=== PATIENT | female | born 1980 | race Caucasian/White ===

== ENCOUNTER 2017-02-02 20:58 | Inpatient (IN) | payer OTHER ==
[~2017-02-02] VITALS: Ht 154.9 cm; Wt 79.5 kg
[~2017-02-02 20:58] MED LIST: ADVIN25/60 INH; ALBU1AER9 INH; CALC-51 PO; CITA40TA4 PO; FERR325T5 PO; MULT-506 PO; OMEP20TA PO
--- NOTE | 2017-02-02 22:03 | EMERGENCY ROOM VISIT NOTE ---
History Report prepared by Amparo: Ingrid Esipnal Under the Supervision of: Lee Ann AntoineO. First contact with patient: 21:49 Chief Complaint: MENTAL HEALTH EVALUATION Stated Complaint: MENTAL HEALTH History of Present Illness The patient is a 36 year old female who presents to the Emergency Room for a mental health evaluation after feeling increasing stress today. The patient states that she has been feeling more stressed out recently and it has been building for a long time. She reports that she has a history of mental health issues and is on medications but note that she missed her medication doses. She notes that she has had multiple episodes of vomiting with the extreme stressed and this has happened before. The patient states that her extreme stress has made her feel more depressed. Her family notes that she has been on the same medication for years and has not seen a psychiatrist to update it. The patient denies any suicidal or homicidal ideation, hallucinations, diarrhea, hematemesis , fever, chills, unusual foods, and changes in medication. She notes that she feels tired but she cannot sleep and this is normal when she is depressed. The patient states that she is on her period and has a history of needing blood transfusion. Source of History: patient Onset: today Position: other (mental health) Quality: other (increased stress) Timing: constant Associated Symptoms: + vomiting, No fevers, No chills, No diarrhea Note: Pt notes worsening depression. The patient denies any suicidal or homicidal ideation, hallucinations, hematemesis, unusual foods, and changes in medication. Review of Systems See HPI for pertinent positives & negatives. A total of 10 systems reviewed and were otherwise negative. Past Medical & Surgical Medical Problems: (1) Anemia (2) Asthma (3) Bipolar 1 disorder (4) Endometriosis (5) GERD (gastroesophageal reflux disease) (6) h/o suicidal ideations (7) HTN (hypertension) (8) Marijuana use (9) Psychosis NOS (10) Tobacco abuse (11) UTI (urinary tract infection) Surgical Problems: (1) Hx of tubal ligation Family History Diabetes mellitus MOTHER FH: heart disease MOTHER ( at age 51 ) Hypertension FATHER MOTHER Social History Smoking Status: Current Every Day Smoker Alcohol Use: none Drug Use: none Marital Status: in relationship Housing Status: lives with family Current/Historical Medications Scheduled Citalopram (Citalopram Hydrobromide), 40 TAB PO DAILY Ferrous Sulfate (Kp Ferrous Sulfate), 1 TAB PO BID Fluticasone Prop/Salmeterol (Advair Diskus 250/50 60 Dose), 1 PUFF INH BID Multivitamin (Multivitamin), 1 TAB PO DAILY Omeprazole (Omeprazole), 20 MG PO DAILY Allergies Coded Allergies: Penicillins (Unverified Allergy, Unknown, RASH, 02/02/17) Physical Exam Vital Signs Date Time Temp Pulse Resp B/P (MAP) Pulse Ox O2 Delivery O2 Flow Rate FiO2 02/03/17 04:43 70 18 156/86 98 Room Air 02/03/17 03:29 79 18 145/85 98 Room Air 02/03/17 01:48 73 18 151/106 96 Room Air 02/02/17 21:14 36.8 85 20 187/126 96 Physical Exam GENERAL: alert, well appearing, well nourished, no distress, non-toxic EYE EXAM: normal conjunctiva, PERRL and EOM's grossly intact OROPHARYNX: no exudate, no erythema, lips, buccal mucosa, and tongue normal and mucous membranes are moist NECK: supple, no nuchal rigidity, no adenopathy, non-tender LUNGS: Clear to auscultation. Normal chest wall mechanics HEART: no murmurs, S1 normal and S2 normal ABDOMEN: abdomen soft, non-tender, normo-active bowel sounds, no masses, no rebound or guarding. BACK: Back is symmetrical on inspection and there is no deformity, no midline tenderness, no CVA tenderness. SKIN: no rashes and no bruising UPPER EXTREMITIES: upper extremities are grossly normal. LOWER EXTREMITIES: No pitting edema. NEURO EXAM: Normal sensorium, cranial nerves II-XII grossly intact, normal speech, no gross weakness of arms, no gross weakness of legs. PSYCH: Flat affect, slow to respond but oriented, denies SI, HI, paranoia, hallucinations. Medical Decision & Procedures Laboratory Results 02/02/17 23:06 Red Blood Count 4.75, Mean Corpuscular Volume 89.9, Mean Corpuscular Hemoglobin 31.4, Mean Corpuscular Hemoglobin Concent 34.9, Mean Platelet Volume 11.7, Neutrophils (%) (Auto) 77.7, Lymphocytes (%) (Auto) 14.1, Monocytes (%) (Auto) 7.2, Eosinophils (%) (Auto) 0.7, Basophils (%) (Auto) 0.2, Neutrophils # (Auto) 8.08, Lymphocytes # (Auto) 1.46, Monocytes # (Auto) 0.75, Eosinophils # (Auto) 0.07, Basophils # (Auto) 0.02 02/02/17 23:06 Test 02/02/17 21:35 02/02/17 23:06 Urine Color ORANGE Urine Appearance CLOUDY (CLEAR) Urine pH 7.0 (4.5-7.5) Urine Specific [place] 1.010 (1.000-1.030) Urine Protein 1+ (NEG) Urine Glucose (UA) NEG (NEG) Urine Ketones 2+ (NEG) Urine Occult Blood 3+ (NEG) Urine Nitrite NEG (NEG) Urine Bilirubin NEG (NEG) Urine Urobilinogen NEG (NEG) Urine Leukocyte Esterase LARGE (NEG) Urine WBC (Auto) >30 /hpf (0-5) Urine RBC (Auto) >30 /hpf (0-4) Urine Hyaline Casts (Auto) 1-5 /lpf (0-5) Urine Epithelial Cells (Auto) 20-30 /lpf (0-5) Urine Bacteria (Auto) 1+ (NEG) Urine Opiates Screen NEG (NEG) Urine Methadone, Qualitative NEG (NEG) Urine Barbiturates NEG (NEG) Urine Phencyclidine (PCP) Level NEG (NEG) Ur Amphetamine/Methamphetamine NEG (NEG) MDMA (Ecstasy) Screen NEG (NEG) Urine Benzodiazepines Screen NEG (NEG) Urine Cocaine Metabolite NEG (NEG) Urine Marijuana (THC) POS (NEG) White Blood Count 10.39 K/uL (4.8-10.8) Red Blood Count 4.75 M/uL (4.2-5.4) Hemoglobin 14.9 g/dL (12.0-16.0) Hematocrit 42.7 % (37-47) Mean Corpuscular Volume 89.9 fL (80-100) Mean Corpuscular Hemoglobin 31.4 pg (25-34) Mean Corpuscular Hemoglobin Concent 34.9 g/dl (32-36) Platelet Count 220 K/uL (130-400) Mean Platelet Volume 11.7 fL (7.4-10.4) Neutrophils (%) (Auto) 77.7 % Lymphocytes (%) (Auto) 14.1 % Monocytes (%) (Auto) 7.2 % Eosinophils (%) (Auto) 0.7 % Basophils (%) (Auto) 0.2 % Neutrophils # (Auto) 8.08 K/uL (1.4-6.5) Lymphocytes # (Auto) 1.46 K/uL (1.2-3.4) Monocytes # (Auto) 0.75 K/uL (0.11-0.59) Eosinophils # (Auto) 0.07 K/uL (0-0.5) Basophils # (Auto) 0.02 K/uL (0-0.2) RDW Standard Deviation 44.9 fL (36.4-46.3) RDW Coefficient of Variation 13.6 % (11.5-14.5) Immature Granulocyte % (Auto) 0.1 % Immature Granulocyte # (Auto) 0.01 K/uL (0.00-0.02) Anion Gap 11.0 mmol/L (3-11) Est Creatinine Clear Calc Drug Dose 126.1 ml/min Estimated GFR () 135.7 Estimated GFR (Non- 117.1 BUN/Creatinine Ratio 7.8 (10-20) Calcium Level 9.5 mg/dl (8.5-10.1) Magnesium Level 2.1 mg/dl (1.8-2.4) Total Bilirubin 0.5 mg/dl (0.2-1) Direct Bilirubin 0.1 mg/dl (0-0.2) Aspartate Amino Transf (AST/SGOT) 15 U/L (15-37) Alanine Aminotransferase (ALT/SGPT) 24 U/L (12-78) Alkaline Phosphatase 78 U/L (45-117) Total Protein 7.5 gm/dl (6.4-8.2) Albumin 3.9 gm/dl (3.4-5.0) Thyroid Stimulating Hormone (TSH) 0.472 uIu/ml (0.300-4.500) Human Chorionic Gonadotropin, Qual NEG (NEG) Ethyl Alcohol mg/dL < 3.0 mg/dl (0-3) Laboratory results per my review. Medications Administered Medications (Trade) Dose Ordered Sig/Alvarado Route Start Time Stop Time Status Last Admin Dose Admin Cephalexin Monohydrate (Keflex Cap) 500 mg NOW ONCE PO 02/02/17 23:30 02/02/17 23:31 DC 02/02/17 23:38 500 MG Phenazopyridine HCl (Pyridium Tab) 200 mg NOW STAT PO 02/03/17 01:21 02/03/17 01:22 DC 02/03/17 01:30 200 MG Ondansetron HCl (Zofran Odt) 4 mg ONE ONCE PO 02/03/17 02:45 02/03/17 02:46 DC 02/03/17 02:45 4 MG Potassium Chloride (Klor-Con M10) 40 meq NOW STAT PO 02/03/17 02:33 02/03/17 02:34 DC 02/03/17 02:46 40 MEQ Haloperidol (Haldol Tab) 5 mg NOW STAT PO 02/03/17 02:34 02/03/17 02:37 DC 02/03/17 02:45 5 MG Lorazepam (Ativan Tab) 0.5 mg NOW STAT PO 02/03/17 02:34 02/03/17 02:37 DC 02/03/17 02:45 0.5 MG ECG Indication: vomiting Rate (beats per minute): 67 Rhythm: normal sinus Findings: T-wave inversion (V2) Change: baseline artifact noted ED Course 9: The patient was evaluated in room A5. A complete history and physical exam was performed. 2330: Keflex Cap 500mg PO. 0028: Pt seen by crisis briefcase sewer, discussed with family, similar presentations previously and hx of prior suicide attempt. Hx of schizophrenia/bipolar. Pt recently took herself off of her meds. 0121: Pyridium Tab 200mg PO. 0202: The patient is going to be seen at [address] [place] [address] for further evaluation and management. 0214: Upon reevaluation, the patient is doing well. I discussed the findings and the treatment plan with the patient. She expresses agreement and understanding. She will be evaluated for further management. 0237: Pt seen by . Voluntary signed. Medical Decision Differential diagnosis: Etiologies such as mood disorder, infection, hypoglycemia, electrolyte abnormalities, cardiac sources, intracerebral event, toxicologic, neurologic, as well as others were entertained. Abnormal UA possibly due to menses and suboptimal specimen however sent for culture and pt started on antibiotics as a precaution. Pt given oral potassium replacement, and given medication to help with her anxiety and lack of sleep. Pt otherwise medically clear. Medication Reconcilliation Current Medication List: was personally reviewed by me Blood Pressure Screening Patient's blood pressure: Elevated blood pressure Blood pressure disposition: Elevated BP felt to be situational Impression Primary Impression: Depression Additional Impressions: Schizophrenia Hypokalemia UTI (urinary tract infection) Scribe Attestation The scribe's documentation has been prepared under my direction and personally reviewed by me in its entirety. I confirm that the note above accurately reflects all work, treatment, procedures, and medical decision making performed by me. Departure Information Referrals Eliceo Almodovar M.D. (PCP) Patient Instructions My [facility] Problem Qualifiers Primary Impression: Depression Depression Type: unspecified Qualified Codes: F32.9 - Major depressive disorder, single episode, unspecified Additional Impressions: Schizophrenia Schizophrenia type: unspecified Qualified Codes: F20.9 - Schizophrenia, unspecified UTI (urinary tract infection) Urinary tract infection type: acute cystitis Hematuria presence: with hematuria Qualified Codes: N30.01 - Acute cystitis with hematuria
[2017-02-02 22:44] LABS: BENZODIAZEPINE, URINE NEG (NEG); COCAINE,URINE NEG (NEG); PHENCYCLIDINE, URINE NEG (NEG)
[2017-02-02 22:49] LABS: URINE APPEARANCE CLOUDY (CLEAR); URINE BILIRUBIN NEG (NEG); URINE COLOR ORANGE; URINE EPITHELIAL CELL AUTO 20-30 /lpf (0-5); URINE NITRITE NEG (NEG); UROBILINOGEN NEG (NEG); ZZUR CULT IF INDIC CLEAN CATCH YES
[2017-02-02 22:51] LABS: MANUAL MICROSCOPIC REQUIRED? NO; REVIEW REQ? NO
[2017-02-02 23:18] LABS: BASO % 0.2 %; BASO ABS # 0.02 K/uL (0-0.2); COMPLETE YES; EOS % 0.7 %; HEMATOCRIT 42.7 % (37-47); IG% 0.1 %; LYMPH % 14.1 %; LYMPH ABS # 1.46 K/uL (1.2-3.4); MEAN CELL VOLUME 89.9 fL (80-100); MEAN CORPUSCULAR HEMOGLOBIN 31.4 pg (25-34); MEAN CORPUSCULAR HGB CONC 34.9 g/dl (32-36); MEAN PLATELET VOLUME 11.7 fL (7.4-10.4); MONO % 7.2 %; NEUT % 77.7 %; PLATELET COUNT 220 K/uL (130-400); RED BLOOD COUNT 4.75 M/uL (4.2-5.4); WHITE BLOOD COUNT 10.39 K/uL (4.8-10.8)
[2017-02-02] MEDS ORDERED: CEPHALEXIN MONOHYDRATE 250 MG CAP PO ONE (23:30)
[2017-02-02 23:39] LABS: BUN/CREATININE RATIO 7.8 (10-20); CALCIUM 9.5 mg/dl (8.5-10.1); CREATININE 0.59 mg/dl (0.60-1.20); MAGNESIUM 2.1 mg/dl (1.8-2.4); POTASSIUM 2.8 mmol/L (3.5-5.1)
[2017-02-02] MEDS ORDERED: FERR1TAB13 PO (23:42)
[2017-02-02 23:50] LABS: THYROID STIMULATING HORMONE 0.472 uIu/ml (0.300-4.500)
[2017-02-03 00:10] LABS: PREG INTERNAL NEGATIVE QC NEG CLEAR BACKGROUND; PREG INTERNAL POSITIVE QC POS CONTROL LINE
[2017-02-03] MEDS ORDERED: PHENAZOPYRIDINE HCL 200 MG TAB PO STA (01:21)
[2017-02-03] MEDS ORDERED: POTASSIUM CHLORIDE 10 MEQ TABCR PO STA (02:33)
[2017-02-03] MEDS ORDERED: HALOPERIDOL 5 MG TAB PO STA (02:34)
[2017-02-03] MEDS ORDERED: LORAZEPAM 0.5 MG TAB PO STA (02:34)
[2017-02-03] MEDS ORDERED: ONDANSETRON 4MG OD TAB PO ONE (02:45)
[2017-02-03 04:43] VITALS: O2SAT 98
[2017-02-03] MEDS ORDERED: NURSING VERBAL MED ORDER ONE ×2 (05:00)
[2017-02-03 05:44] VITALS: BP 156/86; PULSE 70; TEMP 36.8; Ht 154.9 cm; Wt 79.5 kg
[2017-02-03] MEDS ORDERED: MAGNESIUM HYDROXIDE SUSP 30 ML UDC PO PRN (05:45)
[2017-02-03] MEDS ORDERED: BISMUTH SUBSALICYLATE PER ML OMNICELL CHARGE PO PRN (05:45)
[2017-02-03] MEDS ORDERED: ACETAMINOPHEN 325 MG TAB PO PRN (05:45)
[2017-02-03] MEDS ORDERED: SODIUM CHLORIDE 0.65% NA SOLN 45 ML (OCEAN) PRN (05:45)
[2017-02-03] MEDS ORDERED: hydrOXYzine HCL 25 MG TAB PO PRN ×2 (05:45)
[2017-02-03 07:04] VITALS: BP 156/86; PULSE 70; TEMP 36.8
--- NOTE | 2017-02-03 08:38 | Psychiatric History & Physical ---
History Date of Service Feb 03, 2017. Identifying Data Lilli Cintron is a 36-year-old female with a self-reported history of schizoaffective disorder who currently lives in [place] with her significant other and two teenage children. Lilli Cintron was admitted on a 201 voluntary commitment. Patient is admitted from home. The patient was brought to the ED by the family. Information provided by the patient is considered to be partially reliable. Chief Complaint "I have my period and I don't have any pads". History of Present Illness Lilli presented to the Emergency Room for a mental health evaluation as she has been increasingly stressed to the point that she has vomited multiple times. She endorsed depression, has been on the same medication for years and has not seen a psychiatrist to adjust it. She was seen with her significant other, who said he left the home about 2 weeks ago because Lilli was "acting the same way she did right before her last admission to the mental health floors. Intense rage one minute, then depressed the next." The patient was a limited historian, was slow to answer, and seemed confused. She reported she hadn't slept for an undetermined amount of days, and hasn't been able to eat. She did not know what her MH diagnosis is, "I can't think". She said she used to have a psychiatrist but has not been able to start again with one because of insurance issues. She denied drug use, but her drug screen was positive for marijuana. She has two children, ages 14 & 15, who live with her. Her significant other said her children told him the patient has been "talking out of her head and not making sense." Initially, she was resistant to the idea of admission, but after talking to the child welfare caseworker, was willing. She is prescribed citalopram currently. She received Haldol and Ativan in the ER as she was delayed, thought blocked, and paranoid. Per notes, she allowed her Medicare to lapse so lost insurance, and has not been compliant with her medication. Today, she says she came to the ER because she was "depressed, constantly thinking, couldn't sleep." She cannot say how this has been going on, "no idea. " She has had mental health issues since she was 4 years old, and says she has been diagnosed with "bipolar schizophrenic." She has seen outpatient mental health clinicians in the past, but cannot recall how long ago. Her PCP currently prescribes her meds, including citalopram. She is not sure if it helps. She describes disorganized thoughts, "just a bunch of stuff that doesn't make no sense." She admits to paranoia, "like I'm scared and thinking people's out to get me and hurt me," but denies a plan or intent to harm herself. Paranoia with fears that she is in danger, "everything, panicking about the epperson and stuff, thinking there's stuff in there." Denies that there were specific people out to get her. Denies AVH and ideas of reference. Admits to thought blocking and feeling confused. She says she has not been doing ADLs or taking care of herself, "I'm doing everything backwards," can't explain further. Not sure when she last bathed, and was not eating, 'I didn't feel hungry." She is not sure if she lost weight, "it says it on the calendar, but I don't know." She has not been making food for herself or her kids, and says they have been making food for her. She says she has been driving to her job at [employer], but is not sure when she last went to work. She thinks she has had euphoric mood in the past "when I was with my family," but cannot give further information. She denies anxiety currently. Past Psychiatric History Current OP Treatment: no current treatment (PCP prescribes medications) Prior OP Treatment: psychiatrist (can't recall whom or when) Prior Psych Hospitalizations: other (Patient denies any past admissions, but her significant other states she has been admitted to [facility] and [facility] in the past. One admission 201 and one 302.) Access to a Gun: No Suicide Attempts: Yes (OD of "pills," unable to clarify when the OD was other than saying it was "years ago. That's when the 302 happened". ) Past Medication Trials Seroquel and Depakote - made her "like a zombie" Past Medical/Surgical History History of Concussion/Seizure: No (1) Anemia (2) GERD (gastroesophageal reflux disease) (3) Tobacco abuse (4) HTN (hypertension) (5) Marijuana use (6) Asthma (7) Endometriosis PCP is Dr. Almodovar , menstruating currently. S/P tubal ligation. Allergies Allergies: Coded Allergies: Penicillins (Unverified Allergy, Unknown, RASH, 02/02/17) Home Medications Scheduled Citalopram (Citalopram Hydrobromide), 40 TAB PO DAILY Ferrous Sulfate (Kp Ferrous Sulfate), 1 TAB PO BID Fluticasone Prop/Salmeterol (Advair Diskus 250/50 60 Dose), 1 PUFF INH BID Multivitamin (Multivitamin), 1 TAB PO DAILY Omeprazole (Omeprazole), 20 MG PO DAILY Family History Diabetes mellitus MOTHER FH: heart disease MOTHER ( at age 51 ) Hypertension FATHER MOTHER Alcohol Use Alcohol Use In Past 12 Months: Yes ("Occassional") AUDIT Total Score: 0 Smoking Use Smoking Status: Never Smoker (but has nicotine abuse listed as chronic medical problem) Personal History Lives in: [place] Childhood: Grew up in [place], raised by both parents until 4 years old, then moved with mom and 2 sisters to another town "[facility] [address]," and dad left and got a new girlfriend. Was then raised by mother predominantly. Mom , not sure when. Is close with sister Jovana, who lives in [place]. Other sister lives in [place]. Also has a half sister She in [place]. No contact with dad, "he was a bad person." Education: graduated from high school ("I was in special classes for everything.") Work History: [employer], cannot say for how long (couple weeks?). Denies that she ever worker before, "thought I couldn't deal with it." Relationship History: ("for a while," cannot recall how long) Children: 2, ages 13 (Rodrigo Arechiga, male), and 15 (Michael Aicha Arechiga, female) Spiritual Affiliation: "I believe in God." Legal History: none Psychological Trauma History: Denies Hx Traumatic Event Additional Comments: States left at some point, "to get away from me," can't recall when. Has been living with kids alone for undetermined amount of time. Says her kids have not been going to school "for a while" and have been staying home with her "to help me, because they know I have a problem." She is not sure who is caring for her kids now. She says her sister is supportive and lives in [place]. Review of Systems 10 systems reviewed, all negative except diarrhea and vomiting yesterday, and those stated above. Examination Physical Examination A physical exam was performed in the ER prior to admission to the unit by Dr. Lilia Davenport. I accept that physical as correct/medical clearance for the inpatient physical exam. Vital Signs Vital Signs Past 12 Hours Date Time Temp Pulse Resp B/P (MAP) Pulse Ox O2 Delivery O2 Flow Rate FiO2 02/03/17 07:04 36.8 70 18 156/86 02/03/17 05:44 36.8 70 18 156/86 02/03/17 04:43 70 18 156/86 98 Room Air 02/03/17 03:29 79 18 145/85 98 Room Air 02/03/17 01:48 73 18 151/106 96 Room Air 02/02/17 21:14 36.8 85 20 187/126 96 Laboratory Results Last 24 Hours Test 02/02/17 21:35 02/02/17 23:06 02/03/17 05:12 Urine Color ORANGE Urine Appearance CLOUDY Urine pH 7.0 Urine Specific [place] 1.010 Urine Protein 1+ Urine Glucose (UA) NEG Urine Ketones 2+ Urine Occult Blood 3+ Urine Nitrite NEG Urine Bilirubin NEG Urine Urobilinogen NEG Urine Leukocyte Esterase LARGE Urine WBC (Auto) >30 /hpf Urine RBC (Auto) >30 /hpf Urine Hyaline Casts (Auto) 1-5 /lpf Urine Epithelial Cells (Auto) 20-30 /lpf Urine Bacteria (Auto) 1+ Urine Opiates Screen NEG Urine Methadone, Qualitative NEG Urine Barbiturates NEG Urine Phencyclidine (PCP) Level NEG Ur Amphetamine/Methamphetamine NEG MDMA (Ecstasy) Screen NEG Urine Benzodiazepines Screen NEG Urine Cocaine Metabolite NEG Urine Marijuana (THC) POS White Blood Count 10.39 K/uL Red Blood Count 4.75 M/uL Hemoglobin 14.9 g/dL Hematocrit 42.7 % Mean Corpuscular Volume 89.9 fL Mean Corpuscular Hemoglobin 31.4 pg Mean Corpuscular Hemoglobin Concent 34.9 g/dl Platelet Count 220 K/uL Mean Platelet Volume 11.7 fL Neutrophils (%) (Auto) 77.7 % Lymphocytes (%) (Auto) 14.1 % Monocytes (%) (Auto) 7.2 % Eosinophils (%) (Auto) 0.7 % Basophils (%) (Auto) 0.2 % Neutrophils # (Auto) 8.08 K/uL Lymphocytes # (Auto) 1.46 K/uL Monocytes # (Auto) 0.75 K/uL Eosinophils # (Auto) 0.07 K/uL Basophils # (Auto) 0.02 K/uL RDW Standard Deviation 44.9 fL RDW Coefficient of Variation 13.6 % Immature Granulocyte % (Auto) 0.1 % Immature Granulocyte # (Auto) 0.01 K/uL Sodium Level 137 mmol/L Potassium Level 2.8 mmol/L 3.0 mmol/L Chloride Level 103 mmol/L Carbon Dioxide Level 24 mmol/L Anion Gap 11.0 mmol/L Blood Urea Nitrogen 5 mg/dl Creatinine 0.59 mg/dl Est Creatinine Clear Calc Drug Dose 126.1 ml/min Estimated GFR () 135.7 Estimated GFR (Non- 117.1 BUN/Creatinine Ratio 7.8 Random Glucose 91 mg/dl Calcium Level 9.5 mg/dl Magnesium Level 2.1 mg/dl Total Bilirubin 0.5 mg/dl Direct Bilirubin 0.1 mg/dl Aspartate Amino Transf (AST/SGOT) 15 U/L Alanine Aminotransferase (ALT/SGPT) 24 U/L Alkaline Phosphatase 78 U/L Total Protein 7.5 gm/dl Albumin 3.9 gm/dl Thyroid Stimulating Hormone (TSH) 0.472 uIu/ml Human Chorionic Gonadotropin, Qual NEG Ethyl Alcohol mg/dL < 3.0 mg/dl Chemistry Specimen Hemolysis Mental Examination During interview pt is: alert and oriented (to year, date, day, month, hospital (but not specific name). Not to town, county, or state.) Appearance: appropriately dressed, appropriately groomed Eye contact is: fair Motor behavior is: steady gait & station, no abnormal motor movements Speech: normal in rate, rhythm & volume (delayed at times) Affect: mood congruent, depressed, other (confused) Mood is: depressed Thought process: concrete, other (gives vague answers, at times answers with unrelated information) Thought content: reality based without delusions Suicidal thought are: present, Plan: denied, Intent: denied Homicidal thoughts are: denied Hallucinations: denies auditory (but appears to be responding to internal stimuli at times), denies visual Cognition: language grossly intact, other (memory and attention) Intelligence estimated to be: below average Insight: impaired Judgement: impaired Impression / Recommendations Impression 36-year-old white female with a self-reported history of schizophrenia and bipolar disorder who presents with psychosis, including paranoia, thought blocking, and severe thought disorganization. She has not been able to function or care for herself, and indicates that her left her alone with HER-2 minor children because of how mentally unstable she was. She has not been eating, performing ADLs, going to work, or caring for her children due to her psychosis. She is a very poor historian due to her psychotic thought process, but indicates that she does not have any mental health providers and is only prescribed citalopram from her PCP. She requires inpatient treatment due to the severity of her psychotic illness and the need for appropriate medication, as well as intervention regarding the situation at home, including a mandated CYS report, family meeting with her , and referral for appropriate outpatient mental healthcare. Inpatient treatment as the least restrictive option at this time. Inventory Assets Strengths: Supportive family, has housing Risk Factors Assessment : Yes /single/: No Higher / Fall in social status: No Access to guns: No Health problems: Yes Mental Health Diagnoses: Yes Substance use disorders: Yes Previous attempt: Yes Previous psychiatric stay: Yes Hopelessness: No Smoker: No Protective Factors Assessment Taoism beliefs: Yes : Yes Responsible for young children: Yes Employed: Yes Stable relationships: No Supportive family: Yes (sister) Good rapport with provider: No Recommendations (1) Psychosis NOS Attempt to get records and collateral to clarify diagnosis. Very disorganized, and poor historian. Differential diagnosis includes substance induced psychosis , schizoaffective disorder, psychotic depression, schizophrenia. Continue citalopram 40mg daily and monitor mood. Start risperidone 0.5mg bid and 0.5mg q 4 hrs prn psychosis, and get fasting labs tomorrow for baseline on an atypical antipsychotic. Reviewed need for an antipsychotic and side effects. Will need psychiatric aftercare. Family meeting with . Advised patient a mandated CYS report will be made due to her report that left her with 2 minor children while she was psychiatrically unstable and they have not been going to school. (2) Marijuana use Educate about the risks of cannabis use, including worsening mood and psychosis , and recommendations for abstinence. She indicates she knows she should not smoke pot, but has continued to do so for unclear reasons. Continue to educate and work on plan for abstinence as psychosis improves. (3) HTN (hypertension) Not on antihypertensives at home, will monitor BP here. (4) Asthma Continue home meds. (5) UTI (urinary tract infection) UA shows 2+ ketones, 3+ blood, large leukocyte esterase, greater than 30 white cells and red cells, and 1+ bacteria. This may be a contaminated sample, has 20 -30 epithelial cells, but we will follow up on the urine culture. The patient denies urinary urgency, frequency, and dysuria. CPT Code Initial Hospital Care: [id number]
[2017-02-03] MEDS ORDERED: RISPERIDONE 0.5 MG TAB PO PRN (10:45)
[2017-02-03] MEDS ORDERED: RISPERIDONE ODT 0.5MG PO ONE (10:45)
[2017-02-03] MEDS: RISPERIDONE ODT 0.5MG PO SCH (21:17)
[2017-02-04 06:50] VITALS: BP_SYST 130; BP_SYST 137; BP_DIAS 85; BP_DIAS 88; PULSE 88; PULSE 90; TEMP 36.7
[2017-02-04] MEDS: RISPERIDONE ODT 0.5MG PO SCH (09:01)
[2017-02-04 09:04] LABS: CHOLESTEROL/HDL RATIO 2.8
[2017-02-04] MEDS: CITALOPRAM 40 MG TAB PO SCH (10:09)
--- NOTE | 2017-02-04 12:02 | Psychiatric Progress Notes ---
Progress Note Date of Service Feb 04, 2017. Interval History Lilli Cintron is a 36-year-old female with a self-reported history of schizoaffective disorder who currently lives in [place] with her significant other and two teenage children. Lilli Cintron was admitted on a 201 voluntary commitment. Patient is admitted from home. The patient was brought to the ED by the family. Information provided by the patient is considered to be partially reliable. Chief Complaint "Not good, I'm confused". Subjective Patient was seen & assessed interval progress reviewed with Nursing. Staff report the patient's significant other, Ed, was contacted and clarified that although they have been together for many years, they are not . He also stated that the patient has been more aggressive and "raging" lately, has been paranoid, thinking that people are after her, and that this has caused problems in their relationship. He said she has not seen a psychiatrist in over 8 years , but previously saw someone in [place]. The patient is attending groups, but is confused, often answering with unrelated information. She has been paranoid, thinking that staff is laughing at her, and lacks insight. Today, the patient is tearful, stating she is confused and worried that "my family won't take me back home." She can't explain this further, and says when she talked to her significant other he told her he'd bring some things from her house. She says she thinks she should "just go home with him today when he comes, take care of what I need to take care of, housework and stuff, I have a job I need to get to, I don't like missing work." She says she came here to "get my meds changed, and it doesn't seem like anyone's changing it." Reviewed her treatment plan and the med changes made. She says she did not sleep at all, but staff recorded 8 hours of sleep and she appeared to sleep well. She gives conflicting reporting about her appetite, "I'm not hungry," "I am hungry, I'm eating." She reports frequent tearfulness, ongoing paranoia, and confusion. She admits to having "rages" which she describes as "yell and scream and holler," admits to throwing and breaking things, but denies aggression towards others. She became increasingly agitated as the interview progressed, saying she wants therapy in [place], and feels she is being "ignored, when I ask you guys a question, when I ask for guidance, you's ignore me." She says she is angry and "has mixed emotions." She repeatedly asks if I am telling her the truth when answering her questions about medications. She asks multiple times what medications she is on, does not seem to remember that she was just given this information. She was encouraged to write these things down in her patient handbook, but states she has difficulty with reading and writing. We reviewed her treatment plan and goals to work on prior to discharge, including getting her on medication for mood stabilization and her thinking, family meeting with her significant other, and arranging aftercare. Sleep Information Total Hours of Sleep: 8.00 Meal Information Percent of Breakfast Consumed: 100 Percent of Lunch Consumed: 100 Percent of Dinner Consumed: 75 Mental Status Exam During interview pt is: alert and oriented Appearance: appropriately dressed, appropriately groomed Eye contact is: poor Motor behavior is: steady gait & station, no abnormal motor movements Speech: normal in rate, rhythm & volume Affect: mood congruent, depressed, tearful, labile, irritable, anxious, other ( confused) Mood is: other ("all over the place.") Thought process: concrete, other (gives vague answers, at times answers with unrelated information) Thought content: reality based without delusions Suicidal thought are: denied Homicidal thoughts are: denied Hallucinations: denies auditory (but appears to be responding to internal stimuli at times), denies visual Cognition: language grossly intact, other (memory and attention impaired by psychosis) Intelligence estimated to be: below average Insight: impaired Judgement: impaired Medication Trials (1) Past Psychiatric Medications Seroquel and Depakote - made her like a zombie Unsure if she has had other med trials Last Edited By: Terese Banegas on Feb 04, 2017 12:01 Impression 36-year-old white female with a self-reported history of schizophrenia and bipolar disorder who presents with psychosis, including paranoia, thought blocking, and severe thought disorganization. She has not been able to function or care for herself, and indicates that her significant other left her a couple of weeks ago because of her instability, so she has been home alone with her 2 minor children. She has not been eating, performing ADLs, going to work, or caring for her children due to her psychosis. She is a very poor historian due to her psychotic thought process, but indicates that she does not have any mental health providers and is only prescribed citalopram from her PCP. She requires inpatient treatment due to the severity of her psychotic illness and the need for appropriate medication, as well as intervention regarding the situation at home, including a mandated CYS report, family meeting with her , and referral for appropriate outpatient mental healthcare. Inpatient treatment as the least restrictive option at this time. Plan (1) Psychosis NOS Attempt to get records and collateral to clarify diagnosis. Very disorganized, and poor historian. Differential diagnosis includes substance induced psychosis , schizoaffective disorder, psychotic depression, schizophrenia. Continue citalopram 40mg daily and monitor mood. Start risperidone 0.5mg bid and 0.5mg q 4 hrs prn psychosis, and get fasting labs tomorrow for baseline on an atypical antipsychotic. Reviewed need for an antipsychotic and side effects. Will need psychiatric aftercare. Family meeting with . Advised patient a mandated CYS report will be made due to her report that left her with 2 minor children while she was psychiatrically unstable and they have not been going to school. 02/04 - fasting lipid profile within normal limits, and fasting glucose elevated at 110. Increase risperidone to 1 mg twice a day. Patient does demonstrate mood lability with significant irritability and tearfulness, but is sleeping well. Consider decreasing citalopram dose if she appears more manic. When she is less psychotic, we should attempt to get more information about past mood stabilizer trials. She is refusing to retrial Depakote. - She is not yet stable enough for a family meeting with her significant other. - She is committable if she requests to leave, as she has severely unstable mood and psychosis, is not available to provide for her own basic needs, and had not been caring for herself at home to the point that she had hypokalemia. (2) Marijuana use Educate about the risks of cannabis use, including worsening mood and psychosis , and recommendations for abstinence. She indicates she knows she should not smoke pot, but has continued to do so for unclear reasons. Continue to educate and work on plan for abstinence as psychosis improves. (3) HTN (hypertension) Not on antihypertensives at home, will monitor BP here. 02/04 - blood pressure and pulse normal this morning, continue to monitor. (4) Asthma Continue home meds. (5) UTI (urinary tract infection) UA shows 2+ ketones, 3+ blood, large leukocyte esterase, greater than 30 white cells and red cells, and 1+ bacteria. This may be a contaminated sample, has 20 -30 epithelial cells, but we will follow up on the urine culture. The patient denies urinary urgency, frequency, and dysuria. 02/04 - preliminary culture results are positive for Streptococcus species, awaiting final culture and sensitivity. She may need antibiotic treatment. (6) Hypokalemia 02/04/17 - On initial presentation in the emergency room 02/02/2017, potassium was 2.8, and on recheck 02/03/2017 and was 3.0. She is eating well here, and I have ordered a basic metabolic panel for tomorrow. Discharge / Aftercare Planning Primary Care Physician: Name: Dr Almodovar Therapist: Name: "I use to have one in [place]" Electromechanical Inspector: Name: Blanca Visit Code E&M Code: 46506 Inventory Assets Strengths: Supportive family, has housing Risk Factors Assessment : Yes /single/: No Higher / Fall in social status: No Health problems: Yes Mental Health Diagnoses: Yes Substance use disorders: Yes Previous attempt: Yes Previous psychiatric stay: Yes Hopelessness: No Smoker: No Protective Factors Assessment Presybeterian beliefs: Yes : Yes Responsible for young children: Yes Employed: Yes Stable relationships: No Supportive family: Yes (sister) Good rapport with provider: No Data Vital Signs Last 24 Hrs: Date Time Temp Pulse Resp B/P (MAP) Pulse Ox O2 Delivery O2 Flow Rate FiO2 02/04/17 06:50 36.7 90 16 137/88 88 130/85 Meds Administered Last 24 Hrs: Meds Administered (Past 24Hrs) Medications (Trade) Dose Ordered Sig/Alvarado Route Start Time Stop Time Status Last Admin Dose Admin Cephalexin Monohydrate (Keflex Cap) 500 mg NOW ONCE PO 02/02/17 23:30 02/02/17 23:31 DC 02/02/17 23:38 500 MG Phenazopyridine HCl (Pyridium Tab) 200 mg NOW STAT PO 02/03/17 01:21 02/03/17 01:22 DC 02/03/17 01:30 200 MG Ondansetron HCl (Zofran Odt) 4 mg ONE ONCE PO 02/03/17 02:45 02/03/17 02:46 DC 02/03/17 02:45 4 MG Potassium Chloride (Klor-Con M10) 40 meq NOW STAT PO 02/03/17 02:33 02/03/17 02:34 DC 02/03/17 02:46 40 MEQ Haloperidol (Haldol Tab) 5 mg NOW STAT PO 02/03/17 02:34 02/03/17 02:37 DC 02/03/17 02:45 5 MG Lorazepam (Ativan Tab) 0.5 mg NOW STAT PO 02/03/17 02:34 02/03/17 02:37 DC 02/03/17 02:45 0.5 MG Risperidone (Risperdal M Tab) 0.5 mg BID PO 02/03/17 22:00 03/05/17 21:59 02/04/17 09:01 0.5 MG Risperidone (Risperdal M Tab) 0.5 mg NOW ONCE PO 02/03/17 10:45 02/03/17 10:46 DC 02/03/17 12:03 0.5 MG Citalopram Hydrobromide (celeXA TAB) 40 mg QAM PO 02/04/17 10:00 03/06/17 09:59 02/04/17 10:09 40 MG Lab Results Last 24 Hrs: Last 24 Hours Test 02/04/17 08:18 Fasting Glucose 110 mg/dl Triglycerides Level 72 mg/dl Cholesterol Level 123 mg/dl HDL Cholesterol 44 mg/dl LDL Cholesterol, Calculated 65 mg/dl VLDL Cholesterol, Calculated 14 mg/dl Cholesterol/HDL Ratio 2.8
[2017-02-04] MEDS ORDERED: RISPERIDONE 1 MG TAB PO PRN (12:15)
[2017-02-04] MEDS ORDERED: NURSING VERBAL MED ORDER ONE (16:15)
[2017-02-04] MEDS ORDERED: NITROFURANTOIN MONOHYDRATE 100 MG CAP PO ONE (17:30)
[2017-02-04] MEDS: NITROFURANTOIN MONOHYDRATE 100 MG CAP PO SCH (21:45)
[2017-02-04] MEDS: RISPERIDONE 1 MG TAB PO SCH (21:45)
[2017-02-05 07:06] VITALS: BP_SYST 132; BP_SYST 139; BP_DIAS 80; BP_DIAS 84; PULSE 108; PULSE 96; TEMP 37.1
[2017-02-05 07:44] LABS: CALCIUM 9.4 mg/dl (8.5-10.1); CREATININE 0.69 mg/dl (0.60-1.20); POTASSIUM 3.9 mmol/L (3.5-5.1)
[2017-02-05] MEDS: CITALOPRAM 40 MG TAB PO SCH (10:34)
[2017-02-05] MEDS: RISPERIDONE 1 MG TAB PO SCH (10:34)
[2017-02-05] MEDS: NITROFURANTOIN MONOHYDRATE 100 MG CAP PO SCH ×2 (10:34→21:37)
--- NOTE | 2017-02-05 12:20 | Psychiatric Progress Notes ---
Progress Note Date of Service Feb 05, 2017. Interval History Lilli Cintron is a 36-year-old female with a self-reported history of schizoaffective disorder who currently lives in [place] with her significant other and two teenage children. Lilli Cintron was admitted on a 201 voluntary commitment. Patient is admitted from home. The patient was brought to the ED by the family. Information provided by the patient is considered to be partially reliable. Chief Complaint "I think people are out to get me.". Subjective Patient was seen & assessed interval progress reviewed with Treatment Team. The patient says that she got her period today and is feeling very tired, which is not usual for her. Says she normally takes daily iron pills daily for this. She admits to ongoing paranoia, saying that she feels people here are out to get her and is paranoid about the food. She was able to ask me if that is true and we processed. She denies that she is having any aud/vis hallucinations. Her thoughts are very concrete, ie I asked her if she was sleeping ok and she said, "No, I'm here talking to you.", but when rephrased says that she slept well last night. She denies other side effects to meds other than fatigue. Review of Systems Constitutional: + fatigue ENT: No hearing loss, No unusual epistaxis, No nasal symptoms, No sore throat, No tinnitus, No dental problems, No trouble swallowing, No problem reported Respiratory: No cough, No sputum, No wheezing, No shortness of breath, No dyspnea on exertion, No dyspnea at rest, No hemoptysis, No problem reported Cardiovascular: No chest pain, No orthopnea, No PND, No edema, No claudication , No palpitations, No problem reported Abdomen: No pain, No nausea, No vomiting, No diarrhea, No constipation, No GI bleeding, No problem reported Musculoskeletal: No joint pain, No muscle pain, No swelling, No calf pain, No problem reported Neurologic: No memory loss, No paralysis, No weakness, No numbness/tingling, No vertigo, No balance problems, No problem reported Psychiatric: + problem reported (paranoid) Integumentary: No rash, No itch, No new/changing skin lesions, No color change , No bleeding, No problem reported Sleep Information Total Hours of Sleep: 6.75 Meal Information Percent of Breakfast Consumed: 0 Percent of Lunch Consumed: 90 Percent of Dinner Consumed: 100 Mental Status Exam During interview pt is: alert and oriented, cooperative Appearance: appropriately dressed, appropriately groomed Eye contact is: fair Motor behavior is: steady gait & station, no abnormal motor movements Speech: normal in rate, rhythm & volume Affect: mood congruent, depressed, anxious Mood is: depressed, other (paranoid) Thought process: concrete Thought content: paranoid, delusions Suicidal thought are: denied Homicidal thoughts are: denied Hallucinations: denies auditory, denies visual Cognition: language grossly intact, other (memory and attention impaired by psychosis) Intelligence estimated to be: below average Insight: impaired Judgement: impaired Medication Trials (1) Past Psychiatric Medications Seroquel and Depakote - made her like a zombie Unsure if she has had other med trials Last Edited By: Terese Banegas on Feb 04, 2017 12:01 Impression The patient just got her period and may contribute to worsening symptoms. Is clearly paranoid, feeling people here are out to get her and that the food has been tampered with. Will increase Risperdal to 1 mg. AM and 2 mg. HS and order her iron supplementation. Plan (1) Psychosis NOS Attempt to get records and collateral to clarify diagnosis. Very disorganized, and poor historian. Differential diagnosis includes substance induced psychosis , schizoaffective disorder, psychotic depression, schizophrenia. Continue citalopram 40mg daily and monitor mood. Start risperidone 0.5mg bid and 0.5mg q 4 hrs prn psychosis, and get fasting labs tomorrow for baseline on an atypical antipsychotic. Reviewed need for an antipsychotic and side effects. Will need psychiatric aftercare. Family meeting with . Advised patient a mandated CYS report will be made due to her report that left her with 2 minor children while she was psychiatrically unstable and they have not been going to school. 02/04 - fasting lipid profile within normal limits, and fasting glucose elevated at 110. Increase risperidone to 1 mg twice a day. Patient does demonstrate mood lability with significant irritability and tearfulness, but is sleeping well. Consider decreasing citalopram dose if she appears more manic. When she is less psychotic, we should attempt to get more information about past mood stabilizer trials. She is refusing to retrial Depakote. - She is not yet stable enough for a family meeting with her significant other. - She is committable if she requests to leave, as she has severely unstable mood and psychosis, is not available to provide for her own basic needs, and had not been caring for herself at home to the point that she had hypokalemia. 02/05 - Increase risperdal to 1 mg. AM and 2 mg. HS for paranoia and delusions (2) Marijuana use Educate about the risks of cannabis use, including worsening mood and psychosis , and recommendations for abstinence. She indicates she knows she should not smoke pot, but has continued to do so for unclear reasons. Continue to educate and work on plan for abstinence as psychosis improves. (3) HTN (hypertension) Not on antihypertensives at home, will monitor BP here. 02/04 - blood pressure and pulse normal this morning, continue to monitor. (4) Asthma Continue home meds. (5) UTI (urinary tract infection) UA shows 2+ ketones, 3+ blood, large leukocyte esterase, greater than 30 white cells and red cells, and 1+ bacteria. This may be a contaminated sample, has 20 -30 epithelial cells, but we will follow up on the urine culture. The patient denies urinary urgency, frequency, and dysuria. 02/04 - preliminary culture results are positive for Streptococcus species, awaiting final culture and sensitivity. She may need antibiotic treatment. (6) Hypokalemia 02/04/17 - On initial presentation in the emergency room 02/02/2017, potassium was 2.8, and on recheck 02/03/2017 and was 3.0. She is eating well here, and I have ordered a basic metabolic panel for tomorrow. Discharge / Aftercare Planning Primary Care Physician: Name: Dr Almodovar Therapist: Name: "I use to have one in [place]" Naval Aircrewman: Name: Blanca Visit Code E&M Code: 98222 Inventory Assets Strengths: Supportive family, has housing Risk Factors Assessment : Yes /single/: No Higher / Fall in social status: No Health problems: Yes Mental Health Diagnoses: Yes Substance use disorders: Yes Previous attempt: Yes Previous psychiatric stay: Yes Hopelessness: No Smoker: No Protective Factors Assessment Jehovah'S Witness beliefs: Yes : Yes Responsible for young children: Yes Employed: Yes Stable relationships: No Supportive family: Yes (sister) Good rapport with provider: No Data Vital Signs Last 24 Hrs: Date Time Temp Pulse Resp B/P (MAP) Pulse Ox O2 Delivery O2 Flow Rate FiO2 02/05/17 07:06 37.1 96 16 139/84 108 132/80 Meds Administered Last 24 Hrs: Meds Administered (Past 24Hrs) Medications (Trade) Dose Ordered Sig/Alvarado Route Start Time Stop Time Status Last Admin Dose Admin Risperidone (Risperdal M Tab) 0.5 mg BID PO 02/03/17 22:00 02/04/17 12:04 DC 02/04/17 09:01 0.5 MG Citalopram Hydrobromide (celeXA TAB) 40 mg QAM PO 02/04/17 10:00 03/06/17 09:59 02/05/17 10:34 40 MG Risperidone (Risperdal Tab) 1 mg BID PO 02/04/17 22:00 02/05/17 11:41 DC 02/05/17 10:34 1 MG Nitrofurantoin Macrocrystals (Macrobid Cap) 100 mg BID PO 02/04/17 22:00 02/11/17 09:01 02/05/17 10:34 100 MG Nitrofurantoin Macrocrystals (Macrobid Cap) 100 mg NOW ONCE PO 02/04/17 17:30 02/04/17 17:31 DC 02/04/17 17:52 100 MG Lab Results Last 24 Hrs: Last 24 Hours Test 02/05/17 06:58 Sodium Level 142 mmol/L Potassium Level 3.9 mmol/L Chloride Level 107 mmol/L Carbon Dioxide Level 27 mmol/L Anion Gap 8.0 mmol/L Blood Urea Nitrogen 10 mg/dl Creatinine 0.69 mg/dl Est Creatinine Clear Calc Drug Dose 106.5 ml/min Estimated GFR () 128.9 Estimated GFR (Non- 111.2 BUN/Creatinine Ratio 15.0 Random Glucose 97 mg/dl Calcium Level 9.4 mg/dl Chemistry Specimen Hemolysis
[2017-02-05] MEDS: FERROUS SULFATE 325 MG TAB PO SCH (17:41)
[2017-02-05] MEDS ORDERED: RISPERIDONE 2 MG TAB PO SCH (22:00)
[2017-02-06 06:42] VITALS: BP_SYST 157; BP_SYST 163; BP_DIAS 100; BP_DIAS 92; PULSE 111; PULSE 96; TEMP 36.8
[2017-02-06] MEDS ORDERED: RISPERIDONE 1 MG TAB PO SCH (09:00)
--- NOTE | 2017-02-06 10:19 | Psychiatric Progress Notes ---
Progress Note Date of Service Feb 06, 2017. Interval History Lilli Cintron is a 36-year-old female with a self-reported history of schizoaffective disorder who currently lives in [place] with her significant other and two teenage children. Lilli Cintron was admitted on a 201 voluntary commitment. Patient is admitted from home. The patient was brought to the ED by the family. Information provided by the patient is considered to be partially reliable. Chief Complaint "I want to go home.". Subjective Patient was seen & assessed interval progress reviewed with Treatment Team. The patient refuses to come to the interview room, not wanting to talk. She says that she wants to go home. She remains paranoid feeling that others here are out to harm her and that the food is contaminated. She did not eat breakfast because of this. She continues to deny aud/vis hallucinations, and denies having "fearful thoughts" when I use that term. She is poorly communicative, laying in bed in a darkened room. She will not engage spontaneously, and responds to questions with minimal answers. She does not appear to be responding to internal stimuli. Review of Systems Constitutional: + fatigue ENT: No hearing loss, No unusual epistaxis, No nasal symptoms, No sore throat, No tinnitus, No dental problems, No trouble swallowing, No problem reported Respiratory: No cough, No sputum, No wheezing, No shortness of breath, No dyspnea on exertion, No dyspnea at rest, No hemoptysis, No problem reported Cardiovascular: No chest pain, No orthopnea, No PND, No edema, No claudication , No palpitations, No problem reported Abdomen: No pain, No nausea, No vomiting, No diarrhea, No constipation, No GI bleeding, No problem reported Musculoskeletal: No joint pain, No muscle pain, No swelling, No calf pain, No problem reported Neurologic: No memory loss, No paralysis, No weakness, No numbness/tingling, No vertigo, No balance problems, No problem reported Psychiatric: + problem reported (paranoid) Integumentary: No rash, No itch, No new/changing skin lesions, No color change , No bleeding, No problem reported Sleep Information Total Hours of Sleep: 8.00 Meal Information Percent of Breakfast Consumed: 0 Percent of Lunch Consumed: 40 Percent of Dinner Consumed: 100 Mental Status Exam During interview pt is: alert and oriented, uncooperative Appearance: appropriately dressed, disheveled Eye contact is: poor Motor behavior is: no abnormal motor movements Speech: other (minimal, nonspontaneous) Affect: mood congruent, depressed, anxious Mood is: depressed, other (paranoid) Thought process: concrete Thought content: paranoid, delusions Suicidal thought are: denied Homicidal thoughts are: denied Hallucinations: denies auditory, denies visual Cognition: language grossly intact, other (memory and attention impaired by psychosis) Intelligence estimated to be: below average Insight: impaired Judgement: impaired Medication Trials (1) Past Psychiatric Medications Seroquel and Depakote - made her like a zombie Unsure if she has had other med trials Last Edited By: Terese Banegas on Feb 04, 2017 12:01 Impression The patient is irritable and poorly cooperative today. She wants to go home, but remains clearly paranoid. She is at times angry, yesterday yelling about the showers being locked. She is here voluntarily, has not submitted a 72 hr notice, although if she does she is committable based on her inability to manipulate information in a reality based manner. Will continue to titrate Risperdal to 3 mg HS and 1 mg. AM and prns. Will need to monitor po intake in view of paranoia. Plan (1) Psychosis NOS Attempt to get records and collateral to clarify diagnosis. Very disorganized, and poor historian. Differential diagnosis includes substance induced psychosis , schizoaffective disorder, psychotic depression, schizophrenia. Continue citalopram 40mg daily and monitor mood. Start risperidone 0.5mg bid and 0.5mg q 4 hrs prn psychosis, and get fasting labs tomorrow for baseline on an atypical antipsychotic. Reviewed need for an antipsychotic and side effects. Will need psychiatric aftercare. Family meeting with . Advised patient a mandated CYS report will be made due to her report that left her with 2 minor children while she was psychiatrically unstable and they have not been going to school. 02/04 - fasting lipid profile within normal limits, and fasting glucose elevated at 110. Increase risperidone to 1 mg twice a day. Patient does demonstrate mood lability with significant irritability and tearfulness, but is sleeping well. Consider decreasing citalopram dose if she appears more manic. When she is less psychotic, we should attempt to get more information about past mood stabilizer trials. She is refusing to retrial Depakote. - She is not yet stable enough for a family meeting with her significant other. - She is committable if she requests to leave, as she has severely unstable mood and psychosis, is not available to provide for her own basic needs, and had not been caring for herself at home to the point that she had hypokalemia. 02/05 - Increase risperdal to 1 mg. AM and 2 mg. HS for paranoia and delusions 02/06 - Increase Risperdal to 1 mg. AM and 3 mg HS - Reality orientation - Monitor po intake in view of paranoia (2) Marijuana use Educate about the risks of cannabis use, including worsening mood and psychosis , and recommendations for abstinence. She indicates she knows she should not smoke pot, but has continued to do so for unclear reasons. Continue to educate and work on plan for abstinence as psychosis improves. (3) HTN (hypertension) Not on antihypertensives at home, will monitor BP here. 02/04 - blood pressure and pulse normal this morning, continue to monitor. (4) Asthma Continue home meds. (5) UTI (urinary tract infection) UA shows 2+ ketones, 3+ blood, large leukocyte esterase, greater than 30 white cells and red cells, and 1+ bacteria. This may be a contaminated sample, has 20 -30 epithelial cells, but we will follow up on the urine culture. The patient denies urinary urgency, frequency, and dysuria. 02/04 - preliminary culture results are positive for Streptococcus species, awaiting final culture and sensitivity. She may need antibiotic treatment. (6) Hypokalemia 02/04/17 - On initial presentation in the emergency room 02/02/2017, potassium was 2.8, and on recheck 02/03/2017 and was 3.0. She is eating well here, and I have ordered a basic metabolic panel for tomorrow. Discharge / Aftercare Planning Primary Care Physician: Name: Dr Almodovar Therapist: Name: "I use to have one in [place]" Clay Temperer: Name: Blanca Visit Code E&M Code: 67288 Inventory Assets Strengths: Supportive family, has housing Risk Factors Assessment : Yes /single/: No Higher / Fall in social status: No Health problems: Yes Mental Health Diagnoses: Yes Substance use disorders: Yes Previous attempt: Yes Previous psychiatric stay: Yes Hopelessness: No Smoker: No Protective Factors Assessment Islam beliefs: Yes : Yes Responsible for young children: Yes Employed: Yes Stable relationships: No Supportive family: Yes (sister) Good rapport with provider: No Data Vital Signs Last 24 Hrs: Date Time Temp Pulse Resp B/P (MAP) Pulse Ox O2 Delivery O2 Flow Rate FiO2 02/06/17 06:42 36.8 96 18 163/100 111 157/92 Meds Administered Last 24 Hrs: Meds Administered (Past 24Hrs) Medications (Trade) Dose Ordered Sig/Alvarado Route Start Time Stop Time Status Last Admin Dose Admin Risperidone (Risperdal Tab) 1 mg BID PO 02/04/17 22:00 02/05/17 11:41 DC 02/05/17 10:34 1 MG Nitrofurantoin Macrocrystals (Macrobid Cap) 100 mg BID PO 02/04/17 22:00 02/11/17 09:01 02/05/17 21:37 100 MG Nitrofurantoin Macrocrystals (Macrobid Cap) 100 mg NOW ONCE PO 02/04/17 17:30 02/04/17 17:31 DC 02/04/17 17:52 100 MG Ferrous Sulfate (Feosol Tab) 325 mg BIDM PO 02/05/17 17:45 03/07/17 17:44 02/05/17 17:41 325 MG Risperidone (Risperdal Tab) 2 mg HS PO 02/05/17 22:00 03/07/17 21:59 02/05/17 21:37 2 MG Lab Results Last 24 Hrs: 02/02/17 23:06 Red Blood Count 4.75, Mean Corpuscular Volume 89.9, Mean Corpuscular Hemoglobin 31.4, Mean Corpuscular Hemoglobin Concent 34.9, Mean Platelet Volume 11.7, Neutrophils (%) (Auto) 77.7, Lymphocytes (%) (Auto) 14.1, Monocytes (%) (Auto) 7.2, Eosinophils (%) (Auto) 0.7, Basophils (%) (Auto) 0.2, Neutrophils # (Auto) 8.08, Lymphocytes # (Auto) 1.46, Monocytes # (Auto) 0.75, Eosinophils # (Auto) 0.07, Basophils # (Auto) 0.02 02/05/17 06:58 Test 02/02/17 21:35 02/02/17 23:06 02/04/17 08:18 02/05/17 06:58 Urine Color ORANGE Urine Appearance CLOUDY (CLEAR) Urine pH 7.0 (4.5-7.5) Urine Specific [place]ran 1.010 (1.000-1.030) Urine Protein 1+ (NEG) Urine Glucose (UA) NEG (NEG) Urine Ketones 2+ (NEG) Urine Occult Blood 3+ (NEG) Urine Nitrite NEG (NEG) Urine Bilirubin NEG (NEG) Urine Urobilinogen NEG (NEG) Urine Leukocyte Esterase LARGE (NEG) Urine WBC (Auto) >30 /hpf (0-5) Urine RBC (Auto) >30 /hpf (0-4) Urine Hyaline Casts (Auto) 1-5 /lpf (0-5) Urine Epithelial Cells (Auto) 20-30 /lpf (0-5) Urine Bacteria (Auto) 1+ (NEG) Urine Opiates Screen NEG (NEG) Urine Methadone, Qualitative NEG (NEG) Urine Barbiturates NEG (NEG) Urine Phencyclidine (PCP) Level NEG (NEG) Ur Amphetamine/Methamphetamine NEG (NEG) MDMA (Ecstasy) Screen NEG (NEG) Urine Benzodiazepines Screen NEG (NEG) Urine Cocaine Metabolite NEG (NEG) Urine Marijuana (THC) POS (NEG) Urine Marijuana (THC Carboxy Acid) 114 NG/ML (CUTOFF=5) White Blood Count 10.39 K/uL (4.8-10.8) Red Blood Count 4.75 M/uL (4.2-5.4) Hemoglobin 14.9 g/dL (12.0-16.0) Hematocrit 42.7 % (37-47) Mean Corpuscular Volume 89.9 fL (80-100) Mean Corpuscular Hemoglobin 31.4 pg (25-34) Mean Corpuscular Hemoglobin Concent 34.9 g/dl (32-36) Platelet Count 220 K/uL (130-400) Mean Platelet Volume 11.7 fL (7.4-10.4) Neutrophils (%) (Auto) 77.7 % Lymphocytes (%) (Auto) 14.1 % Monocytes (%) (Auto) 7.2 % Eosinophils (%) (Auto) 0.7 % Basophils (%) (Auto) 0.2 % Neutrophils # (Auto) 8.08 K/uL (1.4-6.5) Lymphocytes # (Auto) 1.46 K/uL (1.2-3.4) Monocytes # (Auto) 0.75 K/uL (0.11-0.59) Eosinophils # (Auto) 0.07 K/uL (0-0.5) Basophils # (Auto) 0.02 K/uL (0-0.2) RDW Standard Deviation 44.9 fL (36.4-46.3) RDW Coefficient of Variation 13.6 % (11.5-14.5) Immature Granulocyte % (Auto) 0.1 % Immature Granulocyte # (Auto) 0.01 K/uL (0.00-0.02) Magnesium Level 2.1 mg/dl (1.8-2.4) Total Bilirubin 0.5 mg/dl (0.2-1) Direct Bilirubin 0.1 mg/dl (0-0.2) Aspartate Amino Transf (AST/SGOT) 15 U/L (15-37) Alanine Aminotransferase (ALT/SGPT) 24 U/L (12-78) Alkaline Phosphatase 78 U/L (45-117) Total Protein 7.5 gm/dl (6.4-8.2) Albumin 3.9 gm/dl (3.4-5.0) Thyroid Stimulating Hormone (TSH) 0.472 uIu/ml (0.300-4.500) Human Chorionic Gonadotropin, Qual NEG (NEG) Ethyl Alcohol mg/dL < 3.0 mg/dl (0-3) Fasting Glucose 110 mg/dl (70-99) Triglycerides Level 72 mg/dl (0-150) Cholesterol Level 123 mg/dl (0-200) HDL Cholesterol 44 mg/dl LDL Cholesterol, Calculated 65 mg/dl VLDL Cholesterol, Calculated 14 mg/dl Cholesterol/HDL Ratio 2.8 Anion Gap 8.0 mmol/L (3-11) Est Creatinine Clear Calc Drug Dose 106.5 ml/min Estimated GFR () 128.9 Estimated GFR (Non- 111.2 BUN/Creatinine Ratio 15.0 (10-20) Calcium Level 9.4 mg/dl (8.5-10.1) Chemistry Specimen Hemolysis Date/Time Source Procedure Growth Status 02/02/17 21:35 Urine , Clean Catch Urine Culture - Final Enterococcus Faecalis Complete
[2017-02-06] MEDS: FERROUS SULFATE 325 MG TAB PO SCH ×2 (10:23→17:43)
[2017-02-06] MEDS: CITALOPRAM 40 MG TAB PO SCH (10:23)
[2017-02-06] MEDS: NITROFURANTOIN MONOHYDRATE 100 MG CAP PO SCH ×2 (10:23→21:33)
--- NOTE | 2017-02-06 10:25 | Psych Management Progress Note ---
Psychiatry Miscellaneous Date of Service: Feb 06, 2017. Patient seen, MS assessed. Encouraged cooperation with care and treatment plan as outlined by CONFERENCE COORDINATOR. Patient did not attend group. Appears still thought blocked and speech is soft, notes some sedation.
[2017-02-06] MEDS: HALOPERIDOL 5 MG TAB PO PRN ×2 (10:35→17:48)
[2017-02-06] MEDS: RISPERIDONE ODT 1MG PO SCH (21:33)
[2017-02-07 07:05] VITALS: BP 126/84; PULSE 16; PULSE 99; TEMP 36.4
[2017-02-07] MEDS: FERROUS SULFATE 325 MG TAB PO SCH ×2 (09:15→17:42)
[2017-02-07] MEDS: NITROFURANTOIN MONOHYDRATE 100 MG CAP PO SCH ×2 (09:15→21:11)
[2017-02-07] MEDS: RISPERIDONE ODT 1MG PO SCH ×2 (09:15→21:11)
[2017-02-07] MEDS: CITALOPRAM 40 MG TAB PO SCH (09:15)
--- NOTE | 2017-02-07 09:46 | Psychiatric Progress Notes ---
Progress Note Date of Service Feb 07, 2017. Interval History Lilli Cintron is a 36-year-old female with a self-reported history of schizoaffective disorder who currently lives in [place] with her significant other and two teenage children. Lilli Cintron was admitted on a 201 voluntary commitment. Patient is admitted from home. The patient was brought to the ED by the family. Information provided by the patient is considered to be partially reliable. Chief Complaint "You can get me home to my family. ". Subjective Patient was seen & assessed interval progress reviewed with Treatment Team. The patient remains paranoid, not trusting the staff, patients or food here. She is worried about her family, that she is not home with them. She does not feel that she is any better than when she came in, that the meds aren't working. She is irritable and wants discharge, but did not want to sign a 72 hr notice when offered to her yesterday by nursing staff. Yesterday she was paranoid of the food and so containerized food was offered at lunch which only made her mad, saying that she was hungry and wanted real food, which was then provided. She says she is "scared" of everything and tired of feeling this way. She yells, saying that she would take back her behaviors prior to admission if she could. Nursing reports that yesterday the patient went to a group, but upon entering thought the entire group was talking about her. She denies aud/vis hallucinations, SI/HI. Review of Systems Constitutional: No fever, No chills, No sweats, No weight loss, No weakness, No fatigue, No problem reported ENT: No hearing loss, No unusual epistaxis, No nasal symptoms, No sore throat, No tinnitus, No dental problems, No trouble swallowing, No problem reported Respiratory: No cough, No sputum, No wheezing, No shortness of breath, No dyspnea on exertion, No dyspnea at rest, No hemoptysis, No problem reported Cardiovascular: No chest pain, No orthopnea, No PND, No edema, No claudication , No palpitations, No problem reported Abdomen: No pain, No nausea, No vomiting, No diarrhea, No constipation, No GI bleeding, No problem reported Musculoskeletal: No joint pain, No muscle pain, No swelling, No calf pain, No problem reported Neurologic: No memory loss, No paralysis, No weakness, No numbness/tingling, No vertigo, No balance problems, No problem reported Psychiatric: + problem reported (irritability, wanting to go home) Integumentary: No rash, No itch, No new/changing skin lesions, No color change , No bleeding, No problem reported Sleep Information Total Hours of Sleep: 11.75 Meal Information Percent of Breakfast Consumed: 25 Percent of Lunch Consumed: 75 Percent of Dinner Consumed: 60 Mental Status Exam During interview pt is: alert and oriented, guarded Appearance: appropriately dressed, appropriately groomed Eye contact is: fair, poor Motor behavior is: no abnormal motor movements Speech: other (angry, at times yelling) Affect: mood congruent, depressed, anxious Mood is: depressed, angry Thought process: goal directed, concrete Thought content: preoccupation (with going home), paranoid, delusions Suicidal thought are: denied Homicidal thoughts are: denied Hallucinations: denies auditory, denies visual Cognition: language grossly intact, other (memory and attention impaired by psychosis) Intelligence estimated to be: below average Insight: impaired Judgement: impaired Medication Trials (1) Past Psychiatric Medications Seroquel and Depakote - made her like a zombie Unsure if she has had other med trials Last Edited By: Terese Banegas on Feb 04, 2017 12:01 Impression The patient remains irritable and poorly cooperative today. She wants to go home, but remains clearly paranoid. She is at times angry, demanding to go home but refused the offer of a 72 hr notice. I have switched her risperdal to M tab due to concerns she may be vomitting her meds. Today I will add prn ativan to target her anxious distress. She has no insight into her condition, and at this time would not be able to function outside of the hospital due to her paranoia. Plan (1) Psychosis NOS Attempt to get records and collateral to clarify diagnosis. Very disorganized, and poor historian. Differential diagnosis includes substance induced psychosis , schizoaffective disorder, psychotic depression, schizophrenia. Continue citalopram 40mg daily and monitor mood. Start risperidone 0.5mg bid and 0.5mg q 4 hrs prn psychosis, and get fasting labs tomorrow for baseline on an atypical antipsychotic. Reviewed need for an antipsychotic and side effects. Will need psychiatric aftercare. Family meeting with . Advised patient a mandated CYS report will be made due to her report that left her with 2 minor children while she was psychiatrically unstable and they have not been going to school. 02/04 - fasting lipid profile within normal limits, and fasting glucose elevated at 110. Increase risperidone to 1 mg twice a day. Patient does demonstrate mood lability with significant irritability and tearfulness, but is sleeping well. Consider decreasing citalopram dose if she appears more manic. When she is less psychotic, we should attempt to get more information about past mood stabilizer trials. She is refusing to retrial Depakote. - She is not yet stable enough for a family meeting with her significant other. - She is committable if she requests to leave, as she has severely unstable mood and psychosis, is not available to provide for her own basic needs, and had not been caring for herself at home to the point that she had hypokalemia. 02/05 - Increase risperdal to 1 mg. AM and 2 mg. HS for paranoia and delusions 02/06 - Increase Risperdal to 1 mg. AM and 3 mg HS - Reality orientation - Monitor po intake in view of paranoia 02/07 -- Continue Risperdal M - Add Ativan 1 mg. q4h prn agitation (2) Marijuana use Educate about the risks of cannabis use, including worsening mood and psychosis , and recommendations for abstinence. She indicates she knows she should not smoke pot, but has continued to do so for unclear reasons. Continue to educate and work on plan for abstinence as psychosis improves. (3) HTN (hypertension) Not on antihypertensives at home, will monitor BP here. 02/04 - blood pressure and pulse normal this morning, continue to monitor. (4) Asthma Continue home meds. (5) UTI (urinary tract infection) UA shows 2+ ketones, 3+ blood, large leukocyte esterase, greater than 30 white cells and red cells, and 1+ bacteria. This may be a contaminated sample, has 20 -30 epithelial cells, but we will follow up on the urine culture. The patient denies urinary urgency, frequency, and dysuria. 02/04 - preliminary culture results are positive for Streptococcus species, awaiting final culture and sensitivity. She may need antibiotic treatment. (6) Hypokalemia 02/04/17 - On initial presentation in the emergency room 02/02/2017, potassium was 2.8, and on recheck 02/03/2017 and was 3.0. She is eating well here, and I have ordered a basic metabolic panel for tomorrow. Discharge / Aftercare Planning Primary Care Physician: Name: Dr Almodovar Therapist: Name: "I use to have one in [place]" [employer]ing Pressmen: Name: Blanca Visit Code E&M Code: 34102 Inventory Assets Strengths: Supportive family, has housing Risk Factors Assessment : Yes /single/: No Higher / Fall in social status: No Health problems: Yes Mental Health Diagnoses: Yes Substance use disorders: Yes Previous attempt: Yes Previous psychiatric stay: Yes Hopelessness: No Smoker: No Protective Factors Assessment Samaritan beliefs: Yes : Yes Responsible for young children: Yes Employed: Yes Stable relationships: No Supportive family: Yes (sister) Good rapport with provider: No Data Vital Signs Last 24 Hrs: Date Time Temp Pulse Resp B/P (MAP) Pulse Ox O2 Delivery O2 Flow Rate FiO2 02/07/17 07:05 36.4 99 16 126/84 16 Meds Administered Last 24 Hrs: Meds Administered (Past 24Hrs) Medications (Trade) Dose Ordered Sig/Alvarado Route Start Time Stop Time Status Last Admin Dose Admin Ferrous Sulfate (Feosol Tab) 325 mg BIDM PO 02/05/17 17:45 03/07/17 17:44 02/07/17 09:15 325 MG Risperidone (Risperdal Tab) 1 mg QAM PO 02/06/17 09:00 02/07/17 08:01 DC 02/06/17 10:24 1 MG Risperidone (Risperdal Tab) 2 mg HS PO 02/05/17 22:00 02/06/17 10:20 DC 02/05/17 21:37 2 MG Risperidone (Risperdal M Tab) 3 mg HS PO 02/06/17 22:00 03/08/17 21:59 02/06/17 21:33 3 MG Risperidone (Risperdal M Tab) 1 mg QAM PO 02/07/17 09:00 03/09/17 08:59 02/07/17 09:15 1 MG Lab Results Last 24 Hrs: 02/02/17 23:06 Red Blood Count 4.75, Mean Corpuscular Volume 89.9, Mean Corpuscular Hemoglobin 31.4, Mean Corpuscular Hemoglobin Concent 34.9, Mean Platelet Volume 11.7, Neutrophils (%) (Auto) 77.7, Lymphocytes (%) (Auto) 14.1, Monocytes (%) (Auto) 7.2, Eosinophils (%) (Auto) 0.7, Basophils (%) (Auto) 0.2, Neutrophils # (Auto) 8.08, Lymphocytes # (Auto) 1.46, Monocytes # (Auto) 0.75, Eosinophils # (Auto) 0.07, Basophils # (Auto) 0.02 02/05/17 06:58 Test 02/02/17 21:35 02/02/17 23:06 02/04/17 08:18 02/05/17 06:58 Urine Color ORANGE Urine Appearance CLOUDY (CLEAR) Urine pH 7.0 (4.5-7.5) Urine Specific [place] 1.010 (1.000-1.030) Urine Protein 1+ (NEG) Urine Glucose (UA) NEG (NEG) Urine Ketones 2+ (NEG) Urine Occult Blood 3+ (NEG) Urine Nitrite NEG (NEG) Urine Bilirubin NEG (NEG) Urine Urobilinogen NEG (NEG) Urine Leukocyte Esterase LARGE (NEG) Urine WBC (Auto) >30 /hpf (0-5) Urine RBC (Auto) >30 /hpf (0-4) Urine Hyaline Casts (Auto) 1-5 /lpf (0-5) Urine Epithelial Cells (Auto) 20-30 /lpf (0-5) Urine Bacteria (Auto) 1+ (NEG) Urine Opiates Screen NEG (NEG) Urine Methadone, Qualitative NEG (NEG) Urine Barbiturates NEG (NEG) Urine Phencyclidine (PCP) Level NEG (NEG) Ur Amphetamine/Methamphetamine NEG (NEG) MDMA (Ecstasy) Screen NEG (NEG) Urine Benzodiazepines Screen NEG (NEG) Urine Cocaine Metabolite NEG (NEG) Urine Marijuana (THC) POS (NEG) Urine Marijuana (THC Carboxy Acid) 114 NG/ML (CUTOFF=5) White Blood Count 10.39 K/uL (4.8-10.8) Red Blood Count 4.75 M/uL (4.2-5.4) Hemoglobin 14.9 g/dL (12.0-16.0) Hematocrit 42.7 % (37-47) Mean Corpuscular Volume 89.9 fL (80-100) Mean Corpuscular Hemoglobin 31.4 pg (25-34) Mean Corpuscular Hemoglobin Concent 34.9 g/dl (32-36) Platelet Count 220 K/uL (130-400) Mean Platelet Volume 11.7 fL (7.4-10.4) Neutrophils (%) (Auto) 77.7 % Lymphocytes (%) (Auto) 14.1 % Monocytes (%) (Auto) 7.2 % Eosinophils (%) (Auto) 0.7 % Basophils (%) (Auto) 0.2 % Neutrophils # (Auto) 8.08 K/uL (1.4-6.5) Lymphocytes # (Auto) 1.46 K/uL (1.2-3.4) Monocytes # (Auto) 0.75 K/uL (0.11-0.59) Eosinophils # (Auto) 0.07 K/uL (0-0.5) Basophils # (Auto) 0.02 K/uL (0-0.2) RDW Standard Deviation 44.9 fL (36.4-46.3) RDW Coefficient of Variation 13.6 % (11.5-14.5) Immature Granulocyte % (Auto) 0.1 % Immature Granulocyte # (Auto) 0.01 K/uL (0.00-0.02) Magnesium Level 2.1 mg/dl (1.8-2.4) Total Bilirubin 0.5 mg/dl (0.2-1) Direct Bilirubin 0.1 mg/dl (0-0.2) Aspartate Amino Transf (AST/SGOT) 15 U/L (15-37) Alanine Aminotransferase (ALT/SGPT) 24 U/L (12-78) Alkaline Phosphatase 78 U/L (45-117) Total Protein 7.5 gm/dl (6.4-8.2) Albumin 3.9 gm/dl (3.4-5.0) Thyroid Stimulating Hormone (TSH) 0.472 uIu/ml (0.300-4.500) Human Chorionic Gonadotropin, Qual NEG (NEG) Ethyl Alcohol mg/dL < 3.0 mg/dl (0-3) Fasting Glucose 110 mg/dl (70-99) Triglycerides Level 72 mg/dl (0-150) Cholesterol Level 123 mg/dl (0-200) HDL Cholesterol 44 mg/dl LDL Cholesterol, Calculated 65 mg/dl VLDL Cholesterol, Calculated 14 mg/dl Cholesterol/HDL Ratio 2.8 Anion Gap 8.0 mmol/L (3-11) Est Creatinine Clear Calc Drug Dose 106.5 ml/min Estimated GFR () 128.9 Estimated GFR (Non- 111.2 BUN/Creatinine Ratio 15.0 (10-20) Calcium Level 9.4 mg/dl (8.5-10.1) Chemistry Specimen Hemolysis Date/Time Source Procedure Growth Status 02/02/17 21:35 Urine , Clean Catch Urine Culture - Final Enterococcus Faecalis Complete
[2017-02-07] MEDS: HALOPERIDOL 5 MG TAB PO PRN (09:52)
[2017-02-07] MEDS: LORAZEPAM 1 MG TAB PO PRN (09:52)
[2017-02-08 07:02] VITALS: BP 115/79; PULSE 92; TEMP 36.9
[2017-02-08] MEDS: RISPERIDONE ODT 1MG PO SCH ×2 (08:49→21:19)
[2017-02-08] MEDS: NITROFURANTOIN MONOHYDRATE 100 MG CAP PO SCH ×2 (08:49→21:18)
[2017-02-08] MEDS: FERROUS SULFATE 325 MG TAB PO SCH ×2 (08:49→17:27)
[2017-02-08] MEDS: CITALOPRAM 40 MG TAB PO SCH (08:49)
--- NOTE | 2017-02-08 11:40 | Psychiatric Progress Notes ---
Progress Note Date of Service Feb 08, 2017. Interval History Lilli Cintron is a 36-year-old female with a self-reported history of schizoaffective disorder who currently lives in [place] with her significant other and two teenage children. Lilli Cintron was admitted on a 201 voluntary commitment. Patient is admitted from home. The patient was brought to the ED by the family. Information provided by the patient is considered to be partially reliable. Chief Complaint "Just feel, I don't know". Subjective Patient was seen & assessed interval progress reviewed with Treatment Team. Staff report the patient has been very paranoid and isolative, he medication. Staff report, and. One of the nurses with a else and that she was plotting to harm her. She thinks hear other people talking about her, and that her food has been tampered with. She received when necessary Haldol and Ativan yesterday for psychosis. This morning, it took several attempts to get her out of bed to participate in the interview. She had difficulty answering questions , making vague statements. She said she wanted to go back to bed, because "I keep thinking about everything, everything at home, work, here..." Endorsed worries that "you's are gonna do something to me, to hurt me." She states she hears people talking about her, but does not believe that this might be a hallucination. She admits she is not showering or eating, stating "I can't do it, scared they're gonna hurt me." She is aware that her thinking is "not right ," and although she agreed to try to get out of bed, shower, and participate in treatment, she then immediately return to bed and refused to come out. Sleep Information Total Hours of Sleep: 12.00 Meal Information Percent of Breakfast Consumed: 0 Percent of Lunch Consumed: 0 Percent of Dinner Consumed: 50 Mental Status Exam During interview pt is: alert and oriented, guarded Appearance: appropriately dressed, appropriately groomed Eye contact is: poor Motor behavior is: no abnormal motor movements Speech: other (angry, at times yelling) Affect: blunted Mood is: anxious Thought process: goal directed, concrete Thought content: preoccupation (thinking she is in danger), paranoid, delusions Suicidal thought are: denied Homicidal thoughts are: denied Hallucinations: denies auditory, denies visual Cognition: language grossly intact, other (memory and attention impaired by psychosis) Intelligence estimated to be: below average Insight: impaired Judgement: impaired Medication Trials (1) Past Psychiatric Medications Seroquel and Depakote - made her like a zombie Unsure if she has had other med trials Last Edited By: Terese Banegas on Feb 04, 2017 12:01 Impression The patient remains paranoid, delusional and poorly engaged. She is at times angry, demanding to go home, but refused to submit a 72 hr notice. Her risperdal was switched to M tab due to concerns she may be vomiting her meds, and lorazepam to target her anxious distress. She has no insight into her condition, and at this time would not be able to function outside of the hospital due to her psychosis. Plan (1) Psychosis NOS Attempt to get records and collateral to clarify diagnosis. Very disorganized, and poor historian. Differential diagnosis includes substance induced psychosis , schizoaffective disorder, psychotic depression, schizophrenia. Continue citalopram 40mg daily and monitor mood. Start risperidone 0.5mg bid and 0.5mg q 4 hrs prn psychosis, and get fasting labs tomorrow for baseline on an atypical antipsychotic. Reviewed need for an antipsychotic and side effects. Will need psychiatric aftercare. Family meeting with . Advised patient a mandated CYS report will be made due to her report that left her with 2 minor children while she was psychiatrically unstable and they have not been going to school. 02/04 - fasting lipid profile within normal limits, and fasting glucose elevated at 110. Increase risperidone to 1 mg twice a day. Patient does demonstrate mood lability with significant irritability and tearfulness, but is sleeping well. Consider decreasing citalopram dose if she appears more manic. When she is less psychotic, we should attempt to get more information about past mood stabilizer trials. She is refusing to retrial Depakote. - She is not yet stable enough for a family meeting with her significant other. - She is committable if she requests to leave, as she has severely unstable mood and psychosis, is not available to provide for her own basic needs, and had not been caring for herself at home to the point that she had hypokalemia. 02/05 - Increase risperdal to 1 mg. AM and 2 mg. HS for paranoia and delusions 02/06 - Increase Risperdal to 1 mg. AM and 3 mg HS - Reality orientation - Monitor po intake in view of paranoia 02/07 - Continue Risperdal M - Add Ativan 1 mg. q4h prn agitation 02/08 - Increase risperidone to 1mg qam and 4mg qhs. (2) Marijuana use Educate about the risks of cannabis use, including worsening mood and psychosis , and recommendations for abstinence. She indicates she knows she should not smoke pot, but has continued to do so for unclear reasons. Continue to educate and work on plan for abstinence as psychosis improves. (3) HTN (hypertension) Not on antihypertensives at home, will monitor BP here. 02/04 - blood pressure and pulse normal this morning, continue to monitor. (4) Asthma Continue home meds. (5) UTI (urinary tract infection) UA shows 2+ ketones, 3+ blood, large leukocyte esterase, greater than 30 white cells and red cells, and 1+ bacteria. This may be a contaminated sample, has 20 -30 epithelial cells, but we will follow up on the urine culture. The patient denies urinary urgency, frequency, and dysuria. 02/04 - preliminary culture results are positive for Streptococcus species, awaiting final culture and sensitivity. She may need antibiotic treatment. (6) Hypokalemia 02/04/17 - On initial presentation in the emergency room 02/02/2017, potassium was 2.8, and on recheck 02/03/2017 and was 3.0. She is eating well here, and I have ordered a basic metabolic panel for tomorrow. Discharge / Aftercare Planning Primary Care Physician: Name: Dr Almodovar Therapist: Name: "I use to have one in [place]" Prosthodontist: Name: Blanca Visit Code E&M Code: 59732 Inventory Assets Strengths: Supportive family, has housing Risk Factors Assessment : Yes /single/: No Higher / Fall in social status: No Health problems: Yes Mental Health Diagnoses: Yes Substance use disorders: Yes Previous attempt: Yes Previous psychiatric stay: Yes Hopelessness: No Smoker: No Protective Factors Assessment Moravian beliefs: Yes : Yes Responsible for young children: Yes Employed: Yes Stable relationships: No Supportive family: Yes (sister) Good rapport with provider: No Data Vital Signs Last 24 Hrs: Date Time Temp Pulse Resp B/P (MAP) Pulse Ox O2 Delivery O2 Flow Rate FiO2 02/08/17 07:02 36.9 92 16 115/79 Meds Administered Last 24 Hrs: Meds Administered (Past 24Hrs) Medications (Trade) Dose Ordered Sig/Alvarado Route Start Time Stop Time Status Last Admin Dose Admin Risperidone (Risperdal M Tab) 3 mg HS PO 02/06/17 22:00 03/08/17 21:59 02/07/17 21:11 3 MG Risperidone (Risperdal M Tab) 1 mg QAM PO 02/07/17 09:00 03/09/17 08:59 02/08/17 08:49 1 MG Lorazepam (Ativan Tab) 1 mg Q4H PRN PO 02/07/17 09:45 03/09/17 09:44 02/07/17 09:52 1 MG
[2017-02-09 06:57] VITALS: BP_SYST 125; BP_DIAS 83; BP_DIAS 91; PULSE 83; PULSE 96; TEMP 36.6
[2017-02-09] MEDS: FERROUS SULFATE 325 MG TAB PO SCH ×2 (09:02→17:29)
[2017-02-09] MEDS: NITROFURANTOIN MONOHYDRATE 100 MG CAP PO SCH ×2 (09:02→22:02)
[2017-02-09] MEDS: RISPERIDONE ODT 1MG PO SCH ×2 (09:02→22:02)
[2017-02-09] MEDS: CITALOPRAM 40 MG TAB PO SCH (09:02)
[2017-02-09] MEDS: HALOPERIDOL 5 MG TAB PO PRN (09:02)
[2017-02-09] MEDS: LORAZEPAM 1 MG TAB PO PRN (09:03)
--- NOTE | 2017-02-09 10:02 | Psychiatric Progress Notes ---
Progress Note Date of Service Feb 09, 2017. Interval History Lilli Cinrton is a 36-year-old female with a self-reported history of schizoaffective disorder who currently lives in [place] with her significant other and two teenage children. Lilli Cintron was admitted on a 201 voluntary commitment. Patient is admitted from home. The patient was brought to the ED by the family. Information provided by the patient is considered to be partially reliable. Chief Complaint "A little better.". Subjective Patient was seen & assessed interval progress reviewed with Treatment Team. The patient says that she is feeling less scared today, but still has some fears of the others here on the unit. She is eating and no longer concerned that the food is tampered with. Her mood is better, and she find some reassurance that she will eventually be discharged back to her family, as if she believed otherwise. She is complaining of constipation, not having had a BM since admission. She recognizes that she is feeling better today for the first time, but still with some fearfulness, although has trouble fully explaining them. Nursing reports that she was less suspicious of the meds, and did not require them to show her the packaging. Lilli denies aud/vis hallucinations, and denies SI/HI. She is hopeful to hear from her family today and was reminded that she can use the phone to call them at any time. Review of Systems Constitutional: No fever, No chills, No sweats, No weight loss, No weakness, No fatigue, No problem reported ENT: No hearing loss, No unusual epistaxis, No nasal symptoms, No sore throat, No tinnitus, No dental problems, No trouble swallowing, No problem reported Respiratory: No cough, No sputum, No wheezing, No shortness of breath, No dyspnea on exertion, No dyspnea at rest, No hemoptysis, No problem reported Cardiovascular: No chest pain, No orthopnea, No PND, No edema, No claudication , No palpitations, No problem reported Abdomen: + constipation Musculoskeletal: No joint pain, No muscle pain, No swelling, No calf pain, No problem reported Neurologic: No memory loss, No paralysis, No weakness, No numbness/tingling, No vertigo, No balance problems, No problem reported Psychiatric: + problem reported (suspiciousness) Integumentary: No rash, No itch, No new/changing skin lesions, No color change , No bleeding, No problem reported Sleep Information Total Hours of Sleep: 7.75 Meal Information Percent of Breakfast Consumed: 100 Percent of Lunch Consumed: 5 Percent of Dinner Consumed: 25 Mental Status Exam During interview pt is: alert and oriented, cooperative Appearance: appropriately dressed, appropriately groomed Eye contact is: good Motor behavior is: steady gait & station, no abnormal motor movements Speech: normal in rate, rhythm & volume, other (angry, at times yelling) Affect: euthymic Mood is: anxious Thought process: goal directed, concrete Thought content: paranoid Suicidal thought are: denied Homicidal thoughts are: denied Hallucinations: denies auditory, denies visual Cognition: language grossly intact, other (memory and attention impaired by psychosis) Intelligence estimated to be: below average Insight: impaired Judgement: impaired Medication Trials (1) Past Psychiatric Medications Seroquel and Depakote - made her like a zombie Unsure if she has had other med trials Last Edited By: Terese Banegas on Feb 04, 2017 12:01 Impression Lilli looks remarkably better today with smiling affect, and ability to engage. She is even starting to attend groups. She has some residual paranoia , but is gaining in trust that she is safe here. Will touch base again with her to try to determine where she previously received services so we can obtain previous med trials. She would benefit from an PASTOR, but will address with her as she progresses. Continue current meds. Plan (1) Psychosis NOS Attempt to get records and collateral to clarify diagnosis. Very disorganized, and poor historian. Differential diagnosis includes substance induced psychosis , schizoaffective disorder, psychotic depression, schizophrenia. Continue citalopram 40mg daily and monitor mood. Start risperidone 0.5mg bid and 0.5mg q 4 hrs prn psychosis, and get fasting labs tomorrow for baseline on an atypical antipsychotic. Reviewed need for an antipsychotic and side effects. Will need psychiatric aftercare. Family meeting with . Advised patient a mandated CYS report will be made due to her report that left her with 2 minor children while she was psychiatrically unstable and they have not been going to school. 02/04 - fasting lipid profile within normal limits, and fasting glucose elevated at 110. Increase risperidone to 1 mg twice a day. Patient does demonstrate mood lability with significant irritability and tearfulness, but is sleeping well. Consider decreasing citalopram dose if she appears more manic. When she is less psychotic, we should attempt to get more information about past mood stabilizer trials. She is refusing to retrial Depakote. - She is not yet stable enough for a family meeting with her significant other. - She is committable if she requests to leave, as she has severely unstable mood and psychosis, is not available to provide for her own basic needs, and had not been caring for herself at home to the point that she had hypokalemia. 02/05 - Increase risperdal to 1 mg. AM and 2 mg. HS for paranoia and delusions 02/06 - Increase Risperdal to 1 mg. AM and 3 mg HS - Reality orientation - Monitor po intake in view of paranoia 02/07 - Continue Risperdal M - Add Ativan 1 mg. q4h prn agitation 02/08 - Increase risperidone to 1mg qam and 4mg qhs. 02/09 - Continue current meds (2) Marijuana use Educate about the risks of cannabis use, including worsening mood and psychosis , and recommendations for abstinence. She indicates she knows she should not smoke pot, but has continued to do so for unclear reasons. Continue to educate and work on plan for abstinence as psychosis improves. (3) HTN (hypertension) Not on antihypertensives at home, will monitor BP here. 02/04 - blood pressure and pulse normal this morning, continue to monitor. (4) Asthma Continue home meds. (5) UTI (urinary tract infection) UA shows 2+ ketones, 3+ blood, large leukocyte esterase, greater than 30 white cells and red cells, and 1+ bacteria. This may be a contaminated sample, has 20 -30 epithelial cells, but we will follow up on the urine culture. The patient denies urinary urgency, frequency, and dysuria. 02/04 - preliminary culture results are positive for Streptococcus species, awaiting final culture and sensitivity. She may need antibiotic treatment. (6) Hypokalemia 02/04/17 - On initial presentation in the emergency room 02/02/2017, potassium was 2.8, and on recheck 02/03/2017 and was 3.0. She is eating well here, and I have ordered a basic metabolic panel for tomorrow. Discharge / Aftercare Planning Primary Care Physician: Name: Dr Almodovar Therapist: Name: "I use to have one in [place]" Order Builder Loader: Name: Blanca Visit Code E&M Code: 12127 Inventory Assets Strengths: Supportive family, has housing Risk Factors Assessment : Yes /single/: No Higher / Fall in social status: No Health problems: Yes Mental Health Diagnoses: Yes Substance use disorders: Yes Previous attempt: Yes Previous psychiatric stay: Yes Hopelessness: No Smoker: No Protective Factors Assessment Jew beliefs: Yes : Yes Responsible for young children: Yes Employed: Yes Stable relationships: No Supportive family: Yes (sister) Good rapport with provider: No Data Vital Signs Last 24 Hrs: Date Time Temp Pulse Resp B/P (MAP) Pulse Ox O2 Delivery O2 Flow Rate FiO2 02/09/17 06:57 36.6 83 16 125/83 96 125/91 Meds Administered Last 24 Hrs: Meds Administered (Past 24Hrs) Medications (Trade) Dose Ordered Sig/Alvarado Route Start Time Stop Time Status Last Admin Dose Admin Lorazepam (Ativan Tab) 1 mg Q4H PRN PO 02/07/17 09:45 03/09/17 09:44 02/09/17 09:03 1 MG Risperidone (Risperdal M Tab) 4 mg HS PO 02/08/17 22:00 03/08/17 21:59 02/08/17 21:19 4 MG Lab Results Last 24 Hrs: 02/02/17 23:06 Red Blood Count 4.75, Mean Corpuscular Volume 89.9, Mean Corpuscular Hemoglobin 31.4, Mean Corpuscular Hemoglobin Concent 34.9, Mean Platelet Volume 11.7, Neutrophils (%) (Auto) 77.7, Lymphocytes (%) (Auto) 14.1, Monocytes (%) (Auto) 7.2, Eosinophils (%) (Auto) 0.7, Basophils (%) (Auto) 0.2, Neutrophils # (Auto) 8.08, Lymphocytes # (Auto) 1.46, Monocytes # (Auto) 0.75, Eosinophils # (Auto) 0.07, Basophils # (Auto) 0.02 02/05/17 06:58 Test 02/02/17 21:35 02/02/17 23:06 02/04/17 08:18 02/05/17 06:58 Urine Color ORANGE Urine Appearance CLOUDY (CLEAR) Urine pH 7.0 (4.5-7.5) Urine Specific [place] 1.010 (1.000-1.030) Urine Protein 1+ (NEG) Urine Glucose (UA) NEG (NEG) Urine Ketones 2+ (NEG) Urine Occult Blood 3+ (NEG) Urine Nitrite NEG (NEG) Urine Bilirubin NEG (NEG) Urine Urobilinogen NEG (NEG) Urine Leukocyte Esterase LARGE (NEG) Urine WBC (Auto) >30 /hpf (0-5) Urine RBC (Auto) >30 /hpf (0-4) Urine Hyaline Casts (Auto) 1-5 /lpf (0-5) Urine Epithelial Cells (Auto) 20-30 /lpf (0-5) Urine Bacteria (Auto) 1+ (NEG) Urine Opiates Screen NEG (NEG) Urine Methadone, Qualitative NEG (NEG) Urine Barbiturates NEG (NEG) Urine Phencyclidine (PCP) Level NEG (NEG) Ur Amphetamine/Methamphetamine NEG (NEG) MDMA (Ecstasy) Screen NEG (NEG) Urine Benzodiazepines Screen NEG (NEG) Urine Cocaine Metabolite NEG (NEG) Urine Marijuana (THC) POS (NEG) Urine Marijuana (THC Carboxy Acid) 114 NG/ML (CUTOFF=5) White Blood Count 10.39 K/uL (4.8-10.8) Red Blood Count 4.75 M/uL (4.2-5.4) Hemoglobin 14.9 g/dL (12.0-16.0) Hematocrit 42.7 % (37-47) Mean Corpuscular Volume 89.9 fL (80-100) Mean Corpuscular Hemoglobin 31.4 pg (25-34) Mean Corpuscular Hemoglobin Concent 34.9 g/dl (32-36) Platelet Count 220 K/uL (130-400) Mean Platelet Volume 11.7 fL (7.4-10.4) Neutrophils (%) (Auto) 77.7 % Lymphocytes (%) (Auto) 14.1 % Monocytes (%) (Auto) 7.2 % Eosinophils (%) (Auto) 0.7 % Basophils (%) (Auto) 0.2 % Neutrophils # (Auto) 8.08 K/uL (1.4-6.5) Lymphocytes # (Auto) 1.46 K/uL (1.2-3.4) Monocytes # (Auto) 0.75 K/uL (0.11-0.59) Eosinophils # (Auto) 0.07 K/uL (0-0.5) Basophils # (Auto) 0.02 K/uL (0-0.2) RDW Standard Deviation 44.9 fL (36.4-46.3) RDW Coefficient of Variation 13.6 % (11.5-14.5) Immature Granulocyte % (Auto) 0.1 % Immature Granulocyte # (Auto) 0.01 K/uL (0.00-0.02) Magnesium Level 2.1 mg/dl (1.8-2.4) Total Bilirubin 0.5 mg/dl (0.2-1) Direct Bilirubin 0.1 mg/dl (0-0.2) Aspartate Amino Transf (AST/SGOT) 15 U/L (15-37) Alanine Aminotransferase (ALT/SGPT) 24 U/L (12-78) Alkaline Phosphatase 78 U/L (45-117) Total Protein 7.5 gm/dl (6.4-8.2) Albumin 3.9 gm/dl (3.4-5.0) Thyroid Stimulating Hormone (TSH) 0.472 uIu/ml (0.300-4.500) Human Chorionic Gonadotropin, Qual NEG (NEG) Ethyl Alcohol mg/dL < 3.0 mg/dl (0-3) Fasting Glucose 110 mg/dl (70-99) Triglycerides Level 72 mg/dl (0-150) Cholesterol Level 123 mg/dl (0-200) HDL Cholesterol 44 mg/dl LDL Cholesterol, Calculated 65 mg/dl VLDL Cholesterol, Calculated 14 mg/dl Cholesterol/HDL Ratio 2.8 Anion Gap 8.0 mmol/L (3-11) Est Creatinine Clear Calc Drug Dose 106.5 ml/min Estimated GFR () 128.9 Estimated GFR (Non- 111.2 BUN/Creatinine Ratio 15.0 (10-20) Calcium Level 9.4 mg/dl (8.5-10.1) Chemistry Specimen Hemolysis Date/Time Source Procedure Growth Status 02/02/17 21:35 Urine , Clean Catch Urine Culture - Final Enterococcus Faecalis Complete
[2017-02-10 06:48] VITALS: BP_SYST 101; BP_SYST 111; BP_DIAS 66; BP_DIAS 73; PULSE 69; PULSE 98; TEMP 36.8
[2017-02-10] MEDS: RISPERIDONE ODT 1MG PO SCH ×2 (08:37→21:39)
[2017-02-10] MEDS: FERROUS SULFATE 325 MG TAB PO SCH ×2 (08:37→17:21)
[2017-02-10] MEDS: CITALOPRAM 40 MG TAB PO SCH (08:37)
[2017-02-10] MEDS: NITROFURANTOIN MONOHYDRATE 100 MG CAP PO SCH ×2 (08:37→21:39)
--- NOTE | 2017-02-10 10:28 | Psychiatric Progress Notes ---
Progress Note Date of Service Feb 10, 2017. Interval History Lilli Cintron is a 36-year-old female with a self-reported history of schizoaffective disorder who currently lives in [place] with her significant other and two teenage children. Lilli Cintron was admitted on a 201 voluntary commitment. Patient is admitted from home. The patient was brought to the ED by the family. Information provided by the patient is considered to be partially reliable. Chief Complaint "Wow, just wow". Subjective Patient was seen & assessed interval progress reviewed with Treatment Team. Staff report psychotic symptoms have been improving, she was able to participate in groups and interact appropriately with peers yesterday, and affect was brighter with more spontaneous interactions. She was better able to complete her ADLs. She requested and received Ativan and Haldol for psychosis, as she had a period of paranoia and was reluctant to come out of her room in the morning, and he appeared to help. Today, the patient had to be retrieved from bed, after she left group and return to her room. She stated that she left because "I just didn't feel like it," and then says that other patients were upset, and she didn't want to be around them. She says her mood is "I'm fine," and became angry when asked about suicidal thoughts, stating "I'm so sick of being asked that." She became irritable several times throughout the interview, stating that she was fine" I don't need no other stuff, just want to go home." Discussed discharge planning, and that she still does not have psychiatric aftercare, and she was angry about this, stating that "I'm not getting any of the phone calls you guys are, you need to tell me what's going on." Encouraged her to discuss this further in her family meeting this afternoon. She denies side effects from medication, and thinks that they are helping her. She denies hallucinations, thoughts of harming herself or others. Sleep Information Total Hours of Sleep: 7.25 Meal Information Percent of Breakfast Consumed: 60 Percent of Lunch Consumed: 100 Percent of Dinner Consumed: 100 Mental Status Exam During interview pt is: alert and oriented, cooperative Appearance: appropriately dressed, appropriately groomed Eye contact is: good Motor behavior is: steady gait & station, no abnormal motor movements Speech: other (irritable, yelling at times) Affect: irritable, other (incongruent with stated mood) Mood is: other ("I'm fine") Thought process: goal directed, concrete Thought content: reality based without delusions Suicidal thought are: denied Homicidal thoughts are: denied Hallucinations: denies auditory, denies visual Cognition: language grossly intact Intelligence estimated to be: below average Insight: impaired Judgement: impaired Medication Trials (1) Past Psychiatric Medications Seroquel and Depakote - made her like a zombie Unsure if she has had other med trials Last Edited By: Terese Banegas on Feb 04, 2017 12:01 Impression Lilli has demonstrated improvement over the past day or so, has been able to attend groups, and has been interacting more appropriately with others. She still has some irritability and paranoia, however, and has a family meeting this afternoon with her boyfriend to work on discharge plans. Aftercare has been a challenge and she is working on that with social work. She would benefit from an PASTRO, and will address this with her as she progresses. She requires inpatient treatment at this time due to ongoing irritability and paranoia, and lack of a safe discharge plan. Plan (1) Psychosis NOS Attempt to get records and collateral to clarify diagnosis. Very disorganized, and poor historian. Differential diagnosis includes substance induced psychosis , schizoaffective disorder, psychotic depression, schizophrenia. Continue citalopram 40mg daily and monitor mood. Start risperidone 0.5mg bid and 0.5mg q 4 hrs prn psychosis, and get fasting labs tomorrow for baseline on an atypical antipsychotic. Reviewed need for an antipsychotic and side effects. Will need psychiatric aftercare. Family meeting with . Advised patient a mandated CYS report will be made due to her report that left her with 2 minor children while she was psychiatrically unstable and they have not been going to school. 02/04 - fasting lipid profile within normal limits, and fasting glucose elevated at 110. Increase risperidone to 1 mg twice a day. Patient does demonstrate mood lability with significant irritability and tearfulness, but is sleeping well. Consider decreasing citalopram dose if she appears more manic. When she is less psychotic, we should attempt to get more information about past mood stabilizer trials. She is refusing to retrial Depakote. - She is not yet stable enough for a family meeting with her significant other. - She is committable if she requests to leave, as she has severely unstable mood and psychosis, is not available to provide for her own basic needs, and had not been caring for herself at home to the point that she had hypokalemia. 02/05 - Increase risperdal to 1 mg. AM and 2 mg. HS for paranoia and delusions 02/06 - Increase Risperdal to 1 mg. AM and 3 mg HS - Reality orientation - Monitor po intake in view of paranoia 02/07 - Continue Risperdal M - Add Ativan 1 mg. q4h prn agitation 02/08 - Increase risperidone to 1mg qam and 4mg qhs. 02/09 - Continue current meds 02/10 - Continue risperidone total of 5 mg daily, and Haldol and Ativan as needed. - Family meeting with boyfriend today. (2) Marijuana use Educate about the risks of cannabis use, including worsening mood and psychosis , and recommendations for abstinence. She indicates she knows she should not smoke pot, but has continued to do so for unclear reasons. Continue to educate and work on plan for abstinence as psychosis improves. (3) HTN (hypertension) Not on antihypertensives at home, will monitor BP here. 02/04 - blood pressure and pulse normal this morning, continue to monitor. (4) Asthma Continue home meds. (5) UTI (urinary tract infection) UA shows 2+ ketones, 3+ blood, large leukocyte esterase, greater than 30 white cells and red cells, and 1+ bacteria. This may be a contaminated sample, has 20 -30 epithelial cells, but we will follow up on the urine culture. The patient denies urinary urgency, frequency, and dysuria. 02/04 - preliminary culture results are positive for Streptococcus species, awaiting final culture and sensitivity. Started Macrobid based on culture and sensitivity results, complete 14 day course. 02/10 - denies UTI symptoms, continue and complete course of Macrobid (has 1 more day). (6) Hypokalemia 02/04/17 - On initial presentation in the emergency room 02/02/2017, potassium was 2.8, and on recheck 02/03/2017 and was 3.0. She is eating well here, and I have ordered a basic metabolic panel for tomorrow. Discharge / Aftercare Planning Primary Care Physician: Name: Dr Almodovar Date of Appointment: Feb 23, 2017 Time of Appointment: 11:05 am Therapist: Name: "I use to have one in [place]" Property Assessment Monitor: Name: Blanca Visit Code E&M Code: 07370 Inventory Assets Strengths: Supportive family, has housing Risk Factors Assessment : Yes /single/: No Higher / Fall in social status: No Health problems: Yes Mental Health Diagnoses: Yes Substance use disorders: Yes Previous attempt: Yes Previous psychiatric stay: Yes Hopelessness: No Smoker: No Protective Factors Assessment Muslim beliefs: Yes : Yes Responsible for young children: Yes Employed: Yes Stable relationships: No Supportive family: Yes (sister) Good rapport with provider: No Data Vital Signs Last 24 Hrs: Date Time Temp Pulse Resp B/P (MAP) Pulse Ox O2 Delivery O2 Flow Rate FiO2 02/10/17 06:48 36.8 69 20 101/66 98 111/73 Meds Administered Last 24 Hrs: Meds Administered (Past 24Hrs) Medications (Trade) Dose Ordered Sig/Alvarado Route Start Time Stop Time Status Last Admin Dose Admin Risperidone (Risperdal M Tab) 4 mg HS PO 02/08/17 22:00 03/08/17 21:59 02/09/17 22:02 4 MG
[2017-02-10] MEDS: ALUMINUM/MAGNESIUM SUSP 30 ML UDC PO PRN (21:40)
[2017-02-11 06:42] VITALS: BP_SYST 105; BP_SYST 122; BP_DIAS 68; BP_DIAS 80; PULSE 60; PULSE 83; TEMP 36.8
[2017-02-11] MEDS: RISPERIDONE ODT 1MG PO SCH ×2 (08:22→21:30)
[2017-02-11] MEDS: NITROFURANTOIN MONOHYDRATE 100 MG CAP PO SCH (08:22)
[2017-02-11] MEDS: CITALOPRAM 40 MG TAB PO SCH (08:22)
[2017-02-11] MEDS: FERROUS SULFATE 325 MG TAB PO SCH ×2 (08:22→17:28)
--- NOTE | 2017-02-11 14:26 | Psychiatric Progress Notes ---
Progress Note Date of Service Feb 11, 2017. Interval History Lilli Cintron is a 36-year-old female with a self-reported history of schizoaffective disorder who currently lives in [place] with her significant other and two teenage children. Lilli Cintron was admitted on a 201 voluntary commitment. Patient is admitted from home. The patient was brought to the ED by the family. Information provided by the patient is considered to be partially reliable. Chief Complaint "I can think". Subjective Patient was seen & assessed interval progress reviewed with Nursing Per staff there are discrepancies in her history of what was going on prior to admission to include concerns of children staying home from school (ages 13 and 15yo) to care for psychotic patient while her BF was out of town. While here she has been alternating with poor times scared and paranoid that others will hurt her with but vague on clear ideas, not even taking showers retreating to be. When doing better she will go to groups but limited participation. Yesterday she was "in between" per nursing, she was noted to be flat and dysphoric, low energy, low motivation, flat, going to groups but not participating and not spontaneously interacting with peers or staff. She will speak when spoken to, and responds to prompts to take care of her ADLs. Aftercare remains a concern due to where she lives and limitations in transportation, awaiting return call from [facility]. Spoke with patient. She states that she is feeling that she is not as consumed and mentally clearer. She denies having IOR or paranoia today. She states she was not having AVH. She states her mood is a 5/10. (10 best/euthymic, 0 most depressed) She denies SE to her risperdal to include no akathisia, no EPS< no dystonia, denies orthostasis. She does endorse longstanding constipation, and uses Schulz "pills" at home "not all the time" Review of Systems She reports intact appetite, sleep, and denies pain, she denies EPS/dystonia, she reports constipation as above. She denies other physical concerns on ROS Sleep Information Total Hours of Sleep: 5.73 Meal Information Percent of Breakfast Consumed: 60 Percent of Lunch Consumed: 75 Percent of Dinner Consumed: 90 Mental Status Exam During interview pt is: alert and oriented, cooperative Appearance: appropriately dressed, appropriately groomed, other (overweight) Eye contact is: good Motor behavior is: steady gait & station, no abnormal motor movements Speech: normal in rate, rhythm & volume, other Affect: constricted (congruent with stated mood) Mood is: other ("I'm fine") Thought process: goal directed, concrete Thought content: reality based without delusions Suicidal thought are: denied Homicidal thoughts are: denied Hallucinations: denies auditory, denies visual Cognition: language grossly intact Intelligence estimated to be: below average Insight: fair Judgement: fair Medication Trials (1) Past Psychiatric Medications Seroquel and Depakote - made her like a zombie Unsure if she has had other med trials Last Edited By: Terese Banegas on Feb 04, 2017 12:01 Impression Lilli has demonstrated improvement over the past day or so, has been able to attend groups, and has been interacting more appropriately with others. She still has some irritability and paranoia, however, and has a family meeting this afternoon with her boyfriend to work on discharge plans. Aftercare has been a challenge and she is working on that with social work. She would benefit from an PASTOR, and will address this with her as she progresses. She requires inpatient treatment at this time due to ongoing irritability and paranoia, and lack of a safe discharge plan. Plan (1) Psychosis NOS Attempt to get records and collateral to clarify diagnosis. Very disorganized, and poor historian. Differential diagnosis includes substance induced psychosis , schizoaffective disorder, psychotic depression, schizophrenia. Continue citalopram 40mg daily and monitor mood. Start risperidone 0.5mg bid and 0.5mg q 4 hrs prn psychosis, and get fasting labs tomorrow for baseline on an atypical antipsychotic. Reviewed need for an antipsychotic and side effects. Will need psychiatric aftercare. Family meeting with . Advised patient a mandated CYS report will be made due to her report that left her with 2 minor children while she was psychiatrically unstable and they have not been going to school. 02/04 - fasting lipid profile within normal limits, and fasting glucose elevated at 110. Increase risperidone to 1 mg twice a day. Patient does demonstrate mood lability with significant irritability and tearfulness, but is sleeping well. Consider decreasing citalopram dose if she appears more manic. When she is less psychotic, we should attempt to get more information about past mood stabilizer trials. She is refusing to retrial Depakote. - She is not yet stable enough for a family meeting with her significant other. - She is committable if she requests to leave, as she has severely unstable mood and psychosis, is not available to provide for her own basic needs, and had not been caring for herself at home to the point that she had hypokalemia. 02/05 - Increase risperdal to 1 mg. AM and 2 mg. HS for paranoia and delusions 02/06 - Increase Risperdal to 1 mg. AM and 3 mg HS - Reality orientation - Monitor po intake in view of paranoia 02/07 - Continue Risperdal M - Add Ativan 1 mg. q4h prn agitation 02/08 - Increase risperidone to 1mg qam and 4mg qhs. 02/09 - Continue current meds 02/10 - Continue risperidone total of 5 mg daily, and Haldol and Ativan as needed. - Family meeting with boyfriend today. 02/11/17 - continue plan of care as above she appears to be improving, we need further observation to ensure tolerability of medications to limit risks of discontinuation, consider IM if patient is willing once stabilizing dose has been found, would need to explore cost. Aftercare to assure she will continue to have support to be stable out of the hospital given that she has minors in her care ongoing stability and supports are paramount. (2) Marijuana use Educate about the risks of cannabis use, including worsening mood and psychosis , and recommendations for abstinence. She indicates she knows she should not smoke pot, but has continued to do so for unclear reasons. Continue to educate and work on plan for abstinence as psychosis improves. (3) HTN (hypertension) Not on antihypertensives at home, will monitor BP here. 02/04 - blood pressure and pulse normal this morning, continue to monitor. (4) Asthma Continue home meds. (5) UTI (urinary tract infection) UA shows 2+ ketones, 3+ blood, large leukocyte esterase, greater than 30 white cells and red cells, and 1+ bacteria. This may be a contaminated sample, has 20 -30 epithelial cells, but we will follow up on the urine culture. The patient denies urinary urgency, frequency, and dysuria. 02/04 - preliminary culture results are positive for Streptococcus species, awaiting final culture and sensitivity. Started Macrobid based on culture and sensitivity results, complete 14 day course. 02/10 - denies UTI symptoms, continue and complete course of Macrobid (has 1 more day). (6) Hypokalemia 02/04/17 - On initial presentation in the emergency room 02/02/2017, potassium was 2.8, and on recheck 02/03/2017 and was 3.0. She is eating well here, and I have ordered a basic metabolic panel for tomorrow. Discharge / Aftercare Planning Primary Care Physician: Name: Dr Almodovar Date of Appointment: Feb 23, 2017 Time of Appointment: 11:05 am Therapist: Name: "I use to have one in [place]" Telephone Supervisor: Name: Blanca Visit Code E&M Code: 19128 Inventory Assets Strengths: Supportive family, has housing Risk Factors Assessment : Yes /single/: No Higher / Fall in social status: No Health problems: Yes Mental Health Diagnoses: Yes Substance use disorders: Yes Previous attempt: Yes Previous psychiatric stay: Yes Hopelessness: No Smoker: No Protective Factors Assessment Catholic beliefs: Yes : Yes Responsible for young children: Yes Employed: Yes Stable relationships: No Supportive family: Yes (sister) Good rapport with provider: No Data Vital Signs Last 24 Hrs: Date Time Temp Pulse Resp B/P (MAP) Pulse Ox O2 Delivery O2 Flow Rate FiO2 02/11/17 06:42 36.8 60 20 105/68 83 122/80 Meds Administered Last 24 Hrs: Current Inpatient Medications Medications (Trade) Dose Ordered Sig/Alvarado Route Start Time Stop Time Status Last Admin Dose Admin Acetaminophen (Tylenol Tab) 650 mg Q4H PRN PO 02/03/17 05:45 03/05/17 05:44 Al Hydroxide/Mg Hydroxide (Maalox Susp) 30 ml Q4H PRN PO 02/03/17 05:45 03/05/17 05:44 02/10/17 21:40 30 ML Bismuth Subsalicylate (Kaopectate Liqd) 15 ml DAILY PRN PO 02/03/17 05:45 03/05/17 05:44 Magnesium Hydroxide (Milk Of Magnesia Susp) 30 ml DAILY PRN PO 02/03/17 05:45 03/05/17 05:44 02/09/17 12:18 30 ML Sodium Chloride ([place]) PRN PRN NA 02/03/17 05:45 03/05/17 05:44 Hydroxyzine HCl (Vistaril Tab) 50 mg HSZ PRN PO 02/03/17 05:45 03/05/17 05:44 Hydroxyzine HCl (Vistaril Tab) 25 mg Q4H PRN PO 02/03/17 05:45 03/05/17 05:44 Haloperidol (Haldol Tab) 5 mg Q6H PRN PO 02/03/17 05:45 03/05/17 05:44 02/09/17 09:02 5 MG Citalopram Hydrobromide (celeXA TAB) 40 mg QAM PO 02/04/17 10:00 03/06/17 09:59 02/11/17 08:22 40 MG Risperidone (Risperdal Tab) 1 mg Q4 PRN PO 02/04/17 12:15 03/06/17 12:14 Ferrous Sulfate (Feosol Tab) 325 mg BIDM PO 02/05/17 17:45 03/07/17 17:44 02/11/17 08:22 325 MG Risperidone (Risperdal M Tab) 1 mg QAM PO 02/07/17 09:00 03/09/17 08:59 02/11/17 08:22 1 MG Lorazepam (Ativan Tab) 1 mg Q4H PRN PO 02/07/17 09:45 03/09/17 09:44 02/09/17 09:03 1 MG Risperidone (Risperdal M Tab) 4 mg HS PO 02/08/17 22:00 03/08/17 21:59 02/10/17 21:39 4 MG
[2017-02-11] MEDS: LORAZEPAM 1 MG TAB PO PRN (14:42)
[2017-02-11] MEDS: HALOPERIDOL 5 MG TAB PO PRN (14:42)
[2017-02-11] MEDS ORDERED: DOCUSATE SODIUM 100 MG CAP PO ONE (15:12)
[2017-02-11] MEDS: DOCUSATE SODIUM 100 MG CAP PO SCH (21:30)
[2017-02-12 06:45] VITALS: BP_SYST 120; BP_SYST 94; BP_DIAS 65; BP_DIAS 80; PULSE 60; PULSE 70; TEMP 36.7
[2017-02-12] MEDS: CITALOPRAM 40 MG TAB PO SCH (08:23)
[2017-02-12] MEDS: DOCUSATE SODIUM 100 MG CAP PO SCH ×2 (08:23→21:36)
[2017-02-12] MEDS: RISPERIDONE ODT 1MG PO SCH ×2 (08:23→21:36)
[2017-02-12] MEDS: FERROUS SULFATE 325 MG TAB PO SCH ×2 (08:23→17:48)
--- NOTE | 2017-02-12 08:24 | Psychiatric Progress Notes ---
Progress Note Date of Service Feb 12, 2017. Interval History Lilli Cintron is a 36-year-old female with a self-reported history of schizoaffective disorder who currently lives in [place] with her significant other and two teenage children. Lilli Cintron was admitted on a 201 voluntary commitment. Patient is admitted from home. The patient was brought to the ED by the family. Information provided by the patient is considered to be partially reliable. Chief Complaint "I think I am okay". Subjective Patient was seen & assessed interval progress reviewed with Nursing Per nursing staff the patient slept through the night. SHe overall has improved compared to her status at admission, but the afternoon she seems to have racing thoughts, and restless and more paranoid. She was given haldol and ativan prn yesterday afternoon for these symptoms. She does not have very good insight at these times, and she has poor insight to how ill she was at time of admission as well. SHe is attending groups, and sits with peers but otherwise minimal spontaneous engagement. She is staying out of her room. Prior to this provider meeting with the patient she was given an additional prn of haldol 5mg and ativan 1mg for complaint of anxiety and paranoid thoughts She starts the visit stating "I think I am okay" and states she is not paranoid and has not been. When provider asks about the haldol/ativan earlier this AM she states "I was tired and my thoughts weren't right." She denies EPS/dystonia , no galactorrhea no orthostasis. She denies feeling depressed and is observed interacting with peers. "My goal is to go home" she is aware that she is not recommended to leave until she has firm aftercare in place. Review of Systems She denies physical concerns, see subjective above. She is eating well and sleeping well. Sleep Information Total Hours of Sleep: 11.50 Meal Information Percent of Breakfast Consumed: 60 Percent of Lunch Consumed: 75 Percent of Dinner Consumed: 100 Mental Status Exam During interview pt is: alert and oriented, cooperative Appearance: appropriately dressed, appropriately groomed, other (overweight) Eye contact is: good Motor behavior is: steady gait & station, no abnormal motor movements Speech: normal in rate, rhythm & volume, other Affect: constricted (congruent with stated mood) Mood is: other ("I'm fine") Thought process: goal directed, concrete Thought content: reality based without delusions (but did have paranoia this AM prompting prn medications) Suicidal thought are: denied Homicidal thoughts are: denied Hallucinations: denies auditory, denies visual Cognition: language grossly intact Intelligence estimated to be: below average Insight: fair Judgement: fair Medication Trials (1) Past Psychiatric Medications Seroquel and Depakote - made her like a zombie Unsure if she has had other med trials Last Edited By: Terese Banegas on Feb 04, 2017 12:01 Impression Lilli has demonstrated improvement over the past day or so, has been able to attend groups, and has been interacting more appropriately with others. She still has some irritability and paranoia, however, and has a family meeting this afternoon with her boyfriend to work on discharge plans. Aftercare has been a challenge and she is working on that with social work. She would benefit from an PASTOR, and will address this with her as she progresses. She requires inpatient treatment at this time due to ongoing irritability and paranoia, and lack of a safe discharge plan. Plan (1) Psychosis NOS Attempt to get records and collateral to clarify diagnosis. Very disorganized, and poor historian. Differential diagnosis includes substance induced psychosis , schizoaffective disorder, psychotic depression, schizophrenia. Continue citalopram 40mg daily and monitor mood. Start risperidone 0.5mg bid and 0.5mg q 4 hrs prn psychosis, and get fasting labs tomorrow for baseline on an atypical antipsychotic. Reviewed need for an antipsychotic and side effects. Will need psychiatric aftercare. Family meeting with . Advised patient a mandated CYS report will be made due to her report that left her with 2 minor children while she was psychiatrically unstable and they have not been going to school. 02/04 - fasting lipid profile within normal limits, and fasting glucose elevated at 110. Increase risperidone to 1 mg twice a day. Patient does demonstrate mood lability with significant irritability and tearfulness, but is sleeping well. Consider decreasing citalopram dose if she appears more manic. When she is less psychotic, we should attempt to get more information about past mood stabilizer trials. She is refusing to retrial Depakote. - She is not yet stable enough for a family meeting with her significant other. - She is committable if she requests to leave, as she has severely unstable mood and psychosis, is not available to provide for her own basic needs, and had not been caring for herself at home to the point that she had hypokalemia. 02/05 - Increase risperdal to 1 mg. AM and 2 mg. HS for paranoia and delusions 02/06 - Increase Risperdal to 1 mg. AM and 3 mg HS - Reality orientation - Monitor po intake in view of paranoia 02/07 - Continue Risperdal M - Add Ativan 1 mg. q4h prn agitation 02/08 - Increase risperidone to 1mg qam and 4mg qhs. 02/09 - Continue current meds 02/10 - Continue risperidone total of 5 mg daily, and Haldol and Ativan as needed. - Family meeting with boyfriend today. 02/11/17 - continue plan of care as above she appears to be improving, we need further observation to ensure tolerability of medications to limit risks of discontinuation, consider IM if patient is willing once stabilizing dose has been found, would need to explore cost. Aftercare to assure she will continue to have support to be stable out of the hospital given that she has minors in her care ongoing stability and supports are paramount. 02/12/17 - she received additional haldol 5 and ativan 1mg each of the last 2 days ( including today) for paranoia and confused thoughts; will increase risperdal for tomorrow for 2mg/AM and 4mg/hs. DIscussed risks of sialorrhea, EPS/dystonia , orthostasis and galactorrhea in layman's terms, and she affirmed understanding. (2) Marijuana use Educate about the risks of cannabis use, including worsening mood and psychosis , and recommendations for abstinence. She indicates she knows she should not smoke pot, but has continued to do so for unclear reasons. Continue to educate and work on plan for abstinence as psychosis improves. (3) HTN (hypertension) Not on antihypertensives at home, will monitor BP here. 02/04 - blood pressure and pulse normal this morning, continue to monitor. (4) Asthma Continue home meds. (5) UTI (urinary tract infection) UA shows 2+ ketones, 3+ blood, large leukocyte esterase, greater than 30 white cells and red cells, and 1+ bacteria. This may be a contaminated sample, has 20 -30 epithelial cells, but we will follow up on the urine culture. The patient denies urinary urgency, frequency, and dysuria. 02/04 - preliminary culture results are positive for Streptococcus species, awaiting final culture and sensitivity. Started Macrobid based on culture and sensitivity results, complete 14 day course. 02/10 - denies UTI symptoms, continue and complete course of Macrobid (has 1 more day). (6) Hypokalemia 02/04/17 - On initial presentation in the emergency room 02/02/2017, potassium was 2.8, and on recheck 02/03/2017 and was 3.0. She is eating well here, and I have ordered a basic metabolic panel for tomorrow. Discharge / Aftercare Planning Primary Care Physician: Name: Dr Almodovar Date of Appointment: Feb 23, 2017 Time of Appointment: 11:05 am Therapist: Name: "I use to have one in [place]" Solution Developer: Name: Blanca Visit Code E&M Code: 70100 Inventory Assets Strengths: Supportive family, has housing Risk Factors Assessment : Yes /single/: No Higher / Fall in social status: No Health problems: Yes Mental Health Diagnoses: Yes Substance use disorders: Yes Previous attempt: Yes Previous psychiatric stay: Yes Hopelessness: No Smoker: No Protective Factors Assessment Religion beliefs: Yes : Yes Responsible for young children: Yes Employed: Yes Stable relationships: No Supportive family: Yes (sister) Good rapport with provider: No Data Vital Signs Last 24 Hrs: Date Time Temp Pulse Resp B/P (MAP) Pulse Ox O2 Delivery O2 Flow Rate FiO2 02/12/17 06:45 36.7 60 16 94/65 70 120/80 Meds Administered Last 24 Hrs: Meds Administered (Past 24Hrs) Medications (Trade) Dose Ordered Sig/Alvarado Route Start Time Stop Time Status Last Admin Dose Admin Docusate Sodium (coLACE CAP) 100 mg BID PO 02/11/17 22:00 03/13/17 21:59 02/11/17 21:30 100 MG Docusate Sodium (coLACE CAP) 100 mg 1512 ONCE PO 02/11/17 15:12 02/11/17 15:19 DC 02/11/17 15:49 100 MG
[2017-02-12] MEDS: HALOPERIDOL 5 MG TAB PO PRN (10:31)
[2017-02-12] MEDS: LORAZEPAM 1 MG TAB PO PRN (10:31)
[2017-02-13 06:52] VITALS: BP_SYST 100; BP_SYST 108; BP_DIAS 67; BP_DIAS 72; PULSE 75; PULSE 84; TEMP 36.5
[2017-02-13] MEDS: DOCUSATE SODIUM 100 MG CAP PO SCH ×2 (08:35→21:01)
[2017-02-13] MEDS: FERROUS SULFATE 325 MG TAB PO SCH ×2 (08:35→17:49)
[2017-02-13] MEDS: CITALOPRAM 40 MG TAB PO SCH (08:35)
[2017-02-13] MEDS: RISPERIDONE ODT 1MG PO SCH ×2 (08:36→21:01)
--- NOTE | 2017-02-13 09:52 | Psychiatric Progress Notes ---
Progress Note Date of Service Feb 13, 2017. Interval History Lilli Cintron is a 36-year-old female with a self-reported history of schizoaffective disorder who currently lives in [place] with her significant other and two teenage children. Lilli Cintron was admitted on a 201 voluntary commitment. Patient is admitted from home. The patient was brought to the ED by the family. Information provided by the patient is considered to be partially reliable. Chief Complaint "I'd like to see if I can get an intake". Subjective Patient was seen & assessed interval progress reviewed with Nursing. She was withdrawn to her bed in the day. She however brightened after a visit with her partner and mother. She did seemed to respond well to her prn haldol and ativan, but that alongside of the risperdal she reports tiredness. Pt was seen today for interview along with Laxmi Craig PA-C. Pt reports she is doing well. She slept well last night after complaints of fatigue during the day yesterday. States she is feeling much better after a "good night sleep". Reports noticing increased "slobbering" when she awoke this morning, but denies sialorrhea throughout the day thus far. Appetite and energy levels are adequate. Pt states she "finally" had a BM just prior to the interview and reports it was hard, is willing to continue to increase dose of Colace to target constipation. Denies feelings of confusion or negative thoughts towards or received from others on the unit. States meeting with partner went well and describes him as supportive. Pt reports she is ready for discharge, but is cooperative and understands the potential need to stay until Wednesday to set up aftercare. Staff will attempt to call [facility] [phone] for an intake as part of aftercare planning, and their office is closed on the weekends. Review of Systems Psych: denies symptoms other than stated above Constitutional: denied Cardiovascular: denied GI: denied Neurologic: denied Remainder of 10 body systems also reviewed and denied other than noted above. Sleep Information Total Hours of Sleep: 7.50 Meal Information Percent of Breakfast Consumed: 90 Percent of Lunch Consumed: 100 Percent of Dinner Consumed: 50 Mental Status Exam During interview pt is: alert and oriented, cooperative Appearance: appropriately dressed, appropriately groomed, other (overweight) Eye contact is: good Motor behavior is: steady gait & station, no abnormal motor movements Speech: normal in rate, rhythm & volume Affect: mood congruent, blunted Mood is: other ("I'm good") Thought process: goal directed, concrete Thought content: reality based without delusions (denies current paranoia ) Suicidal thought are: denied Homicidal thoughts are: denied Hallucinations: denies auditory, denies visual Cognition: attention grossly intact, language grossly intact Intelligence estimated to be: below average Insight: fair Judgement: fair Medication Trials (1) Past Psychiatric Medications Seroquel and Depakote - made her like a zombie Unsure if she has had other med trials Last Edited By: Terese Banegas on Feb 04, 2017 12:01 Impression Lilli is continuing to demonstrate improvement, has been able to attend groups, and has been interacting more appropriately with peers. Reports family meeting went well and denies paranoia. Aftercare not currently in place, but was given contact she plans to call to set up intake. She would benefit from an PASTOR, and will address this with her as she progresses. She requires inpatient treatment at this time due to ongoing irritability and paranoia, and lack of a safe discharge plan. Plan (1) Psychosis NOS Attempt to get records and collateral to clarify diagnosis. Very disorganized, and poor historian. Differential diagnosis includes substance induced psychosis , schizoaffective disorder, psychotic depression, schizophrenia. Continue citalopram 40mg daily and monitor mood. Start risperidone 0.5mg bid and 0.5mg q 4 hrs prn psychosis, and get fasting labs tomorrow for baseline on an atypical antipsychotic. Reviewed need for an antipsychotic and side effects. Will need psychiatric aftercare. Family meeting with . Advised patient a mandated CYS report will be made due to her report that left her with 2 minor children while she was psychiatrically unstable and they have not been going to school. 02/04 - fasting lipid profile within normal limits, and fasting glucose elevated at 110. Increase risperidone to 1 mg twice a day. Patient does demonstrate mood lability with significant irritability and tearfulness, but is sleeping well. Consider decreasing citalopram dose if she appears more manic. When she is less psychotic, we should attempt to get more information about past mood stabilizer trials. She is refusing to retrial Depakote. - She is not yet stable enough for a family meeting with her significant other. - She is committable if she requests to leave, as she has severely unstable mood and psychosis, is not available to provide for her own basic needs, and had not been caring for herself at home to the point that she had hypokalemia. 02/05 - Increase risperdal to 1 mg. AM and 2 mg. HS for paranoia and delusions 02/06 - Increase Risperdal to 1 mg. AM and 3 mg HS - Reality orientation - Monitor po intake in view of paranoia 02/07 - Continue Risperdal M - Add Ativan 1 mg. q4h prn agitation 02/08 - Increase risperidone to 1mg qam and 4mg qhs. 02/09 - Continue current meds 02/10 - Continue risperidone total of 5 mg daily, and Haldol and Ativan as needed. - Family meeting with boyfriend today. 02/11/17 - continue plan of care as above she appears to be improving, we need further observation to ensure tolerability of medications to limit risks of discontinuation, consider IM if patient is willing once stabilizing dose has been found, would need to explore cost. Aftercare to assure she will continue to have support to be stable out of the hospital given that she has minors in her care ongoing stability and supports are paramount. 02/12/17 - she received additional haldol 5 and ativan 1mg each of the last 2 days ( including today) for paranoia and confused thoughts; will increase risperdal for tomorrow for 2mg/AM and 4mg/hs. Discussed risks of sialorrhea, EPS/dystonia , orthostasis and galactorrhea in layman's terms, and she affirmed understanding. 02/13/17 - no adverse reactions reported in response to increased risperdal aside from hypersalivation this am upon awakening. Denies EPS/dystonia, and galactorrhea. Will monitor on same dose today and observe response and side effects. (2) Marijuana use Educate about the risks of cannabis use, including worsening mood and psychosis , and recommendations for abstinence. She indicates she knows she should not smoke pot, but has continued to do so for unclear reasons. Continue to educate and work on plan for abstinence as psychosis improves. (3) HTN (hypertension) Not on antihypertensives at home, will monitor BP here. 02/04 - blood pressure and pulse normal this morning, continue to monitor. (4) Asthma Continue home meds. (5) UTI (urinary tract infection) UA shows 2+ ketones, 3+ blood, large leukocyte esterase, greater than 30 white cells and red cells, and 1+ bacteria. This may be a contaminated sample, has 20 -30 epithelial cells, but we will follow up on the urine culture. The patient denies urinary urgency, frequency, and dysuria. 02/04 - preliminary culture results are positive for Streptococcus species, awaiting final culture and sensitivity. Started Macrobid based on culture and sensitivity results, complete 14 day course. 02/10 - denies UTI symptoms, continue and complete course of Macrobid (has 1 more day). (6) Hypokalemia 02/04/17 - On initial presentation in the emergency room 02/02/2017, potassium was 2.8, and on recheck 02/03/2017 and was 3.0. She is eating well here, and repeat BMP was WNL.. Discharge / Aftercare Planning Primary Care Physician: Name: Dr Almodovar Date of Appointment: Feb 23, 2017 Time of Appointment: 11:05 am Therapist: Name: "I use to have one in [place]" [employer] Operator: Name: Blanca Visit Code E&M Code: 44817 Inventory Assets Strengths: Supportive family, has housing Risk Factors Assessment : Yes /single/: No Higher / Fall in social status: No Health problems: Yes Mental Health Diagnoses: Yes Substance use disorders: Yes Previous attempt: Yes Previous psychiatric stay: Yes Hopelessness: No Smoker: No Protective Factors Assessment Faith beliefs: Yes : Yes Responsible for young children: Yes Employed: Yes Stable relationships: No Supportive family: Yes (sister) Good rapport with provider: No Data Vital Signs Last 24 Hrs: Date Time Temp Pulse Resp B/P (MAP) Pulse Ox O2 Delivery O2 Flow Rate FiO2 02/13/17 06:52 36.5 75 16 100/67 84 108/72 Meds Administered Last 24 Hrs: Meds Administered (Past 24Hrs) Medications (Trade) Dose Ordered Sig/Alvarado Route Start Time Stop Time Status Last Admin Dose Admin Docusate Sodium (coLACE CAP) 100 mg BID PO 02/11/17 22:00 03/13/17 21:59 11/24/17 21:36 100 MG Docusate Sodium (coLACE CAP) 100 mg 1512 ONCE PO 02/11/17 15:12 02/11/17 15:19 DC 02/11/17 15:49 100 MG
[2017-02-14 06:51] VITALS: BP_SYST 106; BP_SYST 117; BP_DIAS 69; BP_DIAS 72; PULSE 66; PULSE 77; TEMP 36.7
[2017-02-14] MEDS: DOCUSATE SODIUM 100 MG CAP PO SCH ×2 (07:42→21:17)
[2017-02-14] MEDS: FERROUS SULFATE 325 MG TAB PO SCH ×2 (07:42→17:38)
[2017-02-14] MEDS: RISPERIDONE ODT 1MG PO SCH ×2 (07:42→21:17)
[2017-02-14] MEDS: CITALOPRAM 40 MG TAB PO SCH (07:42)
--- NOTE | 2017-02-14 08:29 | Psychiatric Progress Notes ---
Progress Note Date of Service Feb 14, 2017. Interval History Lilli Cintron is a 36-year-old female with a self-reported history of schizoaffective disorder who currently lives in [place] with her significant other and two teenage children. Lilli Cintron was admitted on a 201 voluntary commitment. Patient is admitted from home. The patient was brought to the ED by the family. Information provided by the patient is considered to be partially reliable. Chief Complaint "I feel pretty good". Subjective Patient was seen & assessed interval progress reviewed with Nursing Patient is noted to be engaged in the milieu in groups and during free time. SHe is brighter affectively when engaged. Less anxiousness, and no obvious paranoia, and no prns needed in the last 24 hours. Patient states "I feel better than when I came and I look forward to going home." She denies feeling depressed, feels her anxiety is controlled, and denies AVH, or paranoia as she was having at admission. She denies further sialorrhea last night and no other SE of risperdal. She notes she did have a BM yesterday that was hard, she declines miralax or increased colace "I have this at home too" We discussed MJ use and brief intervention counseling discussing risk of MJ for all people and increased risk of worsening psychosis for her. Gave her handout summarizing same and recommended she abstain She states her intention is to abstain but does give very simplistic plan that she will simply decline if others in her home are smoking when she is around. Review of Systems as above intact appetite, firm BM, denies EPS/dytonia, denies akthisia, denies sialorrhea today, denies galactorrhea intact sleep Sleep Information Total Hours of Sleep: 8.50 Meal Information Percent of Breakfast Consumed: 90 Percent of Lunch Consumed: 75 Percent of Dinner Consumed: 75 Mental Status Exam During interview pt is: alert and oriented, cooperative Appearance: appropriately dressed, appropriately groomed, other (overweight) Eye contact is: good Motor behavior is: steady gait & station, no abnormal motor movements Speech: normal in rate, rhythm & volume Affect: mood congruent, euthymic Mood is: other ("I'm good") Thought process: goal directed, concrete Thought content: reality based without delusions (denies current paranoia ) Suicidal thought are: denied Homicidal thoughts are: denied Hallucinations: denies auditory, denies visual Cognition: attention grossly intact, language grossly intact Intelligence estimated to be: below average Insight: fair Judgement: fair Medication Trials (1) Past Psychiatric Medications Seroquel and Depakote - made her like a zombie Unsure if she has had other med trials Last Edited By: Terese Banegas on Feb 04, 2017 12:01 Impression Lilli is continuing to demonstrate improvement, has been able to attend groups, and has been interacting more appropriately with peers. Reports family meeting went well and denies paranoia. Aftercare not currently in place, but was given contact she plans to call to set up intake. She would benefit from an PASTOR, and will address this with her as she progresses. She requires inpatient treatment at this time due to ongoing irritability and paranoia, and lack of a safe discharge plan. Plan (1) Psychosis NOS Attempt to get records and collateral to clarify diagnosis. Very disorganized, and poor historian. Differential diagnosis includes substance induced psychosis , schizoaffective disorder, psychotic depression, schizophrenia. Continue citalopram 40mg daily and monitor mood. Start risperidone 0.5mg bid and 0.5mg q 4 hrs prn psychosis, and get fasting labs tomorrow for baseline on an atypical antipsychotic. Reviewed need for an antipsychotic and side effects. Will need psychiatric aftercare. Family meeting with . Advised patient a mandated CYS report will be made due to her report that left her with 2 minor children while she was psychiatrically unstable and they have not been going to school. 02/04 - fasting lipid profile within normal limits, and fasting glucose elevated at 110. Increase risperidone to 1 mg twice a day. Patient does demonstrate mood lability with significant irritability and tearfulness, but is sleeping well. Consider decreasing citalopram dose if she appears more manic. When she is less psychotic, we should attempt to get more information about past mood stabilizer trials. She is refusing to retrial Depakote. - She is not yet stable enough for a family meeting with her significant other. - She is committable if she requests to leave, as she has severely unstable mood and psychosis, is not available to provide for her own basic needs, and had not been caring for herself at home to the point that she had hypokalemia. 02/05 - Increase risperdal to 1 mg. AM and 2 mg. HS for paranoia and delusions 02/06 - Increase Risperdal to 1 mg. AM and 3 mg HS - Reality orientation - Monitor po intake in view of paranoia 02/07 - Continue Risperdal M - Add Ativan 1 mg. q4h prn agitation 02/08 - Increase risperidone to 1mg qam and 4mg qhs. 02/09 - Continue current meds 02/10 - Continue risperidone total of 5 mg daily, and Haldol and Ativan as needed. - Family meeting with boyfriend today. 02/11/17 - continue plan of care as above she appears to be improving, we need further observation to ensure tolerability of medications to limit risks of discontinuation, consider IM if patient is willing once stabilizing dose has been found, would need to explore cost. Aftercare to assure she will continue to have support to be stable out of the hospital given that she has minors in her care ongoing stability and supports are paramount. 02/12/17 - she received additional haldol 5 and ativan 1mg each of the last 2 days ( including today) for paranoia and confused thoughts; will increase risperdal for tomorrow for 2mg/AM and 4mg/hs. Discussed risks of sialorrhea, EPS/dystonia , orthostasis and galactorrhea in layman's terms, and she affirmed understanding. 02/13/17 and 02/14/17 - no adverse reactions reported in response to increased risperdal aside from hypersalivation this am upon awakening. Denies EPS/dystonia, and galactorrhea. Will monitor on same dose today and observe response and side effects. (2) Marijuana use Educate about the risks of cannabis use, including worsening mood and psychosis , and recommendations for abstinence. She indicates she knows she should not smoke pot, but has continued to do so for unclear reasons. Continue to educate and work on plan for abstinence as psychosis improves 02/14/17 Brief intervention with counseling and motivational interviewing regarding cessation. She accepts handout and states plan is to abstain.. (3) HTN (hypertension) Not on antihypertensives at home, will monitor BP here. 02/04 - blood pressure and pulse normal this morning, continue to monitor. (4) Asthma Continue home meds. (5) UTI (urinary tract infection) UA shows 2+ ketones, 3+ blood, large leukocyte esterase, greater than 30 white cells and red cells, and 1+ bacteria. This may be a contaminated sample, has 20 -30 epithelial cells, but we will follow up on the urine culture. The patient denies urinary urgency, frequency, and dysuria. 02/04 - preliminary culture results are positive for Streptococcus species, awaiting final culture and sensitivity. Started Macrobid based on culture and sensitivity results, complete 14 day course. 02/10 - denies UTI symptoms, continue and complete course of Macrobid (has 1 more day). (6) Hypokalemia 02/04/17 - On initial presentation in the emergency room 02/02/2017, potassium was 2.8, and on recheck 02/03/2017 and was 3.0. She is eating well here, and repeat BMP was WNL.. Discharge / Aftercare Planning Primary Care Physician: Name: Dr Almodovar Date of Appointment: Feb 23, 2017 Time of Appointment: 11:05 am Therapist: Name: "I use to have one in [place]" Casualty Insurance Claim Adjuster: Name: Blanca Visit Code E&M Code: 79177 Inventory Assets Strengths: Supportive family, has housing Risk Factors Assessment : Yes /single/: No Higher / Fall in social status: No Health problems: Yes Mental Health Diagnoses: Yes Substance use disorders: Yes Previous attempt: Yes Previous psychiatric stay: Yes Hopelessness: No Smoker: No Protective Factors Assessment [employer] beliefs: Yes : Yes Responsible for young children: Yes Employed: Yes Stable relationships: No Supportive family: Yes (sister) Good rapport with provider: No Data Vital Signs Last 24 Hrs: Date Time Temp Pulse Resp B/P (MAP) Pulse Ox O2 Delivery O2 Flow Rate FiO2 02/14/17 06:51 36.7 66 16 117/72 77 106/69 Meds Administered Last 24 Hrs: Meds Administered (Past 24Hrs) Medications (Trade) Dose Ordered Sig/Alvarado Route Start Time Stop Time Status Last Admin Dose Admin Risperidone (Risperdal M Tab) 2 mg QAM PO 02/13/17 09:00 03/09/17 08:59 02/13/17 08:36 2 MG
[2017-02-14] MEDS: ALUMINUM/MAGNESIUM SUSP 30 ML UDC PO PRN (16:07)
[2017-02-15 06:59] VITALS: BP_SYST 106; BP_SYST 96; BP_DIAS 65; BP_DIAS 70; PULSE 66; PULSE 71; TEMP 36.6
[2017-02-15] MEDS: CITALOPRAM 40 MG TAB PO SCH (07:36)
[2017-02-15] MEDS: DOCUSATE SODIUM 100 MG CAP PO SCH (07:37)
[2017-02-15] MEDS: RISPERIDONE ODT 1MG PO SCH (07:37)
[2017-02-15] MEDS: FERROUS SULFATE 325 MG TAB PO SCH (07:37)
[2017-02-15] MEDS ORDERED: RISP2TAB21 PO (09:18)
[2017-02-15] MEDS ORDERED: CITA40TA4 PO (09:18)
--- NOTE | 2017-02-15 09:53 | Discharge Instructions ---
Discharge Information Report Includes Report will include the: Discharge Instructions & Summary Admission Admission Date / Time: Feb 03, 2017 at 04:55 Reason for Admission: Schizoaffective Discharge Discharge Diagnosis / Problem: psychosis not otherwise specified Condition at Discharge: Good Discharge Goals Goal(s): Improve function, Improve disease control, Learn about illness, Therapeutic intervention Activity Recommendations Activity Limitations: per Instructions/Follow-up section . Instructions / Follow-Up Instructions / Follow-Up . SPECIAL CARE INSTRUCTIONS: 1. Follow through with your scheduled aftercare appointments. If unable to keep an appointment, please call to reschedule. 2. Take your medication only as prescribed. Medication should not be changed or stopped without the approval of your doctor. In the event of worsening symptoms or concerns about side effects, contact your doctor immediately. 3. Utilize new healthy coping skills, anger management skills, and stress management skills learned during your hospitalization. Journal feelings and process them with a support person. Identify stressors or situations that may result in relapse, deterioration or inappropriate behaviors and develop a plan to deal with those issues. 4. If your coping skills are ineffective and you are in crisis, contact your outpatient providers for direction. If unable to reach your providers, please call the CAN HELP LINE AT or go to the closest Emergency Room. 5. Avoid alcohol and un-prescribed drugs. 6. You have been provided with the Mental Health Advance Directives Pamphlet for your review. AFTERCARE APPOINTMENTS: * Please call your insurance company prior to your scheduled appointment to confirm your aftercare providers are covered. Take your insurance information to your appointments. . Discharge / Aftercare Planning Primary Care Physician: Name: Dr Almodovar Date of Appointment: Feb 23, 2017 Time of Appointment: 11:05 am Therapist: Name Of Therapist: "I use to have one in [place]" Assistant Superintendent For Curriculum: Name: Blanca . Follow-Up Care Plan for Follow-Up Care: See above. Current Hospital Diet Patient's current hospital diet: Regular Diet Discharge Diet Recommended Diet: Regular Diet Procedures Procedures Performed: No Pending Studies Pending Studies at Discharge: No Medical Emergencies . Who to Call and When: Medical Emergencies: For questions or emergencies related to your hospital stay, please contact the Inpatient Behavioral Health Unit at [phone]. A health clinician is on-call 12/10 for the Behavioral Health Unit for emergencies At any time you feel your situation is an emergency, you may also call 911 immediately. . Non-Emergent Contact Non-Emergency issues call your: Primary Care Provider, Psychiatrist, Assistant Superintendent For Curriculum Past History Medical & Surgical History: (1) Hypokalemia (2) UTI (urinary tract infection) (3) Anemia (4) GERD (gastroesophageal reflux disease) (5) Tobacco abuse (6) HTN (hypertension) (7) Marijuana use (8) Asthma (9) Endometriosis Advance Directives Existing Advance Directive: No Do You Have an Existing Mental: No Existing Living Will: No Existing Power of Hospital Unit Clerk: No Advance Directives Info Given: To Pt/S.O. Advance Directives Reason: Declines as Mental Health Visit. Discharge Summary Admission HPI Per the Admitting provider: Lilli presented to the Emergency Room for a mental health evaluation as she has been increasingly stressed to the point that she has vomited multiple times. She endorsed depression, has been on the same medication for years and has not seen a psychiatrist to adjust it. She was seen with her significant other, who said he left the home about 2 weeks ago because Lilli was "acting the same way she did right before her last admission to the mental health floors. Intense rage one minute, then depressed the next." The patient was a limited historian, was slow to answer, and seemed confused. She reported she hadn't slept for an undetermined amount of days, and hasn't been able to eat. She did not know what her MH diagnosis is, "I can't think". She said she used to have a psychiatrist but has not been able to start again with one because of insurance issues. She denied drug use, but her drug screen was positive for marijuana. She has two children, ages 14 & 15, who live with her. Her significant other said her children told him the patient has been "talking out of her head and not making sense." Initially, she was resistant to the idea of admission, but after talking to the case supervisor, was willing. She is prescribed citalopram currently. She received Haldol and Ativan in the ER as she was delayed, thought blocked, and paranoid. Per notes, she allowed her Medicare to lapse so lost insurance, and has not been compliant with her medication. Today, she says she came to the ER because she was "depressed, constantly thinking, couldn't sleep." She cannot say how this has been going on, "no idea. " She has had mental health issues since she was 4 years old, and says she has been diagnosed with "bipolar schizophrenic." She has seen outpatient mental health clinicians in the past, but cannot recall how long ago. Her PCP currently prescribes her meds, including citalopram. She is not sure if it helps. She describes disorganized thoughts, "just a bunch of stuff that doesn't make no sense." She admits to paranoia, "like I'm scared and thinking people's out to get me and hurt me," but denies a plan or intent to harm herself. Paranoia with fears that she is in danger, "everything, panicking about the epperson and stuff, thinking there's stuff in there." Denies that there were specific people out to get her. Denies AVH and ideas of reference. Admits to thought blocking and feeling confused. She says she has not been doing ADLs or taking care of herself, "I'm doing everything backwards," can't explain further. Not sure when she last bathed, and was not eating, 'I didn't feel hungry." She is not sure if she lost weight, "it says it on the calendar, but I don't know." She has not been making food for herself or her kids, and says they have been making food for her. She says she has been driving to her job at [employer], but is not sure when she last went to work. She thinks she has had euphoric mood in the past "when I was with my family," but cannot give further information. She denies anxiety currently. Admission Exam Per the Admitting provider: Please see admission H&P. Consultations None. Hospital Course (1) Psychosis NOS Attempt to get records and collateral to clarify diagnosis. Very disorganized, and poor historian. Differential diagnosis includes substance induced psychosis , schizoaffective disorder, psychotic depression, schizophrenia. Continue citalopram 40mg daily and monitor mood. Start risperidone 0.5mg bid and 0.5mg q 4 hrs prn psychosis, and get fasting labs tomorrow for baseline on an atypical antipsychotic. Reviewed need for an antipsychotic and side effects. Will need psychiatric aftercare. Family meeting with . Advised patient a mandated CYS report will be made due to her report that left her with 2 minor children while she was psychiatrically unstable and they have not been going to school. 02/04 - fasting lipid profile within normal limits, and fasting glucose elevated at 110. Increase risperidone to 1 mg twice a day. Patient does demonstrate mood lability with significant irritability and tearfulness, but is sleeping well. Consider decreasing citalopram dose if she appears more manic. When she is less psychotic, we should attempt to get more information about past mood stabilizer trials. She is refusing to retrial Depakote. - She is not yet stable enough for a family meeting with her significant other. - She is committable if she requests to leave, as she has severely unstable mood and psychosis, is not available to provide for her own basic needs, and had not been caring for herself at home to the point that she had hypokalemia. 02/05 - Increase risperdal to 1 mg. AM and 2 mg. HS for paranoia and delusions 02/06 - Increase Risperdal to 1 mg. AM and 3 mg HS - Reality orientation - Monitor po intake in view of paranoia 02/07 - Continue Risperdal M - Add Ativan 1 mg. q4h prn agitation 02/08 - Increase risperidone to 1mg qam and 4mg qhs. 02/09 - Continue current meds 02/10 - Continue risperidone total of 5 mg daily, and Haldol and Ativan as needed. - Family meeting with boyfriend today. 02/11/17 - continue plan of care as above she appears to be improving, we need further observation to ensure tolerability of medications to limit risks of discontinuation, consider IM if patient is willing once stabilizing dose has been found, would need to explore cost. Aftercare to assure she will continue to have support to be stable out of the hospital given that she has minors in her care ongoing stability and supports are paramount. 02/12/17 - she received additional haldol 5 and ativan 1mg each of the last 2 days ( including today) for paranoia and confused thoughts; will increase risperdal for tomorrow for 2mg/AM and 4mg/hs. Discussed risks of sialorrhea, EPS/dystonia , orthostasis and galactorrhea in layman's terms, and she affirmed understanding. 02/13/17 and 02/14/17 - no adverse reactions reported in response to increased risperdal aside from hypersalivation this am upon awakening. Denies EPS/dystonia, and galactorrhea. Will monitor on same dose today and observe response and side effects. 02/15 - Discharge home. Rx provided for risperidone 2mg qam and 4mg qhs and citalopram 40mg daily. - SW working on aftercare with psychiatrist. [facility]erred for [facility]. Recommend OP therapy f/u as well, but options are limited, will ask [facility] to assist in referral. (2) Marijuana use Educate about the risks of cannabis use, including worsening mood and psychosis , and recommendations for abstinence. She indicates she knows she should not smoke pot, but has continued to do so for unclear reasons. Continue to educate and work on plan for abstinence as psychosis improves 02/14/17: Brief intervention with counseling and motivational interviewing regarding cessation. She accepts handout and states plan is to abstain. 02/15: Again reviewed the risks of ongoing substance abuse and the recommendations for abstinence, which the patient is in agreement with. (3) HTN (hypertension) Not on antihypertensives at home, will monitor BP here. 02/04 - blood pressure and pulse normal this morning, continue to monitor. 02/15 - follow-up with PCP, Dr. Haynes, on 02/23/2017. (4) Asthma Continue home meds. (5) UTI (urinary tract infection) UA shows 2+ ketones, 3+ blood, large leukocyte esterase, greater than 30 white cells and red cells, and 1+ bacteria. This may be a contaminated sample, has 20 -30 epithelial cells, but we will follow up on the urine culture. The patient denies urinary urgency, frequency, and dysuria. 02/04 - preliminary culture results are positive for Streptococcus species, awaiting final culture and sensitivity. Started Macrobid based on culture and sensitivity results, complete 14 day course. 02/10 - denies UTI symptoms, continue and complete course of Macrobid (has 1 more day). 02/15 - antibiotic completed; patient continues to deny symptoms of UTI. (6) Hypokalemia 02/04/17 - On initial presentation in the emergency room 02/02/2017, potassium was 2.8, and on recheck 02/03/2017 and was 3.0. She is eating well here, and repeat BMP was WNL. Risk Factors Assessment : Yes /single/: No Higher / Fall in social status: No Access to guns: No Health problems: Yes Mental Health Diagnoses: Yes Substance use disorders: Yes Previous attempt: Yes Previous psychiatric stay: Yes Hopelessness: No Smoker: No Protective Factors Assessment [employer]ology beliefs: Yes : Yes Responsible for young children: Yes Employed: Yes Stable relationships: No Supportive family: Yes Good rapport with provider: No Absence of risk factors above: Yes (risk factors were mitigated by admission to the inpatient unit, adjustment of medications to target mood and psychotic symptoms, treatment of comorbid medical conditions, participation in unit groups and programming, working on healthy coping skills and the discharge safety plan, involvement of significant other in a family meeting, and referral for increased outpatient services. The patient's mood and psychotic symptoms have improved, she is consistently denying thoughts of harming herself or others , is actively participating in treatment, and is willing to follow-up with outpatient providers. She is no longer at acute risk of harm to herself or others, so can be discharged and managed as an outpatient at this time.) Day of Discharge Assessment Hospital course: On admission, the patient was started on risperidone for psychosis, and continued on her home dose of citalopram 40 mg daily. She was treated with a course of antibiotics for UTI. She was initially quite paranoid, did not want to participate in treatment, and wanted to leave the hospital. She isolated in her room and did not participate in treatment, although she did take medications. She was paranoid of staff and medications, at times refusing to eat as she did not trust the food. She often thought that staff and peers were talking about her. Her psychotic symptoms gradually improved, as risperidone was increased to a total of 6 mg daily. She tolerated the medication well. Appetite and sleep improved, and she was able to attend and participate appropriately in groups and therapy. She became better able to communicate with others as her thoughts became more organized. Affect brightened, and she had more spontaneous interactions. She had a meeting with her significant other on 02/10/2017, and it was clarified that they're not actually , although she refers to him as her at times. He noted that she seemed to be improving, and was glad that she was seeking help for her mental health issues. He stated that she had been aggressive towards him at times prior to admission, and that he had been spending time away from the home, but plan to return and stay with her after discharge. She worked with her social work faculty member to try to find aftercare, which was a challenge as they have limited transportation and finances. Attempts were made to refer her for therapy, but no therapist that accepted her insurance could be located. She was referred to the [facility] service unit for blended case management. He confirmed that she will not have access to guns at home. As her treatment progressed, she became more organized, was able to complete her ADLs independently, and affect and mood improved. Day of discharge assessment: The patient states that she is feeling much better and feels back to her normal self. She denies disorganized thinking, hallucinations, paranoia, and thoughts of harming herself or others. She reports good mood, and denies significant anxiety, problems with sleep or appetite, and difficulties doing ADLs. She denies side effects to medications. She is willing to follow-up with outpatient providers. We reviewed all of her medications and she expressed understanding of discharge plans. She is able to review her safety plan, and states her significant other will be picking her up and taking her home. She denies any concerns with discharge, and feels ready to go home. Well nourished, well developed WF appearing stated age. Casually dressed and adequately groomed. Calm and cooperative. Seated in NAD, with fair eye contact and no abnormal movements. Speech is normal rate, volume, and tone. Mood is "good," and affect is stable and congruent. Thoughts are concrete but logical and goal directed. The patient denied suicidal and homicidal ideation and was able to safety plan. No paranoia, delusions, or hallucinations, and did not appear to be responding to internal stimuli. Cognition was grossly intact. Alert and oriented to person, place and time. Intelligence is consistent with level of education. Insight and and judgment are fair. Laboratory Test 02/02/17 21:35 02/02/17 23:06 02/03/17 05:12 02/04/17 08:18 Urine Color ORANGE Urine Appearance CLOUDY Urine pH 7.0 Urine Specific [place] 1.010 Urine Protein 1+ Urine Glucose (UA) NEG Urine Ketones 2+ Urine Occult Blood 3+ Urine Nitrite NEG Urine Bilirubin NEG Urine Urobilinogen NEG Urine Leukocyte Esterase LARGE Urine WBC (Auto) >30 Urine RBC (Auto) >30 Urine Hyaline Casts (Auto) 1-5 Urine Epithelial Cells (Auto) 20-30 Urine Bacteria (Auto) 1+ Urine Opiates Screen NEG Urine Methadone, Qualitative NEG Urine Barbiturates NEG Urine Phencyclidine (PCP) Level NEG Ur Amphetamine/Methamphetamine NEG MDMA (Ecstasy) Screen NEG Urine Benzodiazepines Screen NEG Urine Cocaine Metabolite NEG Urine Marijuana (THC) POS Urine Marijuana (THC Carboxy Acid) 114 White Blood Count 10.39 Red Blood Count 4.75 Hemoglobin 14.9 Hematocrit 42.7 Mean Corpuscular Volume 89.9 Mean Corpuscular Hemoglobin 31.4 Mean Corpuscular Hemoglobin Concent 34.9 Platelet Count 220 Mean Platelet Volume 11.7 Neutrophils (%) (Auto) 77.7 Lymphocytes (%) (Auto) 14.1 Monocytes (%) (Auto) 7.2 Eosinophils (%) (Auto) 0.7 Basophils (%) (Auto) 0.2 Neutrophils # (Auto) 8.08 Lymphocytes # (Auto) 1.46 Monocytes # (Auto) 0.75 Eosinophils # (Auto) 0.07 Basophils # (Auto) 0.02 RDW Standard Deviation 44.9 RDW Coefficient of Variation 13.6 Immature Granulocyte % (Auto) 0.1 Immature Granulocyte # (Auto) 0.01 Sodium Level 137 Chloride Level 103 Carbon Dioxide Level 24 Anion Gap 11.0 Blood Urea Nitrogen 5 Creatinine 0.59 Est Creatinine Clear Calc Drug Dose 126.1 Estimated GFR () 135.7 Estimated GFR (Non- 117.1 BUN/Creatinine Ratio 7.8 Random Glucose 91 Calcium Level 9.5 Magnesium Level 2.1 Total Bilirubin 0.5 Direct Bilirubin 0.1 Aspartate Amino Transferase (AST) 15 Alanine Aminotransferase (ALT) 24 Alkaline Phosphatase 78 Total Protein 7.5 Albumin 3.9 Thyroid Stimulating Hormone (TSH) 0.472 Human Chorionic Gonadotropin, Qual NEG Ethyl Alcohol mg/dL < 3.0 Potassium Level 3.0 Chemistry Specimen Hemolysis Fasting Glucose 110 Triglycerides Level 72 Cholesterol Level 123 HDL Cholesterol 44 LDL Cholesterol, Calculated 65 VLDL Cholesterol, Calculated 14 Cholesterol/HDL Ratio 2.8 Test 02/05/17 06:58 Sodium Level 142 Potassium Level 3.9 Chloride Level 107 Carbon Dioxide Level 27 Anion Gap 8.0 Blood Urea Nitrogen 10 Creatinine 0.69 Est Creatinine Clear Calc Drug Dose 106.5 Estimated GFR () 128.9 Estimated GFR (Non- 111.2 BUN/Creatinine Ratio 15.0 Random Glucose 97 Calcium Level 9.4 Chemistry Specimen Hemolysis Total Time Total Time Spent (min): Greater than 30 minutes Total Time Included: examination of the patient, discharge planning, medication reconciliation Tobacco Cessation at Discharge Smoking Status: Never Smoker FDA approved Prescription: non-smoker
== END 2017-02-15 12:31 | disposition home or self-care (01) | DRG 885 ==
LOC: C.EDB 20:59 → C.MHU 02-03 04:55 → ENRESERV 02-03 05:07 → C.LD 02-11 14:47 → C.MHU 02-11 14:49
PROVIDERS: ADMIT Psychiatry & Neurology Child & Adolescent Psychiatry; ATTEND Psychiatry & Neurology Psychiatry
DX: F29 Unspecified psychosis not due to a substance or known physiological condition (principal); N39.0 Urinary tract infection, site not specified; E87.6 Hypokalemia; K21.9 Gastro-esophageal reflux disease without esophagitis; I10 Essential (primary) hypertension; F17.200 Nicotine dependence, unspecified, uncomplicated; F12.159 Cannabis abuse with psychotic disorder, unspecified; J45.909 Unspecified asthma, uncomplicated; Z79.899 Other long term (current) drug therapy

== ENCOUNTER 2017-03-23 12:56 | Inpatient (IN) | payer OTHER ==
[~2017-03-23] VITALS: Ht 154.9 cm; Wt 83.0 kg
[~2017-03-23 12:56] MED LIST changes: -ALBU1AER9 INH; -CALC-51 PO; +FERR1TAB13 PO; -FERR325T5 PO
[2017-03-23] MEDS ORDERED: RISP2TAB22 PO (13:36)
[2017-03-23 14:37] LABS: BASO % 0.2 %; BASO ABS # 0.02 K/uL (0-0.2); EOS % 0.4 %; EOS ABS # 0.03 K/uL (0-0.5); HEMATOCRIT 42.7 % (37-47); HEMOGLOBIN 14.7 g/dL (12.0-16.0); IG# 0.01 K/uL (0.00-0.02); LYMPH % 14.7 %; LYMPH ABS # 1.19 K/uL (1.2-3.4); MEAN CELL VOLUME 89.9 fL (80-100); MEAN CORPUSCULAR HEMOGLOBIN 30.9 pg (25-34); MEAN CORPUSCULAR HGB CONC 34.4 g/dl (32-36); MEAN PLATELET VOLUME 11.1 fL (7.4-10.4); MONO % 5.9 %; MONO ABS # 0.48 K/uL (0.11-0.59); NEUT % 78.7 %; NEUT ABS # 6.35 K/uL (1.4-6.5); PLATELET COUNT 213 K/uL (130-400); RED CELL DISTRIBUTION WIDTH CV 13.2 % (11.5-14.5); RED CELL DISTRIBUTION WIDTH SD 43.3 fL (36.4-46.3); WHITE BLOOD COUNT 8.08 K/uL (4.8-10.8)
[2017-03-23 14:57] LABS: ALBUMIN 3.9 gm/dl (3.4-5.0); ALT/SGPT 17 U/L (12-78); AST/SGOT 10 U/L (15-37); BLOOD UREA NITROGEN 6 mg/dl (7-18); CALCIUM 9.6 mg/dl (8.5-10.1); CARBON DIOXIDE 27 mmol/L (21-32); CREATININE 0.74 mg/dl (0.60-1.20); GLUCOSE 103 mg/dl (70-99); POTASSIUM 3.5 mmol/L (3.5-5.1); SODIUM 137 mmol/L (136-145)
[2017-03-23 15:08] LABS: ALKALINE PHOSPHATASE 93 U/L (45-117); TOTAL PROTEIN 7.7 gm/dl (6.4-8.2)
[2017-03-23] MEDS ORDERED: ALUMINUM/MAGNESIUM SUSP 30 ML UDC PO PRN (16:45)
[2017-03-23] MEDS ORDERED: BISMUTH SUBSALICYLATE PER ML OMNICELL CHARGE PO PRN (16:45)
[2017-03-23] MEDS ORDERED: SODIUM CHLORIDE 0.65% NA SOLN 45 ML (OCEAN) PRN (16:45)
[2017-03-23] MEDS ORDERED: MAGNESIUM HYDROXIDE SUSP 30 ML UDC PO PRN (16:45)
[2017-03-23] MEDS ORDERED: hydrOXYzine HCL 25 MG TAB PO PRN ×2 (16:45)
[2017-03-23] MEDS ORDERED: NICOTINE POLACRILEX 2 MG GUM MT PRN (16:45)
[2017-03-23] MEDS ORDERED: ACETAMINOPHEN 325 MG TAB PO PRN (16:45)
[2017-03-23 17:28] VITALS: O2SAT 97
[2017-03-23 18:15] VITALS: BP 140/93; PULSE 79; TEMP 36.5; BMI 34.6
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
[2017-03-23] MEDS: FERROUS SULFATE 325 MG TAB PO SCH (21:23)
[2017-03-23] MEDS: FLUTICASONE/SALMETEROL 250/50 (ADVAIR) 14 PUFF/1 INHALER INH SCH (21:23)
[2017-03-23] MEDS: CITALOPRAM 40 MG TAB PO SCH (21:24)
[2017-03-23] MEDS: RISPERIDONE 2 MG TAB PO SCH (21:24)
[2017-03-24 06:50] VITALS: BP_SYST 106; BP_SYST 120; BP_DIAS 74; BP_DIAS 80; PULSE 65; PULSE 78; TEMP 36.7
[2017-03-24] MEDS: NICOTINE 7 MG/24 HR TDSY TD SCH (07:43)
[2017-03-24] MEDS: PANTOprazole SOD 40 MG TAB PO SCH (07:43)
[2017-03-24] MEDS: RISPERIDONE 2 MG TAB PO SCH (07:43)
[2017-03-24] MEDS: FLUTICASONE/SALMETEROL 250/50 (ADVAIR) 14 PUFF/1 INHALER INH SCH ×2 (07:43→21:12)
[2017-03-24] MEDS: MULTIVITAMIN TAB PO SCH (07:43)
[2017-03-24] MEDS: FERROUS SULFATE 325 MG TAB PO SCH ×2 (07:43→17:43)
[2017-03-24] MEDS ORDERED: NICOTINE 21 MG/24 HR TDSY TD SCH (09:00)
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
[2017-03-24] MEDS ORDERED: TRIHEXYPHENIDYL HCL 5 MG TAB PO ONE (12:30)
[2017-03-24] MEDS: CITALOPRAM 40 MG TAB PO SCH (21:12)
[2017-03-25 06:44] VITALS: BP_SYST 120; BP_SYST 121; BP_DIAS 80; BP_DIAS 81; PULSE 66; PULSE 84; TEMP 36.9
[2017-03-25] MEDS: NICOTINE 7 MG/24 HR TDSY TD SCH (09:00)
[2017-03-25] MEDS: PANTOprazole SOD 40 MG TAB PO SCH (09:23)
[2017-03-25] MEDS: MULTIVITAMIN TAB PO SCH (09:23)
[2017-03-25] MEDS: FLUTICASONE/SALMETEROL 250/50 (ADVAIR) 14 PUFF/1 INHALER INH SCH ×2 (09:23→22:21)
[2017-03-25] MEDS: FERROUS SULFATE 325 MG TAB PO SCH ×2 (09:23→17:32)
--- NOTE | 2017-03-25 11:50 | Psychiatric Progress Notes ---
Progress Note Date of Service Mar 25, 2017. Interval History Lilli Cintron is a 36-year-old female admitted on Mar 23, 2017 at 17:16 who was brought to our emergency department by her fianc as the patient was not functioning at home, as sleeping all the time and anxious. She was admitted voluntarily due to inability to function. Information is gathered from the patient and considered to be reliable. Chief Complaint "I'm good". Subjective Patient was seen & assessed interval progress reviewed with Nursing. - some paranoia last evening before bed - affect continues to remain flat - family meeting scheduled with cam this afternoon Pt was seen today to assess progress since admission. Pt states she is "good" and has noticed she is better able to focus. Pt reports she can think better and has been able to answer questions better than she could yesterday. She reports she felt as though she was unable to put her thoughts together previously, but feels as though her mind as cleared since yesterday. Pt states she began to notice anxiety and agitation a few weeks ago and became concerned that it was the Risperdal causing her to feel differently. Pt is happy that Risperdal has been discontinued and states she had not been feeling this way on her other medications. Pt reports the Celexa has been working well to control her depressive symptoms and states she has been happy and rates her mood as a 7/ 10. She is pleased with her progress thus far. Pt denies SI/HI, A/V hallucinations and other psychotic symptoms at this time. Review of Systems Psych: denies symptoms other than stated above Constitutional: denied Cardiovascular: denied GI: denied Neurologic: denied Remainder of 10 body systems also reviewed and denied other than noted above. Sleep Information Total Hours of Sleep: 5.50 Meal Information Percent of Breakfast Consumed: 90 Percent of Lunch Consumed: 25 Percent of Dinner Consumed: 75 Mental Status Exam During interview pt is: alert and oriented, cooperative, other (lying in bed) Appearance: appropriately dressed, appropriately groomed Eye contact is: good (minimal blinking ) Motor behavior is: no abnormal motor movements Speech: normal in rate, rhythm & volume (more responsive to questioning) Affect: flat Mood is: other ("good") Thought process: goal directed Thought content: reality based without delusions Suicidal thought are: denied Homicidal thoughts are: denied Hallucinations: denies auditory, denies visual Cognition: attention grossly intact, language grossly intact Intelligence estimated to be: average Insight: impaired Judgement: impaired Impression 36-year-old woman admitted to our unit for the second time in 3 months. She presents as somewhat anxious, restless, unable to function at home. She is a limited historian but we understand that her outpatient provider has been reducing her Risperdal, possibly because of side effects. During her last stay her diagnosis was unclear, someone having reported that she had once been diagnosed with schizoaffective disorder, however that was never confirmed. No clear evidence of psychosis at this time but potential anxiety impacting her judgment and ability to function. It is possible that she has been experiencing akathisia from Risperdal and in the absence of psychotic symptoms, therefore it has been discontinued. As dosage of Celexa is at 40 mg, might be beneficial to convert to Lexapro so dosage can be increased. Plan to get supplemental from her [facility] and outpatient providers. Nursing staff will have to assist the patient in staying out of her bed and attending groups in view of her reports of sedation. At this time, the patient requires inpatient mental health treatment due to the severity of her condition and inability to function outside of a structured environment. Plan (1) Unspecified mood [affective] disorder 03/24/17 - Await return call from her outpatient psychiatric provider - For now continue Celexa 40 mg but moved to at bedtime due to sedation, consider switching to Lexapro in order to escalate dose - For now continue Risperdal 2 mg twice a day until I speak with her outpatient provider. Will provide her Artane 5 mg now to differentiate akathisia from anxiety - Every 15 minute checks for safety - Encourage participation in group and individual counseling - Assist the patient to explore coping strategies for times of anxiety and assist the patient to remain out of her room during the day -Coordinate with outpatient providers and obtain outpatient records - Family meeting with cam, obtain supplemental 03/24/17 - Continue medications as above. Pt states she has good response to Celexa. Will plan to continue to discuss switching to Lexapro and she improves and is able to focus and provide better insight into mood symptoms. - Risperdal discontinued to facilitate with differentiation of akathisia versus anxiety. - Family meeting with cam is scheduled for this afternoon, plan to obtain collateral information during that meeting to aid in treatment. - Continue to encourage patient to attend group session and remain out of her room throughout the day. (2) Tobacco use disorder 03/24/17 - 7 mg nicotine patch - Nicorette gum when necessary - Counseled to reduce smoking Discharge / Aftercare Planning Primary Care Physician: Name: Dr. Haynes Appointment Notes: as needed by pt Psychiatrist: Name: Piedad ClSMITH juanFABRICE Ruthie HERNANDEZ Date of Appointment: Apr 16, 2017 Time of Appointment: 3:45 p.m. Continuous Improvement Specialist: Name: [facility]ID [facility] Amy Russell Visit Code E&M Code: 22432 Inventory Assets Strengths: Support from fianc, love for children Needs: Increased daytime structure Risk Factors Assessment : Yes /single/: No Higher / Fall in social status: No Health problems: No Mental Health Diagnoses: Yes Substance use disorders: No Previous attempt: Yes Previous psychiatric stay: Yes Hopelessness: No Smoker: Yes Protective Factors Assessment Alevism beliefs: No : No Responsible for young children: Yes Employed: No Stable relationships: Yes Supportive family: Yes Data Vital Signs Last 24 Hrs: Date Time Temp Pulse Resp B/P (MAP) Pulse Ox O2 Delivery O2 Flow Rate FiO2 03/25/17 06:44 36.9 66 16 120/80 84 121/81 Meds Administered Last 24 Hrs: Meds Administered (Past 24Hrs) Medications (Trade) Dose Ordered Sig/Alvarado Route Start Time Stop Time Status Last Admin Dose Admin Salmeterol Xinafoate/ Fluticasone (Advair Diskus 250/50 Inh) 1 puff BID INH 03/23/17 21:00 04/22/17 20:59 03/25/17 09:23 1 PUFF Multivitamins (Multivitamin Tab) 1 tab DAILY PO 03/24/17 09:00 04/23/17 08:59 03/25/17 09:23 1 TAB Risperidone (Risperdal Tab) 2 mg BID PO 03/23/17 21:00 03/24/17 13:20 DC 03/24/17 07:43 2 MG Ferrous Sulfate (Feosol Tab) 325 mg BIDM PO 03/23/17 17:45 04/22/17 17:59 03/25/17 09:23 325 MG Pantoprazole Sodium (Protonix Tab) 40 mg QAM PO 03/24/17 09:00 04/23/17 08:59 03/25/17 09:23 40 MG Citalopram Hydrobromide (celeXA TAB) 40 mg HS PO 03/23/17 21:00 04/22/17 20:59 03/24/17 21:12 40 MG Trihexyphenidyl HCl (Trihexyphenidyl HCl Tab) 5 mg ONE ONCE PO 03/24/17 12:30 03/24/17 12:31 DC 03/24/17 13:12 5 MG
[2017-03-25] MEDS: CITALOPRAM 40 MG TAB PO SCH (22:21)
[2017-03-26 06:41] VITALS: BP_SYST 115; BP_SYST 128; BP_DIAS 79; BP_DIAS 84; PULSE 60; PULSE 76; TEMP 37
[2017-03-26] MEDS: NICOTINE 7 MG/24 HR TDSY TD SCH (08:19)
[2017-03-26] MEDS: PANTOprazole SOD 40 MG TAB PO SCH (09:04)
[2017-03-26] MEDS: MULTIVITAMIN TAB PO SCH (09:04)
[2017-03-26] MEDS: FLUTICASONE/SALMETEROL 250/50 (ADVAIR) 14 PUFF/1 INHALER INH SCH ×2 (09:04→21:32)
[2017-03-26] MEDS: FERROUS SULFATE 325 MG TAB PO SCH ×2 (09:04→17:35)
--- NOTE | 2017-03-26 13:04 | Psychiatric Progress Notes ---
Progress Note Date of Service Mar 26, 2017. Interval History Lilli Cintron is a 36-year-old female admitted on Mar 23, 2017 at 17:16 who was brought to our emergency department by her fianc as the patient was not functioning at home, as sleeping all the time and anxious. She was admitted voluntarily due to inability to function. Information is gathered from the patient and considered to be reliable. Chief Complaint "good". Subjective Patient was seen & assessed interval progress reviewed with Treatment Team. - had meeting with Chris levy, which went well - less anxiety Pt was seen today to assess progress since admission. Pt states she is "good" and has been doing better since admission. Pt denies mood symptoms and states her anxiety has improved since the discontinuation of the Risperdal. She states the meeting with her Chris levy, went well yesterday and that he thinks she is looking much better than at admission. Pt states she feels she is better as well. Pt reports she feels tired today, but slept well last night. Discussed switching patient from Celexa to Lexapro which patient was in favor of trying while on the unit. She is agreeable to this change, but otherwise feels much better. Denies SI/HI, A/V hallucinations, and other psychosis. Review of Systems Psych: denies symptoms other than stated above Constitutional: "tired" Cardiovascular: denied GI: denied Neurologic: denied Remainder of 10 body systems also reviewed and denied other than noted above. Sleep Information Total Hours of Sleep: 7.00 Meal Information Percent of Breakfast Consumed: 75 Percent of Lunch Consumed: 50 Percent of Dinner Consumed: 80 Mental Status Exam During interview pt is: alert and oriented, cooperative Appearance: appropriately dressed, appropriately groomed Eye contact is: good Motor behavior is: no abnormal motor movements Speech: normal in rate, rhythm & volume (answers questions with only a few words) Affect: flat Mood is: other ("good") Thought process: goal directed Thought content: reality based without delusions Suicidal thought are: denied Homicidal thoughts are: denied Hallucinations: denies auditory, denies visual Cognition: attention grossly intact, language grossly intact Intelligence estimated to be: average Insight: fair Judgement: fair Impression Lilli Cintron is a 36-year-old female admitted for anxiety suspected to be due to Risperdal. Pt's restless appears to be akathisia related from the antipsychotic medication as anxiety and restlessness have greatly reduced with discontinuation of the Risperdal. Pt states mood continues to be 7/10 and "good ". She feels her condition has improved. Markie, Ed, was brought to unit for family meeting and agrees that patient appears to be functioning better than at admission. Pt willing for switch from Celexa 40mg to Lexapro 20mg to allow for increased dosage. Will trial that and monitor mood and anxiety symptoms. Plan (1) Unspecified mood [affective] disorder 03/24/17 - Await return call from her outpatient psychiatric provider - For now continue Celexa 40 mg but moved to at bedtime due to sedation, consider switching to Lexapro in order to escalate dose - For now continue Risperdal 2 mg twice a day until I speak with her outpatient provider. Will provide her Artane 5 mg now to differentiate akathisia from anxiety - Every 15 minute checks for safety - Encourage participation in group and individual counseling - Assist the patient to explore coping strategies for times of anxiety and assist the patient to remain out of her room during the day -Coordinate with outpatient providers and obtain outpatient records - Family meeting with markie, obtain supplemental 03/25/17 - Continue medications as above. Pt states she has good response to Celexa. Will plan to continue to discuss switching to Lexapro and she improves and is able to focus and provide better insight into mood symptoms. - Risperdal discontinued to facilitate with differentiation of akathisia versus anxiety. - Family meeting with abiodunfranny is scheduled for this afternoon, plan to obtain collateral information during that meeting to aid in treatment. - Continue to encourage patient to attend group session and remain out of her room throughout the day. 03/26/17 - Discussed recommendation to switch from Celexa 40mg to Lexapro 20mg with patient as it would allow for increased dosage if necessary. Education was given as to comparison of Celexa to Lexapro and reasoning for the medication changes. Risks, benefits, side effects, and alternatives were discussed. Pt verbalized understanding and is willing to switch to Lexapro 20mg starting this evening with her HS dose. - Continue to engage markie as appropriate in regard to functioning and progress. - Continue to encourage patient in engagement outside of her room and participation in groups. (2) Tobacco use disorder 1/3/18 - 7 mg nicotine patch - Nicorette gum when necessary - Counseled to reduce smoking Discharge / Aftercare Planning Primary Care Physician: Name: Dr. Haynes Appointment Notes: as needed by pt Psychiatrist: Name: DEANN Christensen [place] PHN Date of Appointment: Apr 16, 2017 Time of Appointment: 3:45 p.m. Yard Conductor: Name: [facility]/ID [facility] Visit Code E&M Code: 85716 Inventory Assets Strengths: Support from fianc, love for children Needs: Increased daytime structure Risk Factors Assessment : Yes /single/: No Higher / Fall in social status: No Health problems: No Mental Health Diagnoses: Yes Substance use disorders: No Previous attempt: Yes Previous psychiatric stay: Yes Hopelessness: No Smoker: Yes Protective Factors Assessment Yarsani beliefs: No : No Responsible for young children: Yes Employed: No Stable relationships: Yes Supportive family: Yes Data Vital Signs Last 24 Hrs: Date Time Temp Pulse Resp B/P (MAP) Pulse Ox O2 Delivery O2 Flow Rate FiO2 03/26/17 06:41 37.0 60 14 115/79 76 128/84
--- NOTE | 2017-03-26 17:24 | Psychiatric Progress Notes ---
Psychiatric Progress Note Date of Service Mar 26, 2017. Notes Patient seen, MS assessed. Rates mood as "tired". Encouraged cooperation with care and treatment plan as outlined by PAMelyssaC. Patient desired agressive cross taper to Lexapro given hoping for discharge soon, replacement as suggested by PA -C likely to limit any discontinuation syndrome, particularly because of similarity of the 2 SSRIs. SCARLETTC and environmental program manager provider to assess tolerability in the am.
[2017-03-26] MEDS: ESCITALOPRAM OXALATE 20 MG TAB PO SCH (21:32)
[2017-03-27 06:36] VITALS: BP_SYST 113; BP_SYST 122; BP_DIAS 71; BP_DIAS 80; PULSE 58; PULSE 83; TEMP 36.9
[2017-03-27] MEDS: FERROUS SULFATE 325 MG TAB PO SCH ×2 (08:23→17:32)
[2017-03-27] MEDS: FLUTICASONE/SALMETEROL 250/50 (ADVAIR) 14 PUFF/1 INHALER INH SCH ×2 (08:23→22:19)
[2017-03-27] MEDS: NICOTINE 7 MG/24 HR TDSY TD SCH (08:24)
[2017-03-27] MEDS: PANTOprazole SOD 40 MG TAB PO SCH (08:24)
[2017-03-27] MEDS: MULTIVITAMIN TAB PO SCH (08:24)
--- NOTE | 2017-03-27 13:00 | Psychiatric Progress Notes ---
Progress Note Date of Service Mar 27, 2017. (Laxmi Craig, SHIVAM) Interval History Lilli Cintron is a 36-year-old female admitted on Mar 23, 2017 at 17:16 who was brought to our emergency department by her fianc as the patient was not functioning at home, as sleeping all the time and anxious. She was admitted voluntarily due to inability to function. Information is gathered from the patient and considered to be reliable. (Laxmi Craig, SHIVAM) Chief Complaint "good". (Laxmi Craig, SHIVAM) Subjective Patient was seen & assessed interval progress reviewed with Nursing. - continues to deny SI - presented with anxiety, panic attacks, and decreased concentration Pt seen today along with weekend rounding psychiatrist, Dr. Guerrero. Pt states she is doing "good". She currently rates her mood as "10/10". Pt reports ongoing improvement and denies any complaints about symptoms or medication reactions. Pt reports "being around people" has allowed her condition to improve since her admission. Discussed with patient various options to improve socialization and suggested activities she could participate in during the day to give her routine. Pt refused psych partial program during conversation yesterday with social work. She continues to refuse the idea and states "I won't do that". Pt reports she doesn't want to leave her house to attend these groups and she keeps herself busy during the day by watching TV and playing with her dog. Pt states she leaves the house to pick her son up from practice, but is unable to report any stimulating activities in her routine the rest of the day. Pt was encouraged to look into activities such as the partial program, taking a class, joining a gym, or scheduling weekly coffee or meals with friends. Pt continues to be resistant to the ideas presented, but was encouraged to think about other options she might consider. Pt reports she has been tolerating medications well since discontinuation of Risperdal and has had no negative side effects to transition from Celexa 40mg to Lexapro 20mg. She denies SI/HI, A/V hallucinations, and other psychosis. (Laxmi Craig, SHIVAM) Review of Systems Psych: denies symptoms other than stated above Constitutional: denied Cardiovascular: denied GI: denied Neurologic: denied Remainder of 10 body systems also reviewed and denied other than noted above. (Laxmi Craig, SHIVAM) Sleep Information Total Hours of Sleep: 6.00 (Laxmi Craig PA-C) Meal Information Percent of Breakfast Consumed: 50 Percent of Lunch Consumed: 50 Percent of Dinner Consumed: 50 (Laxmi Craig, SHIVAM) Mental Status Exam During interview pt is: alert and oriented, cooperative Appearance: appropriately dressed, disheveled Eye contact is: good Motor behavior is: no abnormal motor movements Speech: normal in rate, rhythm & volume (providers answers of only a few words , more spontaneous in starting conversation ) Affect: flat Mood is: other ("good, 10") Thought process: goal directed, concrete Thought content: reality based without delusions Suicidal thought are: denied Homicidal thoughts are: denied Hallucinations: denies auditory, denies visual Cognition: attention grossly intact, language grossly intact Intelligence estimated to be: average (to below average) Insight: fair Judgement: fair (Laxmi Craig, SHIVAM) Impression Pt continues to maintain improvement since discontinuation of Risperdal. She reports mood is "good" at 10/10. Pt tolerating transition from Celexa to Lexapro well with no complaints of side effects. Pt was asked to look into ideas to increase socialization and support routine and schedule throughout the day as she spends most of her time at home watching TV. Pt is not receptive to discussion today, but was encouraged to continue to think of activities such as the partial program or scheduling meals with friends. Unsure of patient's ability to maintain improvement without plan set up for her engagement with peers. (Laxmi Craig, SHIVAM) Plan (1) Unspecified mood [affective] disorder 03/24/17 - Await return call from her outpatient psychiatric provider - For now continue Celexa 40 mg but moved to at bedtime due to sedation, consider switching to Lexapro in order to escalate dose - For now continue Risperdal 2 mg twice a day until I speak with her outpatient provider. Will provide her Artane 5 mg now to differentiate akathisia from anxiety - Every 15 minute checks for safety - Encourage participation in group and individual counseling - Assist the patient to explore coping strategies for times of anxiety and assist the patient to remain out of her room during the day -Coordinate with outpatient providers and obtain outpatient records - Family meeting with cam, obtain supplemental 03/25/17 - Continue medications as above. Pt states she has good response to Celexa. Will plan to continue to discuss switching to Lexapro and she improves and is able to focus and provide better insight into mood symptoms. - Risperdal discontinued to facilitate with differentiation of akathisia versus anxiety. - Family meeting with cam is scheduled for this afternoon, plan to obtain collateral information during that meeting to aid in treatment. - Continue to encourage patient to attend group session and remain out of her room throughout the day. 03/26/17 - Discussed recommendation to switch from Celexa 40mg to Lexapro 20mg with patient as it would allow for increased dosage if necessary. Education was given as to comparison of Celexa to Lexapro and reasoning for the medication changes. Risks, benefits, side effects, and alternatives were discussed. Pt verbalized understanding and is willing to switch to Lexapro 20mg starting this evening with her HS dose. - Continue to engage cam as appropriate in regard to functioning and progress. - Continue to encourage patient in engagement outside of her room and participation in groups. 03/27 - Continue medication regimen as above. - Would encourage ongoing conversations about plans to improve socialization. Pt refuses psych partial program, but might be receptive to smaller achievements such as scheduling meals with friends, joining a gym, or attending a weekly community activity. (2) Tobacco use disorder 03/24/17 - 7 mg nicotine patch - Nicorette gum when necessary - Counseled to reduce smoking (Laxmi Craig PA-C) Pt was seen for face to face examination with Laxmi Craig PA-C and I am in agreement with her assessment and plan as above. Tolerated quick conversion from celexa to lexapro w/o difficulty do far. Remains brighter off risperdal but affect somewhat odd and quite concrete and rigid in her thinking on exam today. (Johnathon Guerrero MD) Discharge / Aftercare Planning Primary Care Physician: Name: Dr. Haynes Appointment Notes: as needed by pt Psychiatrist: Name: DEANN Christensen [place] PHN Date of Appointment: Apr 16, 2017 Time of Appointment: 3:45 p.m. Pile Driving Setter: Name: [facility]/ID [facility] Melyssa Russell (Laxmi Craig PA-C) Visit Code E&M Code: 87965 (Laxmi Craig PA-C) Inventory Assets Strengths: Support from fianc, love for children Needs: Increased daytime structure (Laxmi Craig PA-C) Risk Factors Assessment : Yes /single/: No Higher / Fall in social status: No Health problems: No Mental Health Diagnoses: Yes Substance use disorders: No Previous attempt: Yes Previous psychiatric stay: Yes Hopelessness: No Smoker: Yes (Laxmi Craig PA-C) Protective Factors Assessment Restorationism beliefs: No : No Responsible for young children: Yes Employed: No Stable relationships: Yes Supportive family: Yes (Laxmi Craig PA-C) Data Vital Signs Last 24 Hrs: Date Time Temp Pulse Resp B/P (MAP) Pulse Ox O2 Delivery O2 Flow Rate FiO2 03/27/17 06:36 36.9 58 14 113/71 83 122/80 Meds Administered Last 24 Hrs: Meds Administered (Past 24Hrs) Medications (Trade) Dose Ordered Sig/Alvarado Route Start Time Stop Time Status Last Admin Dose Admin Escitalopram Oxalate (Lexapro Tab) 20 mg HS PO 03/26/17 22:00 04/25/17 21:59 03/26/17 21:32 20 MG (Laxmi Craig PA-C)
[2017-03-27] MEDS: ESCITALOPRAM OXALATE 20 MG TAB PO SCH (22:19)
[2017-03-28 07:02] VITALS: BP_SYST 116; BP_SYST 124; BP_DIAS 79; BP_DIAS 85; PULSE 67; PULSE 78; TEMP 36.7
[2017-03-28] MEDS: FERROUS SULFATE 325 MG TAB PO SCH ×2 (08:25→17:26)
[2017-03-28] MEDS: MULTIVITAMIN TAB PO SCH (08:25)
[2017-03-28] MEDS: PANTOprazole SOD 40 MG TAB PO SCH (08:25)
[2017-03-28] MEDS: FLUTICASONE/SALMETEROL 250/50 (ADVAIR) 14 PUFF/1 INHALER INH SCH ×2 (08:25→21:20)
[2017-03-28] MEDS: NICOTINE 7 MG/24 HR TDSY TD SCH (08:28)
--- NOTE | 2017-03-28 16:17 | Psychiatric Progress Notes ---
Progress Note Date of Service Mar 28, 2017. Interval History Lilli Cintron is a 36-year-old female admitted on Mar 23, 2017 at 17:16 who was brought to our emergency department by her fianc as the patient was not functioning at home, as sleeping all the time and anxious. She was admitted voluntarily due to inability to function. Information is gathered from the patient and considered to be reliable. Chief Complaint "I'm good". Subjective Patient was seen & assessed interval progress reviewed with Treatment Team. Per staff patient has been out of bed more. No acute events overnight. Compliant with medication. On interview she denies concerns today. She seems to perceive she is close to her baseline. Denies cognitive slowing residually or unusual thinking. Denies any concerns on Lexapro which has been given as an equivalent alternative to former dose of Celexa. No clear indication for further titration presently. Review of Systems Constitutional: + fatigue Psychiatric: No depression symptoms Sleep Information Total Hours of Sleep: 10.00 Meal Information Percent of Breakfast Consumed: 50 Percent of Lunch Consumed: 45 Percent of Dinner Consumed: 45 Mental Status Exam During interview pt is: alert and oriented, cooperative Appearance: appropriately dressed, appropriately groomed Eye contact is: good Motor behavior is: no abnormal motor movements Speech: normal in rate, rhythm & volume (minimally spontaneous responses remain brief) Affect: blunted (smiles briefly) Mood is: other ("good") Thought process: goal directed, concrete Thought content: reality based without delusions Suicidal thought are: denied Homicidal thoughts are: denied Hallucinations: denies auditory, denies visual Cognition: attention grossly intact, language grossly intact Intelligence estimated to be: average (to below average) Insight: fair Judgement: fair Impression Continues to demonstrate improvement however concern for risk of decompensation without structured activities outside of the hospital. Plan (1) Unspecified mood [affective] disorder 03/24/17 - Await return call from her outpatient psychiatric provider - For now continue Celexa 40 mg but moved to at bedtime due to sedation, consider switching to Lexapro in order to escalate dose - For now continue Risperdal 2 mg twice a day until I speak with her outpatient provider. Will provide her Artane 5 mg now to differentiate akathisia from anxiety - Every 15 minute checks for safety - Encourage participation in group and individual counseling - Assist the patient to explore coping strategies for times of anxiety and assist the patient to remain out of her room during the day -Coordinate with outpatient providers and obtain outpatient records - Family meeting with cam, obtain supplemental 03/25/17 - Continue medications as above. Pt states she has good response to Celexa. Will plan to continue to discuss switching to Lexapro and she improves and is able to focus and provide better insight into mood symptoms. - Risperdal discontinued to facilitate with differentiation of akathisia versus anxiety. - Family meeting with cam is scheduled for this afternoon, plan to obtain collateral information during that meeting to aid in treatment. - Continue to encourage patient to attend group session and remain out of her room throughout the day. 03/26/17 - Discussed recommendation to switch from Celexa 40mg to Lexapro 20mg with patient as it would allow for increased dosage if necessary. Education was given as to comparison of Celexa to Lexapro and reasoning for the medication changes. Risks, benefits, side effects, and alternatives were discussed. Pt verbalized understanding and is willing to switch to Lexapro 20mg starting this evening with her HS dose. - Continue to engage cam as appropriate in regard to functioning and progress. - Continue to encourage patient in engagement outside of her room and participation in groups. 03/27 - Continue medication regimen as above. - Would encourage ongoing conversations about plans to improve socialization. Pt refuses psych partial program, but might be receptive to smaller achievements such as scheduling meals with friends, joining a gym, or attending a weekly community activity. 03/28 - Mood appearing relatively euthymic without further titration of Lexapro - Patient continues to refuse participation in efforts to arrange outpatient programming to reduce risk for relapse following discharge (2) Tobacco use disorder 03/24/17 - 7 mg nicotine patch - Nicorette gum when necessary - Counseled to reduce smoking Discharge / Aftercare Planning Primary Care Physician: Name: Dr. Haynes Appointment Notes: as needed by pt Psychiatrist: Name: DEANN Christensen [place] PHN Date of Appointment: Apr 16, 2017 Time of Appointment: 3:45 p.m. Top Frame Fitter: Name: [facility] SAMANTHA/CARLEY Russell Visit Code E&M Code: 33075 Inventory Assets Strengths: Support from massimo, love for children Needs: Increased daytime structure Risk Factors Assessment : Yes /single/: No Higher / Fall in social status: No Health problems: No Mental Health Diagnoses: Yes Substance use disorders: No Previous attempt: Yes Previous psychiatric stay: Yes Hopelessness: No Smoker: Yes Protective Factors Assessment Sabianist beliefs: No : No Responsible for young children: Yes Employed: No Stable relationships: Yes Supportive family: Yes Data Vital Signs Last 24 Hrs: Date Time Temp Pulse Resp B/P (MAP) Pulse Ox O2 Delivery O2 Flow Rate FiO2 03/28/17 07:02 36.7 67 16 124/85 78 116/79 Meds Administered Last 24 Hrs: Meds Administered (Past 24Hrs) Medications (Trade) Dose Ordered Sig/Alvarado Route Start Time Stop Time Status Last Admin Dose Admin Escitalopram Oxalate (Lexapro Tab) 20 mg HS PO 03/26/17 22:00 04/25/17 21:59 03/27/17 22:19 20 MG
[2017-03-28] MEDS: ESCITALOPRAM OXALATE 20 MG TAB PO SCH (21:20)
[2017-03-29 07:09] VITALS: BP_SYST 113; BP_SYST 123; BP_DIAS 77; BP_DIAS 88; PULSE 76; PULSE 79; TEMP 36.7
[2017-03-29] MEDS: NICOTINE 7 MG/24 HR TDSY TD SCH (09:00)
[2017-03-29] MEDS: PANTOprazole SOD 40 MG TAB PO SCH (09:34)
[2017-03-29] MEDS: MULTIVITAMIN TAB PO SCH (09:34)
[2017-03-29] MEDS: FLUTICASONE/SALMETEROL 250/50 (ADVAIR) 14 PUFF/1 INHALER INH SCH ×2 (09:34→21:24)
[2017-03-29] MEDS: FERROUS SULFATE 325 MG TAB PO SCH ×2 (09:34→17:22)
--- NOTE | 2017-03-29 12:55 | Psychiatric Progress Notes ---
Progress Note Date of Service Mar 29, 2017. Interval History Lilli Cintron is a 36-year-old female admitted on Mar 23, 2017 at 17:16 who was brought to our emergency department by her fianc as the patient was not functioning at home, as sleeping all the time and anxious. She was admitted voluntarily due to inability to function. Information is gathered from the patient and considered to be reliable. Chief Complaint "Better". Subjective Patient was seen & assessed interval progress reviewed with Treatment Team. Staff report she is improving, but is quiet and reserved. She is refusing recommendations for a higher level of outpatient care, including therapy, psych rehabilitation, etc. The patient was seen with Kevin Aguayo MS3. She states she is "better," but can't give any further specifics, saying "don't know, just better." She struggles to discuss the symptoms that brought her into the hospital, or her plan to stay stable outside the hospital. She says she wants to go home, as she misses her family. She continues to refuse the recommendations for a higher level of outpatient services, saying she doesn't want "too many appointments." She says she is sure she won't need to come back to the hospital, but can't explain why. Sleep Information Total Hours of Sleep: 8.50 Meal Information Percent of Breakfast Consumed: 75 Percent of Lunch Consumed: 45 Percent of Dinner Consumed: 90 Mental Status Exam During interview pt is: alert and oriented, cooperative Appearance: appropriately dressed, appropriately groomed Eye contact is: good Motor behavior is: steady gait & station, no abnormal motor movements Speech: normal in rate, rhythm & volume (minimally spontaneous responses ) Affect: blunted Mood is: other ("good") Thought process: goal directed, concrete Thought content: reality based without delusions Suicidal thought are: denied Homicidal thoughts are: denied Hallucinations: denies auditory, denies visual Cognition: attention grossly intact, language grossly intact Intelligence estimated to be: below average Insight: poor Judgement: poor Impression Continues to demonstrate improvement however concern for risk of decompensation without structured activities outside of the hospital. She is refusing recommendations to increase her outpatient supports, and we will need to review the plan with her prior to discharge, as she decompensated rapidly after her last discharge, and is likely to do so again without making some changes. Plan (1) Unspecified mood [affective] disorder 03/24/17 - Await return call from her outpatient psychiatric provider - For now continue Celexa 40 mg but moved to at bedtime due to sedation, consider switching to Lexapro in order to escalate dose - For now continue Risperdal 2 mg twice a day until I speak with her outpatient provider. Will provide her Artane 5 mg now to differentiate akathisia from anxiety - Every 15 minute checks for safety - Encourage participation in group and individual counseling - Assist the patient to explore coping strategies for times of anxiety and assist the patient to remain out of her room during the day -Coordinate with outpatient providers and obtain outpatient records - Family meeting with abiodunfranny, obtain supplemental 03/25/17 - Continue medications as above. Pt states she has good response to Celexa. Will plan to continue to discuss switching to Lexapro and she improves and is able to focus and provide better insight into mood symptoms. - Risperdal discontinued to facilitate with differentiation of akathisia versus anxiety. - Family meeting with abiodunfranny is scheduled for this afternoon, plan to obtain collateral information during that meeting to aid in treatment. - Continue to encourage patient to attend group session and remain out of her room throughout the day. 03/26/17 - Discussed recommendation to switch from Celexa 40mg to Lexapro 20mg with patient as it would allow for increased dosage if necessary. Education was given as to comparison of Celexa to Lexapro and reasoning for the medication changes. Risks, benefits, side effects, and alternatives were discussed. Pt verbalized understanding and is willing to switch to Lexapro 20mg starting this evening with her HS dose. - Continue to engage cam as appropriate in regard to functioning and progress. - Continue to encourage patient in engagement outside of her room and participation in groups. 03/27 - Continue medication regimen as above. - Would encourage ongoing conversations about plans to improve socialization. Pt refuses psych partial program, but might be receptive to smaller achievements such as scheduling meals with friends, joining a gym, or attending a weekly community activity. 03/28 - Mood appearing relatively euthymic without further titration of Lexapro - Patient continues to refuse participation in efforts to arrange outpatient programming to reduce risk for relapse following discharge 03/29 - Contact has been to review discharge plans and recommendations to increase her outpatient supports. Continue to encourage patient to consider this. (2) Tobacco use disorder 03/24/17 - 7 mg nicotine patch - Nicorette gum when necessary - Counseled to reduce smoking Discharge / Aftercare Planning Primary Care Physician: Name: Dr. Haynes Appointment Notes: as needed by pt Psychiatrist: Name: DEANN Christensen [place] PHN Date of Appointment: Apr 16, 2017 Time of Appointment: 3:45 p.m. Public Health Doctor: Name: [facility]/ID [facility] Visit Code E&M Code: 17580 Inventory Assets Strengths: Support from fianc, love for children Needs: Increased daytime structure Risk Factors Assessment : Yes /single/: No Higher / Fall in social status: No Health problems: No Mental Health Diagnoses: Yes Substance use disorders: No Previous attempt: Yes Previous psychiatric stay: Yes Hopelessness: No Smoker: Yes Protective Factors Assessment Lutheran beliefs: No : No Responsible for young children: Yes Employed: No Stable relationships: Yes Supportive family: Yes Data Vital Signs Last 24 Hrs: Date Time Temp Pulse Resp B/P (MAP) Pulse Ox O2 Delivery O2 Flow Rate FiO2 03/29/17 07:09 36.7 76 16 113/77 79 123/88
[2017-03-29] MEDS: ESCITALOPRAM OXALATE 20 MG TAB PO SCH (21:24)
[2017-03-30 06:59] VITALS: BP_SYST 128; BP_SYST 136; BP_DIAS 84; BP_DIAS 85; PULSE 85; PULSE 89; TEMP 36.8
[2017-03-30 07:00] VITALS: Ht 154.9 cm; Wt 83.0 kg
[2017-03-30] MEDS: FERROUS SULFATE 325 MG TAB PO SCH (08:14)
[2017-03-30] MEDS: NICOTINE 7 MG/24 HR TDSY TD SCH (08:14)
[2017-03-30] MEDS: PANTOprazole SOD 40 MG TAB PO SCH (08:14)
[2017-03-30] MEDS: FLUTICASONE/SALMETEROL 250/50 (ADVAIR) 14 PUFF/1 INHALER INH SCH (08:14)
[2017-03-30] MEDS: MULTIVITAMIN TAB PO SCH (08:14)
[2017-03-30] MEDS ORDERED: LXP20 PO (09:23)
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
== END 2017-03-30 16:45 | disposition home or self-care (01) | DRG 881 ==
LOC: C.EDB 12:57 → C.MHU 17:16 → ENRESERV 17:20
PROVIDERS: ADMIT Psychiatry & Neurology Psychiatry; ATTEND Psychiatry & Neurology Psychiatry
DX: F32.9 Major depressive disorder, single episode, unspecified (principal); Z83.3 Family history of diabetes mellitus; Z82.49 Family history of ischemic heart disease and other diseases of the circulatory system; F17.200 Nicotine dependence, unspecified, uncomplicated; F39 Unspecified mood [affective] disorder

== ENCOUNTER 2018-05-16 14:33 | Inpatient (IN) ==
[2018-05-16 16:01] LABS: Basophils # (auto) 0.02 K/uL (0-0.2); Basophils % (auto) 0.1 %; Eosinophils # (auto) 0.06 K/uL (0-0.5); Eosinophils % (auto) 0.4 %; Hematocrit (blood only) 47.6 % (37-47); Hemoglobin 16.6 g/dL (12.0-16.0); Immature Granulocytes # (auto) 0.04 K/uL (0.00-0.02); Immature Granulocytes % (auto) 0.3 %; Lymphocytes # (auto) 1.41 K/uL (1.2-3.4); Lymphocytes % (auto) 9.2 %; Mean Corpuscular Hgb Conc 34.9 g/dL (32-36); Mean Corpuscular Volume 88.6 fL (80-100); Mean Platelet Volume 12.8 fL (7.4-10.4); Monocytes # (auto) 1.26 K/uL (0.11-0.59); Monocytes % (auto) 8.2 %; Neutrophils # (auto) 12.56 K/uL (1.4-6.5); Neutrophils % (auto) 81.8 %; Platelet Count 219 K/uL (130-400); RDW Standard Deviation 45.2 fL (36.4-46.3); Red Blood Count 5.37 M/uL (4.2-5.4); White Blood Count 15.35 K/uL (4.8-10.8)
--- NOTE | 2018-05-16 16:14 | XRay Report ---
XR chest 1V portable CLINICAL HISTORY: 37 years-old Female presenting with fall. TECHNIQUE: Portable upright AP view of the chest was obtained. COMPARISON: None. FINDINGS: Cardiomediastinal silhouette normal. No focal opacity. No large effusion or pneumothorax. Degenerativ e changes of the thoracic spine. Upper abdomen normal. IMPRESSION: 1. No acute cardiopulmonary disease. Electronically signed by: Devyn Ngo M.D. 05/16/2018 4:12 PM
--- NOTE | 2018-05-16 16:18 | XRay Report ---
SINGLE VIEW PELVIS CLINICAL HISTORY: Fall. FINDINGS: An AP pelvic radiograph is obtained. No prior studies are available for comparison at the t mohan of dictation. The skeletal structures are well mineralized. No fracture is seen. The joint spaces of the hips are maintained. The sacroiliac joints are normal in appearance. The overlying soft tissu es are unremarkable. There is no bowel obstruction. IMPRESSION: No acute bony abnormality is seen. Electronically signed by: Rudy Powell M.D. 05/16/2018 4:17 PM
[2018-05-16 16:25] LABS: Albumin Level 3.8 gm/dl (3.4-5.0); BUN Creatinine Ratio 18.2 (10-20); Calcium 9.6 mg/dl (8.5-10.1); Creatinine Clr Calc Pharmacy 87.3 ml/min; Est GFR (African American) 115.3; Est GFR (Non-African American) 99.5; Potassium 3.7 mmol/L (3.5-5.1)
[2018-05-16 16:26] LABS: Acetaminophen < 2 ug/ml (10-30); Salicylate 5.4 mg/dl (2.8-20)
[2018-05-16 16:35] LABS: Bilirubin,Total 0.4 mg/dl (0.2-1); Globulin 3.9 gm/dl (2.5-4.0); Total Protein 7.7 gm/dl (6.4-8.2)
--- NOTE | 2018-05-16 16:40 | CT Scan Report ---
CT SCAN OF THE BRAIN WITHOUT IV CONTRAST CLINICAL HISTORY: Change in mental status. COMPARISON STUDY: No priors. TECHNIQUE: Unenhanced axial CT scan of the brain is performed from the vertex to the skull base. A d ose lowering technique was utilized adhering to the principles of ALARA. FINDINGS: Brain parenchyma: The brain parenchyma is normal in appearance. There is no hemorrhage, mass effect, or evidence of acute territorial ischemia by CT criteria. Malave-white matter differentiation is preser randall. No extra-axial fluid collection is seen. Ventricles, sulci, cisterns: Normal in configuration. Intracranial vasculature: The visualized intracranial vasculature at the skull base is normal in appe arance. Calvarium: Unremarkable. Sinuses and mastoids: The visualized paranasal sinuses are clear. The mastoid air cells are well pneu matized. Orbits: The bony orbits are grossly intact. IMPRESSION: No acute intracranial abnormality. Electronically signed by: Rudy Powell M.D. 05/16/2018 4:39 PM
--- NOTE | 2018-05-16 16:43 | CT Scan Report ---
CT SCAN OF THE CERVICAL SPINE CLINICAL HISTORY: Fall. COMPARISON STUDY: No priors. TECHNIQUE: CT scan of the cervical spine is performed from the skull base to the upper thoracic spine . Images are reviewed in the axial, sagittal, and coronal planes. IV contrast was not administered fo r this examination. A dose lowering technique was utilized adhering to the principles of ALARA. CT DOSE: 947.72 mGy.cm FINDINGS: Skeletal structures: The skeletal structures are well mineralized. There is no evidence of fracture o r subluxation involving the cervical spine. Vertebral body height and alignment are maintained. There is straightening of the cervical lordosis with mild reversal centered at C4-C5. Small anterior osteo phytes are noted in the lower cervical region. The odontoid process and lateral masses are intact. T he atlantoaxial articulation is preserved. The spinous processes appear intact. Intervertebral discs: The disc spaces are well maintained. Central canal: Grossly patent. Soft tissues: The prevertebral and paraspinous soft tissues are within normal limits. Calvarium: The visualized calvarium at the skull base appears intact. Brain parenchyma: Partially visualized brain parenchyma the skull base is within normal limits. Sinuses and mastoids: The visualized paranasal sinuses are clear. The mastoid air cells are well pneu matized. Lung apices: Clear as visualized. IMPRESSION: There is no evidence of fracture or subluxation involving the cervical spine. Electronically signed by: Rudy Powell M.D. 05/16/2018 4:41 PM
--- NOTE | 2018-05-16 19:09 | Emergency Department Note ---
Entered by Jenise Williamson acting as a scribe for History of Present Illness General Chief complaint: Mental Health Evaluation Time Seen by Provider: 05/16/18 14:48 Source: patient and other (psychiatric case hardener) History of Present Illness Onset (ago): day(s) (today) Location: head Pain Consistency: + other (worsening) Quality: + other (mental health evaluation) Associated symptoms: + denies other symptoms (suicidal ideations, homicidal ideations, auditory hallucinations, visual hallucinations, feeling guilty about anything, changes in her energy level), + loss of appetite and + other ( delusional, difficulty sleeping, loss of interest in things that used to give her bennett, loss of energy, difficulty concentrating, loss of interstin in things that used to give her bennett, loss of energy, difficulty concentrating, trouble taking care of herself, falling recently) The patient is a 37 year old female who presents to the Emergency Room for a mental health evaluation. Per the psychiatric case hardener, the patient is here on a warrant. She states that the patient has not been taking care of herself. She states that she has not been eating, drinking, bathing, or taking her medications. She states that she has not been going to the bathroom either. She states that she is weak from sitting on the couch so much, but if she does, she is rolling in the snow. She notes that the patient is schizophrenic and attempted suicide 10 years ago. She states that she is delusional and was combative with police at her house, but is calm here. The patient states that she doesnt know why she is here. The patient complains of difficulty sleeping, loss of interest in things that used to give her bennett, loss of energy, difficulty concentrating, loss of appetite, trouble taking care of herself, and falling recently. The patient denies suicidal ideations, homicidal ideations, auditory hallucinations, visual hallucinations, feeling guilty about anything, and changes in her energy level. Home Medications Home Medications Medication Instructions Recorded Confirmed Type escitalopram oxalate 20 mg PO HS 05/04/18 05/04/18 History ferrous sulfate 325 mg PO DAILY 05/04/18 05/04/18 History fluticasone-salmeterol [Advair 1 inh INHALATION BID 05/04/18 05/04/18 History Diskus] multivitamin 1 tab PO DAILY 05/04/18 05/04/18 History omeprazole 20 mg PO DAILY 05/04/18 05/04/18 History Allergies Allergy/AdvReac Type Severity Reaction Status Date / Time Penicillins Allergy Unknown RASH Unverified 05/04/18 14:04 Past Med/Surg History Medical History Anxiety (Acute) Anemia (Chronic) GERD (gastroesophageal reflux disease) (Chronic) Tobacco abuse (Chronic) HTN (hypertension) (Chronic) Bipolar 1 disorder (Chronic) Marijuana use (Chronic) Asthma (Chronic) Endometriosis (Chronic) ""Had surgery 1995"" Unspecified mood [affective] disorder Anxiety HTN (hypertension) Paranoia Schizophrenia Tubal ligation evaluation Surgical History Hx of tubal ligation (Chronic) Family History Other No significant family history Social History marital status: Single Current Living Situation: Family current occupational status: disabled Feels Safe at Home: Yes Smoking Status: Former smoker Tobacco Type: cigarettes Preferred Language: Slovak Review of Systems See HPI for pertinent positives & negatives. and A total of 10 systems reviewed and were otherwise negative Physical Exam Vital Signs Vital Signs - 24 hr 05/16/18 14:47 05/16/18 14:55 05/16/18 16:45 Temperature 36.8 C 36.8 C Temperature Source Oral Oral Sepsis Recent Fever Within 48 Hours No Sepsis New/Unexplained Change in Mental Status No Sepsis Action Taken by Nursing No Action Required Pulse Rate 113 H 113 H Pulse Rate [Apical] 98 H Respiratory Rate 18 18 Blood Pressure 159/96 H Blood Pressure [Left Arm] 159/89 H Blood Pressure Mean 117 Blood Pressure Mean [Left Arm] 112 Blood Pressure Position [Left Arm] Lying Pulse Oximetry 97 97 97 Oxygen Delivery Method Room Air Room Air Physical Exam GENERAL: She is oriented to person, place, and time. She appears well- developed and well-nourished. She does not appear distressed. Malodorous and appears unkept. HENT: Exam performed. -Head: Normocephalic and atraumatic. -Right Ear: External ear normal. No mastoid tenderness. -Left Ear: External ear normal. No mastoid tenderness. -Mouth/Throat: The oropharynx is clear and moist. No trismus in the jaw. No dental abscesses or uvula swelling. No oropharyngeal exudate or tonsillar abscesses. EYES: Conjunctivae and EOM are normal. Pupils are equal, round, and reactive to light. Right eye exhibits no discharge. Left eye exhibits no discharge. No scleral icterus. NECK: Normal range of motion. Neck supple. No JVD present. No spinous process tenderness present. No carotid bruit present. No rigidity. No tracheal deviation and normal range of motion present. No Brudzinski's sign and no Kernig 's sign noted. CV: Normal rate, regular rhythm, normal heart sounds and intact distal pulses. There is no peripheral edema. Palpable radial pulses bue. PULM/CHEST: Effort normal and breath sounds normal. No respiratory distress. No stridor. She has no wheezes. She has no rales. -Chest Wall: She exhibits no tenderness. ABD: The abdomen is soft. Bowel sounds are normal. She has no distension. No mass is present. There is no tenderness. There is no rebound, no guarding, no Brown's sign and no tenderness at McBurney's point. Rovsig negative MUSC/SKEL: Normal range of motion. There is no peripheral edema, tenderness or deformity. LYMPH: No cervical adenopathy. NEURO: She is alert and oriented to person, place, and time. She has normal strength. No cranial nerve deficit or sensory deficit. Coordination and gait normal. GCS eye subscore is 4. GCS verbal subscore is 5. GCS motor subscore is 6. Cerebellar tests wnl. SKIN: Skin is warm and dry. She is not diaphoretic. PSYCH: Bizarre mood and affect. Course 152: Past medical records reviewed. The patient was evaluated in room A7, and a complete history and physical examination were performed. 1908: Vital signs stable. Labs show leukocytosis of 15.35. Urine pending. Psych evaluation and placement pending. Case signed out to Dr. Oconnell Medical Decision Making Medical Records Attestation: I reviewed the patient's medical records. Home Medications Current Medication List: was personally reviewed by me Laboratory Data Attestation: I reviewed the patient's lab results. Result diagrams: 05/16/18 15:38 05/16/18 15:38 Lab Results 05/16/18 05/16/18 05/16/18 Range/Units 15:38 15:38 15:38 WBC 15.35 H (4.8-10.8) K/uL RBC 5.37 (4.2-5.4) M/uL Hgb 16.6 H (12.0-16.0) g/dL Hct 47.6 H (37-47) % MCV 88.6 (80-100) fL MCH 30.9 (25-34) pg MCHC 34.9 (32-36) g/dL RDW Std Deviation 45.2 (36.4-46.3) fL RDW Coeff of Zuhair 14.0 (11.5-14.5) % Plt Count 219 (130-400) K/uL MPV 12.8 H (7.4-10.4) fL Immature Gran % (Auto) 0.3 % Neut % (Auto) 81.8 % Lymph % (Auto) 9.2 % [place] % (Auto) 8.2 % Eos % (Auto) 0.4 % Baso % (Auto) 0.1 % Immature Gran # (Auto) 0.04 H (0.00-0.02) K/uL Neut # (Auto) 12.56 H (1.4-6.5) K/uL Lymph # (Auto) 1.41 (1.2-3.4) K/uL [place] # (Auto) 1.26 H (0.11-0.59) K/uL Eos # (Auto) 0.06 (0-0.5) K/uL Baso # (Auto) 0.02 (0-0.2) K/uL Sodium 137 (136-145) mmol/L Potassium 3.7 (3.5-5.1) mmol/L Chloride 105 (98-107) mmol/L Carbon Dioxide 23 (21-32) mmol/L Anion Gap 9.0 (3-11) BUN 14 (7-18) mg/dl Creatinine 0.76 (0.6-1.2) mg/dl Est Cr Clr Drug Dosing 87.3 ml/min Est GFR ( Amer) 115.3 Est GFR (Non-Af Amer) 99.5 BUN/Creatinine Ratio 18.2 (10-20) Glucose 100 H (70-99) mg/dl Calcium 9.6 (8.5-10.1) mg/dl Total Bilirubin 0.4 (0.2-1) mg/dl AST 11 L (15-37) U/L ALT 30 (12-78) U/L Alkaline Phosphatase 85 (45-117) U/L Total Creatine Kinase 45 (26-192) U/L Total Protein 7.7 (6.4-8.2) gm/dl Albumin 3.8 (3.4-5.0) gm/dl Globulin 3.9 (2.5-4.0) gm/dl Albumin/Globulin Ratio 1.0 (0.9-2) TSH 0.676 (0.300-4.500) uIu/ml Salicylates 5.4 (2.8-20) mg/dl Acetaminophen < 2 L (10-30) ug/ml Ethyl Alcohol mg/dL (0-3) mg/dl 05/16/18 05/16/18 Range/Units 15:38 15:38 WBC (4.8-10.8) K/uL RBC (4.2-5.4) M/uL Hgb (12.0-16.0) g/dL Hct (37-47) % MCV (80-100) fL MCH (25-34) pg MCHC (32-36) g/dL RDW Std Deviation (36.4-46.3) fL RDW Coeff of Zuhair (11.5-14.5) % Plt Count (130-400) K/uL MPV (7.4-10.4) fL Immature Gran % (Auto) % Neut % (Auto) % Lymph % (Auto) % [place] % (Auto) % Eos % (Auto) % Baso % (Auto) % Immature Gran # (Auto) (0.00-0.02) K/uL Neut # (Auto) (1.4-6.5) K/uL Lymph # (Auto) (1.2-3.4) K/uL [place] # (Auto) (0.11-0.59) K/uL Eos # (Auto) (0-0.5) K/uL Baso # (Auto) (0-0.2) K/uL Sodium (136-145) mmol/L Potassium (3.5-5.1) mmol/L Chloride (98-107) mmol/L Carbon Dioxide (21-32) mmol/L Anion Gap (3-11) BUN (7-18) mg/dl Creatinine (0.6-1.2) mg/dl Est Cr Clr Drug Dosing ml/min Est GFR ( Amer) Est GFR (Non-Af Amer) BUN/Creatinine Ratio (10-20) Glucose (70-99) mg/dl Calcium (8.5-10.1) mg/dl Total Bilirubin (0.2-1) mg/dl AST (15-37) U/L ALT (12-78) U/L Alkaline Phosphatase (45-117) U/L Total Creatine Kinase Cancelled (26-192) U/L Total Protein (6.4-8.2) gm/dl Albumin (3.4-5.0) gm/dl Globulin (2.5-4.0) gm/dl Albumin/Globulin Ratio (0.9-2) TSH (0.300-4.500) uIu/ml Salicylates (2.8-20) mg/dl Acetaminophen (10-30) ug/ml Ethyl Alcohol mg/dL < 3.0 (0-3) mg/dl Blood Pressure Blood Pressure Findings: Elevated blood pressure Blood Pressure Disposition: elevated BP felt to be situational [facility] Narrative 190: Vital signs stable. Labs show leukocytosis of 15.35. Urine pending. Psych evaluation and placement pending. Case signed out to Dr. Oconnell Impression & Plan Schizoaffective disorder Discharge Plan Visit Data Chief Complaint: Mental Health Evaluation ED Provider: Varun Do Discharge Problem: Schizoaffective disorder Forms Stand Alone Forms: My [facility] Prescriptions Prescriptions: No Action multivitamin Tablet 1 tab PO DAILY RF: 0 fluticasone-salmeterol [Advair Diskus] 250-50 mcg/dose Blister With Device 1 inh INHALATION BID RF: 0 ferrous sulfate 325 mg (65 mg iron) Tablet 325 mg PO DAILY RF: 0 omeprazole 20 mg capsule,delayed release(DR/EC) 20 mg PO DAILY RF: 0 escitalopram oxalate 20 mg tablet 20 mg PO HS RF: 0 The scribe's documentation has been prepared under my direction and personally reviewed by me in its entirety. I confirm that the note above accurately reflects all work, treatment, procedures, and medical decision making performed by me.
[2018-05-16 19:52] LABS: Appearance Urine Turbid (Clear); Color Urine Red
[2018-05-16 19:53] LABS: Protein Urine Positive (Negative); Specific Gravity Urine 1.048 (1.000-1.060)
[2018-05-16 20:06] LABS: Bacteria Urine 2+ (Negative); Epithelial Cell Urine 0-5 /lpf (0-5)
[2018-05-16 20:08] LABS: RBC Urine >30 /hpf (0-4)
[2018-05-16] MEDS ORDERED: IOVERSOL 100ml IV PRN (22:17)
--- NOTE | 2018-05-16 22:33 | CT Scan Report ---
CT SCAN OF THE ABDOMEN AND PELVIS WITH IV CONTRAST CLINICAL HISTORY: Hematuria. Possible trauma. COMPARISON STUDY: Pelvic radiograph dated 05/16/2018. TECHNIQUE: Following the IV administration of 91 cc of Optiray 320, CT scan of the abdomen and pelvi s is performed from the lung bases to the proximal femora. Images are reviewed in the axial, sagittal , and coronal planes. IV contrast was administered without complication. The patient declined oral co ntrast. A dose lowering technique was utilized adhering to the principles of ALARA. CT DOSE: 408.25 mGy.cm FINDINGS: Lung bases: The heart is normal in size and without pericardial effusion. The lung bases are clear. Liver: The contrast-enhanced liver is normal in size, contour, and attenuation. There is no intrahepa tic biliary ductal dilatation. The hepatic veins and portal veins are patent. Gallbladder: Unremarkable. Spleen: Normal in size and attenuation. There are small calcified splenic granulomas. Pancreas: Unremarkable. Adrenal glands: Unremarkable. Kidneys: The contrast enhanced kidneys are normal in size and without hydronephrosis. The kidneys enh ance symmetrically. Abdominal vasculature: The abdominal aorta is normal in course and caliber noting mild atheroscleroti c calcification. Bowel: Liquid stool is noted throughout the colon. No colonic wall thickening or pericolonic inflamma tion is identified. No bowel obstruction is identified. The appendix is well-visualized and normal. Peritoneum: There is no intraperitoneal free air or abdominal ascites. Lymphadenopathy: None. Pelvic viscera: The bladder is distended and grossly unremarkable. The uterine fundus is markedly het erogeneous. No adnexal lesion is seen. There are ovarian follicles. Skeletal structures: No lytic or blastic lesions are seen. IMPRESSION: 1. Liquid stool is noted throughout the colon. There is no associated colonic wall thickening or darius colonic inflammation. Correlate clinically for evidence of a diarrheal illness. 2. The bladder is distended but otherwise normal in appearance. 3. There is no evidence of solid organ injury in the abdomen or pelvis. 4. The uterus appears heterogeneous, greatest in the fundal region. This is nonspecific and if clinic ally warranted could be further assessed with a nonemergent pelvic ultrasound. Electronically signed by: Rudy Powell M.D. 05/16/2018 10:31 PM
[2018-05-16 23:13] LABS: Pregnancy Test, Serum Negative (Negative)
--- NOTE | 2018-05-17 02:32 | Emergency Department Note ---
ED Visit Note I received this patient at change of shift signout from Dr. Do. Please see his note for complete history and physical. The patient presented to the emergency department for 302 evaluation. The patient is not being compliant with her medications and is not taking care of herself physically home. The patient had family members who are concerned so the patient was brought to the emergency department for an an evaluation for possible involuntary admission to a mental health facility. The patient was medically cleared with the exception of a urine which was not obtained. She was found to have hematuria that was difficult to run a urine drug screen. At this time I feel this is likely representing a current menstrual period given the patient's CAT scan report. I did discuss the patient's condition with the emergency department mental health housing case manager. At this time the 302 page 7 was filled out by myself. We will continue to try and obtain a urine but I do not feel that we should forcibly do a straight cath at this time as the patient will give us a urine eventually. Bed search is underway as well as an evaluation by can help delegate. Patient was signed out to Dr. Maldonado at change of shift. Please see his note for disposition and continuation of care. .
[2018-05-17] MEDS ORDERED: ALUMINUM/MAGNESIUM SUSP 30 ML UDC PO PRN (03:50)
[2018-05-17] MEDS ORDERED: ACETAMINOPHEN 325 MG TAB PO PRN (03:50)
[2018-05-17] MEDS ORDERED: SODIUM CHLORIDE 0.65% NA SOLN 45 ML (OCEAN) PRN (03:50)
[2018-05-17] MEDS ORDERED: MAGNESIUM HYDROXIDE SUSP 30 ML UDC PO PRN (03:50)
[2018-05-17] MEDS ORDERED: BISMUTH SUBSALICYLATE PER ML OMNICELL CHARGE PO PRN (03:50)
--- NOTE | 2018-05-17 05:29 | Emergency Department Note ---
ED Visit Note ED Physician Note: 37 yr old schizophrenic female arrives for evaluation after being off meds and not taking care of herself. She is here on signed 302 warrant. Signed out to me by Dr Oconnell who had medically cleared her and signed 302. I went to go evaluate her after sign out and she was already being taken to [address] [place] [address] where she had been accepted. Austyn Maldonado MD
--- NOTE | 2018-05-17 09:17 | History & Physical ---
Date of Service May 17, 2018 Impression / Recommendations Impression 37-year-old woman known to our unit from previous hospitalizations for psychosis NOS. Per the 302, she has not been taking care of herself and has deteriorated to the point that she cannot communicate her thoughts and has no ability to remember what has been going on. Nursing reports that she was partially oriented to person and place last evening but little else. We will immediately call her outpatient providers office to determine what medication she was on. During her last hospitalization she was on Lexapro and had been for a brief time on Risperdal. External med list reveals recent prescriptions for Lexapro and Geodon. For now will restart Lexapro 10 mg as we will need to re-titrate for she has not been on her medications for an unknown period of time. We will also start Geodon 20 mg twice daily and we may give consideration to other medications after receiving information from her outpatient provider. It is clear that at this time the patient is in need of involuntary inpatient treatment due to her complete inability to care for herself. We will order monitoring labs including a fasting lipid panel and glucose. (1) Unspecified psychosis: 05/17 - Start Geodon 20 mg BID with food - Start Lexapro 10 mg daily - Q 15 min checks for safety - Assist the patient to attend to ADL's - Obtain current med list from OP providers and coordinate aftercare - Obtain supplemental information from patient's fiance or 302 petitioner - patient is excused from groups at this time - Reality orientation - Will order ativan 1 mg q 4 hr prn in the event we are seeing some degree of catatonia - FLP and FBS for monitoring on antipsychotics Present on Admission?: Yes Inventory Assets Strengths: Has a fiance Needs: Compliance with medications Risk Factors Assessment Male: No : Yes Health Problems: Yes Mental Health Diagnoses: Yes Substance Use Disorders: No Previous Attempt: Yes Previous Psychiatric Hospitalization: Yes Smoker: Yes Protective Factors Assessment : No Responsible for Young Children: Yes Employed: No (Disabled due to mental health) Psychiatric History Identifying Data RASHIDA MEZA is a 37-year-old F who was brought to the ED on 302 warrant after being found not caring for herself, dirty malodorous not having eaten or taken medications. Chief Complaint "I do not know.". History of Present Illness Patient is a 37-year-old woman known to us from a previous hospitalization in March 2017. At that time she was admitted under similar circumstances appearing confused/psychotic and unable to provide any information about her history. During that stay she was started on Risperdal initially but this was discontinued when she developed akathisia. She was also converted from Celexa to Lexapro and was discharged only on Lexapro. The patient was brought to our ER on a 302 warrants after petitioner, Tayler Richardson, reported that the patient has not been eating not taking medications and not taking care of herself. She describes the patient staring at space and having been found rolling around in the snow saying things that were not right. She was apparently as reported in the ER notes, somewhat belligerent with the ambulance crew when they came to get her but after arriving in the ER she was cooperative. At the time I see the patient she is lying in her bed. She awakens to verbal. She will not get out of bed nor come to the day room to eat breakfast. She responds to very few questions but when she does the answer is always "I do not know". She indicates with "yes" that she is willing to take medications and willing to receive treatment today. She denies any physical complaints of any kind. She does not answer questions about what was going on before hospitalization, why she was not taking her medications or what medication she had been prescribed. Past Psychiatric History Current Psychiatric Diagnosis: Schizoaffective disorder [place] [facility] [place] Previous Psych Admissions: [facility] 2016 and 2017 History of Previous Suicide Attempt: Yes Describe Attempts in the Past: Overdose about 10 years ago Past Medication Trials: Risperdal- ?akathisia Kayce- gricel Marley- felt like a zombie Allergies Allergy/AdvReac Type Severity Reaction Status Date / Time Penicillins Allergy Unknown RASH Unverified 05/04/18 14:04 Home Medications Home Medications Medication Instructions Recorded Confirmed Type escitalopram oxalate 20 mg PO HS 05/04/18 05/04/18 History ferrous sulfate 325 mg PO DAILY 05/04/18 05/04/18 History fluticasone-salmeterol [Advair 1 inh INHALATION BID 05/04/18 05/04/18 History Diskus] multivitamin 1 tab PO DAILY 05/04/18 05/04/18 History omeprazole 20 mg PO DAILY 05/04/18 05/04/18 History ziprasidone HCl 20 mg PO DAILY 05/17/18 History Family History Family History of: Psychosis/ThoughtDisorder and Alcoholism/Drug Abuse Family Mental Health History Comment: Father -Schizophrenia and alcoholism ( obtained information from medical record) Alcohol History Hx of Alcohol Use Over the Past 12 Months: Yes ("sometimes"-) Smoking Use Have You Smoked or Used Tobacco Products in the Last 30 Days: Yes tobacco type: cigarettes Smoking Status: Current every day smoker Smoking packs per day: 1 Substance History Hx of Prescription Med Misuse Over the Past 12 Months: No Hx of Over the Counter Med Misuse Over the Past 12 Months: No Hx of Inhalent Misuse Over the Past 12 Months: No Hx of Organic Substance Use Over the Past 12 Months: No Hx of Illegal Substances/Street Drug Use Over Past 12 Months: No Problems as a Result of Past Substance Use: None Identified Personal History Living Arrangements: Home Childhood: Raised by both parents until the age of 4 when mother moved with her children to [place] Highest Grade Completed: High School Graduate Employment Status: Unemployed Marital Status: Number Of Children: 2 Beliefs That Will Affect Care: None Patient History Medical History Anxiety (Acute) Anemia (Chronic) GERD (gastroesophageal reflux disease) (Chronic) Tobacco abuse (Chronic) HTN (hypertension) (Chronic) Bipolar 1 disorder (Chronic) Marijuana use (Chronic) Asthma (Chronic) Endometriosis (Chronic) ""Had surgery 1995"" Unspecified mood [affective] disorder Anxiety HTN (hypertension) Paranoia Schizophrenia Tubal ligation evaluation Surgical History Hx of tubal ligation (Chronic) Family History Other No significant family history Social History marital status: Single Current Living Situation: Family current occupational status: disabled Feels Safe at Home: Yes Smoking Status: Current every day smoker Tobacco Type: cigarettes Beliefs That Will Affect Care: None Preferred Language: Citizen [place] Communication Ability: Impaired Communication Ability Comment: patient disorganized and thought blocked Dip Filler Required: No Review of Systems All systems reviewed & are unremarkable except as noted in HPI & below Physical Exam Mental Examination Exam performed by Dr. Do in the emergency department has been reviewed and accepted his medical clearance for our unit Psychiatric Orientation: alert; + uncooperative Apperance: + disheveled Eye Contact: + poor eye contact Motor Behavior: no abnormal motor movements speaks in whispers, responds with yes or I don't know Affect: + flat affect Unable to determine due to patient's condition Unable to determine given patient's condition Unable to determine due to patient's condition Unable to answer questions Does not appear to be responding to internal stimuli Cognition: language grossly intact Estimated Intelligence: consistent with education level Insight: + severely impaired insight Judgement: + severely impaired judgement Vital Signs (Past 24 Hours) Last Vital Signs Temp 36.6 C 05/17/18 03:54 Pulse 79 05/17/18 03:54 Resp 16 05/17/18 03:54 BP 128/72 05/17/18 03:54 Pulse Ox 91 05/17/18 03:54 Results & Data Laboratory Results Laboratory Results - last 24 hr 05/16/18 05/16/18 05/16/18 15:38 15:38 15:38 WBC 15.35 H RBC 5.37 Hgb 16.6 H Hct 47.6 H MCV 88.6 MCH 30.9 MCHC 34.9 RDW Std Deviation 45.2 RDW Coeff of Zuhair 14.0 Plt Count 219 MPV 12.8 H Immature Gran % (Auto) 0.3 Neut % (Auto) 81.8 Lymph % (Auto) 9.2 Mcpherson % (Auto) 8.2 Eos % (Auto) 0.4 Baso % (Auto) 0.1 Immature Gran # (Auto) 0.04 H Neut # (Auto) 12.56 H Lymph # (Auto) 1.41 Mcpherson # (Auto) 1.26 H Eos # (Auto) 0.06 Baso # (Auto) 0.02 Sodium 137 Potassium 3.7 Chloride 105 Carbon Dioxide 23 Anion Gap 9.0 BUN 14 Creatinine 0.76 Est Cr Clr Drug Dosing 87.3 Est GFR ( Amer) 115.3 Est GFR (Non-Af Amer) 99.5 BUN/Creatinine Ratio 18.2 Glucose 100 H Calcium 9.6 Total Bilirubin 0.4 AST 11 L ALT 30 Alkaline Phosphatase 85 Total Creatine Kinase 45 Total Protein 7.7 Albumin 3.8 Globulin 3.9 Albumin/Globulin Ratio 1.0 TSH 0.676 HCG, Qual Urine Color Urine Appearance Urine pH Ur Specific [place] Urine Protein Urine Glucose (UA) Urine Ketones Urine Blood Urine Nitrite Urine Bilirubin Urine Urobilinogen Ur Leukocyte Esterase Urine RBC Urine WBC Ur Epithelial Cells Urine Bacteria Salicylates 5.4 Acetaminophen < 2 L Ethyl Alcohol mg/dL 05/16/18 05/16/18 05/16/18 15:38 15:38 15:45 WBC RBC Hgb Hct MCV MCH MCHC RDW Std Deviation RDW Coeff of Zuhair Plt Count MPV Immature Gran % (Auto) Neut % (Auto) Lymph % (Auto) Mcpherson % (Auto) Eos % (Auto) Baso % (Auto) Immature Gran # (Auto) Neut # (Auto) Lymph # (Auto) Mcpherson # (Auto) Eos # (Auto) Baso # (Auto) Sodium Potassium Chloride Carbon Dioxide Anion Gap BUN Creatinine Est Cr Clr Drug Dosing Est GFR ( Amer) Est GFR (Non-Af Amer) BUN/Creatinine Ratio Glucose Calcium Total Bilirubin AST ALT Alkaline Phosphatase Total Creatine Kinase Cancelled Total Protein Albumin Globulin Albumin/Globulin Ratio TSH HCG, Qual Negative Urine Color Urine Appearance Urine pH Ur Specific [place] Urine Protein Urine Glucose (UA) Urine Ketones Urine Blood Urine Nitrite Urine Bilirubin Urine Urobilinogen Ur Leukocyte Esterase Urine RBC Urine WBC Ur Epithelial Cells Urine Bacteria Salicylates Acetaminophen Ethyl Alcohol mg/dL < 3.0 05/16/18 19:14 WBC RBC Hgb Hct MCV MCH MCHC RDW Std Deviation RDW Coeff of Zuhair Plt Count MPV Immature Gran % (Auto) Neut % (Auto) Lymph % (Auto) [place]pher[place] % (Auto) Eos % (Auto) Baso % (Auto) Immature Gran # (Auto) Neut # (Auto) Lymph # (Auto) Mcpherson # (Auto) Eos # (Auto) Baso # (Auto) Sodium Potassium Chloride Carbon Dioxide Anion Gap BUN Creatinine Est Cr Clr Drug Dosing Est GFR ( Amer) Est GFR (Non-Af Amer) BUN/Creatinine Ratio Glucose Calcium Total Bilirubin AST ALT Alkaline Phosphatase Total Creatine Kinase Total Protein Albumin Globulin Albumin/Globulin Ratio TSH HCG, Qual Urine Color Red Urine Appearance Turbid H Urine pH Ur Specific [place] 1.048 Urine Protein Positive H Urine Glucose (UA) Urine Ketones Urine Blood Urine Nitrite Urine Bilirubin Urine Urobilinogen Ur Leukocyte Esterase Urine RBC >30 H Urine WBC 5-10 H Ur Epithelial Cells 0-5 Urine Bacteria 2+ H Salicylates Acetaminophen Ethyl Alcohol mg/dL Current Inpatient Medications Current Inpatient Medications: Current Inpatient Medications Acetaminophen (Tylenol) 650 mg PO Q4H PRN PRN Reason: Headache or Minor Fever Stop: 06/16/18 03:49 Al Hydrox/Mg Hydrox/Simethicone (Maalox) 30 ml PO Q4H PRN PRN Reason: GI Upset Stop: 06/16/18 03:49 Bismuth Subsalicylate (Kaopectate) 15 ml PO PRN PRN PRN Reason: Loose Stool Stop: 06/16/18 03:49 Haloperidol (Haldol) 5 mg PO Q4 PRN PRN Reason: psychosis Stop: 06/16/18 03:59 Hydroxyzine HCl (Vistaril) 25 mg PO Q4H PRN PRN Reason: Anxiety Stop: 06/16/18 03:49 Hydroxyzine HCl (Vistaril) 50 mg PO HSZ PRN PRN Reason: Insomnia Stop: 06/16/18 03:49 Ioversol (Optiray 320 100ml) 91 ml IV ONCE PRN PRN Reason: Interaction Checking Stop: 05/20/18 22:16 Last Admin: 05/16/18 22:17 Dose: 1 ml Magnesium Hydroxide (Milk Of Magnesia) 30 ml PO DAILY PRN PRN Reason: Heartburn Stop: 06/16/18 03:49 Sodium Chloride (Hayes Nasal) 1 - 2 sprays NA PRN PRN PRN Reason: Nasal Dryness/Congestion Stop: 06/16/18 03:49 CPT Code CPT Code Initial Hospital Care: [id number]
[2018-05-17] MEDS ORDERED: INFLUENZA VIRUS QUAD VACCINE 0.5 ML SYR IM ONE (10:15)
[2018-05-17] MEDS ORDERED: INFLUENZA ADMINISTRATION CHARGE ONE (10:15)
[2018-05-17] MEDS: ESCITALOPRAM OXALATE 10 MG TAB PO SCH (11:55)
[2018-05-17] MEDS: HALOPERIDOL 5 MG TAB PO PRN (11:55)
[2018-05-17] MEDS: LORazepam 1 MG TAB PO PRN (11:55)
[2018-05-17] MEDS: PANTOprazole 40 MG TAB PO SCH (13:31)
[2018-05-17] MEDS: FLUTICASONE/SALMETEROL 250/50 (ADVAIR) 14 PUFF/1 INHALER INH SCH ×2 (13:31→21:06)
[2018-05-17] MEDS: ZIPRASIDONE HCL 20 MG CAP PO SCH (18:38)
[2018-05-18 07:57] LABS: Glucose Fasting 102 mg/dl (70-99)
[2018-05-18 08:03] LABS: Chol HDL Ratio 5; Cholesterol 153 mg/dl (0-200); HDL Cholesterol 33 mg/dl; LDL Cholesterol Calculated 96 mg/dl; Triglycerides 119 mg/dl (0-150); VLDL Cholesterol 24 mg/dl
[2018-05-18] MEDS: PANTOprazole 40 MG TAB PO SCH (10:13)
[2018-05-18] MEDS: ZIPRASIDONE HCL 20 MG CAP PO SCH ×2 (10:13→17:26)
[2018-05-18] MEDS: ESCITALOPRAM OXALATE 10 MG TAB PO SCH (10:13)
[2018-05-18] MEDS: FLUTICASONE/SALMETEROL 250/50 (ADVAIR) 14 PUFF/1 INHALER INH SCH ×2 (10:13→21:01)
--- NOTE | 2018-05-18 10:21 | Psychiatric Progress Note ---
Date of Service May 18, 2018 Impression / Recommendations Impression 37-year-old woman known to our unit from previous hospitalizations for psychosis NOS. Per the 302, she has not been taking care of herself and has deteriorated to the point that she cannot communicate her thoughts and has no ability to remember what has been going on. Nursing reports that she was partially oriented to person and place last evening but little else. We will immediately call her outpatient providers office to determine what medication she was on. During her last hospitalization she was on Lexapro and had been for a brief time on Risperdal. External med list reveals recent prescriptions for Lexapro and Geodon. For now will restart Lexapro 10 mg as we will need to re-titrate for she has not been on her medications for an unknown period of time. We will also start Geodon 20 mg twice daily and we may give consideration to other medications after receiving information from her outpatient provider. It is clear that at this time the patient is in need of involuntary inpatient treatme nt due to her complete inability to care for herself. We will order monitoring labs including a fasting lipid panel and glucose. (1) Unspecified psychosis: 05/17 - Start Geodon 20 mg BID with food - Start Lexapro 10 mg daily - Q 15 min checks for safety - Assist the patient to attend to ADL's - Obtain current med list from OP providers and coordinate aftercare - Obtain supplemental information from patient's fiance or 302 petitioner - patient is excused from groups at this time - Reality orientation - Will order ativan 1 mg q 4 hr prn in the event we are seeing some degree of catatonia - FLP and FBS for monitoring on antipsychotics 05/18 -Urine culture results reviewed; more than 3 types of organisms present, probable skin rufino. Treatment not indicated. Patient on menses. -Leukocytosis on presentation, but no signs of infection, may be stress related. -Collateral obtained from the patient's boyfriend and outpatient records re viewed. Diagnosis remains unclear, as she reportedly has been diagnosed with schizoaffective disorder unspecified type in the past, but it appears she went an entire year on an SSRI alone and had no psychotic symptoms. Her current disorganization and paranoia occurred in the context of worsening mood, so this could be seen as a psychotic depression. She continues to regularly use cannabis, so substance-induced psychotic and mood disorder is a possibility as well. There may be an element of delirium. We will check a MOCA today and monitor cognitive function. -Continue ziprasidone 20 mg twice daily with meals, and encourage patient to eat adequate calories (at least 500) with the medication to allow for adequate absorption. If she is unable to do this, we may need to switch to a different medication that is not reliant on caloric intake. Per records, she has had trials of quetiapine, risperidone, and haloperidol in the past. Risperidone caused akathisia, and quetiapine caused somnolence. Would avoid typical antipsychotics due to the risk of tardive dyskinesia given the likely need for long-term treatment. Could consider a trial of aripiprazole or lurasidone to target both mood and psychotic symptoms, as they have lower risk of weight gain compared to other atypical antipsychotics. -Fasting labs reviewed for monitoring on an atypical antipsychotic: Fasting glucose elevated 102, lipid profile within normal limits. (2) Cannabis abuse: 05/18 -once patient is less psychotic, we will need to provide psychoeducation about the risks of ongoing cannabis use, particularly the risk of worsening psychosis. Consider the need for outpatient substance abuse treatment. Present on Admission?: Yes (3) Tobacco abuse: 05/18 -patient reports smoking 1 pack/day and reporting urges to smoke, so will order nicotine patch. Offer smoking cessation education, and arrange outpatient follow-up with her psychiatric cns. Present on Admission?: Yes Inventory Assets Strengths: Has a fiance Needs: Compliance with medications Risk Factors Assessment Male: No : Yes Health Problems: Yes Mental Health Diagnoses: Yes Substance Use Disorders: No Previous Attempt: Yes Previous Psychiatric Hospitalization: Yes Smoker: Yes Protective Factors Assessment : No Responsible for Young Children: Yes Employed: No (Disabled due to mental health) Interval History Identifying Information RASHIDA MEZA is a 37-year-old F who lives in [place] with her boyfriend, has a history of schizoaffective disorder, and was brought to the ED on 302 warrant on 05/16/2018 as she was not caring for herself, attending to hygiene, eating, or taking medications. She is admitted on an involuntary 302 commitment. Chief Complaint "Confused... Don't really know what I'm thinking". Review of Systems Notes Appetite is low, denies abdominal pain, nausea, or vomiting. Sleep Information Total Hours of Sleep: 8.5 Sleep Comments: pt NPO during the night. pt on q-15 minute checks Meal Information Percent Meal Consumed - Breakfast: 0 Percent Meal Consumed - Lunch: 75 Percent Meal Consumed - Dinner: 0 Nutrition Comment: pt. asleep Subjective Subjective Patient was seen & assessed and interval progress reviewed with Treatment Team. Staff report she remains psychotic, thought blocked and irritable. She has spent most of her time in her bed sleeping since admission around 4 AM yesterday. She was not able to complete assessments with staff yesterday, appeared thought blocked and did not respond to questions. She has not been able to follow instructions from staff, and has required staff assistance for ADLs. Yesterday afternoon, she woke up and was agitated and disoriented, had started menstruating and became agitated when staff attempted to assist her with self care. She received Haldol 5 mg and Ativan 1 mg. Afterward, she was able to come out of her room, eat lunch, and attend a group, but later regressed and again became poorly responsive. Her significant other was contacted for collateral and reported that she had done well since her hospitalization here in March 2017, had taken her medications, gone to appointments, but started to decompensate about a month ago. He first noticed that she was having difficulty concentrating when they were playing cards, then became more anxious, had panic attacks, was not sleeping, and was emotionally labile and irritable. She was brought into the ER about 2 weeks ago, but was assessed and discharged home to follow-up with her outpatient psychiatrist. He called the police the day of presentation as she was not eating, bathing, and he was unable to assist her to meet her basic needs. Outpatient records from [facility] reviewed: Patient sees DEANN Christensen. Diagnoses are anxiety NOS, schizoaffective disorder unspecified. Last visit 05/05/2018, as follow-up from the ER where she had been seen the day prior for anxiety and mood problems. The patient reported poor memory for some of her behaviors, was noted to be anxious and irritable, reporting panic attacks, generalized anxiety, and not sleeping. She denied hallucinations but reported paranoia that "something was going on in her house." She had gone 3 days without sleep, but had slept the night prior to the appointment. She endorsed elevated energy, and family reported she had been making bizarre statements. She had been trying to lose weight and had lost 16 pounds in several months. She reported good compliance with her medications, and was smoking heavily, cigarettes and cannabis. It appears that she was only prescribed escitalopram, and that ziprasidone 20 mg with dinner times 2 days, then 40 mg with breakfast and dinner was added, as she did not want to take any medications that might contribute to weight gain. Hydroxyzine 25 mg 3 times daily as needed was also added previous medication trials listed include quetiapine (excessive somnolence), Depakote (weight gain), haloperidol, lorazepam, risperidone, escitalopram, and citalopram. On my assessment today the patient was seen with Diane Dale MS4. She is in her room in bed, but awake. She states that she is confused, fearful, does not want to come out or attend groups. She has limited memory of the events that led to her admission, but says she had been "thinking about my dad trying to hurt me and my family," and remains fearful of this happening. She has not had contact with her father in years, does not know where he is or even if he is alive, and denies any specific triggers that caused her to think about him or become fearful of him. She says her boyfriend told her just to forget these thoughts, but she has not been able to. She denies thoughts of harming herself, and denies hallucinations. She spends her days at home alone while her fianc is at work, and spends her time doing housework or "playing on my phone." She admits she was noncompliant with the Geodon that was started 2 weeks ago, stating she only took a few doses and then stopped, and she is not sure why. She has not been eating as she is not hungry, and struggled to understand the reasoning why she would need to take her medication with food in order for it to be absorbed and effective. She states she wants a cigarette, smokes 1 pack/day, and was advised she could utilize the nicotine patch or gum while here. She is very resistant to getting out of bed and attending groups, but was encouraged to do so. Physical Exam Psychiatric Orientation: alert and + guarded Partially cooperative, limited historian Overweight, lying in bed awake, dressed in street clothes, hair disheveled, unkempt but not malodorous as yesterday. Eye Contact: + fair eye contact Motor Behavior: + psychomotor agitation (Juggling feet, restlessness) Minimal, delayed at times Affect: + depressed affect, + anxious affect, + constricted affect and mood congruent with affect Tearful, distraught Mood: + depressed mood and + anxious mood Thought Process: + thought blocking Short, vague answers, at times does not respond Thought Content: + preoccupation and + paranoid (That her father will hurt her or her family, although admits no contact with him or reason to think he might do so) Suicidal Thoughts: denies suicidal thoughts Homicidal Thoughts: denies homicidal thoughts Hallucinations: no auditory hallucinations and no visual hallucinations Cognition: language grossly intact; + recent memory not intact, + remote memory not intact and + attention not intact Estimated Intelligence: + below average estimated intelligence Insight: + impaired insight Judgement: + impaired judgement Vital Signs (Past 24 Hours) Last Vital Signs Temp 36.9 C 05/18/18 06:42 Pulse 96 H 05/18/18 06:43 Resp 16 05/18/18 06:42 BP 115/83 05/18/18 06:43 Pulse Ox 91 05/17/18 03:54 Results & Data Laboratory Results Laboratory Results - last 24 hr 05/18/18 07:08 Fasting Glucose 102 H Triglycerides 119 Cholesterol 153 LDL Cholesterol, Calc 96 VLDL Cholesterol, Calc 24 HDL Cholesterol 33 Cholesterol/HDL Ratio 5 Current Inpatient Medications Current Inpatient Medications: Current Inpatient Medications Acetaminophen (Tylenol) 650 mg PO Q4H PRN PRN Reason: Headache or Minor Fever Stop: 06/16/18 03:49 Al Hydrox/Mg Hydrox/Simethicone (Maalox) 30 ml PO Q4H PRN PRN Reason: GI Upset Stop: 06/16/18 03:49 Bismuth Subsalicylate (Kaopectate) 15 ml PO PRN PRN PRN Reason: Loose Stool Stop: 06/16/18 03:49 Escitalopram Oxalate (Lexapro) 10 mg PO QAM BRIANNA Stop: 06/16/18 10:29 Last Admin: 05/17/18 11:55 Dose: 10 mg Documented by: Haloperidol (Haldol) 5 mg PO Q4 PRN PRN Reason: psychosis Stop: 06/16/18 03:59 Last Admin: 05/17/18 11:55 Dose: 5 mg Documented by: Hydroxyzine HCl (Vistaril) 25 mg PO Q4H PRN PRN Reason: Anxiety Stop: 06/16/18 03:49 Hydroxyzine HCl (Vistaril) 50 mg PO HSZ PRN PRN Reason: Insomnia Stop: 06/16/18 03:49 Ioversol (Optiray 320 100ml) 91 ml IV ONCE PRN PRN Reason: Interaction Checking Stop: 05/20/18 22:16 Last Admin: 05/16/18 22:17 Dose: 1 ml Documented by: Lorazepam (Ativan) 1 mg PO Q4H PRN PRN Reason: Anxiety Stop: 06/16/18 10:29 Last Admin: 05/17/18 11:55 Dose: 1 mg Documented by: Magnesium Hydroxide (Milk Of Magnesia) 30 ml PO DAILY PRN PRN Reason: Heartburn Stop: 06/16/18 03:49 Pantoprazole Sodium (Protonix) 40 mg PO QAM BRIANNA Stop: 06/16/18 11:14 Last Admin: 05/17/18 13:31 Dose: 40 mg Documented by: Fluticasone/Salmeterol (Advair Diskus 250/50) 1 puffs INH BID BRIANNA Stop: 06/16/18 11:14 Last Admin: 05/17/18 21:06 Dose: Not Given Documented by: Sodium Chloride (Grand Nasal) 1 - 2 sprays NA PRN PRN PRN Reason: Nasal Dryness/Congestion Stop: 06/16/18 03:49 Ziprasidone (Geodon) 20 mg PO BIDM BRIANNA Stop: 06/16/18 17:44 Last Admin: 05/17/18 18:38 Dose: 20 mg Documented by: Post Discharge Appointments Primary Care Physician Name Of Family Doctor: James Almodovar Primary Care Provider Appointment Comment: [address] [place] [address] [place] [address] Psychiatrist Name of Psychiatrist: [facility] - DEANN Christensen Psychiatrist's Psychiatric Appointment Comment: [place] [address] Floor Scrubber Name of Floor Scrubber: [facility] - Amylily Russell Phone Number for Floor Scrubber: [phone] Contact Information Discharge Discharge Address: [address] [place] [address], [address], [place] [address] CPT Code CPT Code 20560
--- NOTE | 2018-05-18 11:02 | Medical Student Progress Note ---
Date of Service May 18, 2018 Assessment & Plan (1) Unspecified psychosis: This is a 37-year-old female with a history of schizoaffective disorder who is admitted under 302 commitment for increasing paranoia and inability to care for herself. She continues to feel confused and cannot answer questions fully. She still endorses paranoia about her father harming her. Patient still requires assistance with ADLs. 1. Unspecified psychosis - Continue ziprasidone 20 mg. She did not take this for a long enough period of time as an outpatient to know if this will be beneficial for her. She was counseled about taking this medicine with a large snack or meal (at least 500 calories). - Continue escitalopram 20 mg for mood. - Encouraged participation in group activities and therapy. - Need for family meeting to gain collateral information and make plan for her to take her medications consistently. - Has a diagnosis of schizoaffective disorder, but after going a whole year without psychosis in the absence of antipsychotic, this may not be the correct diagnosis. Consider substance induced mood/psychosis vs. psychotic depression. - FLP on 05/18 is WNL. Fasting glucose is minimally elevated at 102. 2. Unspecified anxiety - Offer hydroxyzine 25 mg PRN 3. Tobacco use - Offer 21 mg nicotine patch 4. Asthma - Continue Advair inhaler 5. GERD - Continue pantoprazole 40 mg daily. Disposition - Patient still requires assistance with ADLs as well as paranoia and poor mood. Continue inpatient hospitalization to optimize medications and undergo therapy. Subjective This is a 37-year-old female with a history of schizoaffective disorder who is admitted under 302 commitment for increasing paranoia and inability to care for herself. Today she says she is "confused" and "I don't really know what I'm thinking." She is scared of "my dad trying to hurt me and my family." She bases these fears on unspecified events from her childhood. She is not sure if he is still living as it has been several years since they've been in contact. She d enies suicidal ideation, homidical ideation, and hallucinations. She describes her mood as "scared." She has had poor appetite and has been eating minimally. She says that she lives with her fiance and stays home alone during the day doing "housework and playing on my phone." She says she was started on Geodon which she took for a few days but then stopped and is not sure why. She asks if she can have a cigarette here. She denies ever having tried nicotine patch or gum. Physical Exam Vital Signs (Past 24 Hours): Last Vital Signs Temp 36.9 C 05/18/18 06:42 Pulse 96 H 05/18/18 06:43 Resp 16 05/18/18 06:42 BP 115/83 05/18/18 06:43 Pulse Ox 91 05/17/18 03:54 Results & Data Medications Administered [facility]) [facility] Stop: 06/16/18 10:29 Last Admin: 05/18/18 10:13 Dose: 10 mg Documented by: [id number] Admin: 05/17/18 11:55 Dose: 10 mg Documented by: [id number] Haloperidol (Haldol) 5 mg PO Q4 PRN PRN Reason: psychosis Stop: 06/16/18 03:59 Last Admin: 05/17/18 11:55 Dose: 5 mg Documented by: [id number] Ioversol (Optiray 320 100ml) 91 ml IV ONCE PRN PRN Reason: Interaction Checking Stop: 05/20/18 22:16 Last Admin: 05/16/18 22:17 Dose: 1 ml Documented by: [id number] Lorazepam (Ativan) 1 mg PO Q4H PRN PRN Reason: Anxiety Stop: 06/16/18 10:29 Last Admin: 05/17/18 11:55 Dose: 1 mg Documented by: [id number] Pantoprazole Sodium (Protonix) [facility] Stop: 06/16/18 11:14 Last Admin: 05/18/18 10:13 Dose: 40 mg Documented by: [id number] Admin: 05/17/18 13:31 Dose: 40 mg Documented by: [id number] Fluticasone/Salmeterol (Advair Diskus 250/50) 1 puffs INH BID [facility] Stop: 06/16/18 11:14 Last Admin: 05/18/18 10:13 Dose: 1 puffs Documented by: [id number] Admin: 05/17/18 21:06 Dose: Not Given Documented by: [id number] Admin: 05/17/18 13:31 Dose: 1 puffs Documented by: [id number] Ziprasidone (Geodon) 20 mg PO BIDM [facility] Stop: 06/16/18 17:44 Last Admin: 05/18/18 10:13 Dose: 20 mg Documented by: [id number] Admin: 05/17/18 18:38 Dose: 20 mg Documented by: [id number]
[2018-05-18] MEDS: NICOTINE 21 MG/24 HR TDSY TD SCH (13:55)
[2018-05-18] MEDS: HALOPERIDOL 5 MG TAB PO PRN (13:58)
[2018-05-18] MEDS: LORazepam 1 MG TAB PO PRN (13:58)
--- NOTE | 2018-05-19 09:03 | Psychiatric Progress Note ---
Date of Service May 19, 2018 Impression / Recommendations Impression 37-year-old woman known to our unit from previous hospitalizations for psychosis NOS. she has also been diagnosed with depression and schizoaffective disorder unspecified in the past, but we do not have sufficient information to clarify her diagnosis. Per the 302, she has not been taking care of herself and has deteriorated to the point that she cannot communicate her thoughts and has no ability to remember what has been going on, has not been eating, sleeping, or bathing, and has not been taking medications. She had recently been started on ziprasidone, but was noncompliant with it at home, and here is unable to eat sufficient calories for it to be absorbed, so we will switch to a different atypical antipsychotic. She is also been restarted on Lexapro 10 mg as she appears depressed and has a history of depression, and had previously done well on this medication. She remains in need of involuntary inpatient treatment due to her complete inability to care for herself and ongoing psychosis. (1) Unspecified psychosis: 05/17 - Start Geodon 20 mg BID with food - Start Lexapro 10 mg daily - Q 15 min checks for safety - Assist the patient to attend to ADL's - Obtain current med list from OP providers and coordinate aftercare - Obtain supplemental information from patient's fiance or 302 petitioner - patient is excused from groups at this time - Reality orientation - Will order ativan 1 mg q 4 hr prn in the event we are seeing some degree of catatonia - FLP and FBS for monitoring on antipsychotics 05/18 -Urine culture results reviewed; more than 3 types of organisms present, probable skin rufino. Treatment not indicated. Patient on menses. -Leukocytosis on presentation, but no signs of infection, may be stress related. -Collateral obtained from the patient's boyfriend and outpatient records reviewed. Diagnosis remains unclear, as she reportedly has been diagnosed with schizoaffective disorder unspecified type in the past, but it appears she went an entire year on an SSRI alone and had no psychotic symptoms. Her current disorganization and paranoia occurred in the context of worsening mood, so this could be seen as a psychotic depression. She continues to regularly use cannabis, so substance-induced psychotic and mood disorder is a possibility as well. There may be an element of delirium. We will check a MOCA today and monitor cognitive function. -Continue ziprasidone 20 mg twice daily with meals, and encourage patient to eat adequate calories (at least 500) with the medication to allow for adequate absorption. If she is unable to do this, we may need to switch to a different medication that is not reliant on caloric intake. Per records, she has had trials of quetiapine, risperidone, and haloperidol in the past. Risperidone caused akathisia, and quetiapine caused somnolence. Would avoid typical anti psychotics due to the risk of tardive dyskinesia given the likely need for long- term treatment. Could consider a trial of aripiprazole or lurasidone to target both mood and psychotic symptoms, as they have lower risk of weight gain compared to other atypical antipsychotics. -Fasting labs reviewed for monitoring on an atypical antipsychotic: Fasting glucose elevated 102, lipid profile within normal limits. 05/19 -File for 303 involuntary commitment due to ongoing psychosis and inability to provide for her own basic needs; hearing tomorrow. -Patient not yet appropriate for a family meeting, but once she is, will need one with her boyfriend. Collateral information from her boyfriend regarding her symptoms over the past several years may be helpful to clarify diagnosis. -Appetite remains poor with limited p.o. intake, despite staff encouragement. She has not been able to ingest adequate calories with her ziprasidone for it to be absorbed, so we will discontinue it and start aripiprazole 5 mg daily. Discussed this medication change with the patient, and aripiprazole was chosen due to information and outpatient records that she was very concerned about taking medications that could contribute to weight gain, and it has lower risk compared to quetiapine, risperidone, and olanzapine. -She has not been able to tolerate a MOCA, but will continue to attempt cognitive screening. (2) Cannabis abuse: 05/18 -once patient is less psychotic, we will need to provide psychoeducation about the risks of ongoing cannabis use, particularly the risk of worsening psychosis. Consider the need for outpatient substance abuse treatment. (3) Tobacco abuse: 05/18 -patient reports smoking 1 pack/day and reporting urges to smoke, so will order nicotine patch. 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 Inventory Assets Strengths: Has a fiance, housing Needs: Compliance with medications, abstinence from substances Risk Factors Assessment Male: No : Yes Health Problems: Yes Mental Health Diagnoses: Yes Substance Use Disorders: Yes Previous Attempt: Yes Previous Psychiatric Hospitalization: Yes Smoker: Yes Protective Factors Assessment : No Responsible for Young Children: Yes Employed: No (Disabled due to mental health) Stable Relationships: Yes Interval History Identifying Information RASHIDA MEZA is a 37-year-old F who lives in [place] with her boyfriend, has a history of schizoaffective disorder, and was brought to the ED on 302 warrant on 05/16/2018 as she was not caring for herself, attending to hygiene, eating, or taking medications. She is admitted on an involuntary 302 commitment. Chief Complaint "Tired". Review of Systems Notes Poor appetite Sleep Information Total Hours of Sleep: 10.75 Sleep Comments: pt NPO during the night. pt on q-15 minute checks Meal Information Percent Meal Consumed - Breakfast: 10 Percent Meal Consumed - Lunch: 30 Percent Meal Consumed - Dinner: 10 Nutrition Comment: pt. asleep Subjective Subjective Patient was seen & assessed and interval progress reviewed with Treatment Team. Staff report she remains psychotic, paranoid of staff, requiring support for ADLs, but refused to shower (even after she bled through her pants), and is eating very little. She has not been able to eat adequate calories with her ziprasidone. She had an episode of agitation where she was yelling, said she was confused, did not recall conversations she'd had with staff earlier in the shift or the events that led to her hospitalization. She was paranoid about taking PRN medication, said she was not taking any more meds, and demanded to be discharged. She said everyone here is out to get here and staff are in on it. She accepted Haldol/Ativan PRN PO with support. On my assessment today, the patient is seen in her room, where she is in bed. She is refusing to get up for breakfast, and her ziprasidone has been held as it needs to be taken with at least 500 maria elena of food. She continues to endorse fearfulness and concerns that she may be at risk of harm, but says she feels safe in the hospital. She denies thoughts of harming herself and hallucinations, but endorses ongoing confusion, and at times does not respond to questions, responds only with mumbled, incoherent speech. Physical Exam Mental Examination Overweight white female appearing older than her stated age. Lying in bed in no acute distress, startles when addressed. Poor eye contact, no abnormal movements. Limited historian. Speech is nonspontaneous, minimal, at times incoherent. Mood is "tired," and affect is restricted to guarded and paranoid. Thoughts are disorganized, with thought blocking, paranoia, delusions of persecution, and fearfulness. She denies SI, HI, and hallucinations, but is fearful that she will be harmed by others. She is oriented to herself and situation. Level of intelligence estimated to be below average. Insight and judgment are impaired, as she does not believe she needs medications, has been demanding to leave, and does not know why she is in the hospital. Vital Signs (Past 24 Hours) Last Vital Signs Temp 36.8 C 05/19/18 06:34 Pulse 78 05/19/18 06:34 Resp 18 05/19/18 06:34 BP 112/63 05/19/18 06:34 Pulse Ox 91 05/17/18 03:54 Results & Data Current Inpatient Medications Current Inpatient Medications: Current Inpatient Medications Acetaminophen (Tylenol) 650 mg PO Q4H PRN PRN Reason: Headache or Minor Fever Stop: 06/16/18 03:49 Al Hydrox/Mg Hydrox/Simethicone (Maalox) 30 ml PO Q4H PRN PRN Reason: GI Upset Stop: 06/16/18 03:49 Bismuth Subsalicylate (Kaopectate) 15 ml PO PRN PRN PRN Reason: Loose Stool Stop: 06/16/18 03:49 Escitalopram Oxalate (Lexapro) 10 mg PO QAM BRIANNA Stop: 06/16/18 10:29 Last Admin: 05/18/18 10:13 Dose: 10 mg Documented by: Haloperidol (Haldol) 5 mg PO Q4 PRN PRN Reason: psychosis Stop: 06/16/18 03:59 Last Admin: 05/18/18 13:58 Dose: 5 mg Documented by: Hydroxyzine HCl (Vistaril) 25 mg PO Q4H PRN PRN Reason: Anxiety Stop: 06/16/18 03:49 Hydroxyzine HCl (Vistaril) 50 mg PO HSZ PRN PRN Reason: Insomnia Stop: 06/16/18 03:49 Ioversol (Optiray 320 100ml) 91 ml IV ONCE PRN PRN Reason: Interaction Checking Stop: 05/20/18 22:16 Last Admin: 05/16/18 22:17 Dose: 1 ml Documented by: Lorazepam (Ativan) 1 mg PO Q4H PRN PRN Reason: Anxiety Stop: 06/16/18 10:29 Last Admin: 05/18/18 13:58 Dose: 1 mg Documented by: Magnesium Hydroxide (Milk Of Magnesia) 30 ml PO DAILY PRN PRN Reason: Heartburn Stop: 06/16/18 03:49 Miscellaneous (Remove Nicoderm Patch) 1 ea N/A HS BRIANNA Stop: 06/17/18 20:59 Last Admin: 05/18/18 21:03 Dose: Not Given Documented by: Nicotine (Nicoderm Cq) 21 mg TD QAM BRIANNA Stop: 06/17/18 10:44 Last Admin: 05/18/18 13:55 Dose: 21 mg Documented by: Pantoprazole Sodium (Protonix) 40 mg PO QAM BRIANNA Stop: 06/16/18 11:14 Last Admin: 05/18/18 10:13 Dose: 40 mg Documented by: Fluticasone/Salmeterol (Advair Diskus 250/50) 1 puffs INH BID BRIANNA Stop: 06/16/18 11:14 Last Admin: 05/18/18 21:01 Dose: 1 puffs Documented by: Sodium Chloride ([place] Nasal) 1 - 2 sprays NA PRN PRN PRN Reason: Nasal Dryness/Congestion Stop: 06/16/18 03:49 Ziprasidone (Geodon) 20 mg PO BIDM BRIANNA Stop: 06/16/18 17:44 Last Admin: 05/18/18 17:26 Dose: 20 mg Documented by: Post Discharge Appointments Primary Care Physician Name Of Family Doctor: James Almodovar Primary Care Provider Appointment Comment: [address] [place] [address] [place] [address] Psychiatrist Name of Psychiatrist: [facility] - DEANN Christensen Psychiatrist's Psychiatric Appointment Comment: [place] [address] [place] Name of Winderman: [facility] - Amy Helsel Phone Number for Winderman: [phone] Contact Information Discharge Discharge Address: [address] [place] [address], [address], [place] [address] CPT Code CPT Code 36711
[2018-05-19] MEDS: FLUTICASONE/SALMETEROL 250/50 (ADVAIR) 14 PUFF/1 INHALER INH SCH ×2 (09:52→21:03)
[2018-05-19] MEDS: ESCITALOPRAM OXALATE 10 MG TAB PO SCH (09:53)
[2018-05-19] MEDS: ARIPiprazole 5 MG TAB PO SCH (09:53)
[2018-05-19] MEDS: PANTOprazole 40 MG TAB PO SCH (09:53)
[2018-05-19] MEDS: HALOPERIDOL 5 MG TAB PO PRN (09:55)
[2018-05-19] MEDS: LORazepam 1 MG TAB PO PRN (09:55)
--- NOTE | 2018-05-19 10:20 | Medical Student Progress Note ---
Date of Service May 19, 2018 Assessment & Plan (1) Unspecified psychosis: This is a 37-year-old female with a history of schizoaffective disorder who is admitted under 302 commitment for increasing paranoia and inability to care for herself. She continues to feel confused and cannot answer questions fully. She still endorses paranoia. Patient still requires assistance with ADLs. 1. Unspecified psychosis - She is not eating enough for the ziprasidone to be adequately absorbed. She pr efers a weight neutral antipsychotic, so we will start aripiprazole at 5 mg daily. - Continue escitalopram 10 mg for mood. - Encouraged participation in group activities and therapy. - Need for family meeting to gain collateral information and make plan for her to take her medications consistently. - Has a diagnosis of schizoaffective disorder, but after going a whole year without psychosis in the absence of antipsychotic, this may not be the correct diagnosis. Consider substance induced mood/psychosis vs. psychotic depression. - FLP on 05/18 is WNL. Fasting glucose is minimally elevated at 102. - Consider closing bedroom door during group therapy and activities. 2. Unspecified anxiety - Offer hydroxyzine 25 mg PRN 3. Tobacco use - Offer 21 mg nicotine patch 4. Asthma - Continue Advair inhaler 5. GERD - Continue pantoprazole 40 mg daily. Disposition - Patient still requires assistance with ADLs as well as paranoia and poor mood. Continue inpatient hospitalization to optimize medications and undergo therapy. Subjective This is a 37-year-old female with a history of schizoaffective disorder who is admitted under 302 commitment for increasing paranoia and inability to care for herself. Today she says that she is doing "good" but when asked to elaborate she says "I don't know." She is still feeling "confused" and describes her mood as "okay, I'm not mad at anyone." She continues to feel paranoid but now worries because "I don't want them (her family) to forget about me." She denies SI, HI, and hallucinations. She has not been attending group activities because "I'm too tired to go." She ends the conversation with "okay I'm done talking." Physical Exam Vital Signs (Past 24 Hours): Last Vital Signs Temp 36.8 C 05/19/18 06:34 Pulse 78 05/19/18 06:34 Resp 18 05/19/18 06:34 BP 112/63 05/19/18 06:34 Pulse Ox 91 05/17/18 03:54 Psychiatric: Orientation: alert and + guarded Apperance: + disheveled (malodorous) Eye Contact: + fair eye contact Motor Behavior: no abnormal motor movements Speech: normal rate/rhythm/volume of speech Affect: + anxious affect and + constricted affect Mood: + anxious mood and + irritable mood Thought Process: + thought blocking Thought Content: + paranoid Suicidal Thoughts: denies suicidal thoughts Homicidal Thoughts: denies homicidal thoughts Hallucinations: no auditory hallucinations and no visual hallucinations Cognition: + recent memory not intact and + remote memory not intact Estimated Intelligence: + below average estimated intelligence Insight: + poor insight Judgement: + poor judgement Results & Data Medications Administered [facility]ilify) [facility] Stop: 06/18/18 09:14 Last Admin: 05/19/18 09:53 Dose: 5 mg Documented by: [id number] Escitalopram Oxalate (Lexapro) 10 mg PO [facility] Stop: 06/16/18 10:29 Last Admin: 05/19/18 09:53 Dose: 10 mg Documented by: [id number] Admin: 05/18/18 10:13 Dose: 10 mg Documented by: [id number] Admin: 05/17/18 11:55 Dose: 10 mg Documented by: [id number] Haloperidol (Haldol) 5 mg PO Q4 PRN PRN Reason: psychosis Stop: 06/16/18 03:59 Last Admin: 05/19/18 09:55 Dose: 5 mg Documented by: [id number] Admin: 05/18/18 13:58 Dose: 5 mg Documented by: [id number] Admin: 05/17/18 11:55 Dose: 5 mg Documented by: [id number] Ioversol (Optiray 320 100ml) 91 ml IV ONCE PRN PRN Reason: Interaction Checking Stop: 05/20/18 22:16 Last Admin: 05/16/18 22:17 Dose: 1 ml Documented by: [id number] Lorazepam (Ativan) 1 mg PO Q4H PRN PRN Reason: Anxiety Stop: 06/16/18 10:29 Last Admin: 05/19/18 09:55 Dose: 1 mg Documented by: [id number] Admin: 05/18/18 13:58 Dose: 1 mg Documented by: [id number] Admin: 05/17/18 11:55 Dose: 1 mg Documented by: [id number] Miscellaneous (Remove Nicoderm Patch) 1 ea N/A HS [facility] Stop: 06/17/18 20:59 Last Admin: 05/18/18 21:03 Dose: Not Given Documented by: [id number] Admin: 05/18/18 21:01 Dose: 1 ea Documented by: [id number] Nicotine (Nicoderm Cq) 21 mg TD [facility] [place] Stop: 06/17/18 10:44 Last Admin: 05/18/18 13:55 Dose: 21 mg Documented by: [id number] Pantoprazole Sodium (Protonix) 40 mg PO [facility] [place] Stop: 06/16/18 11:14 Last Admin: 05/19/18 09:53 Dose: 40 mg Documented by: [id number] Admin: 05/18/18 10:13 Dose: 40 mg Documented by: [id number] Admin: 05/17/18 13:31 Dose: 40 mg Documented by: [id number] Fluticasone/Salmeterol (Advair Diskus 250/50) 1 puffs INH BID [facility] Stop: 06/16/18 11:14 Last Admin: 05/19/18 09:52 Dose: 1 puffs Documented by: [id number] Admin: 05/18/18 21:01 Dose: 1 puffs Documented by: [id number] Admin: 05/18/18 10:13 Dose: 1 puffs Documented by: [id number] Admin: 05/17/18 21:06 Dose: Not Given Documented by: [id number] Admin: 05/17/18 13:31 Dose: 1 puffs Documented by: [id number]
[2018-05-19] MEDS: NICOTINE 21 MG/24 HR TDSY TD SCH (10:32)
[2018-05-19] MEDS: ZIPRASIDONE HCL 20 MG CAP PO SCH (16:29)
[2018-05-20] MEDS: FLUTICASONE/SALMETEROL 250/50 (ADVAIR) 14 PUFF/1 INHALER INH SCH ×2 (09:28→21:16)
[2018-05-20] MEDS: ARIPiprazole 5 MG TAB PO SCH (09:28)
[2018-05-20] MEDS: PANTOprazole 40 MG TAB PO SCH (09:29)
[2018-05-20] MEDS: ESCITALOPRAM OXALATE 10 MG TAB PO SCH (09:29)
[2018-05-20] MEDS: HALOPERIDOL 5 MG TAB PO PRN (10:04)
[2018-05-20] MEDS: LORazepam 1 MG TAB PO PRN (10:04)
[2018-05-20] MEDS: NICOTINE 21 MG/24 HR TDSY TD SCH (10:04)
--- NOTE | 2018-05-20 11:10 | Psychiatric Progress Note ---
Date of Service May 20, 2018 Impression / Recommendations Impression This 37-year-old woman was admitted primarily because of grave disability. Specifically, she was found to be unable to identify her own needs, had been grossly neglecting self-care by not bathing, dressing or grooming. She also had not been eating, was not taking any medications, and was not cooperative with efforts to bring her to medical attention. Today, the patient initially refused medications, but after several hours did except medications from nursing, following active encouragement and reassurances. During my assessment of the patient she was initially quite guarded and appeared suspicious. However, with time, she became somewhat more verbal and more cooperative. She does recognize that she is "confused," and is distressed by the fact that she cannot remember when the confusion began or what may have precipitated it. At the same time, she does report that she feels "depressed" and "really sad," without identifying specific precipitants. Although the patient's oral intake has improved, but she still requires active encouragement and support from nursing staff in order to eat. She also requires active encouragement, support, and structure in order to attend to her own activities of daily living, such as dressing, grooming, and bathing. The patient has carried several diagnoses in the past, including psychosis NOS and schizoaffective disorder. I was able to speak with her case brandon angel, a Renee Drew, who tells me that when the patient is well she is pleasant, cooperative, and "chatty." Per the rifle case repairer, there is no history of anil or hypomania. Today, I am struck by the degree to which the patient appears to be depressed. It is not clear to me whether the patient ever met criteria for schizophrenia, independent of substantial mood symptoms, and I am wondering if the best diagnosis for this patient could be major depressive disorder, with psychotic or catatonic features. The plan is to titrate her dose of escitalopram, a medication that reportedly has been helpful to her in the past. Today, increase the dose of escitalopram to a dose of 20 mg daily. We will also continue aripiprazole 5 mg daily, and titrate as indicated. Overall, it is agreed by the treatment team that the patient is beginning to show evidence of improvement. She was retained at her 303 involuntary commitment hearing today. (1) Unspecified psychosis: 05/17 - Start Geodon 20 mg BID with food - Start Lexapro 10 mg daily - Q 15 min checks for safety - Assist the patient to attend to ADL's - Obtain current med list from OP providers and coordinate aftercare - Obtain supplemental information from patient's fiance or 302 petitioner - patient is excused from groups at this time - Reality orientation - Will order ativan 1 mg q 4 hr prn in the event we are seeing some degree of catatonia - FLP and FBS for monitoring on antipsychotics 05/18 -Urine culture results reviewed; more than 3 types of organisms present, probable skin rufino. Treatment not indicated. Patient on menses. -Leukocytosis on presentation, but no signs of infection, may be stress related. -Collateral obtained from the patient's boyfriend and outpatient records reviewed. Diagnosis remains unclear, as she reportedly has been diagnosed with schizoaffective disorder unspecified type in the past, but it appears she went an entire year on an SSRI alone and had no psychotic symptoms. Her current disorganization and paranoia occurred in the context of worsening mood, so this could be seen as a psychotic depression. She continues to regularly use cannabis, so substance-induced psychotic and mood disorder is a possibility as well. There may be an element of delirium. We will check a MOCA today and monitor cognitive function. -Continue ziprasidone 20 mg twice daily with meals, and encourage patient to eat adequate calories (at least 500) with the medication to allow for adequate absorption. If she is unable to do this, we may need to switch to a different medication that is not reliant on caloric intake. Per records, she has had trials of quetiapine, risperidone, and haloperidol in the past. Risperidone caused akathisia, and quetiapine caused somnolence. Would avoid typical antipsychotics due to the risk of tardive dyskinesia given the likely need for long-term treatment. Could consider a trial of aripiprazole or lurasidone to target both mood and psychotic symptoms, as they have lower risk of weight gain compared to other atypical antipsychotics. -Fasting labs reviewed for monitoring on an atypical antipsychotic: Fasting glucose elevated 102, lipid profile within normal limits. 05/19 -File for 303 involuntary commitment due to ongoing psychosis and inability to provide for her own basic needs; hearing tomorrow. -Patient not yet appropriate for a family meeting, but once she is, will need one with her boyfriend. Collateral information from her boyfriend regarding her symptoms over the past several years may be helpful to clarify diagnosis. -Appetite remains poor with limited p.o. intake, despite staff encouragement. She has not been able to ingest adequate calories with her ziprasidone for it to be absorbed, so we will discontinue it and start aripiprazole 5 mg daily. Discussed this medication change with the patient, and aripiprazole was chosen due to information and outpatient records that she was very concerned about taking medications that could contribute to weight gain, and it has lower risk c ompared to quetiapine, risperidone, and olanzapine. -She has not been able to tolerate a MOCA, but will continue to attempt cognitive screening. 05/20 -303 involuntary commitment hearing held today. The patient was retained by the complaint investigations officer. The patient declined to participate in the hearing. -While the patient does appear somewhat guarded and suspicious, no delusional material was identified and the patient's thought content. However, full assessment of her thought content was read to difficult by the fact that the patient offers little spontaneous speech and tends to "shut down" when asked about specific symptoms. -The patient was recently started on aripiprazole 5 mg daily. I met with her approximately 2 hours after her morning dose of this medication and she indicated that she is tolerating it well. -Today, the patient is able to provide details concerning her household, her home, her daily activities, and, in particular, she brightens when discussing her pet dogs, 1 of which is reportedly a puppy. -We will increase her dose of escitalopram from a dose of 10 mg a day to a dose of 20 mg a day, starting tomorrow. -The patient reports that she is not having any suicidal or homicidal thoughts. (2) Cannabis abuse: 05/18 -once patient is less psychotic, we will need to provide psychoeducation about the risks of ongoing cannabis use, particularly the risk of worsening psychosis. Consider the need for outpatient substance abuse treatment. (3) Tobacco abuse: 05/18 -patient reports smoking 1 pack/day and reporting urges to smoke, so will order nicotine patch. Offer smoking cessation education, and arrange outpatient follow-up with her pig lead melter helper. Inventory Assets Strengths: Has a fiance, housing Needs: Compliance with medications, abstinence from substances Risk Factors Assessment Male: No : Yes Health Problems: Yes Mental Health Diagnoses: Yes Substance Use Disorders: Yes Previous Attempt: Yes Previous Psychiatric Hospitalization: Yes Smoker: Yes Protective Factors Assessment : No Responsible for Young Children: Yes Employed: No (Disabled due to mental health) Stable Relationships: Yes Interval History Identifying Information RASHIDA MEZA is a 37-year-old F who lives in [place] with her boyfriend, has a history of schizoaffective disorder, and was brought to the ED on 302 warrant on 05/16/2018 as she was not caring for herself, attending to hygiene, eating, or taking medications. She is admitted on an involuntary 302 commitment. Chief Complaint "I don't know what happened". Review of Systems Sleep Information Total Hours of Sleep: 12 Sleep Comments: up to the bathroom at 0530 pt.'s room is on audio monitoring-she changes her position in bed periodically during sleep. Meal Information Percent Meal Consumed - Breakfast: 60 Percent Meal Consumed - Lunch: 40 Percent Meal Consumed - Dinner: 0 Nutrition Comment: pt. asleep Subjective Subjective Patient was seen & assessed and interval progress reviewed with Treatment Team. I met individually with the patient in order to assess her current mental status, determine her response to treatment, coordinate any necessary treatment plan changes, and address issues and concerns that might arise. The patient was quite tearful throughout today's interview. She acknowledges that she has been confused and tells me that she is not clear about what happened and when the confusion began. I had an opportunity to speak with the patient's rifle case repairer who indicates that the symptoms identified at the time of admission had been gradually building over the course the past month, and, as noted, the admission was necessitated by the fact the patient was unable to express her needs, was neglecting self-care, not bathing, not eating, not taking medications, and not willing to present for medical care. The patient, herself, is unable to provide information. She does acknowledge that she has been feeling "sad" and "mixed up." She also tells me that she has not been eating because she has not felt hungry, and acknowledges that she has not been motivated to [place] or otherwise care for her own physical needs. (The patient is quite malodorous, even though nurses were able to get the patient to recently shower.) Today, the patient was able to tell me the names and ages of her children, and the names and ages of her two pet dogs. She refers to her domestic partner as her "," although apparently the 2 were not . Nevertheless, our understanding is that they have cohabitated for approximately 20 years. She remains reluctant to take psychiatric medications. This morning, she flatly refused her psychiatric medications. When I spoke with her, she expressed a willingness to take her medications and said that she does realize that, in the past, they have helped her. She reports a favorable response to escitalopram (Lexapro). Because the patient has not been eating, it was decided that Geodon, a medication that she had previously taken, would not be appropriate and, for that reason, she was recently started on aripiprazole 5 mg daily. Subsequent to the initial encounter today, I met briefly with the patient, and she told me that she was beginning to "feel better," and smiled appropriately several times during the encounter. Nevertheless, the patient declined dinner last night, ate 40% of her lunch on , and consumed 60% of her breakfast today. The patient's rifle case repairer, Renee Drew, notes that at baseline the patient is normally engaging, personable, and "chatty." Physical Exam Psychiatric Orientation: oriented to person and cooperative Apperance: + disheveled Malodorous. Eye Contact: + poor eye contact Motor Behavior: + tremor The patient's speech is generally nonspontaneous, soft, and fairly slow. She does not answer questions fully in most instances, but was able to talk at some length about her pet dogs and the bennett that they bring her. Affect: + depressed affect and + tearful affect Mood: + depressed mood Thought Process: + thought blocking The patient appears suspicious and guarded. However, no delusional material was identified and the patient's thought content Suicidal Thoughts: denies suicidal thoughts Homicidal Thoughts: denies homicidal thoughts Hallucinations: no auditory hallucinations Estimated Intelligence: + above average estimated intelligence Insight: + severely impaired insight Judgement: + poor judgement Vital Signs (Past 24 Hours) Last Vital Signs Temp 36.8 C 05/20/18 06:22 Pulse 93 H 05/20/18 06:23 Resp 18 05/20/18 06:22 BP 108/70 05/20/18 06:23 Pulse Ox 91 05/17/18 03:54 Results & Data Current Inpatient Medications Current Inpatient Medications: Current Inpatient Medications Acetaminophen (Tylenol) 650 mg PO Q4H PRN PRN Reason: Headache or Minor Fever Stop: 06/16/18 03:49 Al Hydrox/Mg Hydrox/Simethicone (Maalox) 30 ml PO Q4H PRN PRN Reason: GI Upset Stop: 06/16/18 03:49 Aripiprazole (Abilify) 5 mg PO QAM [facility] Stop: 06/18/18 09:14 Last Admin: 05/20/18 09:28 Dose: 5 mg Documented by: Bismuth Subsalicylate (Kaopectate) 15 ml PO PRN PRN PRN Reason: Loose Stool Stop: 06/16/18 03:49 Escitalopram Oxalate (Lexapro) 20 mg PO QAM [facility] Stop: 06/20/18 08:59 Haloperidol (Haldol) 5 mg PO Q4 PRN PRN Reason: psychosis Stop: 06/16/18 03:59 Last Admin: 05/20/18 10:04 Dose: 5 mg Documented by: Hydroxyzine HCl (Vistaril) 25 mg PO Q4H PRN PRN Reason: Anxiety Stop: 06/16/18 03:49 Hydroxyzine HCl (Vistaril) 50 mg PO HSZ PRN PRN Reason: Insomnia Stop: 06/16/18 03:49 Ioversol (Optiray 320 100ml) 91 ml IV ONCE PRN PRN Reason: Interaction Checking Stop: 05/20/18 22:16 Last Admin: 05/16/18 22:17 Dose: 1 ml Documented by: Lorazepam (Ativan) 1 mg PO Q4H PRN PRN Reason: Anxiety Stop: 06/16/18 10:29 Last Admin: 05/20/18 10:04 Dose: 1 mg Documented by: Magnesium Hydroxide (Milk Of Magnesia) 30 ml PO DAILY PRN PRN Reason: Heartburn Stop: 06/16/18 03:49 Miscellaneous (Remove Nicoderm Patch) 1 ea N/A HS [facility] Stop: 06/17/18 20:59 Last Admin: 05/19/18 21:02 Dose: Not Given Documented by: Nicotine (Nicoderm Cq) 21 mg TD QAM [facility] Stop: 06/17/18 10:44 Last Admin: 03/01/19 10:04 Dose: Not Given Documented by: Pantoprazole Sodium (Protonix) 40 mg PO QAM B[facility]ANNA Stop: 06/16/18 11:14 Last Admin: 05/20/18 09:29 Dose: 40 mg Documented by: Fluticasone/Salmeterol (Advair Diskus 250/50) 1 puffs INH BID BRIANNA Stop: 06/16/18 11:14 Last Admin: 05/20/18 09:28 Dose: 1 puffs Documented by: Sodium Chloride (Grand Nasal) 1 - 2 sprays NA PRN PRN PRN Reason: Nasal Dryness/Congestion Stop: 06/16/18 03:49 Post Discharge Appointments Primary Care Physician Name Of Family Doctor: James Almodovar Primary Care Provider Appointment Comment: [address] [place] [address] [place] [address] Psychiatrist Name of Psychiatrist: [facility] - DEANN Christensen Psychiatrist's Date of Appointment with Psychiatrist: 05/30/18 Time of Appointment with Psychiatrist: 3:15 p.m. Psychiatric Appointment Comment: [address] [place] [address] Therapist Name of Therapist: [facility] - Therapist's Therapy Appointment Comment: [address] [place] [address] Clinical Nurse Name of Clinical Nurse: [facility] Amy Russell Phone Number for Clinical Nurse: [phone] Contact Information Discharge Discharge [address]: [address] [place] [address], [address], [place] [facility] CPT Code CPT Code 27282
[2018-05-21] MEDS: PANTOprazole 40 MG TAB PO SCH (09:11)
[2018-05-21] MEDS: FLUTICASONE/SALMETEROL 250/50 (ADVAIR) 14 PUFF/1 INHALER INH SCH ×2 (09:11→21:11)
[2018-05-21] MEDS: ESCITALOPRAM OXALATE 20 MG TAB PO SCH (09:11)
[2018-05-21] MEDS: ARIPiprazole 5 MG TAB PO SCH (09:11)
[2018-05-21] MEDS: NICOTINE 21 MG/24 HR TDSY TD SCH (09:14)
[2018-05-21] MEDS: HALOPERIDOL 5 MG TAB PO PRN (09:45)
[2018-05-21] MEDS: LORazepam 1 MG TAB PO PRN (09:45)
--- NOTE | 2018-05-21 09:49 | Psychiatric Progress Note ---
Date of Service May 21, 2018 Impression / Recommendations Impression This 37-year-old woman was admitted for inability to care for self due to presumably psychotic depression. She is still not eating consistently but is taking most scheduled meds with encouragement. The patient has carried several diagnoses in the past, including psychosis NOS and schizoaffective disorder. I was able to speak with her embedded case manager, a Ms. Russell, who tells me that when the patient is well she is pleasant, cooperative, and "chatty." Per the embedded case manager, there is no history of anil or hypomania. (1) Unspecified psychosis: 05/17 - Start Geodon 20 mg BID with food - Start Lexapro 10 mg daily - Q 15 min checks for safety - Assist the patient to attend to ADL's - Obtain current med list from OP providers and coordinate aftercare - Obtain supplemental information from patient's fiance or 302 petitioner - patient is excused from groups at this time - Reality orientation - Will order ativan 1 mg q 4 hr prn in the event we are seeing some degree of catatonia - FLP and FBS for monitoring on antipsychotics 05/18 -Urine culture results reviewed; more than 3 types of organisms present, probable skin rufino. Treatment not indicated. Patient on menses. -Leukocytosis on presentation, but no signs of infection, may be stress related. -Collateral obtained from the patient's boyfriend and outpatient records reviewed. Diagnosis remains unclear, as she reportedly has been diagnosed with schizoaffective disorder unspecified type in the past, but it appears she went an entire year on an SSRI alone and had no psychotic symptoms. Her current disorganization and paranoia occurred in the context of worsening mood, so this could be seen as a psychotic depression. She continues to regularly use cannabis, so substance-induced psychotic and mood disorder is a possibility as well. There may be an element of delirium. We will check a MOCA today and monitor cognitive function. -Continue ziprasidone 20 mg twice daily with meals, and encourage patient to eat adequate calories (at least 500) with the medication to allow for adequate absorption. If she is unable to do this, we may need to switch to a different medication that is not reliant on caloric intake. Per records, she has had trials of quetiapine, risperidone, and haloperidol in the past. Risperidone caused akathisia, and quetiapine caused somnolence. Would avoid typical antipsychotics due to the risk of tardive dyskinesia given the likely need for long-term treatment. Could consider a trial of aripiprazole or lurasidone to target both mood and psychotic symptoms, as they have lower risk of weight gain compared to other atypical antipsychotics. -Fasting labs reviewed for monitoring on an atypical antipsychotic: Fasting glucose elevated 102, lipid profile within normal limits. 05/19 -File for 303 involuntary commitment due to ongoing psychosis and inability to provide for her own basic needs; hearing tomorrow. -Patient not yet appropriate for a family meeting, but once she is, will need one with her boyfriend. Collateral information from her boyfriend regarding her symptoms over the past several years may be helpful to clarify diagnosis. -Appetite remains poor with limited p.o. intake, despite staff encouragement. She has not been able to ingest adequate calories with her ziprasidone for it to be absorbed, so we will discontinue it and start aripiprazole 5 mg daily. Discussed this medication change with the patient, and aripiprazole was chosen due to information and outpatient records that she was very concerned about taking medications that could contribute to weight gain, and it has lower risk compared to quetiapine, risperidone, and olanzapine. -She has not been able to tolerate a MOCA, but will continue to attempt cognitive screening. 05/20 -303 involuntary commitment hearing held today. The patient was retained by the hearing aid fitter. The patient declined to participate in the hearing. -While the patient does appear somewhat guarded and suspicious, no delusional material was identified and the patient's thought content. However, full assessment of her thought content was read to difficult by the fact that the patient offers little spontaneous speech and tends to "shut down" when asked about specific symptoms. -The patient was recently started on aripiprazole 5 mg daily. I met with her approximately 2 hours after her morning dose of this medication and she indicated that she is tolerating it well. -Today, the patient is able to provide details concerning her household, her home, her daily activities, and, in particular, she brightens when discussing her pet dogs, 1 of which is reportedly a puppy. -We will increase her dose of escitalopram from a dose of 10 mg a day to a dose of 20 mg a day, starting tomorrow. -The patient reports that she is not having any suicidal or homicidal thoughts. 05/21 -will titrate Abilify tomorrow, in meantime, will schedule low dose Haldol 2 mg today as an adjunct as pms clearly worse and not consistently accepting prns. Ativan 1 mg TID as trial as appears to have some catatonic features. (2) Cannabis abuse: 05/18 -once patient is less psychotic, we will need to provide psychoeducation about the risks of ongoing cannabis use, particularly the risk of worsening psychosis. Consider the need for outpatient substance abuse treatment. (3) Tobacco abuse: 05/18 -patient reports smoking 1 pack/day and reporting urges to smoke, so will order nicotine patch. Offer smoking cessation education, and arrange outpatient follow-up with her tailer off. Inventory Assets Strengths: Has a fiance, housing Needs: Compliance with medications, abstinence from substances Risk Factors Assessment Male: No : Yes Health Problems: Yes Mental Health Diagnoses: Yes Substance Use Disorders: Yes Previous Attempt: Yes Previous Psychiatric Hospitalization: Yes Smoker: Yes Protective Factors Assessment : No Responsible for Young Children: Yes Employed: No (Disabled due to mental health) Stable Relationships: Yes Interval History Identifying Information RASHIDA MEZA is a 37-year-old F who lives in [place] with her boyfriend, has a history of schizoaffective disorder, and was brought to the ED on 302 warrant on 05/16/2018 as she was not caring for herself, attending to hygiene, eating, or taking medications. She is admitted on an involuntary 302 commitment and was converted to a 303 on 05/20/18. Chief Complaint "I'm getting out of here today". Review of Systems Sleep Information Total Hours of Sleep: 7.5 Sleep Comments: pt given vistaril per rn. pt on q-15 minute checks Meal Information Percent Meal Consumed - Breakfast: 60 Percent Meal Consumed - Lunch: 25 Percent Meal Consumed - Dinner: 0 Nutrition Comment: per previous shift meal log Subjective Subjective Patient was seen & assessed and interval progress reviewed with Nursing and social work. Germanapro increased for depressive symptoms. Very withdrawn in evenings, staying in room and not eating dinner. She does show improvement after prn Haldol and Ativan but is often hesitant to take it and doesn't ask for staff. This am she is more disorganized, sitting at the breakfast table staring off and the same time she is quite restless with her hands/feet when approached and expressed paranoia that no one is giving her information. Repeatedly attempted to answer questions and she escalated to yelling about discharge. Physical Exam Psychiatric Orientation: alert, oriented to person, cooperative and + guarded Apperance: + disheveled Eye Contact: + poor eye contact psychotic stare Motor Behavior: + psychomotor agitation (Juggling feet, restlessness) and + tremor Speech: + loud speech Affect: + depressed affect, + flat affect and + tearful affect Mood: + irritable mood Thought Process: + thought blocking Thought Content: + preoccupation and + paranoid Suicidal Thoughts: denies suicidal thoughts Homicidal Thoughts: denies homicidal thoughts Hallucinations: no auditory hallucinations and no visual hallucinations Cognition: language grossly intact; + recent memory not intact, + remote memory not intact and + attention not intact Estimated Intelligence: consistent with education level Insight: + severely impaired insight Judgement: + severely impaired judgement Vital Signs (Past 24 Hours) Last Vital Signs Temp 36.7 C 05/21/18 06:41 Pulse 109 H 05/21/18 06:42 Resp 16 05/21/18 06:41 BP 131/85 05/21/18 06:42 Pulse Ox 91 05/17/18 03:54 Results & Data Current Inpatient Medications Current Inpatient Medications: Current Inpatient Medications Acetaminophen (Tylenol) 650 mg PO Q4H PRN PRN Reason: Headache or Minor Fever Stop: 06/16/18 03:49 Al Hydrox/Mg Hydrox/Simethicone (Maalox) 30 ml PO Q4H PRN PRN Reason: GI Upset Stop: 06/16/18 03:49 A[facility]ipraz[facility] ([facility]ilify) [facility] [place] [facility] Stop: 06/21/18 08:59 Bismuth Subsalicylate (Kaopectate) 15 ml PO PRN PRN PRN Reason: Loose Stool Stop: 06/16/18 03:49 Escitalopram Oxalate (Lexapro) [facility] [place] Stop: 06/20/18 08:59 Last Admin: 05/21/18 09:11 Dose: 20 mg Documented by: Haloperidol (Haldol) 5 mg PO Q4 PRN PRN Reason: psychosis Stop: 06/16/18 03:59 Last Admin: 05/20/18 10:04 Dose: 5 mg Documented by: Haloperidol (Haldol) 2 mg PO QD@16 [facility] Stop: 06/20/18 15:59 Hydroxyzine HCl (Vistaril) 25 mg PO Q4H PRN PRN Reason: Anxiety Stop: 06/16/18 03:49 Hydroxyzine HCl (Vistaril) 50 mg PO HSZ PRN PRN Reason: Insomnia Stop: 06/16/18 03:49 Last Admin: 05/21/18 00:10 Dose: 50 mg Documented by: Lorazepam (Ativan) 1 mg PO Q4H PRN PRN Reason: Anxiety Stop: 06/16/18 10:29 Last Admin: 05/20/18 10:04 Dose: 1 mg Documented by: Lorazepam (Ativan) 1 mg PO TID [facility] Stop: 06/20/18 13:59 Magnesium Hydroxide (Milk Of Magnesia) 30 ml PO DAILY PRN PRN Reason: Heartburn Stop: 06/16/18 03:49 Miscellaneous (Remove Nicoderm Patch) 1 ea N/A HS [facility] Stop: 06/17/18 20:59 Last Admin: 05/20/18 21:17 Dose: Not Given Documented by: Nicotine (Nicoderm Cq) 21 mg TD QAM [facility] Stop: 06/17/18 10:44 Last Admin: 05/21/18 09:14 Dose: Not Given Documented by: Pantoprazole Sodium (Protonix) 40 mg PO QAM [facility] Stop: 06/16/18 11:14 Last Admin: 05/21/18 09:11 Dose: 40 mg Documented by: Fluticasone/Salmeterol (Advair Diskus 250/50) 1 puffs INH BID [facility] Stop: 06/16/18 11:14 Last Admin: 05/21/18 09:11 Dose: 1 puffs Documented by: Sodium Chloride (Lucas Nasal) 1 - 2 sprays NA PRN PRN PRN Reason: Nasal Dryness/Congestion Stop: 06/16/18 03:49 Post Discharge Appointments Primary Care Physician Name Of Family Doctor: James Almodovar Primary Care Provider Appointment Comment: [address] [place] [address] [place] [address] Psychiatrist Name of Psychiatrist: [facility] - DEANN Christensen Psychiatrist's Date of Appointment with Psychiatrist: 05/30/18 Time of Appointment with Psychiatrist: 3:15 p.m. Psychiatric Appointment Comment: [address] [place] [address] Therapist Name of Therapist: [facility] - Therapist's Date of Therapist Appointment: 06/01/18 Time of Therapist Appointment: 12:45 p.m. Therapy Appointment Comment: [address] [place] [address] Dial Screw Assembler Name of Dial Screw Assembler: [facility] Amy Russell Phone Number for Dial Screw Assembler: [phone] Contact Information Discharge Discharge Address: [address] [place] [address], [address], [place] [address] CPT Code CPT Code 76970
[2018-05-21] MEDS: LORazepam 1 MG TAB PO SCH ×2 (14:58→21:11)
[2018-05-21] MEDS ORDERED: HALOPERIDOL 5 MG TAB PO SCH (16:00)
[2018-05-21] MEDS: HALOPERIDOL 1 MG TAB PO SCH (16:55)
[2018-05-22] MEDS: LORazepam 1 MG TAB PO SCH ×3 (08:53→21:25)
[2018-05-22] MEDS: ARIPiprazole 10 MG TAB PO SCH (08:53)
[2018-05-22] MEDS: PANTOprazole 40 MG TAB PO SCH (08:53)
[2018-05-22] MEDS: FLUTICASONE/SALMETEROL 250/50 (ADVAIR) 14 PUFF/1 INHALER INH SCH ×2 (08:53→21:25)
[2018-05-22] MEDS: ESCITALOPRAM OXALATE 20 MG TAB PO SCH (08:53)
[2018-05-22] MEDS: NICOTINE 21 MG/24 HR TDSY TD SCH (08:57)
--- NOTE | 2018-05-22 10:50 | Psychiatric Progress Note ---
Date of Service May 22, 2018 Impression / Recommendations Impression This 37-year-old woman was admitted for inability to care for self due to presumably psychotic depression. She appears less restless and better able to tolerate social interactions following addition of Ativan yesterday. (1) Unspecified psychosis: 05/17 - Start Geodon 20 mg BID with food - Start Lexapro 10 mg daily - Q 15 min checks for safety - Assist the patient to attend to ADL's - Obtain current med list from OP providers and coordinate aftercare - Obtain supplemental information from patient's fiance or 302 petitioner - patient is excused from groups at this time - Reality orientation - Will order ativan 1 mg q 4 hr prn in the event we are seeing some degree of catatonia - FLP and FBS for monitoring on antipsychotics 05/18 -Urine culture results reviewed; more than 3 types of organisms present, probable skin rufino. Treatment not indicated. Patient on menses. -Leukocytosis on presentation, but no signs of infection, may be stress related. -Collateral obtained from the patient's boyfriend and outpatient records reviewed. Diagnosis remains unclear, as she reportedly has been diagnosed with schizoaffective disorder unspecified type in the past, but it appears she went an entire year on an SSRI alone and had no psychotic symptoms. Her current disorganization and paranoia occurred in the context of worsening mood, so this could be seen as a psychotic depression. She continues to regularly use cannabis, so substance-induced psychotic and mood disorder is a possibility as well. There may be an element of delirium. We will check a MOCA today and monitor cognitive function. -Continue ziprasidone 20 mg twice daily with meals, and encourage patient to eat adequate calories (at least 500) with the medication to allow for adequate absorption. If she is unable to do this, we may need to switch to a different medication that is not reliant on caloric intake. Per records, she has had trials of quetiapine, risperidone, and haloperidol in the past. Risperidone caused akathisia, and quetiapine caused somnolence. Would avoid typical antipsychotics due to the risk of tardive dyskinesia given the likely need for long-term treatment. Could consider a trial of aripiprazole or lurasidone to target both mood and psychotic symptoms, as they have lower risk of weight gain compared to other atypical antipsychotics. -Fasting labs reviewed for monitoring on an atypical antipsychotic: Fasting glucose elevated 102, lipid profile within normal limits. 05/19 -File for 303 involuntary commitment due to ongoing psychosis and inability to provide for her own basic needs; hearing tomorrow. -Patient not yet appropriate for a family meeting, but once she is, will need one with her boyfriend. Collateral information from her boyfriend regarding her symptoms over the past several years may be helpful to clarify diagnosis. -Appetite remains poor with limited p.o. intake, despite staff encouragement. She has not been able to ingest adequate calories with her ziprasidone for it to be absorbed, so we will discontinue it and start aripiprazole 5 mg daily. Discussed this medication change with the patient, and aripiprazole was chosen due to information and outpatient records that she was very concerned about taking medications that could contribute to weight gain, and it has lower risk compared to quetiapine, risperidone, and olanzapine. -She has not been able to tolerate a MOCA, but will continue to attempt cognitive screening. 05/20 -303 involuntary commitment hearing held today. The patient was retained by the evp chief exploration officer. The patient declined to participate in the hearing. -While the patient does appear somewhat guarded and suspicious, no delusional material was identified and the patient's thought content. However, full assessment of her thought content was read to difficult by the fact that the patient offers little spontaneous speech and tends to "shut down" when asked about specific symptoms. -The patient was recently started on aripiprazole 5 mg daily. I met with her approximately 2 hours after her morning dose of this medication and she indicated that she is tolerating it well. -Today, the patient is able to provide details concerning her household, her home, her daily activities, and, in particular, she brightens when discussing her pet dogs, 1 of which is reportedly a puppy. -We will increase her dose of escitalopram from a dose of 10 mg a day to a dose of 20 mg a day, starting tomorrow. -The patient reports that she is not having any suicidal or homicidal thoughts. 05/21 -will titrate Abilify tomorrow, in meantime, will schedule low dose Haldol 2 mg today as an adjunct as pms clearly worse and not consistently accepting prns. Ativan 1 mg TID as trial as appears to have some catatonic features. (2) Cannabis abuse: 05/18 -once patient is less psychotic, we will need to provide psychoeducation about the risks of ongoing cannabis use, particularly the risk of worsening psychosis. Consider the need for outpatient substance abuse treatment. (3) Tobacco abuse: 05/18 -patient reports smoking 1 pack/day and reporting urges to smoke, so will order nicotine patch. Offer smoking cessation education, and arrange outpatient follow-up with her label machine operator. Inventory Assets Strengths: Has a fiance, housing Needs: Compliance with medications, abstinence from substances Risk Factors Assessment Male: No : Yes Health Problems: Yes Mental Health Diagnoses: Yes Substance Use Disorders: Yes Previous Attempt: Yes Previous Psychiatric Hospitalization: Yes Smoker: Yes Protective Factors Assessment : No Responsible for Young Children: Yes Employed: No (Disabled due to mental health) Stable Relationships: Yes Interval History Identifying Information RASHIDA MEZA is a 37-year-old F who lives in [place] with her boyfriend, has a history of schizoaffective disorder, and was brought to the ED on 302 warrant on 05/16/2018 as she was not caring for herself, attending to hygiene, eating, or taking medications. She is admitted on an involuntary 302 commitment and was converted to a 303 on 05/20/18. Chief Complaint "I can sign myself out when I have a bowel movement". Review of Systems Sleep Information Total Hours of Sleep: 12.5 Sleep Comments: pt appeared to sleep 6.5 hrs during evening shift. pt on q-15 minute checks Meal Information Percent Meal Consumed - Breakfast: 100 Percent Meal Consumed - Lunch: 50 Percent Meal Consumed - Dinner: 0 Nutrition Comment: per previous shift meal log Subjective Subjective Patient was seen & assessed and interval progress reviewed with Nursing and social work. Slept 12 hr and went to evening group. She did have brief periods of irritability and starts to exhibit paranoia during longer conversations, like "how can I trust you won't use my words against me". walking laps with copatients this am about the unit, more spontaneous affect. Physical Exam Psychiatric Orientation: alert, oriented to person and + guarded Eye Contact: + poor eye contact Motor Behavior: no abnormal motor movements and + psychomotor agitation (Juggling feet, restlessness) Speech: normal rate/rhythm/volume of speech Affect: + depressed affect, + anxious affect and mood congruent with affect Mood: + depressed mood Thought Content: + preoccupation and + paranoid Suicidal Thoughts: denies suicidal thoughts Homicidal Thoughts: denies homicidal thoughts Hallucinations: no auditory hallucinations and no visual hallucinations Cognition: language grossly intact; + recent memory not intact, + remote memory not intact and + attention not intact Estimated Intelligence: consistent with education level Insight: + impaired insight Judgement: + impaired judgement Vital Signs (Past 24 Hours) Last Vital Signs Temp 36.7 C 05/22/18 06:39 Pulse 77 05/22/18 06:40 Resp 16 05/22/18 06:39 BP 105/74 05/22/18 06:40 Pulse Ox 91 05/17/18 03:54 Results & Data Current Inpatient Medications Current Inpatient Medications: Current Inpatient Medications Acetaminophen (Tylenol) 650 mg PO Q4H PRN PRN Reason: Headache or Minor Fever Stop: 06/16/18 03:49 Al Hydrox/Mg Hydrox/Simethicone (Maalox) 30 ml PO Q4H PRN PRN Reason: GI Upset Stop: 06/16/18 03:49 Aripiprazole (Abilify) 10 mg PO QAM [facility] Stop: 06/21/18 08:59 Last Admin: 05/22/18 08:53 Dose: 10 mg Documented by: Bismuth Subsalicylate (Kaopectate) 15 ml PO PRN PRN PRN Reason: Loose Stool Stop: 06/16/18 03:49 Escitalopram Oxalate (Lexapro) 20 mg PO QAM [facility] Stop: 06/20/18 08:59 Last Admin: 05/22/18 08:53 Dose: 20 mg Documented by: Haloperidol (Haldol) 5 mg PO Q4 PRN PRN Reason: psychosis Stop: 06/16/18 03:59 Last Admin: 05/21/18 09:45 Dose: 5 mg Documented by: Haloperidol (Haldol) 2 mg PO QD@16 [facility] Stop: 06/20/18 15:59 Last Admin: 05/21/18 16:55 Dose: 2 mg Documented by: Hydroxyzine HCl (Vistaril) 25 mg PO Q4H PRN PRN Reason: Anxiety Stop: 06/16/18 03:49 Hydroxyzine HCl (Vistaril) 50 mg PO HSZ PRN PRN Reason: Insomnia Stop: 06/16/18 03:49 Last Admin: 05/21/18 00:10 Dose: 50 mg Documented by: Lorazepam (Ativan) 1 mg PO Q4H PRN PRN Reason: Anxiety Stop: 06/16/18 10:29 Last Admin: 05/21/18 09:45 Dose: 1 mg Documented by: Lorazepam (Ativan) 1 mg PO TID [facility] Stop: 06/20/18 13:59 Last Admin: 05/22/18 08:53 Dose: 1 mg Documented by: Magnesium Hydroxide (Milk Of Magnesia) 30 ml PO DAILY PRN PRN Reason: Heartburn Stop: 06/16/18 03:49 Miscellaneous (Remove Nicoderm Patch) 1 ea N/A HS [facility] Stop: 06/17/18 20:59 Last Admin: 05/21/18 21:11 Dose: Not Given Documented by: Nicotine (Nicoderm Cq) 21 mg TD QAM [facility] Stop: 06/17/18 10:44 Last Admin: 05/22/18 08:57 Dose: Not Given Documented by: Pantoprazole Sodium (Protonix) 40 mg PO QAM [facility] Stop: 06/16/18 11:14 Last Admin: 05/22/18 08:53 Dose: 40 mg Documented by: Fluticasone/Salmeterol (Advair Diskus 250/50) 1 puffs INH BID [facility] Stop: 06/16/18 11:14 Last Admin: 05/22/18 08:53 Dose: 1 puffs Documented by: Sodium Chloride (Gooding Nasal) 1 - 2 sprays NA PRN PRN PRN Reason: Nasal Dryness/Congestion Stop: 06/16/18 03:49 Post Discharge Appointments Primary Care Physician Name Of Family Doctor: James Almodovar Primary Care Provider Appointment Comment: [address] [place] [address] [place] [address] Psychiatrist Name of Psychiatrist: [facility] - DEANN Christensen Psychiatrist's Date of Appointment with Psychiatrist: 05/30/18 Time of Appointment with Psychiatrist: 3:15 p.m. Psychiatric Appointment Comment: [place] [address] Therapist Name of Therapist: [facility] - Therapist's Date of Therapist Appointment: 06/01/18 Time of Therapist Appointment: 12:45 p.m. Therapy Appointment Comment: [address], [place] [address] Taxicab Driver Name of Taxicab Driver: [facility] - Amy Russell Phone Number for Taxicab Driver: [phone] Contact Information Discharge Discharge Address: [address] [place] [address], [address], [place] [address] CPT Code CPT Code 00429
[2018-05-22] MEDS: HALOPERIDOL 5 MG TAB PO PRN (12:29)
[2018-05-22] MEDS: HALOPERIDOL 1 MG TAB PO SCH (15:55)
[2018-05-23] MEDS: NICOTINE 21 MG/24 HR TDSY TD SCH (08:51)
[2018-05-23] MEDS: ESCITALOPRAM OXALATE 20 MG TAB PO SCH (08:51)
[2018-05-23] MEDS: LORazepam 1 MG TAB PO SCH ×3 (08:51→20:54)
[2018-05-23] MEDS: PANTOprazole 40 MG TAB PO SCH (08:51)
[2018-05-23] MEDS: FLUTICASONE/SALMETEROL 250/50 (ADVAIR) 14 PUFF/1 INHALER INH SCH ×2 (08:51→20:54)
[2018-05-23] MEDS: ARIPiprazole 10 MG TAB PO SCH (08:51)
--- NOTE | 2018-05-23 09:28 | Psychiatric Progress Note ---
Date of Service May 23, 2018 Impression / Recommendations Impression Improved over admission but unable to describe her thoughts which are clearly distorted. She did, after much encouragement, agree to take a shower, but I suspect she believes that if she showers she can be discharged. I have encouraged her to use the prn haldol today when feeling overwhelmed or scared, which she agrees to try,. (1) Unspecified psychosis: 05/17 - Start Geodon 20 mg BID with food - Start Lexapro 10 mg daily - Q 15 min checks for safety - Assist the patient to attend to ADL's - Obtain current med list from OP providers and coordinate aftercare - Obtain supplemental information from patient's fiance or 302 petitioner - patient is excused from groups at this time - Reality orientation - Will order ativan 1 mg q 4 hr prn in the event we are seeing some degree of catatonia - FLP and FBS for monitoring on antipsychotics 05/18 -Urine culture results reviewed; more than 3 types of organisms present, probable skin rufino. Treatment not indicated. Patient on menses. -Leukocytosis on presentation, but no signs of infection, may be stress related. -Collateral obtained from the patient's boyfriend and outpatient records reviewed. Diagnosis remains unclear, as she reportedly has been diagnosed with schizoaffective disorder unspecified type in the past, but it appears she went an entire year on an SSRI alone and had no psychotic symptoms. Her current disorganization and paranoia occurred in the context of worsening mood, so this could be seen as a psychotic depression. She continues to regularly use cannabis, so substance-induced psychotic and mood disorder is a possibility as well. There may be an element of delirium. We will check a MOCA today and monitor cognitive function. -Continue ziprasidone 20 mg twice daily with meals, and encourage patient to eat adequate calories (at least 500) with the medication to allow for adequate absorption. If she is unable to do this, we may need to switch to a different medication that is not reliant on caloric intake. Per records, she has had trials of quetiapine, risperidone, and haloperidol in the past. Risperidone caused akathisia, and quetiapine caused somnolence. Would avoid typical antipsychotics due to the risk of tardive dyskinesia given the likely need for long-term treatment. Could consider a trial of aripiprazole or lurasidone to target both mood and psychotic symptoms, as they have lower risk of weight gain compared to other atypical antipsychotics. -Fasting labs reviewed for monitoring on an atypical antipsychotic: Fasting glucose elevated 102, lipid profile within normal limits. 05/19 -File for 303 involuntary commitment due to ongoing psychosis and inability to provide for her own basic needs; hearing tomorrow. -Patient not yet appropriate for a family meeting, but once she is, will need one with her boyfriend. Collateral information from her boyfriend regarding her symptoms over the past several years may be helpful to clarify diagnosis. -Appetite remains poor with limited p.o. intake, despite staff encouragement. She has not been able to ingest adequate calories with her ziprasidone for it to be absorbed, so we will discontinue it and start aripiprazole 5 mg daily. Discussed this medication change with the patient, and aripiprazole was chosen due to information and outpatient records that she was very concerned about taking medications that could contribute to weight gain, and it has lower risk compared to quetiapine, risperidone, and olanzapine. -She has not been able to tolerate a MOCA, but will continue to attempt cognitive screening. 05/20 -303 involuntary commitment hearing held today. The patient was retained by the senior credit officer. The patient declined to participate in the hearing. -While the patient does appear somewhat guarded and suspicious, no delusional material was identified and the patient's thought content. However, full assessment of her thought content was read to difficult by the fact that the patient offers little spontaneous speech and tends to "shut down" when asked about specific symptoms. -The patient was recently started on aripiprazole 5 mg daily. I met with her approximately 2 hours after her morning dose of this medication and she indicated that she is tolerating it well. -Today, the patient is able to provide details concerning her household, her home, her daily activities, and, in particular, she brightens when discussing her pet dogs, 1 of which is reportedly a puppy. -We will increase her dose of escitalopram from a dose of 10 mg a day to a dose of 20 mg a day, starting tomorrow. -The patient reports that she is not having any suicidal or homicidal thoug hts. 05/21 -will titrate Abilify tomorrow, in meantime, will schedule low dose Haldol 2 mg today as an adjunct as pms clearly worse and not consistently accepting prns. Ativan 1 mg TID as trial as appears to have some catatonic features. 05/23 - Continue current meds - Encourage use of prn haldol (2) Cannabis abuse: 05/18 -once patient is less psychotic, we will need to provide psychoeducation about the risks of ongoing cannabis use, particularly the risk of worsening psychosis. Consider the need for outpatient substance abuse treatment. (3) Tobacco abuse: 05/18 -patient reports smoking 1 pack/day and reporting urges to smoke, so will order nicotine patch. Offer smoking cessation education, and arrange outpatient follow-up with her block machine operator. Inventory Assets Strengths: Has a fiance, housing Needs: Compliance with medications, abstinence from substances Risk Factors Assessment Male: No : Yes Health Problems: Yes Mental Health Diagnoses: Yes Substance Use Disorders: Yes Previous Attempt: Yes Previous Psychiatric Hospitalization: Yes Smoker: Yes Protective Factors Assessment : No Responsible for Young Children: Yes Employed: No (Disabled due to mental health) Stable Relationships: Yes Supportive Family: Yes Interval History Identifying Information RASHIDA MEZA is a 37-year-old F who lives in [place] with her boyfriend, has a history of schizoaffective disorder, and was brought to the ED on 302 warrant on 05/16/2018 as she was not caring for herself, attending to hygiene, eating, or taking medications. She is admitted on an involuntary 302 commitment and was converted to a 303 on 05/20/18. Chief Complaint "Can I go home with José Miguel today?". Review of Systems Sleep Information Total Hours of Sleep: 11.5 Sleep Comments: pt appeared to sleep 4.5 hrs during evening shift. pt on q-15 minute checks Meal Information Percent Meal Consumed - Breakfast: 100 Percent Meal Consumed - Lunch: 25 Percent Meal Consumed - Dinner: 50 Nutrition Comment: per previous shift meal log Subjective Subjective Patient was seen & assessed and interval progress reviewed with Treatment Team. The patient says that she is doing better, but admits that she is having trouble explaining her thoughts. When asked why she has not showered since admission she says that "I don't want to be left behind." but cannot further explain. She goes on to say that she has to have things in a particular order in the shower, as if that was preventing her from showering. She denies that she has any concerns for her safety. She believes that the medications are working, denying SI/HI, and denying aud/vis hallucinations. She is poorly able to talk about her thoughts, and when I use the word 'distorted' she says "Oh no!". In terms of mood, she admits that one minute she feels good and the next she doesn't, but doesn't characterize her mood. Physical Exam Psychiatric Orientation: alert and cooperative Apperance: + disheveled Eye Contact: good eye contact (at times staring) Motor Behavior: steady gait and station and no abnormal motor movements Speech: normal rate/rhythm/volume of speech Affect: + anxious affect Mood: + anxious mood Unclear Thought Content: + cognitive distortions Suicidal Thoughts: denies suicidal thoughts Homicidal Thoughts: denies homicidal thoughts Hallucinations: no auditory hallucinations and no visual hallucinations Cognition: language grossly intact Estimated Intelligence: consistent with education level Insight: + impaired insight Judgement: + impaired judgement Vital Signs (Past 24 Hours) Last Vital Signs Temp 36.9 C 05/23/18 06:39 Pulse 109 H 05/23/18 06:40 Resp 18 05/23/18 06:39 BP 119/83 05/23/18 06:40 Pulse Ox 91 05/17/18 03:54 Results & Data Current Inpatient Medications Current Inpatient Medications: Current Inpatient Medications Acetaminophen (Tylenol) 650 mg PO Q4H PRN PRN Reason: Headache or Minor Fever Stop: 06/16/18 03:49 Al Hydrox/Mg Hydrox/Simethicone (Maalox) 30 ml PO Q4H PRN PRN Reason: GI Upset Stop: 06/16/18 03:49 Aripiprazole (Abilify) 10 mg PO QAM [facility] Stop: 06/21/18 08:59 Last Admin: 05/23/18 08:51 Dose: 10 mg Documented by: Bismuth Subsalicylate (Kaopectate) 15 ml PO PRN PRN PRN Reason: Loose Stool Stop: 06/16/18 03:49 Escitalopram Oxalate (Lexapro) 20 mg PO QAM [facility] Stop: 06/20/18 08:59 Last Admin: 05/23/18 08:51 Dose: 20 mg Documented by: Haloperidol (Haldol) 5 mg PO Q4 PRN PRN Reason: psychosis Stop: 06/16/18 03:59 Last Admin: 05/22/18 12:29 Dose: 5 mg Documented by: Haloperidol (Haldol) 2 mg PO QD@16 [facility] Stop: 06/20/18 15:59 Last Admin: 05/22/18 15:55 Dose: 2 mg Documented by: Hydroxyzine HCl (Vistaril) 25 mg PO Q4H PRN PRN Reason: Anxiety Stop: 06/16/18 03:49 Hydroxyzine HCl (Vistaril) 50 mg PO HSZ PRN PRN Reason: Insomnia Stop: 06/16/18 03:49 Last Admin: 05/21/18 00:10 Dose: 50 mg Documented by: Lorazepam (Ativan) 1 mg PO Q4H PRN PRN Reason: Anxiety Stop: 06/16/18 10:29 Last Admin: 05/21/18 09:45 Dose: 1 mg Documented by: Lorazepam (Ativan) 1 mg PO TID [facility] Stop: 06/20/18 13:59 Last Admin: 05/23/18 08:51 Dose: 1 mg Documented by: Magnesium Hydroxide (Milk Of Magnesia) 30 ml PO DAILY PRN PRN Reason: Heartburn Stop: 06/16/18 03:49 Miscellaneous (Remove Nicoderm Patch) 1 ea N/A HS [facility] Stop: 06/17/18 20:59 Last Admin: 05/22/18 21:23 Dose: Not Given Documented by: Nicotine (Nicoderm Cq) 21 mg TD QAM [facility] Stop: 06/17/18 10:44 Last Admin: 05/23/18 08:51 Dose: Not Given Documented by: Pantoprazole Sodium (Protonix) 40 mg PO QAM [facility] Stop: 06/16/18 11:14 Last Admin: 05/23/18 08:51 Dose: 40 mg Documented by: Fluticasone/Salmeterol (Advair Diskus 250/50) 1 puffs INH BID [facility] Stop: 06/16/18 11:14 Last Admin: 05/23/18 08:51 Dose: 1 puffs Documented by: Sodium Chloride ([place] Nasal) 1 - 2 sprays NA PRN PRN PRN Reason: Nasal Dryness/Congestion Stop: 06/16/18 03:49 Post Discharge Appointments Primary Care Physician Name Of Family Doctor: James Almodovar Primary Care Provider Appointment Comment: [address] [place] [address] [place] [address] Psychiatrist Name of Psychiatrist: [facility] - DEANN Christensen Psychiatrist's Date of Appointment with Psychiatrist: 05/30/18 Time of Appointment with Psychiatrist: 3:15 p.m. Psychiatric Appointment Comment: [address] [place] [address] Therapist Name of Therapist: [facility] - Therapist's Date of Therapist Appointment: 06/01/18 Time of Therapist Appointment: 12:45 p.m. Therapy Appointment Comment: [address] [place] [address] Platen Press Feeder Name of Platen Press Feeder: [facility] - Amy Russell Phone Number for Platen Press Feeder: [phone] Contact Information Discharge Discharge Address: [address] [place] [address], [address], [place] [address] CPT Code CPT Code 11659
[2018-05-23] MEDS: HALOPERIDOL 5 MG TAB PO PRN (10:03)
[2018-05-23] MEDS: HALOPERIDOL 1 MG TAB PO SCH (15:46)
[2018-05-24] MEDS: FLUTICASONE/SALMETEROL 250/50 (ADVAIR) 14 PUFF/1 INHALER INH SCH ×2 (07:19→21:07)
[2018-05-24] MEDS: ARIPiprazole 10 MG TAB PO SCH (07:19)
[2018-05-24] MEDS: ESCITALOPRAM OXALATE 20 MG TAB PO SCH (07:20)
[2018-05-24] MEDS: PANTOprazole 40 MG TAB PO SCH (07:20)
[2018-05-24] MEDS: LORazepam 1 MG TAB PO SCH ×3 (07:20→21:07)
[2018-05-24] MEDS: NICOTINE 21 MG/24 HR TDSY TD SCH (07:24)
--- NOTE | 2018-05-24 10:03 | Psychiatric Progress Note ---
Date of Service May 24, 2018 Impression / Recommendations Baljit Was able to shower for the first time yesterday since admission and is taking medications regularly but remains odd in interactions, unable to fully explain her thoughts. She is very focused on going home and there is a meeting with her fiance this afternoon, and we will ask him how close he believes she is to baseline. Will continue to encourage use of prns' (1) Unspecified psychosis: 05/17 - Start Geodon 20 mg BID with food - Start Lexapro 10 mg daily - Q 15 min checks for safety - Assist the patient to attend to ADL's - Obtain current med list from OP providers and coordinate aftercare - Obtain supplemental information from patient's fiance or 302 petitioner - patient is excused from groups at this time - Reality orientation - Will order ativan 1 mg q 4 hr prn in the event we are seeing some degree of catatonia - FLP and FBS for monitoring on antipsychotics 05/18 -Urine culture results reviewed; more than 3 types of organisms present, probable skin rufino. Treatment not indicated. Patient on menses. -Leukocytosis on presentation, but no signs of infection, may be stress related. -Collateral obtained from the patient's boyfriend and outpatient records reviewed. Diagnosis remains unclear, as she reportedly has been diagnosed with schizoaffective disorder unspecified type in the past, but it appears she went a n entire year on an SSRI alone and had no psychotic symptoms. Her current disorganization and paranoia occurred in the context of worsening mood, so this could be seen as a psychotic depression. She continues to regularly use cannabis, so substance-induced psychotic and mood disorder is a possibility as well. There may be an element of delirium. We will check a MOCA today and monitor cognitive function. -Continue ziprasidone 20 mg twice daily with meals, and encourage patient to eat adequate calories (at least 500) with the medication to allow for adequate absorption. If she is unable to do this, we may need to switch to a different medication that is not reliant on caloric intake. Per records, she has had tr ials of quetiapine, risperidone, and haloperidol in the past. Risperidone caused akathisia, and quetiapine caused somnolence. Would avoid typical antipsychotics due to the risk of tardive dyskinesia given the likely need for long-term treatment. Could consider a trial of aripiprazole or lurasidone to target both mood and psychotic symptoms, as they have lower risk of weight gain compared to other atypical antipsychotics. -Fasting labs reviewed for monitoring on an atypical antipsychotic: Fasting glucose elevated 102, lipid profile within normal limits. 05/19 -File for 303 involuntary commitment due to ongoing psychosis and inability to provide for her own basic needs; hearing tomorrow. -Patient not yet appropriate for a family meeting, but once she is, will need one with her boyfriend. Collateral information from her boyfriend regarding her symptoms over the past several years may be helpful to clarify diagnosis. -Appetite remains poor with limited p.o. intake, despite staff encouragement. She has not been able to ingest adequate calories with her ziprasidone for it to be absorbed, so we will discontinue it and start aripiprazole 5 mg daily. Discussed this medication change with the patient, and aripiprazole was chosen due to information and outpatient records that she was very concerned about taking medications that could contribute to weight gain, and it has lower risk compared to quetiapine, risperidone, and olanzapine. -She has not been able to tolerate a MOCA, but will continue to attempt cognitive screening. 05/20 -303 involuntary commitment hearing held today. The patient was retained by the border patrol officer. The patient declined to participate in the hearing. -While the patient does appear somewhat guarded and suspicious, no delusional material was identified and the patient's thought content. However, full assessment of her thought content was read to difficult by the fact that the patient offers little spontaneous speech and tends to "shut down" when asked about specific symptoms. -The patient was recently started on aripiprazole 5 mg daily. I met with her approximately 2 hours after her morning dose of this medication and she indicated that she is tolerating it well. -Today, the patient is able to provide details concerning her household, her home, her daily activities, and, in particular, she brightens when discussing her pet dogs, 1 of which is reportedly a puppy. -We will increase her dose of escitalopram from a dose of 10 mg a day to a dose of 20 mg a day, starting tomorrow. -The patient reports that she is not having any suicidal or homicidal thoughts. 05/21 -will titrate Abilify tomorrow, in meantime, will schedule low dose Haldol 2 mg today as an adjunct as pms clearly worse and not consistently accepting prns. Ativan 1 mg TID as trial as appears to have some catatonic features. 05/23 - Continue current meds - Encourage use of prn haldol 05/24 -Continue to encourage use of prns' - FAmily meeting with fiance today (2) Cannabis abuse: 05/18 -once patient is less psychotic, we will need to provide psychoeducation about the risks of ongoing cannabis use, particularly the risk of worsening psychosis. Consider the need for outpatient substance abuse treatment. (3) Tobacco abuse: 05/18 -patient reports smoking 1 pack/day and reporting urges to smoke, so will order nicotine patch. Offer smoking cessation education, and arrange outpatient follow-up with her provider enrollment specialist. Inventory Assets Strengths: Has a fiance, housing Needs: Compliance with medications, abstinence from substances Risk Factors Assessment Male: No : Yes Health Problems: Yes Mental Health Diagnoses: Yes Substance Use Disorders: Yes Previous Attempt: Yes Previous Psychiatric Hospitalization: Yes Smoker: Yes Protective Factors Assessment : No Responsible for Young Children: Yes Employed: No (Disabled due to mental health) Stable Relationships: Yes Supportive Family: Yes Interval History Identifying Information RASHIDA MEZA is a 37-year-old F who lives in [place] with her boyfriend, has a history of schizoaffective disorder, and was brought to the ED on 302 wa rrant on 05/16/2018 as she was not caring for herself, attending to hygiene, eating, or taking medications. She is admitted on an involuntary 302 commitment and was converted to a 303 on 05/20/18. Chief Complaint "I'm fine. I can go home. ". Review of Systems Sleep Information Total Hours of Sleep: 11.75 Sleep Comments: pt appeared to sleep 4.75 hr during evening shift. pt on q-15 minute checks Meal Information Percent Meal Consumed - Breakfast: 90 Percent Meal Consumed - Lunch: 40 Percent Meal Consumed - Dinner: 30 Nutrition Comment: per previous shift meal log Subjective Subjective Patient was seen & assessed and interval progress reviewed with Treatment Team. today the patient says that she is better and says she can go home. She cannot say specifically how she is better. A meeting is scheduled with her fiance later today, and she plans to ask him how the kids and the house are. I tell her that his opinion about her condition and progress is important to us, and she says that he will say she is OK to come home. She continues to deny SI/HI, aud/vis hallucinations, and today becomes agitated when I ask these questions, leaning forward onto the desk to stare at me. Nursing reports that she showered yesterday, as she promised that she would. She also took a prn of Haldol yesterday in the mid afternoon, but she doesn't know why she took it "Maybe I was crying or depressed or something.". She doesn't want any more medication at this point. She is attending groups, but is desbribed as being "labile". Last evening she thought she could go off the unit for a cigarette and was distressed when informed that she couldn't. Physical Exam Psychiatric Orientation: alert and cooperative Apperance: appropriately dressed and appropriately groomed Eye Contact: good eye contact (at times staring intently) Motor Behavior: steady gait and station and no abnormal motor movements Speech: normal rate/rhythm/volume of speech Affect: + irritable affect Mood: + irritable mood Thought Process: goal directed thought process Thought Content: + cognitive distortions Suicidal Thoughts: denies suicidal thoughts Homicidal Thoughts: denies homicidal thoughts Hallucinations: no auditory hallucinations and no visual hallucinations Cognition: recent memory grossly intact, remote memory grossly intact, attention grossly intact and language grossly intact Estimated Intelligence: consistent with education level Insight: + impaired insight Judgement: + impaired judgement Vital Signs (Past 24 Hours) Last Vital Signs Temp 36.7 C 05/24/18 06:44 Pulse 98 H 05/24/18 06:44 Resp 16 05/24/18 06:44 BP 122/84 05/24/18 06:44 Pulse Ox 91 05/17/18 03:54 Results & Data Current Inpatient Medications Current Inpatient Medications: Current Inpatient Medications Acetaminophen (Tylenol) 650 mg PO Q4H PRN PRN Reason: Headache or Minor Fever Stop: 06/16/18 03:49 Al Hydrox/Mg Hydrox/Simethicone (Maalox) 30 ml PO Q4H PRN PRN Reason: GI Upset Stop: 06/16/18 03:49 Aripiprazole (Abilify) 10 mg PO QAM [facility] Stop: 06/21/18 08:59 Last Admin: 05/24/18 07:19 Dose: 10 mg Documented by: Bismuth Subsalicylate (Kaopectate) 15 ml PO PRN PRN PRN Reason: Loose Stool Stop: 06/16/18 03:49 Escitalopram Oxalate (Lexapro) 20 mg PO QAM [facility] Stop: 06/20/18 08:59 Last Admin: 05/24/18 07:20 Dose: 20 mg Documented by: Haloperidol (Haldol) 5 mg PO Q4 PRN PRN Reason: psychosis Stop: 06/16/18 03:59 Last Admin: 05/23/18 10:03 Dose: 5 mg Documented by: Haloperidol (Haldol) 2 mg PO QD@16 [facility] Stop: 06/20/18 15:59 Last Admin: 05/23/18 15:46 Dose: 2 mg Documented by: Hydroxyzine HCl (Vistaril) 25 mg PO Q4H PRN PRN Reason: Anxiety Stop: 06/16/18 03:49 Hydroxyzine HCl (Vistaril) 50 mg PO HSZ PRN PRN Reason: Insomnia Stop: 06/16/18 03:49 Last Admin: 05/21/18 00:10 Dose: 50 mg Documented by: Lorazepam (Ativan) 1 mg PO Q4H PRN PRN Reason: Anxiety Stop: 06/16/18 10:29 Last Admin: 05/21/18 09:45 Dose: 1 mg Documented by: Lorazepam (Ativan) 1 mg PO TID [facility] Stop: 06/20/18 13:59 Last Admin: 05/24/18 07:20 Dose: 1 mg Documented by: Magnesium Hydroxide (Milk Of Magnesia) 30 ml PO DAILY PRN PRN Reason: Heartburn Stop: 06/16/18 03:49 Miscellaneous (Remove Nicoderm Patch) 1 ea N/A [facility] Stop: 06/17/18 20:59 Last Admin: 05/23/18 21:03 Dose: Not Given Documented by: Nicotine ([facility]oderm Cq) [facility] Stop: 06/17/18 10:44 Last Admin: 05/24/18 07:24 Dose: Not Given Documented by: Pantoprazole Sodium (Protonix) [facility] [place] Stop: 06/16/18 11:14 Last Admin: 05/24/18 07:20 Dose: 40 mg Documented by: Fluticasone/Salmeterol (Advair Diskus 250/50) 1 puffs INH BID [facility] Stop: 06/16/18 11:14 Last Admin: 05/24/18 07:19 Dose: 1 puffs Documented by: Sodium Chloride ([place] Nasal) 1 - 2 sprays NA PRN PRN PRN Reason: Nasal Dryness/Congestion Stop: 06/16/18 03:49 Post Discharge Appointments Primary Care Physician Name Of Family Doctor: James Almodovar Primary Care Provider Appointment Comment: [address] [place] [address] [place] [address] Psychiatrist Name of Psychiatrist: [facility] - DEANN Christensen Psychiatrist's Date of Appointment with Psychiatrist: 05/30/18 Time of Appointment with Psychiatrist: 3:15 p.m. Psychiatric Appointment Comment: [address] [place] [address] Therapist Name of Therapist: [facility] - Therapist's Date of Therapist Appointment: 06/01/18 Time of Therapist Appointment: 12:45 p.m. Therapy Appointment Comment: [address] [place] [address] Level Vial Curvature Gauger Name of Level Vial Curvature Gauger: [facility] - Amy Russell Phone Number for Level Vial Curvature Gauger: [phone] Contact Information Discharge Discharge Address: [address] [place] [address], [place] [address] CPT Code CPT Code 14300
[2018-05-24] MEDS: HALOPERIDOL 5 MG TAB PO PRN (13:26)
[2018-05-24] MEDS: HALOPERIDOL 1 MG TAB PO SCH (16:22)
[2018-05-25] MEDS: PANTOprazole 40 MG TAB PO SCH (08:45)
[2018-05-25] MEDS: ESCITALOPRAM OXALATE 20 MG TAB PO SCH (08:45)
[2018-05-25] MEDS: ARIPiprazole 10 MG TAB PO SCH (08:45)
[2018-05-25] MEDS: FLUTICASONE/SALMETEROL 250/50 (ADVAIR) 14 PUFF/1 INHALER INH SCH ×2 (08:45→21:11)
[2018-05-25] MEDS: LORazepam 1 MG TAB PO SCH ×3 (08:49→21:11)
[2018-05-25] MEDS: NICOTINE 21 MG/24 HR TDSY TD SCH (08:51)
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
[2018-05-25] MEDS: HALOPERIDOL 5 MG TAB PO PRN (11:59)
[2018-05-25] MEDS: lamoTRIgine 25 MG TAB PO SCH (13:17)
[2018-05-25] MEDS ORDERED: NICOTINE POLACRILEX 2 MG GUM MT PRN (14:09)
[2018-05-25] MEDS: HALOPERIDOL 5 MG TAB PO SCH (21:11)
[2018-05-26] MEDS: NICOTINE 21 MG/24 HR TDSY TD SCH (09:07)
[2018-05-26] MEDS: TRIHEXYPHENIDYL HCL 2 MG TAB PO SCH (09:08)
[2018-05-26] MEDS: ARIPiprazole 10 MG TAB PO SCH (09:08)
[2018-05-26] MEDS: PANTOprazole 40 MG TAB PO SCH (09:08)
[2018-05-26] MEDS: LORazepam 1 MG TAB PO SCH ×3 (09:08→21:21)
[2018-05-26] MEDS: FLUTICASONE/SALMETEROL 250/50 (ADVAIR) 14 PUFF/1 INHALER INH SCH ×2 (09:08→21:21)
[2018-05-26] MEDS: HALOPERIDOL 5 MG TAB PO SCH ×2 (09:08→21:21)
[2018-05-26] MEDS: ESCITALOPRAM OXALATE 20 MG TAB PO SCH (09:08)
[2018-05-26] MEDS: lamoTRIgine 25 MG TAB PO SCH (09:08)
--- NOTE | 2018-05-26 09:30 | Psychiatric Progress Note ---
Date of Service May 26, 2018 Impression / Recommendations Impression lamictal initiated yesterday and haldol increased. Today she remains irritable and suspicious, and making irrational decisions ie refusing to shower until she goes home. Family voiced their concerns in the family meeting that she is not ready to come home and want to see her less paranoid. Will continue meds today, as well as reality orientation, safety planning and assisting the patient to gain insight into her condition, although family says that she has been paranoid for years and so insight may not be forthcoming. (1) Unspecified psychosis: 05/17 - Start Geodon 20 mg BID with food - Start Lexapro 10 mg daily - Q 15 min checks for safety - Assist the patient to attend to ADL's - Obtain current med list from OP providers and coordinate aftercare - Obtain supplemental information from patient's fiance or 302 petitioner - patient is excused from groups at this time - Reality orientation - Will order ativan 1 mg q 4 hr prn in the event we are seeing some degree of catatonia - FLP and FBS for monitoring on antipsychotics 05/18 -Urine culture results reviewed; more than 3 types of organisms present, probable skin rufino. Treatment not indicated. Patient on menses. -Leukocytosis on presentation, but no signs of infection, may be stress related. -Collateral obtained from the patient's boyfriend and outpatient records reviewed. Diagnosis remains unclear, as she reportedly has been diagnosed with schizoaffective disorder unspecified type in the past, but it appears she went an entire year on an SSRI alone and had no psychotic symptoms. Her current disorganization and paranoia occurred in the context of worsening mood, so this could be seen as a psychotic depression. She continues to regularly use cannabis, so substance-induced psychotic and mood disorder is a possibility as well. There may be an element of delirium. We will check a MOCA today and monitor cognitive function. -Continue ziprasidone 20 mg twice daily with meals, and encourage patient to eat adequate calories (at least 500) with the medication to allow for adequate absorption. If she is unable to do this, we may need to switch to a different medication that is not reliant on caloric intake. Per records, she has had trials of quetiapine, risperidone, and haloperidol in the past. Risperidone caused akathisia, and quetiapine caused somnolence. Would avoid typical antipsychotics due to the risk of tardive dyskinesia given the likely need for long-term treatment. Could consider a trial of aripiprazole or lurasidone to target both mood and psychotic symptoms, as they have lower risk of weight gain compared to other atypical antipsychotics. -Fasting labs reviewed for monitoring on an atypical antipsychotic: Fasting glucose elevated 102, lipid profile within normal limits. 05/19 -File for 303 involuntary commitment due to ongoing psychosis and inability to provide for her own basic needs; hearing tomorrow. -Patient not yet appropriate for a family meeting, but once she is, will need one with her boyfriend. Collateral information from her boyfriend regarding her symptoms over the past several years may be helpful to clarify diagnosis. -Appetite remains poor with limited p.o. intake, despite staff encouragement. She has not been able to ingest adequate calories with her ziprasidone for it to be absorbed, so we will discontinue it and start aripiprazole 5 mg daily. Discussed this medication change with the patient, and aripiprazole was chosen due to information and outpatient records that she was very concerned about taking medications that could contribute to weight gain, and it has lower risk compared to quetiapine, risperidone, and olanzapine. -She has not been able to tolerate a MOCA, but will continue to attempt cognitive screening. 05/20 -303 involuntary commitment hearing held today. The patient was retained by the certified hearing instrument dispenser. The patient declined to participate in the hearing. -While the patient does appear somewhat guarded and suspicious, no delusional material was identified and the patient's thought content. However, full assessment of her thought content was read to difficult by the fact that the patient offers little spontaneous speech and tends to "shut down" when asked about specific symptoms. -The patient was recently started on aripiprazole 5 mg daily. I met with her approximately 2 hours after her morning dose of this medication and she indicated that she is tolerating it well. -Today, the patient is able to provide details concerning her household, her home, her daily activities, and, in particular, she brightens when discussing her pet dogs, 1 of which is reportedly a puppy. -We will increase her dose of escitalopram from a dose of 10 mg a day to a dose of 20 mg a day, starting tomorrow. -The patient reports that she is not having any suicidal or homicidal thoughts. 05/21 -will titrate Abilify tomorrow, in meantime, will schedule low dose Haldol 2 mg today as an adjunct as pms clearly worse and not consistently accepting prns. Ativan 1 mg TID as trial as appears to have some catatonic features. 05/23 - Continue current meds - Encourage use of prn haldol 05/24 -Continue to encourage use of prns' - FAmily meeting with fiance today 05/25 -The patient seems to be confused by the use of as needed medications and, in particular, by the apparent randomness of the dosage administrations. At present, she is unable to grasp the concept of "as needed" medications, and she tells me that she would feel much more comfortable if she could receive the medications at specific times each day. I did explain to her that we will be adjusting her medications and that new medications or additional medications may be offered various other times, depending upon her response to treatment and her condition. --We will discontinue haloperidol 2 mg daily as a standing dose medication and replace it with a dose of haloperidol 5 mg twice a day, standing dose. --Because both the patient and the staff are noticing some degree of emotional lability and a mood that cycles between "feeling okay" and being depressed, confused, or angry, we will attempt to stabilize the patient's mood through the addition of lamotrigine 25 mg daily, and titrate gradually. Material risks of lamotrigine were reviewed with the patient, and she indicated understanding. Specific instructions included, but were not limited to, an instruction to notify staff should she notice the development of a rash anywhere on her bod, and I explained the risk of Rodriguez-Brodie syndrome. 05/26 - Continue current meds and plan (2) Cannabis abuse: 05/18 -once patient is less psychotic, we will need to provide psychoeducation about the risks of ongoing cannabis use, particularly the risk of worsening psychosis. Consider the need for outpatient substance abuse treatment. (3) Tobacco abuse: 05/18 -patient reports smoking 1 pack/day and reporting urges to smoke, so will order nicotine patch. Offer smoking cessation education, and arrange outpatient follow-up with her schedule clerk. Inventory Assets Strengths: Has a fiance, housing. Stable relationships. Supportive family. Needs: Compliance with medications, abstinence from substances, mood stabilization. Risk Factors Assessment Male: No : Yes Health Problems: Yes Mental Health Diagnoses: Yes Substance Use Disorders: Yes Previous Attempt: Yes Previous Psychiatric Hospitalization: Yes Smoker: Yes Protective Factors Assessment : No Responsible for Young Children: Yes Employed: No (Disabled due to mental health) Stable Relationships: Yes Supportive Family: Yes Interval History Identifying Information RASHIDA MEZA is a 37-year-old F who lives in [place] with her boyfriend, has a history of schizoaffective disorder, and was brought to the ED on 302 warrant on 05/16/2018 as she was not caring for herself, attending to hygiene, eating, or taking medications. She is admitted on an involuntary 302 commitment and was converted to a 303 on 05/20/18. Chief Complaint "I want to go home. ". Review of Systems Sleep Information Total Hours of Sleep: 7.75 Sleep Comments: pt given vistaril per rn. pt appeared to sleep 4.5 hrs during evening shift. pt on q-15 minute checks Meal Information Percent Meal Consumed - Breakfast: 75 Percent Meal Consumed - Lunch: 30 Percent Meal Consumed - Dinner: 50 Nutrition Comment: per previous shift meal log Subjective Subjective Patient was seen & assessed and interval progress reviewed with Treatment Team. The patient is irritable today again, saying that she is fine and thinks she should be discharged. I attempt to discuss her concerns, voiced in the family meeting, that she was worried her family would not take her back, but she becomes irritable saying that she is not thinking that today and doesn't want to talk about it fearing it will make her think it again. She feels that the increase in Haldol has been helpful, but when asked how, says that "I'm not confused or anything." but cannot further explain. She emphasizes that she is going to groups, although nursing reports that during groups she has been impatient wanting to leave. Across the board she denies problems with sleep, appetite, anxiety, side effects, hallucinations or mood problems. When asked if she has showered again, she says that she is refusing to take another shower here and plans to wait until she goes home. When asked shy, she says "I just have!". Physical Exam Psychiatric Orientation: alert and + guarded Apperance: + disheveled Eye Contact: + fair eye contact Motor Behavior: steady gait and station and no abnormal motor movements Irritated Affect: + irritable affect Mood: + irritable mood Thought Process: + perseveration (on discharge) Thought Content: + cognitive distortions Suicidal Thoughts: denies suicidal thoughts Homicidal Thoughts: denies homicidal thoughts Hallucinations: no auditory hallucinations and no visual hallucinations Cognition: recent memory grossly intact, remote memory grossly intact, attention grossly intact and language grossly intact Estimated Intelligence: consistent with education level Insight: + impaired insight Judgement: + impaired judgement Vital Signs (Past 24 Hours) Last Vital Signs Temp 36.8 C 05/26/18 06:40 Pulse 106 H 05/26/18 06:41 Resp 16 05/26/18 06:40 BP 111/78 05/26/18 06:41 Pulse Ox 91 05/17/18 03:54 Results & Data Current Inpatient Medications Current Inpatient Medications: Current Inpatient Medications Acetaminophen (Tylenol) 650 mg PO Q4H PRN PRN Reason: Headache or Minor Fever Stop: 06/16/18 03:49 Al Hydrox/Mg Hydrox/Simethicone (Maalox) 30 ml PO Q4H PRN PRN Reason: GI Upset Stop: 06/16/18 03:49 Aripiprazole (Abilify) 10 mg PO QAM [facility] Stop: 06/21/18 08:59 Last Admin: 05/26/18 09:08 Dose: 10 mg Documented by: Bismuth Subsalicylate (Kaopectate) 15 ml PO PRN PRN PRN Reason: Loose Stool Stop: 06/16/18 03:49 Escitalopram Oxalate (Lexapro) 20 mg PO QAM [facility] Stop: 06/20/18 08:59 Last Admin: 05/26/18 09:08 Dose: 20 mg Documented by: Haloperidol (Haldol) 5 mg PO Q4 PRN PRN Reason: psychosis Stop: 06/16/18 03:59 Last Admin: 05/25/18 11:59 Dose: 5 mg Documented by: Haloperidol (Haldol) 5 mg PO BID [facility] Stop: 06/24/18 20:59 Last Admin: 05/26/18 09:08 Dose: 5 mg Documented by: Hydroxyzine HCl (Vistaril) 25 mg PO Q4H PRN PRN Reason: Anxiety Stop: 06/16/18 03:49 Hydroxyzine HCl (Vistaril) 50 mg PO HSZ PRN PRN Reason: Insomnia Stop: 06/16/18 03:49 Last Admin: 05/21/18 00:10 Dose: 50 mg Documented by: Lamotrigine (Lamictal) 25 mg PO QAM [facility] Stop: 06/24/18 12:29 Last Admin: 05/26/18 09:08 Dose: 25 mg Documented by: Lorazepam (Ativan) 1 mg PO Q4H PRN PRN Reason: Anxiety Stop: 06/16/18 10:29 Last Admin: 05/21/18 09:45 Dose: 1 mg Documented by: Lorazepam (Ativan) 1 mg PO TID [facility] Stop: 06/20/18 13:59 Last Admin: 05/26/18 09:08 Dose: 1 mg Documented by: Magnesium Hydroxide (Milk Of Magnesia) 30 ml PO DAILY PRN PRN Reason: Heartburn Stop: 06/16/18 03:49 Miscellaneous (Remove Nicoderm Patch) 1 ea N/A HS [facility] Stop: 06/17/18 20:59 Last Admin: 05/25/18 21:11 Dose: Not Given Documented by: Nicotine ([facility]oderm Cq) [facility] [place] [facility] [place]: 06/17/18 10:44 Last Admin: 05/26/18 09:07 Dose: Not Given Documented by: Nicotine Polacrilex (Nicorette 2mg) 1 piece MT PRN PRN PRN Reason: Undecided Stop: 06/24/18 14:08 Pantoprazole Sodium (Protonix) 40 [facility] [place]: 06/16/18 11:14 Last Admin: 05/26/18 09:08 Dose: 40 mg Documented by: Fluticasone/Salmeterol (Advair Diskus 250/50) 1 puffs INH BID [facility] Stop: 06/16/18 11:14 Last Admin: 05/26/18 09:08 Dose: 1 puffs Documented by: Sodium Chloride (Mills Nasal) 1 - 2 sprays NA PRN PRN PRN Reason: Nasal Dryness/Congestion Stop: 06/16/18 03:49 Trihexyphenidyl HCl (Artane) 2 mg [facility] [place] Stop: 06/25/18 08:59 Last Admin: 05/26/18 09:08 Dose: 2 mg Documented by: Post Discharge Appointments Primary Care Physician Name Of Family Doctor: James - Dr. Almodovar Primary Care Provider Appointment Comment: [address] [place] [address] [place] [address] Psychiatrist Name of Psychiatrist: [facility] - DEANN Christensen Psychiatrist's Date of Appointment with Psychiatrist: 06/16/18 Time of Appointment with Psychiatrist: 10:00 a.m. Psychiatric Appointment Comment: [place] [address] Therapist Name of Therapist: [facility] - Lissette Forbes Therapist's Date of Therapist Appointment: 06/02/18 Time of Therapist Appointment: 7:45 a.m. Therapy Appointment Comment: [address] [facility] [place] [address] Regional Clinical Director Name of Regional Clinical Director: [facility] - Amy Russell Phone Number for Regional Clinical Director: [phone] Date of Appointment with Regional Clinical Director: 05/31/18 Time of Appointment with Regional Clinical Director: 3:15 p.m. Case Management Appointment Comment: Will see you at home Contact Information Discharge Discharge Address: [address] [place] [address], [address], [place] [address] CPT Code CPT Code 32829
[2018-05-27] MEDS: ARIPiprazole 10 MG TAB PO SCH (08:52)
[2018-05-27] MEDS: FLUTICASONE/SALMETEROL 250/50 (ADVAIR) 14 PUFF/1 INHALER INH SCH (08:52)
[2018-05-27] MEDS: ESCITALOPRAM OXALATE 20 MG TAB PO SCH (08:53)
[2018-05-27] MEDS: LORazepam 1 MG TAB PO SCH ×2 (08:53→13:35)
[2018-05-27] MEDS: lamoTRIgine 25 MG TAB PO SCH (08:53)
[2018-05-27] MEDS: TRIHEXYPHENIDYL HCL 2 MG TAB PO SCH (08:53)
[2018-05-27] MEDS: HALOPERIDOL 5 MG TAB PO SCH (08:53)
[2018-05-27] MEDS: PANTOprazole 40 MG TAB PO SCH (08:53)
[2018-05-27] MEDS: NICOTINE 21 MG/24 HR TDSY TD SCH (08:57)
--- NOTE | 2018-05-27 12:05 | Psychiatric Progress Note ---
Date of Service May 27, 2018 Impression / Recommendations Impression Pt reports ongoing improvement in mood. She denies hearing voices for the past two days and spontaneously reports feeling pleased with her current medication regimen. She appears less irritable today, and while still desiring discharge, is more accepting of timeline presented. Pt seems to be doing well on her current medication regimen, but given the severity of her condition, would likely benefit from additional time on the unit. Now that patient feels her thoughts are becoming more clear, will attempt to direct focus toward education on her condition, aftercare arrangements, and preparing the patient for success at discharge. Pt is likely to experience rapid decompensation if discharged prematurely, and ongoing inpatient psychiatric treatment remains medically necessary at this time. (1) Unspecified psychosis: 05/17 - Start Geodon 20 mg BID with food - Start Lexapro 10 mg daily - Q 15 min checks for safety - Assist the patient to attend to ADL's - Obtain current med list from OP providers and coordinate aftercare - Obtain supplemental information from patient's fiance or 302 petitioner - patient is excused from groups at this time - Reality orientation - Will order ativan 1 mg q 4 hr prn in the event we are seeing some degree of catatonia - FLP and FBS for monitoring on antipsychotics 05/18 -Urine culture results reviewed; more than 3 types of organisms present, probable skin rufino. Treatment not indicated. Patient on menses. -Leukocytosis on presentation, but no signs of infection, may be stress related. -Collateral obtained from the patient's boyfriend and outpatient records reviewed. Diagnosis remains unclear, as she reportedly has been diagnosed with schizoaffective disorder unspecified type in the past, but it appears she went an entire year on an SSRI alone and had no psychotic symptoms. Her current disorganization and paranoia occurred in the context of worsening mood, so this could be seen as a psychotic depression. She continues to regularly use cannabis, so substance-induced psychotic and mood disorder is a possibility as well. There may be an element of delirium. We will check a MOCA today and monitor cognitive function. -Continue ziprasidone 20 mg twice daily with meals, and encourage patient to eat adequate calories (at least 500) with the medication to allow for adequate absorption. If she is unable to do this, we may need to switch to a different medication that is not reliant on caloric intake. Per records, she has had trials of quetiapine, risperidone, and haloperidol in the past. Risperidone caused akathisia, and quetiapine caused somnolence. Would avoid typical antipsychotics due to the risk of tardive dyskinesia given the likely need for long-term treatment. Could consider a trial of aripiprazole or lurasidone to target both mood and psychotic symptoms, as they have lower risk of weight gain compared to other atypical antipsychotics. -Fasting labs reviewed for monitoring on an atypical antipsychotic: Fasting glucose elevated 102, lipid profile within normal limits. 05/19 -File for 303 involuntary commitment due to ongoing psychosis and inability to provide for her own basic needs; hearing tomorrow. -Patient not yet appropriate for a family meeting, but once she is, will need one with her boyfriend. Collateral information from her boyfriend regarding her symptoms over the past several years may be helpful to clarify diagnosis. -Appetite remains poor with limited p.o. intake, despite staff encouragement. She has not been able to ingest adequate calories with her ziprasidone for it to be absorbed, so we will discontinue it and start aripiprazole 5 mg daily. Discussed this medication change with the patient, and aripiprazole was chosen due to information and outpatient records that she was very concerned about taking medications that could contribute to weight gain, and it has lower risk compared to quetiapine, risperidone, and olanzapine. -She has not been able to tolerate a MOCA, but will continue to attempt cognitive screening. 05/20 -303 involuntary commitment hearing held today. The patient was retained by the infantry weapons officer. The patient declined to participate in the hearing. -While the patient does appear somewhat guarded and suspicious, no delusional material was identified and the patient's thought content. However, full assessment of her thought content was read to difficult by the fact that the patient offers little spontaneous speech and tends to "shut down" when asked about specific symptoms. -The patient was recently started on aripiprazole 5 mg daily. I met with her approximately 2 hours after her morning dose of this medication and she indicated that she is tolerating it well. -Today, the patient is able to provide details concerning her household, her home, her daily activities, and, in particular, she brightens when discussing her pet dogs, 1 of which is reportedly a puppy. -We will increase her dose of escitalopram from a dose of 10 mg a day to a dose of 20 mg a day, starting tomorrow. -The patient reports that she is not having any suicidal or homicidal thoughts. 05/21 -will titrate Abilify tomorrow, in meantime, will schedule low dose Haldol 2 mg today as an adjunct as pms clearly worse and not consistently accepting prns. Ativan 1 mg TID as trial as appears to have some catatonic features. 05/23 - Continue current meds - Encourage use of prn haldol 05/24 -Continue to encourage use of prns' - FAmily meeting with fiance today 05/25 -The patient seems to be confused by the use of as needed medications and, in particular, by the apparent randomness of the dosage administrations. At present, she is unable to grasp the concept of "as needed" medications, and she tells me that she would feel much more comfortable if she could receive the medications at specific times each day. I did explain to her that we will be adjusting her medications and that new medications or additional medications may be offered various other times, depending upon her response to treatment and her condition. --We will discontinue haloperidol 2 mg daily as a standing dose medication and replace it with a dose of haloperidol 5 mg twice a day, standing dose. --Because both the patient and the staff are noticing some degree of emotional lability and a mood that cycles between "feeling okay" and being depressed, confused, or angry, we will attempt to stabilize the patient's mood through the addition of lamotrigine 25 mg daily, and titrate gradually. Material risks of lamotrigine were reviewed with the patient, and she indicated understanding. Specific instructions included, but were not limited to, an instruction to notify staff should she notice the development of a rash anywhere on her body, and I explained the risk of Rodriguez-Brodie syndrome. 05/26 - Continue current meds and plan 05/27 - Continue current medication regimen - Possible discharge on 05/30 if she continues to tolerate medication regimen and demonstrate stability of mood and thought processes (2) Cannabis abuse: 05/18 -once patient is less psychotic, we will need to provide psychoeducation about the risks of ongoing cannabis use, particularly the risk of worsening psychosis. Consider the need for outpatient substance abuse treatment. (3) Tobacco abuse: 05/18 -patient reports smoking 1 pack/day and reporting urges to smoke, so will order nicotine patch. Offer smoking cessation education, and arrange outpatient follow-up with her rn team leader. Inventory Assets Strengths: Has a fiance, housing. Stable relationships. Supportive family. Needs: Compliance with medications, abstinence from substances, mood stabilization. Risk Factors Assessment Male: No : Yes Health Problems: Yes Mental Health Diagnoses: Yes Substance Use Disorders: Yes Previous Attempt: Yes Previous Psychiatric Hospitalization: Yes Smoker: Yes Protective Factors Assessment : No Responsible for Young Children: Yes Employed: No (Disabled due to mental health) Stable Relationships: Yes Supportive Family: Yes Interval History Identifying Information RASHIDA MEZA is a 37-year-old F who lives in [place] with her boyfriend, has a history of schizoaffective disorder, and was brought to the ED on 302 warrant on 05/16/2018 as she was not caring for herself, attending to hygiene, eating, or taking medications. She is admitted on an involuntary 302 commitment and was converted to a 303 on 05/20/18. Chief Complaint "I'm better. Learning how to think and get along with people". Review of Systems Notes Constitutional: denied Cardiovascular: denied Respiratory: denied Gastrointestinal: denied Neurological: denied Psychiatric: denies symptoms other than stated above Total of at least 10 systems reviewed, pertinent positives as above and in HPI. Sleep Information Total Hours of Sleep: 8 Sleep Comments: pt given vistaril per rn. pt appeared to sleep 4.5 hrs during evening shift. pt on q-15 minute checks Meal Information Percent Meal Consumed - Breakfast: 100 Percent Meal Consumed - Lunch: 95 Percent Meal Consumed - Dinner: 100 Nutrition Comment: per previous shift meal log Subjective Subjective Patient was seen & assessed and interval progress reviewed with Treatment Team. Staff report the patient has been showing improvement in the last few days, attending groups and requesting assistance with personal hygiene without encouragement. Pt was seen today to assess progress since admission. She states she feels that her mood has been improving during her time here, and states she has been focusing on coping strategies in groups. Pt admits she is "learning how to get along with people better", and has been seen interacting with peers on the unit throughout the day. Pt states, "I'm not hearing anything. I have thoughts, but I think they're my own. And they're not bad. Just things like wanting to go home and wanting to see the kids." Pt reports feeling that the medications are beneficial for her and does not feel that any changes are necessary today. Pt admits to a strong support system at home and this is comforting for her. She continues to request discharge, but is more accepting today of the timeline presented to her. Pt denies SI and onset of new psychiatric concerns. Physical Exam Psychiatric Orientation: alert and oriented x 3 Apperance: + disheveled (somewhat unkempt hair, wearing t-shirt and scrub pants) Eye Contact: good eye contact Motor Behavior: steady gait and station and no abnormal motor movements Speech: normal rate/rhythm/volume of speech Reduced range of affect, but not appearing overtly depressed, anxious, or blunted states "I feel better" and "happy" Thought Process: goal directed thought process, linear/logical thought process and clear/coherent thought process far less preoccupied with discharge plans No apparent delusions today, reports "good thoughts", denies auditory hallucinations and does not appear to be responding to internal stimuli Suicidal Thoughts: denies suicidal thoughts Homicidal Thoughts: denies homicidal thoughts Hallucinations: no auditory hallucinations (for the past 2 days) and no visual hallucinations Cognition: recent memory grossly intact, remote memory grossly intact, attention grossly intact and language grossly intact Estimated Intelligence: consistent with education level Insight: + limited insight Judgement: + limited judgement Vital Signs (Past 24 Hours) Last Vital Signs Temp 36.6 C 05/27/18 06:58 Pulse 76 05/27/18 06:59 Resp 18 05/27/18 06:58 BP 111/76 05/27/18 06:59 Pulse Ox 91 05/17/18 03:54 Results & Data Current Inpatient Medications Current Inpatient Medications: Current Inpatient Medications Acetaminophen (Tylenol) 650 mg PO Q4H PRN PRN Reason: Headache or Minor Fever Stop: 06/16/18 03:49 Al Hydrox/Mg Hydrox/Simethicone (Maalox) 30 ml PO Q4H PRN PRN Reason: GI Upset Stop: 06/16/18 03:49 Aripiprazole (Abilify) 10 mg PO QAM BRIANNA Stop: 06/21/18 08:59 Last Admin: 05/27/18 08:52 Dose: 10 mg Documented by: Bismuth Subsalicylate (Kaopectate) 15 ml PO PRN PRN PRN Reason: Loose Stool Stop: 06/16/18 03:49 Escitalopram Oxalate (Lexapro) 20 mg PO QAM [facility] Stop: 06/20/18 08:59 Last Admin: 05/27/18 08:53 Dose: 20 mg Documented by: Haloperidol (Haldol) 5 mg PO Q4 PRN PRN Reason: psychosis Stop: 06/16/18 03:59 Last Admin: 05/25/18 11:59 Dose: 5 mg Documented by: Haloperidol (Haldol) 5 mg PO BID [facility] Stop: 06/24/18 20:59 Last Admin: 05/27/18 08:53 Dose: 5 mg Documented by: Hydroxyzine HCl (Vistaril) 25 mg PO Q4H PRN PRN Reason: Anxiety Stop: 06/16/18 03:49 Hydroxyzine HCl (Vistaril) 50 mg PO HSZ PRN PRN Reason: Insomnia Stop: 06/16/18 03:49 Last Admin: 05/21/18 00:10 Dose: 50 mg Documented by: [facility]) [facility] [place] Stop: 06/24/18 12:29 Last Admin: 05/27/18 08:53 Dose: 25 mg Documented by: Lorazepam (Ativan) 1 mg PO Q4H PRN PRN Reason: Anxiety Stop: 06/16/18 10:29 Last Admin: 05/21/18 09:45 Dose: 1 mg Documented by: Lorazepam (Ativan) 1 mg PO TID [facility] Stop: 06/20/18 13:59 Last Admin: 05/27/18 08:53 Dose: 1 mg Documented by: Magnesium Hydroxide (Milk Of Magnesia) 30 ml PO DAILY PRN PRN Reason: Heartburn Stop: 06/16/18 03:49 Miscellaneous (Remove Nicoderm Patch) 1 ea N/A HS [facility] Stop: 06/17/18 20:59 Last Admin: 05/26/18 21:19 Dose: Not Given Documented by: Nicotine (Nicoderm Cq) 21 mg TD QAM [facility] Stop: 06/17/18 10:44 Last Admin: 05/27/18 08:57 Dose: Not Given Documented by: Nicotine Polacrilex (Nicorette 2mg) 1 piece MT PRN PRN PRN Reason: Undecided Stop: 06/24/18 14:08 Pantoprazole Sodium (Protonix) 40 mg PO QAM BRIANNA Stop: 06/16/18 11:14 Last Admin: 05/27/18 08:53 Dose: 40 mg Documented by: Fluticasone/Salmeterol (Advair Diskus 250/50) 1 puffs INH BID BRIANNA Stop: 06/16/18 11:14 Last Admin: 05/27/18 08:52 Dose: 1 puffs Documented by: Sodium Chloride (Forrest Nasal) 1 - 2 sprays NA PRN PRN PRN Reason: Nasal Dryness/Congestion Stop: 06/16/18 03:49 Trihexyphenidyl HCl (Artane) 2 mg PO QAM BRIANNA Stop: 06/25/18 08:59 Last Admin: 05/27/18 08:53 Dose: 2 mg Documented by: Post Discharge Appointments Primary Care Physician Name Of Family Doctor: James Almodovar Primary Care Provider Appointment Comment: [address] [place] [address] [place] [address] Psychiatrist Name of Psychiatrist: [facility] - DEANN Christensen Psychiatrist's Date of Appointment with Psychiatrist: 06/16/18 Time of Appointment with Psychiatrist: 10:00 a.m. Psychiatric Appointment Comment: [place] [address] Therapist Name of Therapist: [facility] - Lissette Forbes Therapist's Date of Therapist Appointment: 06/02/18 Time of Therapist Appointment: 7:45 a.m. Therapy Appointment Comment: [address] [facility] [address] Extruder Operator Name of Extruder Operator: [facility] - Amy Russell Phone Number for Extruder Operator: [phone] Date of Appointment with Extruder Operator: 05/31/18 Time of Appointment with Extruder Operator: 3:15 p.m. Case Management Appointment Comment: Will see you at home Partial or Psych Rehab Name of Partial or Psych Rehab: [facility] Phone Number of Partial or Psych Rehab: [phone] Time of Appointment at Partial or Psych Rehab: Call office to schedule tour of facilty Partial or Psych Rehab Appointment Comment: [address] [facility] Contact Information Discharge Discharge Address: [address] [place] [address], [address], [place] [address] CPT Code CPT Code 81970
--- NOTE | 2018-05-27 16:07 | Discharge Summary ---
Date of Service May 27, 2018 History of Present Illness Patient is a 37-year-old woman known to us from a previous hospitalization in March 2017. At that time she was admitted under similar circumstances appearing confused/psychotic and unable to provide any information about her history. During that stay she was started on Risperdal initially but this was discontinued when she developed akathisia. She was also converted from Celexa to Lexapro and was discharged only on Lexapro. The patient was brought to our ER on a 302 warrants after petitioner, Tayler Richardson, reported that the patient has not been eating not taking medications and not taking care of herself. She describes the patient staring at space and having been found rolling around in the snow saying things that were not right. She was apparently as reported in the ER notes, somewhat belligerent with the ambulance crew when they came to get her but after arriving in the ER she was cooperative. At the time I see the patient she is lying in her bed. She awakens to verbal. She will not get out of bed nor come to the day room to eat breakfast. She responds to very few questions but when she does the answer is always "I do not know". She indicates with "yes" that she is willing to take medications and willing to receive treatment today. She denies any physical complaints of any kind. She does not answer questions about what was going on before hospitalization, why she was not taking her medications or what medication she had been prescribed. Physical Exam Psychiatric Orientation: oriented x 3 Apperance: appropriately dressed, appropriately groomed and appeared stated age Eye Contact: good eye contact Motor Behavior: steady gait and station Speech: normal rate/rhythm/volume of speech Affect: euthymic affect "I'm in a good mood." Thought Process: goal directed thought process, linear/logical thought process and clear/coherent thought process Thought Content: reality based without delusions Suicidal Thoughts: denies suicidal thoughts Homicidal Thoughts: denies homicidal thoughts Hallucinations: no auditory hallucinations Cognition: recent memory grossly intact, remote memory grossly intact and attention grossly intact Remains somewhat concrete in her thinking. Estimated Intelligence: + below average estimated intelligence Insight: + fair insight Judgement: + fair judgement Vital Signs (Past 24 Hours) Last Vital Signs Temp 36.6 C 05/27/18 06:58 Pulse 76 05/27/18 06:59 Resp 18 05/27/18 06:58 BP 111/76 05/27/18 06:59 Pulse Ox 91 05/17/18 03:54 Principal Diagnosis Schizoaffective Disorder, Depressed Type Psychiatric Data During the course of hospitalization the patient was offered various modalities of psychiatric treatment. These included individual, group, activity and milieu therapy. Number of adjustments were made to the patient's medication regimen during the stay. She was initially placed on Geodon, but this was discontinued very early in the stay because the patient was not eating and there were concerns about her ability to adequately absorb Geodon while not eating. Geodon was discontinued in favor of aripiprazole 5 mg daily. The dose of aripiprazole was later increased to a dose of 10 mg daily. She was also placed on Lexapro 10 mg daily and the dose of Lexapro was eventually increased to a dose of 20 mg daily. Initially, the patient was quite disorganized, eating very little, and unable to attend to her activities of daily living, such as dressing, bathing, and grooming independently. She also was frequently agitated and at times appeared almost frantic. Within this context she received a number of as needed doses of haloperidol and so a scheduled dose of haloperidol 5 mg twice a day was added to the patient's medication regimen. Also, the patient and the staff noticed that her mood and cognitive abilities seemed to fluctuate over the course the day. For part of the day she would be pleasant and cooperative, although somewhat passive, and at other times she would be emotionally labile and insistent. Shortly after being placed on lamotrigine 25 mg daily we began to notice some degree of mood stabilization. Over the course of several days her mood improved, and stabilized towards the end of the stay. She has tolerated her medications well. Material risks and anticipated benefits of the medications were reviewed with the patient, and she indicated understanding. She has been advised the expectation is that her dose of lamotrigine is likely to be titrated, slowly, on an outpatient basis. Her next appointment with her outpatient prescriber, Ms. Wagner, will be on 06/07/2018, and at that point it may be appropriate to increase her dose of lamotrigine to 50 mg daily. The patient's sleep, appetite, and ability to attend her own physical needs all improved to a fully satisfactory level. She remained eager to be discharged throughout the entire stay. I spoke with the patient's (boyfriend of 20 years) by telephone on the day of discharge, and he was in agreement with the plan to discharge the patient with continued treatment on an outpatient basis. Day of Discharge Assessment At the time of discharge, the patient was fully able to attend her own physical needs. She was bathing independently, and dressing and grooming herself without prompting. She also demonstrated a good appetite and maintain good oral intake. She was active in the milieu, participated actively in groups and activity therapies, and demonstrated a generally euthymic affect. The patient's thought processes remained somewhat concrete, but were generally goal oriented and appropriate. There was no evidence of any delusional material and the patient's thought content. She reported no perceptual disturbances, and although during the initial portion of the state appeared that the patient was responding to internal stimuli, this had resolved fully by the time of discharge. The patient's insight remains somewhat limited, and her judgment is at least fair. She does recognize the need for treatment, and voices an intention to be fully adherent with outpatient treatment, including outpatient medications. The patient reports that she has no suicidal or homicidal thoughts Transition of Care Transition Of Care Record: was reviewed with the patient Advance Directives Advance Directives Information Provided: Yes Advance Directives: No Mental Health Advance Directive: No Advance Directives on File: No Living Will: No Power of Nuclear Power Reactor Operator: No Advance Directives Reason:: Declines as Mental Health Visit. Risk Factors Assessment Male: No : Yes Health Problems: Yes Mental Health Diagnoses: Yes Substance Use Disorders: Yes Previous Attempt: Yes Previous Psychiatric Hospitalization: Yes Smoker: Yes Protective Factors Assessment : No Responsible for Young Children: Yes Employed: No (Disabled due to mental health) Stable Relationships: Yes Supportive Family: Yes Tobacco Cessation at Discharge Tobacco Cessation Medication Prescribed at Discharge: Not Applicable/Non-Smoker (Patient has stopped smoking during the hospital stay and is not experiencing any symptoms of nicotine withdrawal.) Antipsychotic Medications The patient is taking 2 antipsychotic medications: Aripiprazole and haloperidol. Aripiprazole is being used primarily to augment the patient's antidepressant medications and as a mood stabilizer. Haloperidol has been effective in addressing the patient's disordered thinking. Total Time Total Time Spent: Greater Than 30 Minutes Total Time Includes: Examination of the patient, Discharge Planning and Me dication Reconciliation Discharge Data Lab Results 05/16/18 05/16/18 05/16/18 15:38 15:38 15:38 WBC 15.35 H RBC 5.37 Hgb 16.6 H Hct 47.6 H MCV 88.6 MCH 30.9 MCHC 34.9 RDW Std Deviation 45.2 RDW Coeff of [place] 14.0 Plt Count 219 MPV 12.8 H Immature Gran % (Auto) 0.3 Neut % (Auto) 81.8 Lymph % (Auto) 9.2 [place] % (Auto) 8.2 Eos % (Auto) 0.4 Baso % (Auto) 0.1 Immature Gran # (Auto) 0.04 H Neut # (Auto) 12.56 H Lymph # (Auto) 1.41 [place] # (Auto) 1.26 H Eos # (Auto) 0.06 Baso # (Auto) 0.02 Sodium 137 Potassium 3.7 Chloride 105 Carbon Dioxide 23 Anion Gap 9.0 BUN 14 Creatinine 0.76 Est Cr Clr Drug Dosing 87.3 Est GFR ( Amer) 115.3 Est GFR (Non-Af Amer) 99.5 BUN/Creatinine Ratio 18.2 Glucose 100 H Fasting Glucose Calcium 9.6 Total Bilirubin 0.4 AST 11 L ALT 30 Alkaline Phosphatase 85 Total Creatine Kinase 45 Total Protein 7.7 Albumin 3.8 Globulin 3.9 Albumin/Globulin Ratio 1.0 Triglycerides Cholesterol LDL Cholesterol, Calc VLDL Cholesterol, Calc HDL Cholesterol Cholesterol/HDL Ratio TSH 0.676 HCG, Qual Urine Color Urine Appearance Urine pH Ur Specific [place] Urine Protein Urine Glucose (UA) Urine Ketones Urine Blood Urine Nitrite Urine Bilirubin Urine Urobilinogen Ur Leukocyte Esterase Urine RBC Urine WBC Ur Epithelial Cells Urine Bacteria Salicylates 5.4 Acetaminophen < 2 L Ethyl Alcohol mg/dL 05/16/18 05/16/18 05/16/18 15:38 15:38 15:45 WBC RBC Hgb Hct MCV MCH MCHC RDW Std Deviation RDW Coeff of [place] Plt Count MPV Immature Gran % (Auto) Neut % (Auto) Lymph % (Auto) [place] % (Auto) Eos % (Auto) Baso % (Auto) Immature Gran # (Auto) Neut # (Auto) Lymph # (Auto) [place] # (Auto) Eos # (Auto) Baso # (Auto) Sodium Potassium Chloride Carbon Dioxide Anion Gap BUN Creatinine Est Cr Clr Drug Dosing Est GFR ( Amer) Est GFR (Non-Af Amer) BUN/Creatinine Ratio Glucose Fasting Glucose Calcium Total Bilirubin AST ALT Alkaline Phosphatase Total Creatine Kinase Cancelled Total Protein Albumin Globulin Albumin/Globulin Ratio Triglycerides Cholesterol LDL Cholesterol, Calc VLDL Cholesterol, Calc HDL Cholesterol Cholesterol/HDL Ratio TSH HCG, Qual Negative Urine Color Urine Appearance Urine pH Ur Specific [place] Urine Protein Urine Glucose (UA) Urine Ketones Urine Blood Urine Nitrite Urine Bilirubin Urine Urobilinogen Ur Leukocyte Esterase Urine RBC Urine WBC Ur Epithelial Cells Urine Bacteria Salicylates Acetaminophen Ethyl Alcohol mg/dL < 3.0 05/16/18 05/18/18 19:14 07:08 WBC RBC Hgb Hct MCV MCH MCHC RDW Std Deviation RDW Coeff of Zuhair Plt Count MPV Immature Gran % (Auto) Neut % (Auto) Lymph % (Auto) [place] % (Auto) Eos % (Auto) Baso % (Auto) Immature Gran # (Auto) Neut # (Auto) Lymph # (Auto) [place] # (Auto) Eos # (Auto) Baso # (Auto) Sodium Potassium Chloride Carbon Dioxide Anion Gap BUN Creatinine Est Cr Clr Drug Dosing Est GFR ( Amer) Est GFR (Non-Af Amer) BUN/Creatinine Ratio Glucose Fasting Glucose 102 H Calcium Total Bilirubin AST ALT Alkaline Phosphatase Total Creatine Kinase Total Protein Albumin Globulin Albumin/Globulin Ratio Triglycerides 119 Cholesterol 153 LDL Cholesterol, Calc 96 VLDL Cholesterol, Calc 24 HDL Cholesterol 33 Cholesterol/HDL Ratio 5 TSH HCG, Qual Urine Color Red Urine Appearance Turbid H Urine pH Ur Specific [place] 1.048 Urine Protein Positive H Urine Glucose (UA) Urine Ketones Urine Blood Urine Nitrite Urine Bilirubin Urine Urobilinogen Ur Leukocyte Esterase Urine RBC >30 H Urine WBC 5-10 H Ur Epithelial Cells 0-5 Urine Bacteria 2+ H Salicylates Acetaminophen Ethyl Alcohol mg/dL Hospital Course (1) Unspecified psychosis: 05/17 - Start Geodon 20 mg BID with food - Start Lexapro 10 mg daily - Q 15 min checks for safety - Assist the patient to attend to ADL's - Obtain current med list from OP providers and coordinate aftercare - Obtain supplemental information from patient's fiance or 302 petitioner - patient is excused from groups at this time - Reality orientation - Will order ativan 1 mg q 4 hr prn in the event we are seeing some degree of catatonia - FLP and FBS for monitoring on antipsychotics 05/18 -Urine culture results reviewed; more than 3 types of organisms present, probable skin rufino. Treatment not indicated. Patient on menses. -Leukocytosis on presentation, but no signs of infection, may be stress related. -Collateral obtained from the patient's boyfriend and outpatient records reviewed. Diagnosis remains unclear, as she reportedly has been diagnosed with schizoaffective disorder unspecified type in the past, but it appears she went an entire year on an SSRI alone and had no psychotic symptoms. Her current disorganization and paranoia occurred in the context of worsening mood, so this could be seen as a psychotic depression. She continues to regularly use cannabis, so substance-induced psychotic and mood disorder is a possibility as well. There may be an element of delirium. We will check a MOCA today and monitor cognitive function. -Continue ziprasidone 20 mg twice daily with meals, and encourage patient to eat adequate calories (at least 500) with the medication to allow for adequate absorption. If she is unable to do this, we may need to switch to a different medication that is not reliant on caloric intake. Per records, she has had trials of quetiapine, risperidone, and haloperidol in the past. Risperidone caused akathisia, and quetiapine caused somnolence. Would avoid typical antipsychotics due to the risk of tardive dyskinesia given the likely need for long-term treatment. Could consider a trial of aripiprazole or lurasidone to target both mood and psychotic symptoms, as they have lower risk of weight gain compared to other atypical antipsychotics. -Fasting labs reviewed for monitoring on an atypical antipsychotic: Fasting glucose elevated 102, lipid profile within normal limits. 05/19 -File for 303 involuntary commitment due to ongoing psychosis and inability to provide for her own basic needs; hearing tomorrow. -Patient not yet appropriate for a family meeting, but once she is, will need one with her boyfriend. Collateral information from her boyfriend regarding her symptoms over the past several years may be helpful to clarify diagnosis. -Appetite remains poor with limited p.o. intake, despite staff encouragement. She has not been able to ingest adequate calories with her ziprasidone for it to be absorbed, so we will discontinue it and start aripiprazole 5 mg daily. Discussed this medication change with the patient, and aripiprazole was chosen due to information and outpatient records that she was very concerned about taking medications that could contribute to weight gain, and it has lower risk compared to quetiapine, risperidone, and olanzapine. -She has not been able to tolerate a MOCA, but will continue to attempt cognitive screening. 05/20 -303 involuntary commitment hearing held today. The patient was retained by the cloth shearing supervisor. The patient declined to participate in the hearing. -While the patient does appear somewhat guarded and suspicious, no delusional material was identified and the patient's thought content. However, full assessment of her thought content was read to difficult by the fact that the patient offers little spontaneous speech and tends to "shut down" when asked about specific symptoms. -The patient was recently started on aripiprazole 5 mg daily. I met with her approximately 2 hours after her morning dose of this medication and she indicated that she is tolerating it well. -Today, the patient is able to provide details concerning her household, her home, her daily activities, and, in particular, she brightens when discussing her pet dogs, 1 of which is reportedly a puppy. -We will increase her dose of escitalopram from a dose of 10 mg a day to a dose of 20 mg a day, starting tomorrow. -The patient reports that she is not having any suicidal or homicidal thoughts. 05/21 -will titrate Abilify tomorrow, in meantime, will schedule low dose Haldol 2 mg today as an adjunct as pms clearly worse and not consistently accepting prns. Ativan 1 mg TID as trial as appears to have some catatonic features. 05/23 - Continue current meds - Encourage use of prn haldol 05/24 -Continue to encourage use of prns' - FAmily meeting with fiance today 05/25 -The patient seems to be confused by the use of as needed medications and, in particular, by the apparent randomness of the dosage administrations. At present, she is unable to grasp the concept of "as needed" medications, and she tells me that she would feel much more comfortable if she could receive the medications at specific times each day. I did explain to her that we will be adjusting her medications and that new medications or additional medications may be offered various other times, depending upon her response to treatment and her condition. --We will discontinue haloperidol 2 mg daily as a standing dose medication and replace it with a dose of haloperidol 5 mg twice a day, standing dose. --Because both the patient and the staff are noticing some degree of emotional lability and a mood that cycles between "feeling okay" and being depressed, confused, or angry, we will attempt to stabilize the patient's mood through the addition of lamotrigine 25 mg daily, and titrate gradually. Material risks of lamotrigine were reviewed with the patient, and she indicated understanding. Specific instructions included, but were not limited to, an instruction to notify staff should she notice the development of a rash anywhere on her body, and I explained the risk of Rodriguez-Brodie syndrome. 05/26 - Continue current meds and plan 05/27 - Continue current medication regimen - Possible discharge on 05/30 if she continues to tolerate medication regimen and demonstrate stability of mood and thought processes 06/06 -Following further discussion with the patient, her , and the treatment team it was decided that the patient is currently able to be discharged to the community. The original plan had been to observe her over the weekend, but her condition at this point is sufficiently stable to permit discharge and the patient is very eager to return home to her family. (2) Cannabis abuse: 05/18 -once patient is less psychotic, we will need to provide psychoeducation about the risks of ongoing cannabis use, particularly the risk of worsening psychosis. Consider the need for outpatient substance abuse treatment. 05/27 --patient educated regarding the risk of ongoing cannabis use within the context of her being treated for psychosis and mood alterations. The patient indicated understanding. (3) Tobacco abuse: 05/18 -patient reports smoking 1 pack/day and reporting urges to smoke, so will order nicotine patch. Offer smoking cessation education, and arrange outpatient follow-up with her battery builder. 05/27 -patient completed a smoking cessation effort through nicotine patches and as needed nicotine gum, and is no longer in need of any nicotine supplement. She reports that she is not experiencing nicotine cravings and does not plan to resume use of tobacco products. Post Discharge Appointments Primary Care Physician Name Of Family Doctor: James - Dr. Almodovar Primary Care Provider Appointment Comment: [address] [place] [address] [place] [address] Psychiatrist Name of Psychiatrist: [facility] - DEANN Christensen Psychiatrist's Date of Appointment with Psychiatrist: 06/16/18 Time of Appointment with Psychiatrist: 10:00 a.m. Psychiatric Appointment Comment: [place] [id number] Therapist Name of Therapist: [facility] - Lissettedenzel Delgadojose Therapist's Date of Therapist Appointment: 06/02/18 Time of Therapist Appointment: 7:45 a.m. Therapy Appointment Comment: [address] [place] [address] Slab Polisher Name of Slab Polisher: [facility] - Amy Russell Phone Number for Slab Polisher: [phone] Date of Appointment with Slab Polisher: 05/31/18 Time of Appointment with Slab Polisher: 3:15 p.m. Case Management Appointment Comment: Will see you at home Partial or Psych Rehab Name of Partial or Psych Rehab: [facility] Phone Number of Partial or Psych Rehab: [phone] Time of Appointment at Partial or Psych Rehab: Call office to schedule tour of facilty Partial or Psych Rehab Appointment Comment: [address] [place] [address] Smoking Cessation Counseling Tobacco Cessation Medication Prescribed at Discharge: Not Applicable/Non-Smoker (Patient has stopped smoking during the hospital stay and is not experiencing any symptoms of nicotine withdrawal.) Contact Information Discharge Discharge Address: [address] [place] [address] [address], [place] [address] Discharge Plan Discharge Items Patient Disposition: Home - Self-Care Reason For Visit: SCHIZOAFFECTIVE DISORDER Discharge Diagnosis: Schizoafffective Disorder Discharge Goals: Improve function and Learn about illness Specific Goals: Keep appointments and take medicaitons as prescribed Activity: Resume your previous activity Non-emergency contact: Primary Care Provider and Psychiatrist Call non-emergency contact if: you have any medication questions and your symptoms worsen Diet: Regular Addtl Provider Instructions: Please keep your appointments, work with your community case manager, Ms. Russell, and take medications as prescribed. Prescriptions: New aripiprazole [Abilify] 10 mg Tablet 10 mg PO QAM Qty: 30 RF: 0 haloperidol 5 mg Tablet 5 mg PO BID Qty: 60 RF: 0 lamotrigine 25 mg Tablet 25 mg PO QAM Qty: 30 RF: 0 hydroxyzine HCl 25 mg Tablet 50 mg PO HSZ PRN (Reason: Sleep) Qty: 30 RF: 0 benztropine 2 mg tablet 2 mg PO DAILY Qty: 30 RF: 0 lorazepam 1 mg tablet 1 mg PO TID Qty: 90 RF: 0 Continued multivitamin Tablet 1 tab PO DAILY RF: 0 fluticasone-salmeterol [Advair Diskus] 250-50 mcg/dose Blister With Device 1 inh INHALATION BID RF: 0 ferrous sulfate 325 mg (65 mg iron) Tablet 325 mg PO DAILY RF: 0 omeprazole 20 mg capsule,delayed release(DR/EC) 20 mg PO DAILY RF: 0 escitalopram oxalate 20 mg tablet 20 mg PO HS RF: 0 Discontinued ziprasidone HCl 20 mg capsule 20 mg PO DAILY RF: 0 Stand-Alone Forms: [facility] Discharge Orders: Discharge Order (Routine); Ordered 05/27/18 Ordered By: Ha Russell Admission Data Admit Date/Time: 05/17/18 03:06 Attending Provider: Terese Banegas Admit Provider: Terese Banegas Primary Care Provider: PCP,NO Service: Psychiatry Other Interventions: PSY Interdisciplinary Discharge Planning Last Done: 05/26/18 10:03
== END 2018-05-27 17:05 | disposition home or self-care (01) | DRG 885 ==
LOC: ED 14:33 → 3S 05-17 03:06

== ENCOUNTER 2018-07-17 08:28 | Inpatient (IN) ==
--- NOTE | 2018-07-17 09:07 | Emergency Department Note ---
Entered by Ruth Jarrett acting as a scribe for Sunny Jimenez DO History of Present Illness General Chief complaint: Mental Health Evaluation Stated complaint: JOSE C GODWIN Time Seen by Provider: 07/17/18 08:50 Source: patient and family () History of Present Illness Onset (ago): month(s) 1 Location: head Pain Consistency: + other (episode) Maximum Pain Intensity: 0 Quality: + other (paranoia and depression) Associated symptoms: + denies other symptoms (suicidal or homicidal ideation, auditory and visual hallucinations) and + loss of appetite (food and drink) The patient is a 37 year old female that is presenting to the Emergency Room with complaints of an episode of paranoia that has been worsening over the past month. The patient reports that she is currently in the process of moving houses and she feels overwhelmed. She states that she feels like she is never going to accomplish all of her tasks on time. She reports that she feels like everything has piled up recently and that it is taking a toll on her. She notes that she is feeling depressed and wanted to give up trying to accomplish anything. She states that she wanted to come in to the Emergency Room today. The patient denies any suicidal or homicidal ideations as well any auditory or visual hallucinations. The patients states that the patient has been laying on the couch and becomes unresponsive to questions. Her notes that the pat ient has not been eating or drinking normally and has lost 13 lbs in the past month in addition to 15 lbs the previous month. Her reports that the patient was admitted to the hospital 1.5 months ago on a 302 that he called in due to an inability to care. Her states that the patient was admitted for 20-30 days at that time. The patients states that she completely shuts down during these episodes and barely moves. Her notes that the patient takes a number of medications to manage her symptoms. Home Medications Home Medications Medication Instructions Recorded Confirmed Type escitalopram oxalate 20 mg PO HS 05/04/18 07/17/18 History ferrous sulfate 325 mg PO DAILY 05/04/18 07/17/18 History fluticasone propion-salmeterol 1 inh INHALATION BID 05/04/18 07/17/18 History [Advair Diskus] multivitamin 1 tab PO DAILY 05/04/18 07/17/18 History omeprazole 20 mg PO DAILY 05/04/18 07/17/18 History benztropine 2 mg PO DAILY #30 tab 05/27/18 07/17/18 Rx haloperidol 5 mg PO BID #60 tab 05/27/18 07/17/18 Rx hydroxyzine HCl 50 mg PO HSZ PRN #30 tab 05/27/18 07/17/18 Rx lamotrigine 25 mg PO QAM #30 tab 05/27/18 07/17/18 Rx aripiprazole [Abilify Maintena] 400 mg IM Q4WK 07/17/18 07/17/18 History lorazepam 1.5 mg PO DAILY PRN 07/17/18 07/17/18 History Allergies Allergy/AdvReac Type Severity Reaction Status Date / Time Penicillins Allergy Unknown RASH Unverified 05/04/18 14:04 Past Med/Surg History Medical History Anemia (Chronic) GERD (gastroesophageal reflux disease) (Chronic) HTN (hypertension) (Chronic) Bipolar 1 disorder (Chronic) Marijuana use (Chronic) Asthma (Chronic) Endometriosis (Chronic) ""Had surgery 1995"" Unspecified mood [affective] disorder Anxiety (Inactive) Anxiety HTN (hypertension) Paranoia Schizophrenia Tobacco abuse Tubal ligation evaluation Surgical History Hx of tubal ligation (Chronic) Family History Other No significant family history Social History Preferred Language: Vincentian Communication Ability: Effective 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 and A total of 10 systems reviewed and were otherwise negative Physical Exam Vital Signs Vital Signs - 24 hr 07/17/18 08:39 07/17/18 12:02 07/17/18 12:46 Temperature 36.6 C 36.8 C Temperature Source Oral Oral Sepsis Recent Fever Within 48 Hours No Sepsis Action Taken by Nursing No Action Required Pulse Rate 90 Pulse Rate [Finger] 83 81 Pulse Rhythm [Finger] Regular Pulse Strength [Finger] Normal Respiratory Rate 16 17 14 Respiratory Effort / Characteristics Non-Labored Respiratory Depth Normal Respiratory Pattern Regular Blood Pressure 135/89 Blood Pressure [Left Arm] 145/66 H 128/85 Blood Pressure Mean 104 Blood Pressure Mean [Left Arm] 92 99 Blood Pressure Position Sitting Blood Pressure Position [Left Arm] Sitting Pulse Oximetry 95 96 Oxygen Delivery Method Room Air CONSTITUTIONAL/VITAL SIGNS: Reviewed / noted above. GENERAL: Non-toxic in appearance. INTEGUMENTARY: Warm, dry, and [place]. HEAD: Normocephalic. EYES: without scleral icterus or trauma. ENT/OROPHARYNX: clear and moist. LYMPHADENOPATHY/NECK: Is supple without lymphadenopathy or meningismus. RESPIRATORY: Lungs clear and equal. CARDIOVASCULAR: Regular rate and rhythm. GI/ABDOMEN: Soft and nontender. No organomegaly or pulsatile mass. No rebound or guarding. Normal bowel sounds. EXTREMITIES: Warm and well perfused. BACK: No CVA tenderness. NEUROLOGICAL: Intact without focal deficits. PSYCHIATRIC: depressed affect. MUSCULOSKELETAL: Normally developed with good muscle tone. Course 0852:The patient was evaluated in room A06. A complete history and physical examination was performed. 1120: Upon reevaluation, the patient is resting comfortably. I discussed laboratory and radiographic results with the patient. She verbalized agreement of the treatment plan. The patient will be evaluated for further management and care. Administered Medications Nicotine (Nicoderm Cq) [address] [facility] Stop: 08/16/18 13:44 Last Admin: 07/17/18 14:10 Dose: 21 mg Documented by: [id number] Medical Decision Making Differential Diagnosis Differential includes toxic ingestions, self-mutilation, suicidal ideation, suicide attempt, depression. Medical Records Attestation: I reviewed the patient's medical records. Home Medications Current Medication List: was personally reviewed by me Laboratory Data Attestation: I reviewed the patient's lab results. Result diagrams: 07/17/18 09:19 07/17/18 09:19 Lab Results 07/17/18 07/17/18 07/17/18 Range/Units 08:55 08:55 08:55 WBC (4.8-10.8) K/uL RBC (4.2-5.4) M/uL Hgb (12.0-16.0) g/dL Hct (37-47) % MCV (80-100) fL MCH (25-34) pg MCHC (32-36) g/dL RDW Std Deviation (36.4-46.3) fL RDW Coeff of Zuhair (11.5-14.5) % Plt Count (130-400) K/uL MPV (7.4-10.4) fL Immature Gran % (Auto) % Neut % (Auto) % Lymph % (Auto) % [place] % (Auto) % Eos % (Auto) % Baso % (Auto) % Immature Gran # (Auto) (0.00-0.02) K/uL Neut # (Auto) (1.4-6.5) K/uL Lymph # (Auto) (1.2-3.4) K/uL [place] # (Auto) (0.11-0.59) K/uL Eos # (Auto) (0-0.5) K/uL Baso # (Auto) (0-0.2) K/uL Sodium (136-145) mmol/L Potassium (3.5-5.1) mmol/L Chloride (98-107) mmol/L Carbon Dioxide (21-32) mmol/L Anion Gap (3-11) BUN (7-18) mg/dl Creatinine (0.6-1.2) mg/dl Est Cr Clr Drug Dosing ml/min Est GFR ( Amer) Est GFR (Non-Af Amer) BUN/Creatinine Ratio (10-20) Glucose (70-99) mg/dl Calcium (8.5-10.1) mg/dl Total Bilirubin (0.2-1) mg/dl AST (15-37) U/L ALT (12-78) U/L Alkaline Phosphatase (45-117) U/L Total Protein (6.4-8.2) gm/dl Albumin (3.4-5.0) gm/dl Globulin (2.5-4.0) gm/dl Albumin/Globulin Ratio (0.9-2) TSH (0.300-4.500) uIu/ml Urine Color Yellow Urine Appearance Turbid H (Clear) Urine pH 6.0 (4.5-7.5) Ur Specific [place] 1.014 (1.000-1.030) Urine Protein Negative (Negative) Urine Glucose (UA) Negative (Negative) Urine Ketones Negative (Negative) Urine Blood 1+ H (Negative) Urine Nitrite Negative (Negative) Urine Bilirubin Negative (Negative) Urine Urobilinogen Negative (Negative) Ur Leukocyte Esterase 2+ H (Negative) Urine WBC (Auto) >30 H (0-5) /hpf Urine RBC (Auto) 5-10 H (0-4) /hpf U Hyaline Cast (Auto) 5-10 H (0-5) /lpf U Epithel Cells (Auto) >30 H (0-5) /lpf Urine Bacteria (Auto) 4+ H (Negative) Urine Yeast Not Reportable POC Ur Test NEG (NEG) Urine Opiates Screen Neg (Neg) Ur Methadone, Qual Neg (Neg) Urine Barbiturates Neg (Neg) Ur Phencyclidine (PCP) Neg (Neg) U Amphetamin/Meth Scrn Neg (Neg) MDMA (Ecstasy) Screen Neg (Neg) U Benzodiazepines Scrn Neg (Neg) Ur Cocaine Metabolite Neg (Neg) U Marijuana (THC) Screen Pos H (Neg) Ethyl Alcohol mg/dL (0-3) mg/dl 07/17/18 07/17/18 07/17/18 Range/Units 09:19 09:19 09:19 WBC 8.15 (4.8-10.8) K/uL RBC 4.88 (4.2-5.4) M/uL Hgb 14.9 (12.0-16.0) g/dL Hct 42.7 (37-47) % MCV 87.5 (80-100) fL MCH 30.5 (25-34) pg MCHC 34.9 (32-36) g/dL RDW Std Deviation 44.6 (36.4-46.3) fL RDW Coeff of Zuhair 13.9 (11.5-14.5) % Plt Count 216 (130-400) K/uL MPV 11.8 H (7.4-10.4) fL Immature Gran % (Auto) 0.1 % Neut % (Auto) 76.6 % Lymph % (Auto) 14.5 % [place] % (Auto) 8.0 % Eos % (Auto) 0.7 % Baso % (Auto) 0.1 % Immature Gran # (Auto) 0.01 (0.00-0.02) K/uL Neut # (Auto) 6.24 (1.4-6.5) K/uL Lymph # (Auto) 1.18 L (1.2-3.4) K/uL [place] # (Auto) 0.65 H (0.11-0.59) K/uL Eos # (Auto) 0.06 (0-0.5) K/uL Baso # (Auto) 0.01 (0-0.2) K/uL Sodium 142 (136-145) mmol/L Potassium 3.4 L (3.5-5.1) mmol/L Chloride 110 H (98-107) mmol/L Carbon Dioxide 25 (21-32) mmol/L Anion Gap 7.0 (3-11) BUN 6 L (7-18) mg/dl Creatinine 0.76 (0.6-1.2) mg/dl Est Cr Clr Drug Dosing 94.9 ml/min Est GFR ( Amer) 115.3 Est GFR (Non-Af Amer) 99.5 BUN/Creatinine Ratio 7.2 L (10-20) Glucose 108 H (70-99) mg/dl Calcium 9.8 (8.5-10.1) mg/dl Total Bilirubin 0.3 (0.2-1) mg/dl AST 14 L (15-37) U/L ALT 21 (12-78) U/L Alkaline Phosphatase 77 (45-117) U/L Total Protein 7.2 (6.4-8.2) gm/dl Albumin 3.7 (3.4-5.0) gm/dl Globulin 3.5 (2.5-4.0) gm/dl Albumin/Globulin Ratio 1.1 (0.9-2) TSH 0.479 (0.300-4.500) uIu/ml Urine Color Urine Appearance (Clear) Urine pH (4.5-7.5) Ur Specific [place] (1.000-1.030) Urine Protein (Negative) Urine Glucose (UA) (Negative) Urine Ketones (Negative) Urine Blood (Negative) Urine Nitrite (Negative) Urine Bilirubin (Negative) Urine Urobilinogen (Negative) Ur Leukocyte Esterase (Negative) Urine WBC (Auto) (0-5) /hpf Urine RBC (Auto) (0-4) /hpf U Hyaline Cast (Auto) (0-5) /lpf U Epithel Cells (Auto) (0-5) /lpf Urine Bacteria (Auto) (Negative) Urine Yeast POC Ur Test (NEG) Urine Opiates Screen (Neg) Ur Methadone, Qual (Neg) Urine Barbiturates (Neg) Ur Phencyclidine (PCP) (Neg) U Amphetamin/Meth Scrn (Neg) MDMA (Ecstasy) Screen (Neg) U Benzodiazepines Scrn (Neg) Ur Cocaine Metabolite (Neg) U Marijuana (THC) Screen (Neg) Ethyl Alcohol mg/dL < 3.0 (0-3) mg/dl Blood Pressure Blood Pressure Findings: Normal blood pressure MDM Narrative This is a 37-year-old female who presents to the ED with a chief complaint of decreased p.o. intake for the past several weeks and 13 pound weight loss in the past month because of depression. The patient states that she is overwhelmed with things that she has to do in life. She also reported that she felt paranoid but did not give any specific examples of her paranoia. She has not been doing anything around the house or anything at all just laying around according to the . She has been admitted for similar symptoms in the past. She was here for 30 days reportedly in the past month or 2. Her vital signs are normal. Her physical exam is unremarkable. She is not suicidal or homicidal. Blood work was unremarkable. TSH is normal. Urine revealed contaminated specimen. She is not having any urinary symptoms. Will await culture as this is likely related to contamination and not UTI. Tox screen revealed positive marijuana. Alcohol was negative. The patient was medically stable for psychiatric evaluation/admission and her discharge. She was admitted to . Impression & Plan Depression Discharge Plan Visit Data *Final* Discharge Date/Time: 07/17/18 12:02 Chief Complaint: Mental Health Evaluation Stated Complaint: [facility] ED Provider: Sunny Jimenez Discharge Problem: Depression Patient Disposition: Admitted As Inpatient Discharge Instructions Interventions: ED Discharge Assessment Last Done: 07/17/18 12:02 Discharge Problem: Depression Qualifiers: Depression Type: major depressive disorder Major depression recurrence: recurrent Active/Remission status: in remission of unspecified degree Qualified Code(s): F33.40 - Major depressive disorder, recurrent, in remission, unspecified The scribe's documentation has been prepared under my direction and personally reviewed by me in its entirety. I confirm that the note above accurately reflects all work, treatment, procedures, and medical decision making performed by me.
[2018-07-17 09:25] LABS: Appearance Urine Turbid (Clear); Bacteria Urine Automated 4+ (Negative); Bilirubin Urine Negative (Negative); Blood Urine 1+ (Negative); Color Urine Yellow; Epithelial Cell Urine Auto >30 /lpf (0-5); Glucose Urine UA Negative (Negative); Ketones Urine Negative (Negative); Leukocyte Esterase Urine 2+ (Negative); Nitrite Urine Negative (Negative); Protein Urine Negative (Negative); Specific Gravity Urine 1.014 (1.000-1.030); Urobilinogen Urine Negative (Negative); WBC Urine Automated >30 /hpf (0-5)
[2018-07-17 09:33] LABS: Basophils # (auto) 0.01 K/uL (0-0.2); Basophils % (auto) 0.1 %; Eosinophils # (auto) 0.06 K/uL (0-0.5); Eosinophils % (auto) 0.7 %; Hematocrit (blood only) 42.7 % (37-47); Hemoglobin 14.9 g/dL (12.0-16.0); Immature Granulocytes # (auto) 0.01 K/uL (0.00-0.02); Immature Granulocytes % (auto) 0.1 %; Lymphocytes # (auto) 1.18 K/uL (1.2-3.4); Lymphocytes % (auto) 14.5 %; Mean Corpuscular Hgb Conc 34.9 g/dL (32-36); Mean Corpuscular Volume 87.5 fL (80-100); Mean Platelet Volume 11.8 fL (7.4-10.4); Monocytes # (auto) 0.65 K/uL (0.11-0.59); Neutrophils # (auto) 6.24 K/uL (1.4-6.5); Neutrophils % (auto) 76.6 %; Platelet Count 216 K/uL (130-400); RDW Coefficient of Variation 13.9 % (11.5-14.5); RDW Standard Deviation 44.6 fL (36.4-46.3); Red Blood Count 4.88 M/uL (4.2-5.4); White Blood Count 8.15 K/uL (4.8-10.8)
[2018-07-17 09:44] LABS: Amphetamines+Metham, Urine Neg (Neg); Barbiturates, Urine Neg (Neg); Benzodiazepine, Urine Neg (Neg); Cocaine, Urine Neg (Neg); MDMA (Ecstacy), Urine Neg (Neg); Methadone, Urine Neg (Neg); Opiate, Urine Neg (Neg); Phencyclidine, Urine Neg (Neg)
[2018-07-17 09:51] LABS: Albumin Level 3.7 gm/dl (3.4-5.0); BUN Creatinine Ratio 7.2 (10-20); Calcium 9.8 mg/dl (8.5-10.1); Creatinine Clr Calc Pharmacy 94.9 ml/min; Est GFR (African American) 115.3; Est GFR (Non-African American) 99.5; Potassium 3.4 mmol/L (3.5-5.1)
[2018-07-17 10:01] LABS: Albumin Globulin Ratio 1.1 (0.9-2); Bilirubin,Total 0.3 mg/dl (0.2-1); Globulin 3.5 gm/dl (2.5-4.0); Total Protein 7.2 gm/dl (6.4-8.2)
[2018-07-17] MEDS ORDERED: ALUMINUM/MAGNESIUM SUSP 30 ML UDC PO PRN (10:56)
[2018-07-17] MEDS ORDERED: BISMUTH SUBSALICYLATE PER ML OMNICELL CHARGE PO PRN (10:56)
[2018-07-17] MEDS ORDERED: SODIUM CHLORIDE 0.65% NA SOLN 45 ML (OCEAN) PRN (10:56)
[2018-07-17] MEDS ORDERED: ACETAMINOPHEN 325 MG TAB PO PRN (10:56)
[2018-07-17] MEDS ORDERED: MAGNESIUM HYDROXIDE SUSP 30 ML UDC PO PRN (10:56)
[2018-07-17] MEDS ORDERED: LORazepam 0.5 MG TAB PO PRN (11:01)
[2018-07-17] MEDS: NICOTINE 21 MG/24 HR TDSY TD SCH (14:10)
[2018-07-17] MEDS: ESCITALOPRAM OXALATE 20 MG TAB PO SCH (21:09)
[2018-07-17] MEDS: FLUTICASONE/SALMETEROL 250/50 (ADVAIR) 14 PUFF/1 INHALER INH SCH (21:09)
[2018-07-17] MEDS: HALOPERIDOL 5 MG TAB PO SCH (21:12)
[2018-07-18] MEDS: MULTIVITAMIN TAB PO SCH (07:41)
[2018-07-18] MEDS: FERROUS SULFATE 325 MG TAB PO SCH (07:41)
[2018-07-18] MEDS: PANTOprazole 40 MG TAB PO SCH (07:41)
[2018-07-18] MEDS: HALOPERIDOL 5 MG TAB PO SCH ×2 (07:43→20:43)
[2018-07-18] MEDS: FLUTICASONE/SALMETEROL 250/50 (ADVAIR) 14 PUFF/1 INHALER INH SCH ×2 (07:50→20:44)
[2018-07-18] MEDS: NICOTINE 21 MG/24 HR TDSY TD SCH (07:50)
[2018-07-18] MEDS ORDERED: lamoTRIgine 25 MG TAB PO SCH (09:00)
[2018-07-18] MEDS ORDERED: BENZTROPINE MESYLATE 1 MG TAB PO SCH (09:00)
--- NOTE | 2018-07-18 09:45 | History & Physical ---
Date of Service July 18, 2018 Impression / Recommendations Protective Factors Assessment Employed: No (Disabled) Psychiatric History Identifying Data RASHIDA MEZA is a 37-year-old F who currently lives in [] [alone] with [], has a history of [], and was admitted on 07/17/18 10:57 on a [201 voluntary] [302 involuntary] commitment for []. Chief Complaint "[]". Past Psychiatric History Current Psychiatric Diagnosis: schizoaffective disorder Describe Attempts in the Past: Overdose 11 years ago Allergies Allergy/AdvReac Type Severity Reaction Status Date / Time Penicillins Allergy Unknown RASH Unverified 05/04/18 14:04 Home Medications Home Medications Medication Instructions Recorded Confirmed Type escitalopram oxalate 20 mg PO HS 05/04/18 07/17/18 History ferrous sulfate 325 mg PO DAILY 05/04/18 07/17/18 History fluticasone propion-salmeterol 1 inh INHALATION BID 05/04/18 07/17/18 History [Advair Diskus] multivitamin 1 tab PO DAILY 05/04/18 07/17/18 History omeprazole 20 mg PO DAILY 05/04/18 07/17/18 History benztropine 2 mg PO DAILY #30 tab 05/27/18 07/17/18 Rx haloperidol 5 mg PO BID #60 tab 05/27/18 07/17/18 Rx hydroxyzine HCl 50 mg PO HSZ PRN #30 tab 05/27/18 07/17/18 Rx lamotrigine 25 mg PO QAM #30 tab 05/27/18 07/17/18 Rx aripiprazole [Abilifarabella Maintena] 400 mg IM Q4WK 07/17/18 07/18/18 History lorazepam 1.5 mg PO DAILY PRN 07/17/18 07/17/18 History Family History Family History of: Depression, Anxiety and Doesn't Know Family Mental Health History Comment: father dx with schizophrenia, Alcohol History Hx of Alcohol Use Over the Past 12 Months: No AUDIT Total Score: 0 Smoking Use Have You Smoked or Used Tobacco Products in the Last 30 Days: Yes tobacco type: cigarettes Smoking Status: Current every day smoker Smoking packs per day: 1 Substance History Hx of Prescription Med Misuse Over the Past 12 Months: No Hx of Over the Counter Med Misuse Over the Past 12 Months: No Hx of Inhalent Misuse Over the Past 12 Months: No Hx of Organic Substance Use Over the Past 12 Months: Yes (Marijuana use, last use last week) Hx of Illegal Substances/Street Drug Use Over Past 12 Months: No Problems as a Result of Past Substance Use: None Identified Personal History Living Arrangements: moving today Living Arrangements Comments: Pt has been living in a trailer [place] [facility] but in the process of moving to a house that they are buying a house in [place] [facility] [place]. Highest Grade Completed: High School Graduate Marital Status: Living w/ Signif. Other Number Of Children: 2 Beliefs That Will Affect Care: None Patient History Medical History Anemia (Chronic) GERD (gastroesophageal reflux disease) (Chronic) HTN (hypertension) (Chronic) Bipolar 1 disorder (Chronic) Marijuana use (Chronic) Asthma (Chronic) Endometriosis (Chronic) ""Had surgery 1995"" Unspecified mood [affective] disorder Anxiety (Inactive) Anxiety HTN (hypertension) Paranoia Schizophrenia Tobacco abuse Tubal ligation evaluation Surgical History Hx of tubal ligation (Chronic) Family History Other No significant family history Social History Preferred Language: Sami Communication Ability: Effective Digester Operator Required: No Beliefs That Will Affect Care: None marital status: Single Current Living Situation: Family current occupational status: disabled Feels Safe at Home: Yes Smoking Status: Current every day smoker Tobacco Type: cigarettes Physical Exam Vital Signs (Past 24 Hours): Last Vital Signs Temp 36.7 C 07/18/18 06:44 Pulse 78 07/18/18 06:45 Resp 18 07/18/18 06:44 BP 118/79 07/18/18 06:45 Pulse Ox 96 07/17/18 12:02 Results & Data Laboratory Results Laboratory Results - last 24 hr 07/17/18 07/17/18 07/17/18 08:55 09:19 09:19 Sodium 142 Potassium 3.4 L Chloride 110 H Carbon Dioxide 25 Anion Gap 7.0 BUN 6 L Creatinine 0.76 Est Cr Clr Drug Dosing 94.9 Est GFR ( Amer) 115.3 Est GFR (Non-Af Amer) 99.5 BUN/Creatinine Ratio 7.2 L Glucose 108 H Calcium 9.8 Total Bilirubin 0.3 AST 14 L ALT 21 Alkaline Phosphatase 77 Total Protein 7.2 Albumin 3.7 Globulin 3.5 Albumin/Globulin Ratio 1.1 TSH 0.479 Urine Opiates Screen Neg Ur Methadone, Qual Neg Urine Barbiturates Neg Ur Phencyclidine (PCP) Neg U Amphetamin/Meth Scrn Neg MDMA (Ecstasy) Screen Neg U Benzodiazepines Scrn Neg Ur Cocaine Metabolite Neg U Marijuana (THC) Screen Pos H Ethyl Alcohol mg/dL < 3.0 Current Inpatient Medications Current Inpatient Medications: Current Inpatient Medications Acetaminophen (Tylenol) 650 mg PO Q4H PRN PRN Reason: Headache or Minor Fever Stop: 08/16/18 10:55 Al Hydrox/Mg Hydrox/Simethicone (Maalox) 30 ml PO Q4H PRN PRN Reason: GI Upset Stop: 08/16/18 10:55 Benztropine Mesylate (Cogentin) 2 mg PO DAILY [facility] Stop: 08/17/18 08:59 Last Admin: 07/18/18 07:40 Dose: 2 mg Documented by: Bismuth Subsalicylate (Kaopectate) 15 ml PO PRN PRN PRN Reason: Loose Stool Stop: 08/16/18 10:55 Escitalopram Oxalate (Lexapro) 20 mg PO HS [facility] Stop: 08/16/18 20:59 Last Admin: 07/17/18 21:09 Dose: 20 mg Documented by: Ferrous Sulfate (Feosol) 325 mg PO DAILY [facility] Stop: 08/17/18 08:59 Last Admin: 07/18/18 07:41 Dose: 325 mg Documented by: Haloperidol (Haldol) 5 mg PO BID [facility] Stop: 08/16/18 20:59 Last Admin: 07/18/18 07:43 Dose: 5 mg Documented by: Hydroxyzine HCl (Vistaril) 25 mg PO Q4H PRN PRN Reason: Anxiety Stop: 08/16/18 10:55 Hydroxyzine HCl (Vistaril) 50 mg PO HSZ PRN PRN Reason: Insomnia Stop: 08/16/18 10:55 Lamotrigine (Lamictal) 25 mg PO QAM [facility] Stop: 08/17/18 08:59 Last Admin: 07/18/18 07:40 Dose: 25 mg Documented by: Lorazepam (Ativan) 0.5 mg PO TID PRN PRN Reason: Anxiety Stop: 08/16/18 11:00 Last Admin: 07/17/18 15:34 Dose: 0.5 mg Documented by: Magnesium Hydroxide (Milk Of Magnesia) 30 ml PO DAILY PRN PRN Reason: Heartburn Stop: 08/16/18 10:55 Miscellaneous (Remove Nicoderm Patch) 1 ea N/A HS [facility] Stop: 08/16/18 21:59 Last Admin: 07/17/18 21:17 Dose: 1 ea Documented by: Multivitamins (Multivitamin Tab) 1 tab PO DAILY [facility] Stop: 08/17/18 08:59 Last Admin: 07/18/18 07:41 Dose: 1 tab Documented by: Nicotine (Nicoderm Cq) 21 mg TD QAM [facility] Stop: 08/16/18 13:44 Last Admin: 07/18/18 07:50 Dose: Not Given Documented by: Pantoprazole Sodium (Protonix) 40 mg PO DAILY [facility] Stop: 08/17/18 08:59 Last Admin: 07/18/18 07:41 Dose: 40 mg Documented by: Fluticasone/Salmeterol (Advair Diskus 250/50) 1 puffs INH BID [facility] Stop: 08/16/18 20:59 Last Admin: 07/18/18 07:50 Dose: 1 puffs Documented by: Sodium Chloride (Rover Nasal) 1 - 2 sprays NA PRN PRN PRN Reason: Nasal Dryness/Congestion Stop: 08/16/18 10:55 CPT Code CPT Code Initial Hospital Care: 99789
--- NOTE | 2018-07-18 10:01 | History & Physical ---
Date of Service July 18, 2018 Impression / Recommendations Impression 37-year-old woman admitted voluntarily. She has known schizoaffective disorder in the face of a significant stressor has been nonfunctional at home. We will first confirm her outpatient prescriptions with primary health network and be sure to order them appropriately. She is willing to listen to the recommendation to be out of bed and structure in place during her day. We are told that the move is happening today and hopefully by the time of discharge the move will be complete and the patient will not feel so overwhelmed. I am not sure that this is a situation that needs to have medication adjustments although her Lamictal is still only 25 mg daily. Will wait to make recommendations after hearing her accurate home medication list. Until then she will need encouragement to get out of bed and participate in programming and establish some daily structure. We will coordinate with her although today he will be busy with the move. At this time, the patient requires inpatient mental health treatment due to the severity of her condition and her inability to function outside of a structured environment. (1) Schizoaffective disorder: 07/18 - Confirm acurate home med list, and reorder - Consider increasing Lamictal - Assist the patient to reestablish structure to her day - Family meeting with after the move - Obtain OP records from [facility] - 15 min checks for safety - Encourage participation in group and individual counseling - Safety planning - Encourage the patient to use healthy coping strategies. Schizoaffective disorder type: unspecified Qualified Code(s): F25.9 - Schizoaffective disorder, unspecified Present on Admission?: Yes Inventory Assets Strengths: Good support from family, has consistent outpatient providers Needs: Healthy coping strategies Risk Factors Assessment Male: No : Yes Do You Have Access To A Gun?: No Health Problems: No Mental Health Diagnoses: Yes Substance Use Disorders: No Previous Attempt: Yes Family History of Suicide: No Previous Psychiatric Hospitalization: Yes Hopelessness: No Smoker: Yes Protective Factors Assessment : Yes Responsible for Young Children: Yes Employed: No (Disabled) Stable Relationships: Yes Supportive Family: Yes Good Rapport with Provider: Yes Psychiatric History Identifying Data RASHIDA MEZA is a 37-year-old F, with known schizoaffective disorder, who was admitted to our unit voluntarily based on the fact that she is not functioning at home. Information is gathered from the patient and considered to be reliable. Chief Complaint " Not so good.". History of Present Illness The patient is well-known to our unit from multiple hospitalizations, most rece ntly in April to May of this year. At that time she was poorly functional, not taking care of herself, was admitted disheveled and malodorous and poorly communicative. Although there is some similarity to this admission, at this point she is at least taking care of herself and communicating. Her has been reported that she has been spending a great deal of time on the couch, not taking care of necessary activities for she and the family. The primary stressor is that they are moving to a new house with the official move date today. She has felt overwhelmed with this task, not able to meet deadlines and feeling badly. She has been anticipating this move for several months and has had vegetative symptoms for the last 2 months including poor appetite having lost approximately 25 pounds per 's report, over the last 2 months. As she has deteriorated, he felt she needed more intensive attention and so brought her to our emergency department. At the time I see the patient she is lying in bed but is easily awakened to verbal and cooperative with conversation. she admits that she has been over whelmed with the move, specifically not being able to meet deadlines. She descr ibes that her mood has been "eh", but denies that she has been feeling suicidal. She indicates that she has felt "tired" and admits to spending a great deal of time on the couch. She admits to high anxiety that elevates to the level of panic when she recognizes she is not getting things done. During these times she feels overwhelmed and short of breath. She denies any self-injurious behaviors. She denies auditory or visual hallucinations. She denies delusions or fears for her safety. She says that she has been taking her medications regularly although is not able to say what her current medications include Past Psychiatric History Current Psychiatric Diagnosis: schizoaffective disorder Outpatient Services: Piedad ZACARIAS at [facility], and Sue at [facility] Previous Psych Admissions: yes, last at [facility] in Apr-May 2018 Do You Have Access To A Gun?: No History of Previous Suicide Attempt: Yes Describe Attempts in the Past: Overdose 11 years ago Past Medication Trials: Jean Pierre Espinoza like a zombie Allergies Allergy/AdvReac Type Severity Reaction Status Date / Time Penicillins Allergy Unknown RASH Unverified 05/04/18 14:04 Home Medications Home Medications Medication Instructions Recorded Confirmed Type escitalopram oxalate 20 mg PO HS 05/04/18 07/17/18 History ferrous sulfate 325 mg PO DAILY 05/04/18 07/17/18 History fluticasone propion-salmeterol 1 inh INHALATION BID 05/04/18 07/17/18 History [Advair Diskus] multivitamin 1 tab PO DAILY 05/04/18 07/17/18 History omeprazole 20 mg PO DAILY 05/04/18 07/17/18 History benztropine 2 mg PO DAILY #30 tab 05/27/18 07/17/18 Rx haloperidol 5 mg PO BID #60 tab 05/27/18 07/17/18 Rx hydroxyzine HCl 50 mg PO HSZ PRN #30 tab 05/27/18 07/17/18 Rx lamotrigine 25 mg PO QAM #30 tab 05/27/18 07/17/18 Rx aripiprazole [Abilifarabella Maintena] 400 mg IM Q4WK 07/17/18 07/18/18 History lorazepam 1.5 mg PO DAILY PRN 07/17/18 07/17/18 History Family History Family History of: Depression, Anxiety and Doesn't Know Family Mental Health History Comment: father dx with schizophrenia, Alcohol History Hx of Alcohol Use Over the Past 12 Months: No AUDIT Total Score: 0 Smoking Use Have You Smoked or Used Tobacco Products in the Last 30 Days: Yes tobacco type: cigarettes Smoking Status: Current every day smoker Smoking packs per day: 1 Substance History Hx of Prescription Med Misuse Over the Past 12 Months: No Hx of Over the Counter Med Misuse Over the Past 12 Months: No Hx of Inhalent Misuse Over the Past 12 Months: No Hx of Organic Substance Use Over the Past 12 Months: Yes (Marijuana use, last use last week) Hx of Illegal Substances/Street Drug Use Over Past 12 Months: No Problems as a Result of Past Substance Use: None Identified Personal History Living Arrangements: moving today Living Arrangements Comments: Pt has been living in a trailer in [facility] but in the process of moving to a house that they are buying a house in [facility]. Childhood: Raised predominantly by her mother Highest Grade Completed: High School Graduate Employment Status: Unemployed Marital Status: Number Of Children: 2 Beliefs That Will Affect Care: None Current Legal Problems: No Hx Legal Problems: No Patient History Medical History Anemia (Chronic) GERD (gastroesophageal reflux disease) (Chronic) HTN (hypertension) (Chronic) Bipolar 1 disorder (Chronic) Marijuana use (Chronic) Asthma (Chronic) Endometriosis (Chronic) ""Had surgery 1995"" Unspecified mood [affective] disorder Anxiety (Inactive) Anxiety HTN (hypertension) Paranoia Schizophrenia Tobacco abuse Tubal ligation evaluation Surgical History Hx of tubal ligation (Chronic) Family History Other No significant family history Social History Preferred Language: Turkish Communication Ability: Effective Director Case Required: No Beliefs That Will Affect Care: None marital status: Single Current Living Situation: Family current occupational status: disabled Feels Safe at Home: Yes Smoking Status: Current every day smoker Tobacco Type: cigarettes Review of Systems Review of Systems: All systems reviewed & are unremarkable except as noted in HPI & below Cardiovascular: + chest pain (with anxiety) Physical Exam Mental Examination: Exam performed by Dr. Jimenez in the emergency department has been reviewed and accepted as medical clearance for our unit Psychiatric: Orientation: alert, oriented x 3 and cooperative Apperance: appropriately dressed and appropriately groomed Eye Contact: + fair eye contact Motor Behavior: steady gait and station and no abnormal motor movements Speech: normal rate/rhythm/volume of speech Affect: + flat affect Mood: + depressed mood ("Eh.") Thought Process: goal directed thought process Thought Content: reality based without delusions Suicidal Thoughts: denies suicidal thoughts Homicidal Thoughts: denies homicidal thoughts Hallucinations: no auditory hallucinations and no visual hallucinations Cognition: recent memory grossly intact, remote memory grossly intact and attention grossly intact Estimated Intelligence: consistent with education level Insight: + limited insight Judgement: + limited judgement Vital Signs (Past 24 Hours): Last Vital Signs Temp 36.7 C 07/18/18 06:44 Pulse 78 07/18/18 06:45 Resp 18 07/18/18 06:44 BP 118/79 04/29/19 06:45 Pulse Ox 96 07/17/18 12:02 Results & Data Laboratory Results Laboratory Results - last 24 hr 07/17/18 07/17/18 09:19 09:19 Sodium 142 Potassium 3.4 L Chloride 110 H Carbon Dioxide 25 Anion Gap 7.0 BUN 6 L Creatinine 0.76 Est Cr Clr Drug Dosing 94.9 Est GFR ( Amer) 115.3 Est GFR (Non-Af Amer) 99.5 BUN/Creatinine Ratio 7.2 L Glucose 108 H Calcium 9.8 Total Bilirubin 0.3 AST 14 L ALT 21 Alkaline Phosphatase 77 Total Protein 7.2 Albumin 3.7 Globulin 3.5 Albumin/Globulin Ratio 1.1 TSH 0.479 Ethyl Alcohol mg/dL < 3.0 Current Inpatient Medications Current Inpatient Medications: Current Inpatient Medications Acetaminophen (Tylenol) 650 mg PO Q4H PRN PRN Reason: Headache or Minor Fever Stop: 08/16/18 10:55 Al Hydrox/Mg Hydrox/Simethicone (Maalox) 30 ml PO Q4H PRN PRN Reason: GI Upset Stop: 08/16/18 10:55 Benztropine Mesylate (Cogentin) 2 mg PO DAILY [facility] Stop: 08/17/18 08:59 Last Admin: 07/18/18 07:40 Dose: 2 mg Documented by: Bismuth Subsalicylate (Kaopectate) 15 ml PO PRN PRN PRN Reason: Loose Stool Stop: 08/16/18 10:55 Escitalopram Oxalate (Lexapro) 20 mg PO HS BRIANNA Stop: 08/16/18 20:59 Last Admin: 07/17/18 21:09 Dose: 20 mg Documented by: Ferrous Sulfate (Feosol) 325 mg PO DAILY [facility] Stop: 08/17/18 08:59 Last Admin: 07/18/18 07:41 Dose: 325 mg Documented by: Haloperidol (Haldol) 5 mg PO BID [facility] Stop: 08/16/18 20:59 Last Admin: 07/18/18 07:43 Dose: 5 mg Documented by: Hydroxyzine HCl (Vistaril) 25 mg PO Q4H PRN PRN Reason: Anxiety Stop: 08/16/18 10:55 Hydroxyzine HCl (Vistaril) 50 mg PO HSZ PRN PRN Reason: Insomnia Stop: 08/16/18 10:55 Lamotrigine (Lamictal) 25 mg PO QAM [facility] Stop: 08/17/18 08:59 Last Admin: 07/18/18 07:40 Dose: 25 mg Documented by: Lorazepam (Ativan) 0.5 mg PO TID PRN PRN Reason: Anxiety Stop: 08/16/18 11:00 Last Admin: 07/17/18 15:34 Dose: 0.5 mg Documented by: Magnesium Hydroxide (Milk Of Magnesia) 30 ml PO DAILY PRN PRN Reason: Heartburn Stop: 08/16/18 10:55 Miscellaneous (Remove Nicoderm Patch) 1 ea N/A HS [facility] Stop: 08/16/18 21:59 Last Admin: 07/17/18 21:17 Dose: 1 ea Documented by: Multivitamins (Multivitamin Tab) 1 tab PO DAILY [facility] Stop: 08/17/18 08:59 Last Admin: 07/18/18 07:41 Dose: 1 tab Documented by: Nicotine ([facility]oderm Cq) [facility] Stop: 08/16/18 13:44 Last Admin: 07/18/18 07:50 Dose: Not Given Documented by: Pantoprazole Sodium (Protonix) 40 mg PO DAILY [facility] Stop: 08/17/18 08:59 Last Admin: 07/18/18 07:41 Dose: 40 mg Documented by: Fluticasone/Salmeterol (Advair Diskus 250/50) 1 puffs INH BID [facility] Stop: 08/16/18 20:59 Last Admin: 07/18/18 07:50 Dose: 1 puffs Documented by: Sodium Chloride ([place] Nasal) 1 - 2 sprays NA PRN PRN PRN Reason: Nasal Dryness/Congestion Stop: 08/16/18 10:55 CPT Code CPT Code Initial Hospital Care: 61413
[2018-07-18] MEDS ORDERED: LORazepam 0.5 MG TAB PO PRN (11:58)
[2018-07-18] MEDS: ESCITALOPRAM OXALATE 20 MG TAB PO SCH (20:43)
[2018-07-19] MEDS: FLUTICASONE/SALMETEROL 250/50 (ADVAIR) 14 PUFF/1 INHALER INH SCH ×2 (07:23→21:02)
[2018-07-19] MEDS: FERROUS SULFATE 325 MG TAB PO SCH (07:24)
[2018-07-19] MEDS: lamoTRIgine 25 MG TAB PO SCH (07:24)
[2018-07-19] MEDS: MULTIVITAMIN TAB PO SCH (07:24)
[2018-07-19] MEDS: HALOPERIDOL 5 MG TAB PO SCH ×2 (07:24→21:02)
[2018-07-19] MEDS: PANTOprazole 40 MG TAB PO SCH (07:25)
[2018-07-19] MEDS: NICOTINE 21 MG/24 HR TDSY TD SCH (07:25)
--- NOTE | 2018-07-19 11:06 | Psychiatric Progress Note ---
Date of Service July 19, 2018 Impression / Recommendations Impression 37-year-old woman with schizoaffective disorder who was admitted voluntarily for severe anxiety and inability to function at home. She has had decreased appetite and p.o. intake with ~25lb weight loss, but is eating some of each meal here with encouragement. She continues to report anxiety about her family's upcoming move, although is unable to engage in an actual discussion of her thoughts or CBT, and has been retreating to bed as a way to cope. We will need to encourage her to be out of her room and working on healthy coping skills. (1) Schizoaffective disorder: 07/18 - Confirm accurate home med list, and reorder - Consider increasing Lamictal - Assist the patient to reestablish structure to her day - Family meeting with after the move - Obtain OP records from [facility] - Q 15 min checks for safety - Encourage participation in group and individual counseling - Safety planning - Encourage the patient to use healthy coping strategies. 07/19 - Outpatient records from [facility] have been requested but not yet received in order to clarify recent medication adjustments. - She is on Abilify Maintena, and fasting labs were reviewed for monitoring on an atypical antipsychotic: Last done 05/18/2018, fasting glucose 102, fasting lipid profile within normal limits. - Continue current medications - Encourage patient to be out of her room and participating in programming, with a focus on coping skills for anxiety. - She is refusing a family meeting with her . - Coordinate care with her therapist, Lissette, at the [facility] in [place]. Unclear if she has a family caseworker, but she may require transfer as she is moving from [facility] to [facility] Inventory Assets Strengths: Good support from family, has consistent outpatient providers Needs: Healthy coping strategies Risk Factors Assessment Male: No : Yes Do You Have Access To A Gun?: No Health Problems: No Mental Health Diagnoses: Yes Substance Use Disorders: No Previous Attempt: Yes Family History of Suicide: No Previous Psychiatric Hospitalization: Yes Hopelessness: No Smoker: Yes Protective Factors Assessment : Yes Responsible for Young Children: Yes Employed: No (Disabled) Stable Relationships: Yes Supportive Family: Yes Good Rapport with Provider: Yes Interval History Identifying Information RASHIDA MEZA is a 37-year-old female from [place] who has a history of schizoaffective disorder and was admitted to our unit voluntarily on 07/17/2018 for severe anxiety, disorganized thoughts, and inability to function. Chief Complaint "Not good". Review of Systems Sleep Information Total Hours of Sleep: 9.25 Sleep Comments: pt on q-15 minute checks Meal Information Percent Meal Consumed - Breakfast: 85 Percent Meal Consumed - Lunch: 50 Percent Meal Consumed - Dinner: 50 Subjective Subjective Patient was seen & assessed and interval progress reviewed with nursing and social work. Staff report her provided collateral: Patient was prescrib ed Lorazepam 0.5 mg 1 tab for 4 days starting 07/15/2018, and also received Abilify Maintena 400 mg IM 07/14/18. She continues to report anxiety, stated she was not taking care of herself at home, and had lost 25 pounds recently due to poor p.o. intake. She is declining a family meeting with her , spent much of her time in bed napping, but did attend some groups. She received 1 dose of lorazepam 0.5 mg yesterday. On my assessment, she was seen in her room where she has returned to bed after her a.m. community meeting. She states she is tired and does not think she slept well, despite nursing observing 9-1/2 hours of sleep overnight. She reports ongoing anxiety which she struggles to clarify, stating she is worrying about "the house and everything, a bunch of stuff," but cannot give any examples. She talked to her yesterday by phone and states he is too busy working on their new house to come in for a meeting. She denies thoughts of harming herself, anyone else, hallucinations, and paranoia. She is trying to eat some of each meal, but reports poor appetite. Physical Exam Mental Examination Well-nourished well-developed white female appearing older than her stated age. Lying in bed in no acute distress, awake, with good eye contact and no abnormal movements. Cooperative with the assessment, but a limited historian, giving vague answers, and struggling to clarify responses when asked. Mood is "not good," and affect is mildly anxious. Speech is minimal. Thoughts are concrete and goal-directed. Denies SI, HI, hallucinations, paranoia. No delusions evident. Insight and judgment are impaired. Vital Signs (Past 24 Hours) Last Vital Signs Temp 36.9 C 07/19/18 06:42 Pulse 87 07/19/18 06:43 Resp 16 07/19/18 06:42 BP 123/80 07/19/18 06:43 Pulse Ox 96 07/17/18 12:02 Results & Data Current Inpatient Medications Current Inpatient Medications: Current Inpatient Medications Acetaminophen (Tylenol) 650 mg PO Q4H PRN PRN Reason: Headache or Minor Fever Stop: 08/16/18 10:55 Al Hydrox/Mg Hydrox/Simethicone (Maalox) 30 ml PO Q4H PRN PRN Reason: GI Upset Stop: 08/16/18 10:55 Bismuth Subsalicylate (Kaopectate) 15 ml PO PRN PRN PRN Reason: Loose Stool Stop: 08/16/18 10:55 Escitalopram Oxalate (Lexapro) 20 mg PO HS [facility] Stop: 08/16/18 20:59 Last Admin: 07/18/18 20:43 Dose: 20 mg Documented by: Ferrous Sulfate (Feosol) 325 mg PO DAILY BRIANNA Stop: 08/17/18 08:59 Last Admin: 07/19/18 07:24 Dose: 325 mg Documented by: Haloperidol (Haldol) 5 mg PO BID BRIANNA Stop: 08/16/18 20:59 Last Admin: 07/19/18 07:24 Dose: 5 mg Documented by: Hydroxyzine HCl (Vistaril) 25 mg PO Q4H PRN PRN Reason: Anxiety Stop: 08/16/18 10:55 Hydroxyzine HCl (Vistaril) 50 mg PO HSZ PRN PRN Reason: Insomnia Stop: 08/16/18 10:55 Lamotrigine (Lamictal) 50 mg PO QAM BRIANNA Stop: 08/18/18 08:59 Last Admin: 07/19/18 07:24 Dose: 50 mg Documented by: Lorazepam (Ativan) 0.5 mg PO BID PRN PRN Reason: Anxiety Stop: 08/16/18 11:00 Magnesium Hydroxide (Milk Of Magnesia) 30 ml PO DAILY PRN PRN Reason: Heartburn Stop: 08/16/18 10:55 Miscellaneous (Remove Nicoderm Patch) 1 ea N/A HS [facility] Stop: 08/16/18 21:59 Last Admin: 07/18/18 20:52 Dose: Not Given Documented by: Multivitamins (Multivitamin Tab) 1 tab PO DAILY BRIANNA Stop: 08/17/18 08:59 Last Admin: 07/19/18 07:24 Dose: 1 tab Documented by: Nicotine (Nicoderm Cq) 21 mg TD QAM BRIANNA Stop: 08/16/18 13:44 Last Admin: 07/19/18 07:25 Dose: Not Given Documented by: Pantoprazole Sodium (Protonix) 40 mg PO DAILY BRIANNA Stop: 08/17/18 08:59 Last Admin: 07/19/18 07:25 Dose: 40 mg Documented by: Fluticasone/Salmeterol (Advair Diskus 250/50) 1 puffs INH BID BRIANNA Stop: 08/16/18 20:59 Last Admin: 07/19/18 07:23 Dose: 1 puffs Documented by: Sodium Chloride ([place] Nasal) 1 - 2 sprays NA PRN PRN PRN Reason: Nasal Dryness/Congestion Stop: 08/16/18 10:55 Post Discharge Appointments Primary Care Physician Name Of Family Doctor: Dr. Haynes Primary Care Provider Appointment Comment: [address] [place] [address] Honey Howard Psychiatrist Name of Psychiatrist: Piedad Dueñas [facility] Date of Appointment with Psychiatrist: 08/10/18 Time of Appointment with Psychiatrist: 4pm Psychiatric Appointment Comment: Also the date for your next scheduled injection, [address] Therapist Name of Therapist: Lissette at the [facility] in 2 weeks Therapist's Phone Number: [phone] Date of Therapist Appointment: 07/28/18 Time of Therapist Appointment: 2:15pm Gas Pro[facility] Name of Gas Prover: DALI Garland Phone Number for Gas Prover: [phone] Date of Appointment with Gas Prover: 07/26/18 Time of Appointment with Gas Prover: 10:30 Case Management Appointment Comment: At your residence, she can also help you figure out a plan for psych rehab Contact Information Discharge Discharge [address]: [address] [place] [address] CPT Code CPT Code 41861 (1) Schizoaffective disorder Schizoaffective disorder type: unspecified Qualified Code(s): F25.9 - Schizoaffective disorder, unspecified
[2018-07-19] MEDS: ESCITALOPRAM OXALATE 20 MG TAB PO SCH (21:02)
[2018-07-20] MEDS: HALOPERIDOL 5 MG TAB PO SCH ×2 (08:15→21:17)
[2018-07-20] MEDS: FLUTICASONE/SALMETEROL 250/50 (ADVAIR) 14 PUFF/1 INHALER INH SCH ×2 (08:15→21:17)
[2018-07-20] MEDS: MULTIVITAMIN TAB PO SCH (08:16)
[2018-07-20] MEDS: lamoTRIgine 25 MG TAB PO SCH (08:16)
[2018-07-20] MEDS: FERROUS SULFATE 325 MG TAB PO SCH (08:16)
[2018-07-20] MEDS: PANTOprazole 40 MG TAB PO SCH (08:16)
[2018-07-20] MEDS: NICOTINE 21 MG/24 HR TDSY TD SCH (08:17)
--- NOTE | 2018-07-20 10:17 | Psychiatric Progress Note ---
Date of Service July 20, 2018 Impression / Recommendations Impression 37-year-old woman with schizoaffective disorder who was admitted voluntarily for severe anxiety and inability to function at home. She has had decreased appetite and p.o. intake with ~25lb weight loss, but is eating some of each meal here with encouragement. She continues to report anxiety about her family's upcoming move, and has been retreating to bed as a way to cope. She has been able to attend and participate in some groups, and we will need to continue to encourage her to be out of her room and working on healthy coping skills. (1) Schizoaffective disorder: 07/18 - Confirm accurate home med list, and reorder - Consider increasing Lamictal - Assist the patient to reestablish structure to her day - Family meeting with after the move - Obtain OP records from [facility] - Q 15 min checks for safety - Encourage participation in group and individual counseling - Safety planning - Encourage the patient to use healthy coping strategies. 07/19 - Outpatient records from [facility] have been requested but not yet received in order to clarify recent medication adjustments. - She is on Abilify Maintena, and fasting labs were reviewed for monitoring on an atypical antipsychotic: Last done 05/18/2018, fasting glucose 102, fasting lipid profile within normal limits. - Continue current medications - Encourage patient to be out of her room and participating in programming, with a focus on coping skills for anxiety. - She is refusing a family meeting with her . - Coordinate care with her therapist, Lissette, at the [facility] in [place]. Unclear if she has a pillowcase cutter, but she may require transfer as she is moving from [facility] to [facility] 07/20 -Continue current medications including prolonging her lorazepam and halo peridol tapers due to severity of anxiety. Inventory Assets Strengths: Good support from family, has consistent outpatient providers Needs: Healthy coping strategies Risk Factors Assessment Male: No : Yes Do You Have Access To A Gun?: No Health Problems: No Mental Health Diagnoses: Yes Substance Use Disorders: No Previous Attempt: Yes Family History of Suicide: No Previous Psychiatric Hospitalization: Yes Hopelessness: No Smoker: Yes Protective Factors Assessment : Yes Responsible for Young Children: Yes Employed: No (Disabled) Stable Relationships: Yes Supportive Family: Yes Good Rapport with Provider: Yes Interval History Identifying Information RASHIDA MEZA is a 37-year-old female from [place] who has a history of schizoaffective disorder and was admitted to our unit voluntarily on 07/17/2018 for severe anxiety, disorganized thoughts, and inability to function. Chief Complaint "Scared". Review of Systems Sleep Information Total Hours of Sleep: 7 Sleep Comments: pt on q-15 minute checks Meal Information Percent Meal Consumed - Breakfast: 85 Percent Meal Consumed - Lunch: 75 Percent Meal Consumed - Dinner: 90 Subjective Subjective Patient was seen & assessed and interval progress reviewed with Treatment Team. Staff report she is attending some groups, but at times retreats to bed, reporting severe anxiety. On my assessment she reports feeling "iffy," "my insides are shaky." She states she feels "scared" but cannot clarify. Denies feeling unsafe or in danger, SI and HI. Cannot identify stressors, but when asked if the move is stressful, she says yes. She reports fair appetite and sleep. She cannot think of anything that alleviates her anxiety, but when asked states going to groups and talking helps. She does miss her family. Physical Exam Psychiatric Orientation: alert and cooperative Apperance: appropriately dressed; + did not appear stated age Eye Contact: + fair eye contact Motor Behavior: steady gait and station and no abnormal motor movements Speech is minimal, halting. Affect: + anxious affect, + constricted affect and mood congruent with affect "Scared." Thought Process: + concrete thought process Gives short, vague answers Paucity of thought content Suicidal Thoughts: denies suicidal thoughts Homicidal Thoughts: denies homicidal thoughts Hallucinations: no auditory hallucinations and no visual hallucinations Cognition: language grossly intact; + recent memory not intact, + remote memory not intact and + attention not intact Insight: + impaired insight Judgement: + impaired judgement Vital Signs (Past 24 Hours) Last Vital Signs Temp 36.4 C L 07/20/18 06:54 Pulse 79 07/20/18 06:55 Resp 16 07/20/18 06:54 BP 107/71 07/20/18 06:55 Pulse Ox 96 07/17/18 12:02 Results & Data Current Inpatient Medications Current Inpatient Medications: Current Inpatient Medications Acetaminophen (Tylenol) 650 mg PO Q4H PRN PRN Reason: Headache or Minor Fever Stop: 08/16/18 10:55 Al Hydrox/Mg Hydrox/Simethicone (Maalox) 30 ml PO Q4H PRN PRN Reason: GI Upset Stop: 08/16/18 10:55 Bismuth Subsalicylate (Kaopectate) 15 ml PO PRN PRN PRN Reason: Loose Stool Stop: 08/16/18 10:55 Escitalopram Oxalate (Lexapro) 20 mg PO HS [facility] Stop: 08/16/18 20:59 Last Admin: 07/19/18 21:02 Dose: 20 mg Documented by: Ferrous Sulfate (Feosol) 325 mg PO DAILY [facility] Stop: 08/17/18 08:59 Last Admin: 07/20/18 08:16 Dose: 325 mg Documented by: Haloperidol (Haldol) 5 mg PO BID [facility] Stop: 08/16/18 20:59 Last Admin: 07/20/18 08:15 Dose: 5 mg Documented by: Hydroxyzine HCl (Vistaril) 25 mg PO Q4H PRN PRN Reason: Anxiety Stop: 08/16/18 10:55 Hydroxyzine HCl (Vistaril) 50 mg PO HSZ PRN PRN Reason: Insomnia Stop: 08/16/18 10:55 Lamotrigine (Lamictal) 50 mg PO QAM [facility] Stop: 08/18/18 08:59 Last Admin: 07/20/18 08:16 Dose: 50 mg Documented by: Lorazepam (Ativan) 0.5 mg PO BID PRN PRN Reason: Anxiety Stop: 08/16/18 11:00 Magnesium Hydroxide (Milk Of Magnesia) 30 ml PO DAILY PRN PRN Reason: Heartburn Stop: 08/16/18 10:55 Miscellaneous (Remove Nicoderm Patch) 1 ea N/A HS [facility] Stop: 08/16/18 21:59 Last Admin: 07/19/18 21:16 Dose: Not Given Documented by: Multivitamins (Multivitamin Tab) 1 tab PO DAILY [facility] Stop: 08/17/18 08:59 Last Admin: 07/20/18 08:16 Dose: 1 tab Documented by: Nicotine (Nicoderm Cq) 21 mg TD QAM [facility] Stop: 08/16/18 13:44 Last Admin: 07/20/18 08:17 Dose: Not Given Documented by: Pantoprazole Sodium (Protonix) 40 mg PO DAILY [facility] Stop: 08/17/18 08:59 Last Admin: 07/20/18 08:16 Dose: 40 mg Documented by: Fluticasone/Salmeterol (Advair Diskus 250/50) 1 puffs INH BID [facility] Stop: 08/16/18 20:59 Last Admin: 07/20/18 08:15 Dose: 1 puffs Documented by: Sodium Chloride ([place] Nasal) 1 - 2 sprays NA PRN PRN PRN Reason: Nasal Dryness/Congestion Stop: 08/16/18 10:55 Post Discharge Appointments Primary Care Physician Name Of Family Doctor: Dr. Haynes Primary [facility] Time of Appointment with PCP: Please schedule follow ups as needed Provider Appointment Comment: [address] [place] [address] Honey Howard Psychiatrist [facility] Date of Appointment with Psychiatrist: 08/10/18 Time of Appointment with Psychiatrist: 4 pm (your next injection is at this appointment) Psychiatric Appointment Comment: Ruthie Dumont Therapist Name of Therapist: [facility] Therapist's Date of Therapist Appointment: 07/28/18 Time of Therapist Appointment: 2:15 pm Therapy Appointment Comment: [address] [facility] [place] [id number] Sales Officer Name of Sales Officer: DALI Al Phone Number for Sales Officer: [phone] Date of Appointment with Sales Officer: 07/26/18 Time of Appointment with Sales Officer: 10:30 a.m. Case Management Appointment Comment: At your residence, she can also help you figure out a plan for psych rehab Contact Information Discharge Discharge Address: [address] [place] [id number] CPT Code CPT Code 58994 (1) Schizoaffective disorder Schizoaffective disorder type: unspecified Qualified Code(s): F25.9 - Schizoaffective disorder, unspecified
[2018-07-20] MEDS: ESCITALOPRAM OXALATE 20 MG TAB PO SCH (21:17)
[2018-07-21] MEDS: FLUTICASONE/SALMETEROL 250/50 (ADVAIR) 14 PUFF/1 INHALER INH SCH ×2 (08:53→21:38)
[2018-07-21] MEDS: FERROUS SULFATE 325 MG TAB PO SCH (08:53)
[2018-07-21] MEDS: MULTIVITAMIN TAB PO SCH (08:56)
[2018-07-21] MEDS: HALOPERIDOL 5 MG TAB PO SCH ×2 (08:56→21:39)
[2018-07-21] MEDS: lamoTRIgine 25 MG TAB PO SCH (08:56)
[2018-07-21] MEDS: PANTOprazole 40 MG TAB PO SCH (08:57)
[2018-07-21] MEDS: NICOTINE 21 MG/24 HR TDSY TD SCH (09:05)
--- NOTE | 2018-07-21 09:24 | Psychiatric Progress Note ---
Date of Service July 21, 2018 Impression / Recommendations Impression 37-year-old woman with schizoaffective disorder who was admitted voluntarily for severe anxiety and inability to function at home. Reports some improvement in appetite, but is unable to verbalize any other positive changes in regard to symptoms of depression or anxiety. Anxiety continues to drive her ambivalence and she is appearing to be decompensating in the last few days. Engagement in groups has been poor and she has appeared more depressed. Will continue to invite participate and encourage patient to remain out of bed and attending group programming. Patient is not able to convincingly suggest ability for improved functioning in the outpatient setting, and at this time is reported to appear worse than initial admission. Due to this, she is at high risk of inability to care for self if discharged prematurely, and is at even higher risk for further decompensation, therefore, requiring ongoing inpatient mental health treatment. (1) Schizoaffective disorder: 07/18 - Confirm accurate home med list, and reorder - Consider increasing Lamictal - Assist the patient to reestablish structure to her day - Family meeting with after the move - Obtain OP records from [facility] - Q 15 min checks for safety - Encourage participation in group and individual counseling - Safety planning - Encourage the patient to use healthy coping strategies. 07/19 - Outpatient records from [facility] have been requested but not yet received in order to clarify recent medication adjustments. - She is on Abilify Maintena, and fasting labs were reviewed for monitoring o n an atypical antipsychotic: Last done 05/18/2018, fasting glucose 102, fasting lipid profile within normal limits. - Continue current medications - Encourage patient to be out of her room and participating in programming, with a focus on coping skills for anxiety. - She is refusing a family meeting with her . - Coordinate care with her therapist, Lissette, at the [facility] in [place]. Unclear if she has a caseworker intake, but she may require transfer as she is moving from [facility] to [facility] 5/1 -Continue current medications including prolonging her lorazepam and haloperidol tapers due to severity of anxiety. 5/2 - Continue current medication regimen, continues to be severely anxious - Encourage group participation and individual counseling as indicated to process stressors Inventory Assets Strengths: Good support from family, has consistent outpatient providers Needs: Healthy coping strategies Risk Factors Assessment Male: No : Yes Do You Have Access To A Gun?: No Health Problems: No Mental Health Diagnoses: Yes Substance Use Disorders: No Previous Attempt: Yes Family History of Suicide: No Previous Psychiatric Hospitalization: Yes Hopelessness: No Smoker: Yes Protective Factors Assessment : Yes Responsible for Young Children: Yes Employed: No (Disabled) Stable Relationships: Yes Supportive Family: Yes Good Rapport with Provider: Yes Interval History Identifying Information RASHIDA MEZA is a 37-year-old female from [place] who has a history of schizoaffective disorder and was admitted to our unit voluntarily on 07/17/2018 for severe anxiety, disorganized thoughts, and inability to function. Chief Complaint "I don't know...not really any better." Review of Systems Notes Constitutional: reports low energy and fatigue Cardiovascular: denied Respiratory: denied Gastrointestinal: denied Neurological: denied Psychiatric: denies symptoms other than stated above Total of at least 10 systems reviewed, pertinent positives as above and in HPI. Sleep Information Total Hours of Sleep: 9.75 Sleep Comments: pt on q-15 minute checks Meal Information Percent Meal Consumed - Breakfast: 20 Percent Meal Consumed - Lunch: 20 Percent Meal Consumed - Dinner: 10 Subjective Subjective Patient was seen & assessed and interval progress reviewed with Nursing. Staff report the patient has been appearing more depressed over the past few days, seeming to be less engaged on the unit. The patient has also reported to staff that her does not feel that she is functioning at an improved level. Patient is seen today to assess progress since admission. She provides vague and ambivalent answers for the majority of the questions, stating she does not feel that her mood or functioning have improved and she is unsure about her ability to care for herself at home. Patient stated that her mood continues to be low and that energy level has not changed. She is unable to voice any specific needs or particular concerns we can better target in her treatment. When asked about her thoughts on her ability to function at home should she be discharged, the patient states "I do not know, I do not feel any better." The patient states she has had phone conversations with her and he is reported concern that she does not sound as though she has improved. Patient denies specific safety concerns, but is not able to verbalize any specific plans to improve her functioning on an outpatient basis. She denies any other specific needs or concerns today. Physical Exam Psychiatric Orientation: alert, oriented x 3 and cooperative Apperance: appropriately dressed and + disheveled (somewhat discheveled this morning); + did not appear stated age (appearing older) Eye Contact: + fair eye contact Motor Behavior: steady gait and station, no abnormal motor movements and + psychomotor retardation Speech: normal rate/rhythm/volume of speech (speech is minimally productive, and somewhat slowed) Affect: + anxious affect, + flat affect, + constricted affect and mood congruent with affect Mood: + depressed mood ("no different, still low") Thought Process: goal directed thought process and + concrete thought process Thought Content: reality based without delusions Suicidal Thoughts: denies suicidal thoughts Homicidal Thoughts: denies homicidal thoughts Hallucinations: no auditory hallucinations and no visual hallucinations Cognition: language grossly intact; + recent memory not intact, + remote memory not intact and + attention not intact Estimated Intelligence: consistent with education level Insight: + impaired insight Judgement: + impaired judgement Vital Signs (Past 24 Hours) Last Vital Signs Temp 36.7 C 07/21/18 06:57 Pulse 80 07/21/18 06:58 Resp 18 07/21/18 06:57 BP 121/85 07/21/18 06:58 Pulse Ox 96 07/17/18 12:02 Results & Data Laboratory Results Laboratory Results - last 24 hr 07/17/18 08:55 U Marijuana THC Carboxy 99 A Current Inpatient Medications Current Inpatient Medications: Current Inpatient Medications Acetaminophen (Tylenol) 650 mg PO Q4H PRN PRN Reason: Headache or Minor Fever Stop: 08/16/18 10:55 Al Hydrox/Mg Hydrox/Simethicone (Maalox) 30 ml PO Q4H PRN PRN Reason: GI Upset Stop: 08/16/18 10:55 Bismuth Subsalicylate (Kaopectate) 15 ml PO PRN PRN PRN Reason: Loose Stool Stop: 08/16/18 10:55 Escitalopram Oxalate (Lexapro) 20 mg PO HS [facility] Stop: 08/16/18 20:59 Last Admin: 07/20/18 21:17 Dose: 20 mg Documented by: Ferrous Sulfate (Feosol) 325 mg PO DAILY [facility] Stop: 08/17/18 08:59 Last Admin: 07/21/18 08:53 Dose: 325 mg Documented by: Haloperidol (Haldol) 5 mg PO BID [facility] Stop: 08/16/18 20:59 Last Admin: 07/21/18 08:56 Dose: 5 mg Documented by: Hydroxyzine HCl (Vistaril) 25 mg PO Q4H PRN PRN Reason: Anxiety Stop: 08/16/18 10:55 Hydroxyzine HCl (Vistaril) 50 mg PO HSZ PRN PRN Reason: Insomnia Stop: 08/16/18 10:55 Lamotrigine (Lamictal) 50 mg PO QAM [facility] Stop: 08/18/18 08:59 Last Admin: 07/21/18 08:56 Dose: 50 mg Documented by: Lorazepam (Ativan) 0.5 mg PO BID PRN PRN Reason: Anxiety Stop: 08/16/18 11:00 Last Admin: 07/20/18 17:30 Dose: 0.5 mg Documented by: Magnesium Hydroxide (Milk Of Magnesia) 30 ml PO DAILY PRN PRN Reason: Heartburn Stop: 08/16/18 10:55 Miscellaneous (Remove Nicoderm Patch) 1 ea N/A HS [facility] Stop: 08/16/18 21:59 Last Admin: 07/20/18 21:19 Dose: Not Given Documented by: Multivitamins (Multivitamin Tab) 1 tab PO DAILY [facility] Stop: 08/17/18 08:59 Last Admin: 07/21/18 08:56 Dose: 1 tab Documented by: Nicotine (Nicoderm Cq) 21 mg TD QAM [facility] Stop: 08/16/18 13:44 Last Admin: 07/21/18 09:05 Dose: Not Given Documented by: Pantoprazole Sodium (Protonix) 40 mg PO DAILY [facility] Stop: 08/17/18 08:59 Last Admin: 07/21/18 08:57 Dose: 40 mg Documented by: Fluticasone/Salmeterol (Advair Diskus 250/50) 1 puffs INH BID [facility] Stop: 08/16/18 20:59 Last Admin: 07/21/18 08:53 Dose: 1 puffs Documented by: Sodium Chloride ([place] Nasal) 1 - 2 sprays NA PRN PRN PRN Reason: Nasal Dryness/Congestion Stop: 08/16/18 10:55 Post Discharge Appointments Primary Care Physician Name Of Family Doctor: Dr. Haynes Primary Care Time of Appointment with PCP: Please schedule follow ups as needed Provider Appointment Comment: [address] [place] [address] Honey Howard Psychiatrist Name of Psychiatrist: [facility] Psych[facility]rist's Date of Appointment with Psychiatrist: 08/10/18 Time of Appointment with Psychiatrist: 4 pm (your next injection is at this appointment) Psychiatric Appointment Comment: Ruthie Dumont Therapist Name of Therapist: [facility] Therapist's Date of Therapist Appointment: 07/28/18 Time of Therapist Appointment: 2:15 pm Therapy Appointment Comment: [address] [facility] [place] [address] Technical Illustrator Name of Technical Illustrator: DALI Al Phone Number for Technical Illustrator: [phone] Date of Appointment with Technical Illustrator: 07/26/18 Time of Appointment with Technical Illustrator: 10:30 a.m. Case Management Appointment Comment: At your residence, she can also help you figure out a plan for psych rehab Contact Information Discharge Discharge Address: [address] [place] [address] [place] [id number] CPT Code CPT Code 76588 (1) Schizoaffective disorder Schizoaffective disorder type: unspecified Qualified Code(s): F25.9 - Schizoaffective disorder, unspecified
[2018-07-21] MEDS: ESCITALOPRAM OXALATE 20 MG TAB PO SCH (21:39)
[2018-07-22] MEDS: HALOPERIDOL 5 MG TAB PO SCH (08:36)
[2018-07-22] MEDS: MULTIVITAMIN TAB PO SCH (08:36)
[2018-07-22] MEDS: PANTOprazole 40 MG TAB PO SCH (08:36)
[2018-07-22] MEDS: FERROUS SULFATE 325 MG TAB PO SCH (08:36)
[2018-07-22] MEDS: lamoTRIgine 25 MG TAB PO SCH (08:36)
[2018-07-22] MEDS: FLUTICASONE/SALMETEROL 250/50 (ADVAIR) 14 PUFF/1 INHALER INH SCH (08:37)
[2018-07-22] MEDS: NICOTINE 21 MG/24 HR TDSY TD SCH (08:37)
--- NOTE | 2018-07-22 15:50 | Discharge Summary ---
Date of Service July 22, 2018 History of Present Illness The patient is well-known to our unit from multiple hospitalizations, most recently in April to May of this year. At that time she was poorly functional, not taking care of herself, was admitted disheveled and malodorous and poorly communicative. Although there is some similarity to this admission, at this point she is at least taking care of herself and communicating. Her has been reported that she has been spending a great deal of time on the couch, not taking care of necessary activities for she and the family. The primary stressor is that they are moving to a new house with the official move date today. She has felt overwhelmed with this task, not able to meet deadlines and feeling badly. She has been anticipating this move for several months and has had vegetative symptoms for the last 2 months including poor appetite having lost approximately 25 pounds per 's report, over the last 2 months. As she has deteriorated, he felt she needed more intensive attention and so brought her to our emergency department. At the time I see the patient she is lying in bed but is easily awakened to verbal and cooperative with conversation. she admits that she has been over whelmed with the move, specifically not being able to meet deadlines. She describes that her mood has been "eh", but denies that she has been feeling suicidal. She indicates that she has felt "tired" and admits to spending a great deal of time on the couch. She admits to high anxiety that elevates to the level of panic when she recognizes she is not getting things done. During these times she feels overwhelmed and short of breath. She denies any self- injurious behaviors. She denies auditory or visual hallucinations. She denies delusions or fears for her safety. She says that she has been taking her medications regularly although is not able to say what her current medications include Physical Exam Psychiatric Orientation: oriented x 3 Apperance: appropriately dressed and appropriately groomed Eye Contact: + fair eye contact Motor Behavior: no abnormal motor movements Speech: normal rate/rhythm/volume of speech Affect: + blunted affect "Okay." Thought Process: linear/logical thought process Thought Content: reality based without delusions Suicidal Thoughts: denies suicidal thoughts Homicidal Thoughts: denies homicidal thoughts Hallucinations: no auditory hallucinations and no visual hallucinations Cognition: recent memory grossly intact, remote memory grossly intact, attention grossly intact and language grossly intact Estimated Intelligence: average estimated intelligence Insight: + fair insight Judgement: + fair judgement Vital Signs (Past 24 Hours) Last Vital Signs Temp 36.7 C 07/22/18 15:16 Pulse 81 07/22/18 15:16 Resp 16 07/22/18 15:16 BP 120/66 07/22/18 15:16 Pulse Ox 96 07/22/18 15:16 Principal Diagnosis Schizoaffective disorder. Psychiatric Data During the course of hospitalization the patient was offered various modalities psychiatric treatment and education. She describes feeling "confused" and "stressed out" at admission and during the first several days of her stay. However, these symptoms cleared fairly rapidly. She was not an active participant in treatment, but did not hear with her prescribed medications and, at times, with group and activity therapies. There was some suspicion among the staff that her admission may have been arranged by the family for logistic reas ons, but this was never clarified. In any event, the patient did report that she felt "much better," and our observation was that she was fairly bright from this is although still somewhat constricted), animated, engaging, and reality based. The patient's thought process is demonstrated tight associations. There is no evidence of any delusional material and the patient's thought content, and she reported that she was not experiencing any perceptual disturbances. Also, the patient consistently denied any suicidal or homicidal thoughts. No substantial changes in the patient's medication regimen were made during the hospital sta. The patient's improvement may have been a functional regular administration of the medications, but the patient insists that she was taking all medications as prescribed in the community prior to the admission. The patient's was contacted and he indicated that he agreed that the patient's condition had improved to the degree that he felt comfortable bringing her home, with the understanding that she would continue in treatment on an outpatient basis. Her dose of lamotrigine is currently 50 mg a day and will need to be titrated on an outpatient basis, as tolerated. She will continue haloperidol and Lexapro without change. The patient's dose of lorazepam was tapered to 0.5 mg daily and was then discontinued. Day of Discharge Assessment The patient reported that she was feeling "much better" after initially complaining of feeling confused and anxious. She was able to fully cooperate with the discharge examination. Her thought processes demonstrated tight associations. Her speech was spontaneous and delivered of normal rate and volume. The patient's affect was somewhat constricted, but she smiled appropriately a number of times and was fairly animated. The patient describes her mood as being "okay. Pretty good." There is no evidence of any delusional material and the patient's thought content. She reports that she has not been experiencing any perceptual disturbances. She does report that she is aware that she carries a diagnosis of schizoaffective disorder and needs to adhere with prescribed medications in order to remain stable and achieve recovery. The patient's insight and judgment are at least fair. Transition of Care Transition Of Care Record: was reviewed with the patient Advance Directives Advance Directives Information Provided: No Advance Directives: No Mental Health Advance Directive: No Advance Directives on File: No Living Will: No Power of Manager Camp: No Advance Directives Reason:: Declines as Mental Health Visit. Risk Factors Assessment Male: No : Yes Do You Have Access To A Gun?: No Health Problems: No Mental Health Diagnoses: Yes Substance Use Disorders: No Previous Attempt: Yes Family History of Suicide: No Previous Psychiatric Hospitalization: Yes Hopelessness: No Smoker: Yes Protective Factors Assessment : Yes Responsible for Young Children: Yes Employed: No (Disabled) Stable Relationships: Yes Supportive Family: Yes Good Rapport with Provider: Yes Tobacco Cessation at Discharge Tobacco Cessation Medication Prescribed at Discharge: Offered & Prescribed Antipsychotic Medications Patient has been prescribed haloperidol and is aware of the material risks and anticipated benefits. Total Time Total Time Spent: Greater Than 30 Minutes Total Time Includes: Examination of the patient, Discharge Planning, Medication Reconciliation and Communication with other providers Discharge Data Lab Results 07/17/18 07/17/18 07/17/18 08:55 08:55 08:55 WBC RBC Hgb Hct MCV MCH MCHC RDW Std Deviation RDW Coeff of Zuhair Plt Count MPV Immature Gran % (Auto) Neut % (Auto) Lymph % (Auto) Brooks % (Auto) Eos % (Auto) Baso % (Auto) Immature Gran # (Auto) Neut # (Auto) Lymph # (Auto) Brooks # (Auto) Eos # (Auto) Baso # (Auto) Sodium Potassium Chloride Carbon Dioxide Anion Gap BUN Creatinine Est Cr Clr Drug Dosing Est GFR ( Amer) Est GFR (Non-Af Amer) BUN/Creatinine Ratio Glucose Calcium Total Bilirubin AST ALT Alkaline Phosphatase Total Protein Albumin Globulin Albumin/Globulin Ratio TSH Urine Color Yellow Urine Appearance Turbid H Urine pH 6.0 Ur Specific [place] 1.014 Urine Protein Negative Urine Glucose (UA) Negative Urine Ketones Negative Urine Blood 1+ H Urine Nitrite Negative Urine Bilirubin Negative Urine Urobilinogen Negative Ur Leukocyte Esterase 2+ H Urine WBC (Auto) >30 H Urine RBC (Auto) 5-10 H U Hyaline Cast (Auto) 5-10 H U Epithel Cells (Auto) >30 H Urine Bacteria (Auto) 4+ H Urine Yeast Not Reportable POC Ur Test NEG Urine Opiates Screen Neg Ur Methadone, Qual Neg Urine Barbiturates Neg Ur Phencyclidine (PCP) Neg U Amphetamin/Meth Scrn Neg MDMA (Ecstasy) Screen Neg U Benzodiazepines Scrn Neg Ur Cocaine Metabolite Neg U Marijuana (THC) Screen Pos H U Marijuana THC Carboxy Ethyl Alcohol mg/dL 07/17/18 07/17/18 07/17/18 08:55 09:19 09:19 WBC 8.15 RBC 4.88 Hgb 14.9 Hct 42.7 MCV 87.5 MCH 30.5 MCHC 34.9 RDW Std Deviation 44.6 RDW Coeff of Zuhair 13.9 Plt Count 216 MPV 11.8 H Immature Gran % (Auto) 0.1 Neut % (Auto) 76.6 Lymph % (Auto) 14.5 Brooks % (Auto) 8.0 Eos % (Auto) 0.7 Baso % (Auto) 0.1 Immature Gran # (Auto) 0.01 Neut # (Auto) 6.24 Lymph # (Auto) 1.18 L Brooks # (Auto) 0.65 H Eos # (Auto) 0.06 Baso # (Auto) 0.01 Sodium 142 Potassium 3.4 L Chloride 110 H Carbon Dioxide 25 Anion Gap 7.0 BUN 6 L Creatinine 0.76 Est Cr Clr Drug Dosing 94.9 Est GFR ( Amer) 115.3 Est GFR (Non-Af Amer) 99.5 BUN/Creatinine Ratio 7.2 L Glucose 108 H Calcium 9.8 Total Bilirubin 0.3 AST 14 L ALT 21 Alkaline Phosphatase 77 Total Protein 7.2 Albumin 3.7 Globulin 3.5 Albumin/Globulin Ratio 1.1 TSH 0.479 Urine Color Urine Appearance Urine pH Ur Specific [place] Urine Protein Urine Glucose (UA) Urine Ketones Urine Blood Urine Nitrite Urine Bilirubin Urine Urobilinogen Ur Leukocyte Esterase Urine WBC (Auto) Urine RBC (Auto) U Hyaline Cast (Auto) U Epithel Cells (Auto) Urine Bacteria (Auto) Urine Yeast POC Ur Test Urine Opiates Screen Ur Methadone, Qual Urine Barbiturates Ur Phencyclidine (PCP) U Amphetamin/Meth Scrn MDMA (Ecstasy) Screen U Benzodiazepines Scrn Ur Cocaine Metabolite U Marijuana (THC) Screen U Marijuana THC Carboxy 99 A Ethyl Alcohol mg/dL 07/17/18 09:19 WBC RBC Hgb Hct MCV MCH MCHC RDW Std Deviation RDW Coeff of Zuhair Plt Count MPV Immature Gran % (Auto) Neut % (Auto) Lymph % (Auto) Brooks % (Auto) Eos % (Auto) Baso % (Auto) Immature Gran # (Auto) Neut # (Auto) Lymph # (Auto) Brooks # (Auto) Eos # (Auto) Baso # (Auto) Sodium Potassium Chloride Carbon Dioxide Anion Gap BUN Creatinine Est Cr Clr Drug Dosing Est GFR ( Amer) Est GFR (Non-Af Amer) BUN/Creatinine Ratio Glucose Calcium Total Bilirubin AST ALT Alkaline Phosphatase Total Protein Albumin Globulin Albumin/Globulin Ratio TSH Urine Color Urine Appearance Urine pH Ur Specific [place] Urine Protein Urine Glucose (UA) Urine Ketones Urine Blood Urine Nitrite Urine Bilirubin Urine Urobilinogen Ur Leukocyte Esterase Urine WBC (Auto) Urine RBC (Auto) U Hyaline Cast (Auto) U Epithel Cells (Auto) Urine Bacteria (Auto) Urine Yeast POC Ur Test Urine Opiates Screen Ur Methadone, Qual Urine Barbiturates Ur Phencyclidine (PCP) U Amphetamin/Meth Scrn MDMA (Ecstasy) Screen U Benzodiazepines Scrn Ur Cocaine Metabolite U Marijuana (THC) Screen U Marijuana THC Carboxy Ethyl Alcohol mg/dL < 3.0 Hospital Course (1) Schizoaffective disorder: 07/18 - Confirm accurate home med list, and reorder - Consider increasing Lamictal - Assist the patient to reestablish structure to her day - Family meeting with after the move - Obtain OP records from [facility] - Q 15 min checks for safety - Encourage participation in group and individual counseling - Safety planning - Encourage the patient to use healthy coping strategies. 07/19 - Outpatient records from [facility] have been requested but not yet received in order to clarify recent medication adjustments. - She is on Abilify Maintena, and fasting labs were reviewed for monitoring on an atypical antipsychotic: Last done 05/18/2018, fasting glucose 102, fasting lipid profile within normal limits. - Continue current medications - Encourage patient to be out of her room and participating in programming, with a focus on coping skills for anxiety. - She is refusing a family meeting with her . - Coordinate care with her therapist, Lissette, at the [facility] in [place]. Unclear if she has a case preparer and liner, but she may require transfer as she is moving from [facility] to [facility] 5/1 -Continue current medications including prolonging her lorazepam and haloperidol tapers due to severity of anxiety. 5/2 - Continue current medication regimen, continues to be severely anxious - Encourage group participation and individual counseling as indicated to process stressors 5 -The patient's anxiety has largely resolved at this point. -The patient's dose of lorazepam was tapered to 0.5 mg daily and was then discontinued. A concern is that lorazepam may have been contributing to the patient's confusion and other presenting symptoms. -The patient will continue haloperidol 5 mg twice daily and Lexapro 20 mg daily. She will also continue lamotrigine 50 mg daily, and we are recommending that her dose of lamotrigine the increased gradually, and as tolerated, on an outpatient basis. Post Discharge Appointments Primary Care Physician Name Of Family Doctor: Dr. Haynes [facility] Time of Appointment with PCP: Please schedule follow ups as needed Provider Appointment Comment: [address] [place] [address] [facility] Release of Information: Obtained, Reviewed and Signed Psychiatrist Name of Psychiatrist: [facility] Psychiatrist's Date of Appointment with Psychiatrist: 08/10/18 Time of Appointment with Psychiatrist: 4 pm (your next injection is at this appointment) Psychiatric Appointment Comment: Ruthie Dumont Psychiatrist Release of Information: Obtained, Reviewed and Signed Therapist Name of Therapist: [facility] - Lissette Therapist's Date of Therapist Appointment: 07/28/18 Time of Therapist Appointment: 2:15 pm Therapy Appointment Comment: [address], [place] [address] Therapist Release of Information: Obtained, Reviewed and Signed Internet Marketing Director Name of Internet Marketing Director: DALI Ragsdale Krystal Al Phone Number for Internet Marketing Director: [phone] Date of Appointment with Internet Marketing Director: 07/26/18 Time of Appointment with Internet Marketing Director: 10:30 a.m. Case Management Appointment Comment: At your residence, she can also help you figure out a plan for psych rehab Internet Marketing Director Release of Information: Obtained, Reviewed and Signed Smoking Cessation Counseling Tobacco Cessation Medication Prescribed at Discharge: Offered & Prescribed Contact Information Discharge Discharge Address: [address] [place], [place] [id number] Discharge Plan Discharge Items Patient Disposition: Home - Self-Care Reason For Visit: SCHIZOAFFECTIVE DISORDER Discharge Diagnosis: SCHIZOAFFECTIVE DISORDER Discharge Goals: Improve disease control, Improve function, Increase independence and Learn about illness Activity: Resume your previous activity Non-emergency contact: Psychiatrist, Therapist and Architectural Designer Call non-emergency contact if: you have any medication questions and your symptoms worsen Follow-up/Referrals: PCP,NO [Primary Care Provider] - Diet: Regular Addtl Provider Instructions: Review your safety plan daily. Prescriptions: New haloperidol 5 mg Tablet 5 mg PO BID Qty: 60 RF: 0 lamotrigine 25 mg Tablet 50 mg PO QAM Qty: 30 RF: 0 escitalopram oxalate 20 mg Tablet 20 mg PO HS Qty: 30 RF: 0 Continued multivitamin Tablet 1 tab PO DAILY RF: 0 fluticasone propion-salmeterol [Advair Diskus] 250-50 mcg/dose Blister With Device 1 inh INHALATION BID RF: 0 ferrous sulfate 325 mg (65 mg iron) Tablet 325 mg PO DAILY RF: 0 omeprazole 20 mg capsule,delayed release(DR/EC) 20 mg PO DAILY RF: 0 Discontinued escitalopram oxalate 20 mg tablet 20 mg PO HS RF: 0 lamotrigine 25 mg Tablet 25 mg PO QAM Qty: 30 RF: 0 hydroxyzine HCl 25 mg Tablet 50 mg PO HSZ PRN (Reason: Sleep) Qty: 30 RF: 0 benztropine 2 mg tablet 2 mg PO DAILY Qty: 30 RF: 0 Abilify Maintena 400 mg suspension,extended rel syring 400 mg IM Q4WK RF: 0 lorazepam 1 mg tablet 0.5 mg PO DAILY PRN (Reason: Anxiety) RF: 0 Visit Report Forms: Smoking Cessation Stand-Alone Forms: [facility] Discharge Orders: Discharge Order (Routine); Ordered 07/22/18 Ordered By: Ha Russell Admission Data Admit Date/Time: 07/17/18 10:57 Attending Provider: Terese Banegas Admit Provider: Terese Banegas Primary Care Provider: PCP,RODOLFO Service: Psychiatry Other Interventions: Discharge Summary Assessment (RN) Last Done: 07/22/18 15:16 PSY Interdisciplinary Discharge Planning Last Done: 07/22/18 11:07 Pending Studies at Discharge: No
== END 2018-07-22 16:30 | disposition home or self-care (01) | DRG 885 ==
LOC: ED 08:28 → 3S 10:57